=== PATIENT | female | born 1970 | race Caucasian/White ===

== ENCOUNTER 2017-09-13 01:40 | Emergency (ER) | payer MEDICAID, MEDICARE ==
[2017-09-13] MEDS ORDERED: Metoprolol Tartrate TAB* 50 mg PO ONE (02:55)
[2017-09-13] MEDS ORDERED: Lisinopril TAB* 10 MG PO ONE (02:56)
[2017-09-13 03:38] LABS: ABS Basophils 0 10^3/ul (0-0.2); ABS Eosinophils 0 10^3/ul (0-0.6); ABS Lymphocytes 0.6 10^3/ul (1.0-4.8); ABS Monocytes 0.6 10^3/ul (0-0.8); ABS Neutrophils 7.1 10^3/ul (1.5-7.7); ABS Nucleated RBC 0 10^3/ul; Eosinophil % 0.3 % (0-6); Hematocrit 46 % (35-47); Hemoglobin 15.1 g/dl (12.0-16.0); Lymphocyte % 7.2 % (25-47); Mean Corpuscular HGB Conc 33 g/dl (31-36); Mean Corpuscular Hemoglobin 29 pg (27-31); Mean Corpuscular Volume 86 fL (80-97); Mean Platelet Volume 10 um3 (7.4-10.4); Nucleated Red Blood Cells % 0.1; Platelet Count 163 10^3/ul (150-450); Red Cell Distribution Width 14 % (10.5-15); White Blood Count 8.3 10^3/ul (3.5-10.8)
[2017-09-13 03:53] LABS: EGFR Non-African American 68.9 (>60)
[2017-09-13 06:13] VITALS: BP 145/90
--- NOTE | 2017-09-13 09:24 | PN ---
Progress Note - Progress Note Date of Service: 09/12/17 Note: Patient was seen last night and placed on a new medication Lopressor. Pharmacy called who states script written for 100mg tabs, but sig states 50mg BID. I am unable to clarify, but stated at this time to fill the script at 50mg BID. Will clarify with Dr. Flores this evening and change at that time if needed.
--- NOTE | 2017-09-20 00:22 | ED ---
Fadia Aldridge Emily, scribed for Kevin Flores MD on 09/13/17 at 0257 . Palpitations / Dysrhythmia - HPI Summary HPI Summary: This patient is a 47 year old F presenting to [facility] with a chief complaint of palpitations that began at 1999 last night. The patient rates the pain 4/10 in severity. Symptoms aggravated by nothing. Symptoms alleviated by nothing. Patient reports [place], and left shoulder pain. Patient denies CP and SOB. Pt reports not having taken cardiac medications for her 6 cardiac stents. Pt reports having 3 previous AR. - History of Current Complaint Chief Complaint: EDDysrhythmPalp Hx Obtained From: Patient Onset/Duration: Sudden Onset, Lasting Hours, Still Present Severity Initially: Moderate Severity Currently: Moderate Character: Pounding Aggravating: Nothing Alleviating: Nothing - Allergy/Home Medications Allergies/Adverse Reactions: Allergies Allergy/AdvReac Type Severity Reaction Status Date / Time Meloxicam [From Mobic] Allergy Severe Anaphylatic Verified 09/13/17 01:49 Shock Ketorolac Tromethamine Allergy Intermediate Rash Verified 09/13/17 01:49 [From Toradol] Lorazepam [From Ativan] Allergy See Comment Verified 09/13/17 01:49 Penicillins [PCN] Allergy Anaphylatic Verified 09/13/17 01:49 Shock PMH/Surg Hx/FS Hx/Imm Hx Previously Healthy: No Endocrine/Hematology History: Denies: Hx Diabetes Cardiovascular History: Reports: Hx Angina, Hx Coronary Artery Disease, Hx Hypertension - ON MEDICATION Respiratory History: Denies: Other Respiratory Problems/Disorders GI History: Denies: Other GI Disorders History: Reports: Hx Kidney Infection - PRESENTLY ON CIPRO, Hx Kidney Stones , Hx Renal Disease - CALCULI, LT SIDE Denies: Hx Dialysis Musculoskeletal History: Reports: Hx Arthritis - PSORIATIC ARTHRITIS Sensory History: Denies: Hx Contacts or Glasses, Hx Hearing Aid Opthamlomology History: Denies: Hx Contacts or Glasses Neurological History: Reports: Hx Seizures Psychiatric History: Reports: Hx Anxiety - NO MEDS - Surgical History Surgery Procedure, Year, and Place: 10/05/2008 CARDIAC STENT , [place]. 2008 CARDIAC STENT, [place]. 04/2010 CARDIAC STENT, [place]. 2011 LEFT URETERAL STENT INSERTION, [facility] [place]. 2010 LEFT URETERAL STENT INSERTION, [facility] [place]. 1990 LAPAROSCOPIC TUBAL LIGATION, [facility]. 09/24/12, GIORGIO SEQUEIRA [facility] [place]. 1994 TONSILLECTOMY, [facility] [place] Hx Anesthesia Reactions: No - Immunization History Date of Tetanus Vaccine: Unk Date of Influenza Vaccine: None Infectious Disease History: No Infectious Disease History: Denies: Traveled Outside the [place] in Last 30 Days - Family History Known Family History: Negative: Other - negative malignant hyperthermia, negative adverse anesthesia reaction - Social History Occupation: Disabled Lives: With Family Alcohol Use: Rare Hx Substance Use: No Substance Use Type: Reports: None Hx Tobacco Use: Yes Smoking Status (MU): Current Every Day Smoker Review of Systems Positive: Palpitations. Negative: Chest Pain Negative: Shortness Of Breath Positive: Other - Positive L shoulder pain Positive: Headache All Other Systems Reviewed And Are Negative: Yes Physical Exam - Summary Physical Exam Summary: Appearance: Well-appearing, Well-nourished Skin: Warm, Dry, No rash Eyes: Normal, PERRL, EOMI, sclera anicteric ENT: Normal Neck: Supple, nontender Respiratory: Clear to auscultation Cardiovascular: S1, S2, no murmur, no rub, no gallop, tachycardia Abdomen: Soft, nontender, no organomegaly Bowel sounds: Present Musculoskeletal: Normal, Strength/ROM Intact, no edema, pulses symmetrical Neurological: Normal, A&Ox3, cranial nerves II-XII WNL, follows commands, gait not tested, sensation intact to pin and light touch Psychiatric: affect normal, behavior appropriate, dressed appropriately, judgment intact Triage Information Reviewed: Yes Vital Signs On Initial Exam: Initial Vitals Temp Pulse Resp BP Pulse Ox 99.1 F 121 16 212/126 95 09/13/17 01:40 09/13/17 01:40 09/13/17 01:40 09/13/17 01:40 09/13/17 01:40 Vital Signs Reviewed: Yes Diagnostics - Vital Signs Vital Signs Temp Pulse Resp BP Pulse Ox 09/13/17 01:40 99.1 F 121 16 212/126 95 - Laboratory Result Diagrams: 09/13/17 03:23 09/13/17 03:23 Lab Statement: Any lab studies that have been ordered have been reviewed, and results considered in the medical decision making process. - EKG 0152 Cardiac Rate: Tachycardia EKG Rhythm: Sinus Rhythm - 114 BPM EKG Interpretation: Old inferior wall AR Course/Dx - Course Assessment/Plan: This patient is a 47 year old F presenting to [facility] with a chief complaint of palpitations that began at 1999 last night. Physical Exam Findings. Tachycardia. An EKG taken at 0152 reveals sinus tachycardia at 114 with an old anterior wall AR. Bloodwork obtained. In the ED course the patient was given Prinivil and Lopressor. Patient will be discharged with follow up from PCP. The patient is agreeable with this plan. - Diagnoses Provider Diagnoses: Chronic hypertension Discharge - Discharge Plan Condition: Good Disposition: HOME Patient Education Materials: Chronic Hypertension (ED), DASH Eating Plan (ED), Low Sodium Diet (ED) Referrals: Kevin Curtis MD [Primary Care Provider] - The documentation as recorded by the Fadia allen Emily accurately reflects the service I personally performed and the decisions made by me, Kevin Flores MD.
== END 2017-09-13 06:22 | disposition home or self-care (01) ==
LOC: ED 01:40
DX: I10 Essential (primary) hypertension (principal); R07.9 Chest pain, unspecified; R00.2 Palpitations; F17.210 Nicotine dependence, cigarettes, uncomplicated; R51 Headache
CPT/HCPCS: 36415; 80053; 83880; 85025; 93005; 99284; A9270-GY

== ENCOUNTER 2017-11-05 18:27 | Emergency (ER) | payer MEDICARE ==
[2017-11-05 21:04] LABS: Urine Appearance Cloudy; Urine Blood 3+ (Negative); Urine Color Yellow; Urine Ketones 1+ (Negative); Urine Protein Negative (Negative); Urine Specific Gravity 1.021 (1.010-1.030); Urine Urobilinogen Negative (Negative)
[2017-11-05] MEDS ORDERED: Pantoprazole IV* 40 MG IV ONE (22:30)
[2017-11-05] MEDS ORDERED: Metoclopramide IV* 5 MG/ML 2 ML VIAL IV ONE (22:30)
[2017-11-05] MEDS ORDERED: Morphine INJ* 10 MG/ML 1 ML CARPUJECT IV ONE (22:30)
[2017-11-05] MEDS ORDERED: NS 0.9% 1000 ML* 1,000 ML IV ONE (22:33)
[2017-11-05 23:19] LABS: ABS Basophils 0 10^3/ul (0-0.2); ABS Eosinophils 0 10^3/ul (0-0.6); ABS Lymphocytes 1.6 10^3/ul (1.0-4.8); ABS Monocytes 0.5 10^3/ul (0-0.8); ABS Neutrophils 6.9 10^3/ul (1.5-7.7); ABS Nucleated RBC 0 10^3/ul; Eosinophil % 0.3 % (0-6); Hematocrit 48 % (35-47); Hemoglobin 15.7 g/dl (12.0-16.0); Lymphocyte % 17.8 % (25-47); Mean Corpuscular HGB Conc 33 g/dl (31-36); Mean Corpuscular Hemoglobin 28 pg (27-31); Mean Corpuscular Volume 85 fL (80-97); Mean Platelet Volume 10 um3 (7.4-10.4); Nucleated Red Blood Cells % 0.1; Platelet Count 209 10^3/ul (150-450); Red Blood Count 5.57 10^6/ul (4.0-5.4); Red Cell Distribution Width 15 % (10.5-15)
[2017-11-05 23:32] LABS: INR 0.9 (0.77-1.02)
[2017-11-05 23:35] LABS: EGFR Non-African American 60.1 (>60)
[2017-11-06 00:42] VITALS: BP 119/78
--- NOTE | 2017-11-06 01:02 | ED ---
Dusty Aldridge Abhishek, scribed for Fredi Romo MD on 11/05/17 at 2310 . Abdominal Pain/Female - HPI Summary HPI Summary: This patient is a 47 year old F presenting to [facility] with a chief complaint of abd pain since 179911/05/17. The patient rates the pain 8/10 in severity. Symptoms aggravated by nothing. Symptoms alleviated by nothing. The pain is described to be in the upper right quadrant abd radiating to the right lower abd. Pt states she filled the toilet with blood and heard a pop during the situation. Pertinent PMHx includes renal calculi. Patient reports urinary bleeding, vomiting and states she "might have a fever." - History of Current Complaint Chief Complaint: EDAbdPain Stated Complaint: ABD PAIN Time Seen by Provider: 11/05/17 22:12 Hx Obtained From: Patient Onset/Duration: Sudden Onset, Lasting Hours - 179911/05/17 Timing: Constant Pain Intensity: 8 Pain Scale Used: 0-10 Numeric Location: Discrete At: RUQ Radiates: Yes Radiates to: RLQ Character: Sharp Aggravating Factor(s): Nothing Alleviating Factor(s): Nothing Associated Signs and Symptoms: Positive: Urinary Symptoms - bleeding, Vomiting, Other: - Possible fever Allergies/Adverse Reactions: Allergies Allergy/AdvReac Type Severity Reaction Status Date / Time ketorolac [From Toradol] Allergy Rash Verified 11/05/17 22:47 lorazepam [From Ativan] Allergy See Comment Verified 11/05/17 22:47 meloxicam [From Mobic] Allergy Rash And Verified 11/05/17 22:47 Itching Penicillins Allergy Anaphylatic Verified 11/05/17 22:48 Shock PMH/Surg Hx/FS Hx/Imm Hx Endocrine/Hematology History: Denies: Hx Diabetes Cardiovascular History: Reports: Hx Angina, Hx Coronary Artery Disease, Hx Hypertension - ON MEDICATION Respiratory History: Denies: Other Respiratory Problems/Disorders GI History: Denies: Other GI Disorders History: Reports: Hx Kidney Infection - PRESENTLY ON CIPRO, Hx Kidney Stones , Hx Renal Disease - CALCULI, LT SIDE Denies: Hx Dialysis Musculoskeletal History: Reports: Hx Arthritis - PSORIATIC ARTHRITIS Sensory History: Denies: Hx Contacts or Glasses, Hx Hearing Aid Opthamlomology History: Denies: Hx Contacts or Glasses Neurological History: Reports: Hx Seizures Psychiatric History: Reports: Hx Anxiety - NO MEDS - Surgical History Surgery Procedure, Year, and Place: 10/05/2008 CARDIAC STENT X2, [place]. 2008 CARDIAC STENT, [place]. 04/2010 CARDIAC STENT, [place]. 2011 LEFT URETERAL STENT INSERT[place], [facility] [place]. 2010 LEFT URETERAL STENT INSERTION, [facility] [place] 1990 LAPAROSCOPIC TUBAL LIGATION, [facility]. 09/24/12, CYSTO, [place], [facility] [place]. [place] [facility] Hx Anesthesia Reactions: No - Immunization History Date of Tetanus Vaccine: Unk Date of Influenza Vaccine: None Infectious Disease History: No Infectious Disease History: Denies: Traveled Outside the [place] in Last 30 Days - Family History Known Family History: Negative: Other - negative malignant hyperthermia, negative adverse anesthesia reaction - Social History Occupation: Employed Full-time Alcohol Use: Rare Hx Substance Use: No Substance Use Type: Reports: None Hx Tobacco Use: Yes Smoking Status (MU): Current Every Day Smoker Review of Systems Positive: Fever - Subjective Eyes: Negative ENT: Negative Cardiovascular: Negative Respiratory: Negative Positive: Abdominal Pain - RUQ and radiates to RLQ, Vomiting, Diarrhea - " filled the toliet with blood" Genitourinary: Other - Urinary bleeding Musculoskeletal: Negative Skin: Negative Neurological: Negative Psychological: Normal All Other Systems Reviewed And Are Negative: Yes Physical Exam - Summary Physical Exam Summary: VITAL SIGNS: Reviewed. GENERAL: ~Patient is a well-developed and nourished (FEMALE) who is lying comfortable in the stretcher. Patient is not in any acute respiratory distress. HEAD AND FACE: No signs of trauma. No ecchymosis, hematomas or skull depressions. No sinus tenderness. EYES: PERRLA, EOMI x 2, No injected conjunctiva, no nystagmus. EARS: Hearing grossly intact. Ear canals and tympanic membranes are within normal limits. MOUTH: Oropharynx within normal limits. NECK: Supple, trachea is midline, no adenopathy, no JVD, no carotid bruit, no c- spine tenderness, neck with full ROM. CHEST: Symmetric, no tenderness at palpation LUNGS: Clear to auscultation bilaterally. No wheezing or crackles. CVS: Regular rate and rhythm, S1 and S2 present, no murmurs or gallops appreciated. ABDOMEN: RUQ tenderness EXTREMITIES: FROM in all major joints, no edema, no cyanosis or clubbing. NEURO: Alert and oriented x 3. No acute neurological deficits. Speech is normal and follows commands. SKIN: Dry and warm Triage Information Reviewed: Yes Vital Signs On Initial Exam: Initial Vitals Temp Pulse Resp BP Pulse Ox 98.5 F 99 20 175/102 99 11/05/17 18:30 11/05/17 18:30 11/05/17 18:30 11/05/17 18:30 11/05/17 18:30 Vital Signs Reviewed: Yes Diagnostics - Vital Signs Vital Signs Temp Pulse Resp BP Pulse Ox 11/05/17 22:46 16 11/05/17 20:10 97.7 F 93 20 155/97 98 11/05/17 18:30 98.5 F 99 20 175/102 99 - Laboratory Lab Results: Lab Results 11/05/17 Range/Units 20:40 Urine Color Yellow Urine Appearance Cloudy Urine pH 5.0 (5-9) Ur Specific [place] 1.021 (1.010-1.030) Urine Protein Negative (Negative) Urine Ketones 1+ A (Negative) Urine Blood 3+ A (Negative) Urine Nitrate Negative (Negative) Urine Bilirubin Negative (Negative) Urine Urobilinogen Negative (Negative) Ur Leukocyte Esterase Negative (Negative) Urine WBC (Auto) 1+(6-10/hpf) A (Absent) Urine RBC (Auto) 3+(>10/hpf) A (Absent) Ur Squamous Epith Cells Present A (Absent) Urine Bacteria Absent (Absent) Urine Glucose Negative (Negative) Result Diagrams: 11/05/17 22:50 11/05/17 22:50 Lab Statement: Any lab studies that have been ordered have been reviewed, and results considered in the medical decision making process. - Ultrasound No standard instances Ultrasound Interpretation Completed By: Radiologist - US reveals top normal size gallbladder. No cholelithiasis or acute cholecystitis. Un remarkable liver , spleen kidneys and visualized aorta and pancreas. Normal common duct diameter , 3 mm. Abdominal Pain Fem Course/Dx - Course Course Of Treatment: This patient is a 47 year old F presenting to [facility] with a chief complaint of abd pain since 1800 11/05/17. Pt states she filled the toilet with blood and heard a pop during the situation. Pertinent PMHx includes renal calculi. Patient reports urinary bleeding, vomiting and states she might have a fever. Pt also reports she is allergic to Toridol. Pt did not admit she is on subaxone and we had a disucussion in which she stated she is on subaxone after initial exam. Abd US was taken and pt will be discharged home with a dx of abd pain. - Diagnoses Provider Diagnoses: Abdominal pain Discharge - Discharge Plan Condition: Stable Disposition: HOME Patient Education Materials: Abdominal Pain (ED) Referrals: Kevin Curtis MD [Primary Care Provider] - (Follow up with PCP within 2 to 3 days.) Additional Instructions: RETURN TO EMERGENCY DEPARTMENT FOR ANY NEW OR WORSENING SYMPTOMS The documentation as recorded by the Dusty allen Abhishek accurately reflects the service I personally performed and the decisions made by , Fredi Romo MD.
--- NOTE | 2017-11-06 07:42 | RAD ---
INDICATION: Abdominal pain COMPARISON: CT chest/abdomen/pelvis August 30, 2016 TECHNIQUE: Longitudinal and transverse scans of the abdomen were obtained. Doppler interrogation of the hepatic and portal venous system was performed. FINDINGS: Liver: The liver is normal in size. There is hepatic steatosis. There are no focal masses. The liver measures 15.8 cm in cephalocaudal dimension. Vessels: There is normal hepatic and portal venous flow. Bile ducts: There is no evidence of intrahepatic or extrahepatic ductal dilatation. The common duct measures 0.3 cm. Gallbladder: The sonographic appearance of the gallbladder is normal. There is no evidence of cholelithiasis, thickening of the gallbladder wall, or pericholecystic fluid. Pancreas: The visualized portions of the pancreas are normal Spleen:The spleen is normal in size and echogenicity. The spleen measures 10.0 x 5.2 x 4.1 cm. Kidneys: The kidneys are normal in size and echogenicity. There are no masses or calculi. There is no evidence of hydronephrosis. The right kidney measures 10.5 x 4.4 x 4.8 cm and the left kidney measures 10.0 x 5.3 x 4.6 cm. IVC and aorta: The aorta and superior vena cava appear normal. Fluid: There is no ascites. Other: None. IMPRESSION: HEPATIC STEATOSIS, OTHERWISE NEGATIVE.
== END 2017-11-06 01:03 | disposition home or self-care (01) ==
LOC: ED 18:27
DX: R10.11 Right upper quadrant pain (principal); F17.210 Nicotine dependence, cigarettes, uncomplicated
CPT/HCPCS: 36415; 76700; 80053; 81003; 81015; 82150; 83690; 84702; 85025; 85610; 85730; 86140; 87086; 96374; 96375; 99283; J2270; J2765

== ENCOUNTER 2017-11-11 23:28 | Emergency (ER) | payer MEDICARE ==
[2017-11-12] MEDS ORDERED: Buprenorphine/Naloxone 8-2 MG SL TAB* 1 TAB PO ONE (00:19)
[2017-11-12 00:56] VITALS: BP 89/55
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
== END 2017-11-12 00:55 | disposition home or self-care (01) ==
LOC: ED 23:28
DX: F19.10 Other psychoactive substance abuse, uncomplicated (principal); F17.210 Nicotine dependence, cigarettes, uncomplicated; I25.10 Atherosclerotic heart disease of native coronary artery without angina pectoris; Z86.79 Personal history of other diseases of the circulatory system
CPT/HCPCS: 99282; A9270-GY

== ENCOUNTER 2017-11-25 23:47 | Emergency (ER) | payer MEDICARE ==
[2017-11-26] MEDS ORDERED: Labetalol IV* 5 MG/ML 20 ML VIAL IV PUSH ONE (02:50)
[2017-11-26] MEDS ORDERED: Gabapentin CAP(*) 300 MG PO ONE (02:59)
[2017-11-26] MEDS ORDERED: Gabapentin CAP(*) 400 MG PO ONE (03:30)
[2017-11-26] MEDS ORDERED: Gabapentin CAP(*) 100 MG PO ONE (03:30)
[2017-11-26 04:16] VITALS: BP 130/91
--- NOTE | 2017-11-28 15:05 | ED ---
Ferny Aldridge Angela, scribed for Isaias Grayson MD on 11/26/17 at 0306 . Allergic Reaction/Systemic - HPI Summary HPI Summary: This pt is a 47 y/o female presenting to [facility] c/o shaking and itchy sore throat. Pt reports she was prescribed Azithromycin for a sore throat and she took 1 pill. She states she took Azithromycin with her night medications. Pt additionally notes she has not taking Gabapentin for a couple of days as she left it in her son's car. Pt usually takes 1000 mg Gabapentin TID. She states her son will bring it back to her tomorrow. Denies any pain, SOB, chest pain, throat tightening, rash, tongue swelling. Pt reports feeling better than at onset today. PMHx includes HTN, 5 cardiac stents, seizures. Pt describes her seizures as full body seizures, not like today's shaking. - History of Current Complaint Chief Complaint: EDAllergicReaction Hx Obtained From: Patient Onset/Duration: Started hours ago, Still Present Timing: Lasting Hours Severity Currently: None Pain Intensity: 0 Pain Scale Used: 0-10 Numeric Aggravating Factor(s): Nothing Alleviating Factor(s): Nothing Associated Signs And Symptoms: Negative: Difficulty Breathing, Rash, Throat Tightening - Allergies/Home Medications Allergies/Adverse Reactions: Allergies Allergy/AdvReac Type Severity Reaction Status Date / Time ketorolac [From Toradol] Allergy Rash Verified 11/25/17 23:56 lorazepam [From Ativan] Allergy See Comment Verified 11/25/17 23:56 meloxicam [From Mobic] Allergy Rash And Verified 11/25/17 23:56 Itching Penicillins Allergy Anaphylatic Verified 11/25/17 23:56 Shock PMH/Surg Hx/FS Hx/Imm Hx Endocrine/Hematology History: Denies: Hx Diabetes Cardiovascular History: Reports: Hx Angina, Hx Coronary Artery Disease, Hx Hypertension - ON MEDICATION Respiratory History: Denies: Other Respiratory Problems/Disorders GI History: Denies: Other GI Disorders History: Reports: Hx Kidney Infection - PRESENTLY ON CIPRO, Hx Kidney Stones , Hx Renal Disease - CALCULI, LT SIDE Denies: Hx Dialysis Musculoskeletal History: Reports: Hx Arthritis - PSORIATIC ARTHRITIS Sensory History: Denies: Hx Contacts or Glasses, Hx Hearing Aid Opthamlomology History: Denies: Hx Contacts or Glasses Neurological History: Reports: Hx Seizures Psychiatric History: Reports: Hx Anxiety - NO MEDS - Surgical History Surgery Procedure, Year, and Place: 10/05/2008 [place]AC STENT [place]2, [place]. 2008 [place]. 04/2010 [place], [place]. 2011 LEFT URETERAL STENT INSERTION, [facility] [place]. 2010 LEFT URETERAL STENT INSERTION, [facility] [place]. 1990 LAPAROSCOPIC TUBAL LIGATION, [facility]. 09/24/12, CYSTO, STWENT, [facility] [place]. 1994 TONSILLECTOMY, [facility] [place] Hx Anesthesia Reactions: No - Immunization History Date of Tetanus Vaccine: Unk Date of Influenza Vaccine: None Infectious Disease History: No Infectious Disease History: Denies: Traveled Outside the [place] in Last 30 Days - Family History Known Family History: Negative: Other - negative malignant hyperthermia, negative adverse anesthesia reaction - Social History Alcohol Use: Rare Hx Substance Use: Yes Substance Use Type: Reports: Prescribed Hx Tobacco Use: Yes Smoking Status (MU): Current Every Day Smoker Review of Systems Negative: Fever, Chills Positive: Sore Throat. Negative: Other - throat tightening, tongue swelling Negative: Chest Pain Negative: Shortness Of Breath Musculoskeletal: Negative Neurological: Other - shaking All Other Systems Reviewed And Are Negative: Yes Physical Exam - Summary Physical Exam Summary: General: No acute distress Appearance: Well-appearing, Well-nourished Skin: Warm Eyes: Normal ENT: Normal Neck: Supple, nontender Respiratory: Clear to auscultation Cardiovascular: Normal S1, S2. No murmurs. Normal distal pulses in tibial and radial bilaterally. Abdomen: Soft, nontender Musculoskeletal: Normal, Strength/ROM Intact Neurological: Normal, A&Ox3 Psychiatric: Normal Triage Information Reviewed: Yes Vital Signs On Initial Exam: Initial Vitals Temp Pulse Resp BP Pulse Ox 98.3 F 125 22 158/95 97 11/25/17 23:52 11/25/17 23:52 11/25/17 23:52 11/25/17 23:52 11/25/17 23:52 Vital Signs Reviewed: Yes Diagnostics - Vital Signs Vital Signs Temp Pulse Resp BP Pulse Ox 11/26/17 02:30 105 158/134 94 11/26/17 02:00 104 168/124 95 11/26/17 01:30 104 162/113 93 11/26/17 01:00 101 145/82 94 11/26/17 00:30 111 158/107 95 11/26/17 00:16 114 96 03/27/18 00:14 146/116 11/25/17 23:52 98.3 F 125 22 158/95 97 - Laboratory Lab Statement: Any lab studies that have been ordered have been reviewed, and results considered in the medical decision making process. Allergic Reaction Course/Dx - Course Assessment/Plan: pt improved throughout ED course, symptoms improved, no evidence of facial swelling or airway compromise with clear lung exam. Vitals improved, instructed to avoid azithromycin and follow up with primary care physician. pt agrees to and understands dc instructions. - Diagnoses Provider Diagnoses: Allergic reaction caused by a drug Discharge - Sign-Out/Discharge Documenting (check all that apply): Discharge - discharge to home - Discharge Plan Condition: Improved Disposition: HOME Prescriptions: Gabapentin CAP(*) [Neurontin 400 mg CAP(*)] 800 mg PO BID #4 cap Patient Education Materials: Allergies (ED) Referrals: Kevin Curtis MD [Primary Care Provider] - Additional Instructions: PLEASE TAKE MEDICATIONS DIRECTED PLEASE RETURN IMMEDIATELY TO THE ER IF YOU HAVE ANY WORSENING OR CONCERNING SYMPTOMS PLEASE MAKE AN APPOINTMENT TO BE SEEN BY YOUR PRIMARY CARE DOCTOR WITHIN 1 WEEK - Billing Disposition and Condition Condition: IMPROVED Disposition: HOME The documentation as recorded by the Ferny allen Angela accurately reflects the service I personally performed and the decisions made by , Isaias Grayson MD.
== END 2017-11-26 04:14 | disposition home or self-care (01) ==
LOC: ED 23:47
DX: G25.1 Drug-induced tremor (principal); T36.3X5A Adverse effect of macrolides, initial encounter; Y92.9 Unspecified place or not applicable; J02.9 Acute pharyngitis, unspecified; I25.119 Atherosclerotic heart disease of native coronary artery with unspecified angina pectoris; I10 Essential (primary) hypertension; Z95.5 Presence of coronary angioplasty implant and graft; Z87.442 Personal history of urinary calculi; L40.50 Arthropathic psoriasis, unspecified; R56.9 Unspecified convulsions; F41.9 Anxiety disorder, unspecified; Z88.5 Allergy status to narcotic agent; Z88.0 Allergy status to penicillin; Z88.8 Allergy status to other drugs, medicaments and biological substances; F17.210 Nicotine dependence, cigarettes, uncomplicated
CPT/HCPCS: 96374; 99284; A9270-GY

== ENCOUNTER 2018-02-27 16:29 | Inpatient (IN) | payer MEDICARE ==
[2018-02-27] MEDS ORDERED: Aspirin 81 mg CHEW TAB* 81 MG TAB.CHEW ONE (16:40)
[2018-02-27] MEDS ORDERED: Nitroglycerin TAB 0.4 MG* 0.4 MG TAB ONE (16:40)
[2018-02-27] MEDS ORDERED: Heparin for STEMI(*) 5,000 UNITS/ML 1 ML VIAL IV ONE ×2 (16:40→16:44)
[2018-02-27] MEDS ORDERED: nitroGLYCERIN DRIP* 25,000 MCG/250 ML BTL ONE ×2 (16:41→16:48)
[2018-02-27] MEDS ORDERED: Ticagrelor* 90 MG TAB PO ONE ×3 (16:41→17:37)
[2018-02-27] MEDS ORDERED: fentaNYL* 50 MCG/ML 2 ML VIAL (100 MCG VIAL) ONE (16:47)
[2018-02-27] MEDS ORDERED: Heparin(*) 1000 UNIT/ML 10 ML VIAL CATH LAB IV ONE (16:47)
[2018-02-27] MEDS ORDERED: VERAPAMIL 2.5 MG/ML 2 ML VIAL ** 5 mg/2 ml ONE (16:47)
[2018-02-27] MEDS ORDERED: Midazolam* 1 MG/ML 10 ML VIAL (10 MG) ONE (16:48)
[2018-02-27] MEDS ORDERED: Lidocaine 1% INJ* 10 MG/ML 30 ML SDV ONE (16:48)
[2018-02-27] MEDS ORDERED: Heparin 2 UNITS/ML IVPREMIX* 2,000 ML IV ONE (16:48)
[2018-02-27 16:51] LABS: Hematocrit 50 % (35-47); Hemoglobin 16.7 g/dl (12.0-16.0); Mean Corpuscular HGB Conc 33 g/dl (31-36); Mean Corpuscular Hemoglobin 28 pg (27-31); Mean Corpuscular Volume 85 fL (80-97); Mean Platelet Volume 9.8 um3 (7.4-10.4); Platelet Count 217 10^3/ul (150-450); Red Blood Count 5.88 10^6/ul (4.00-5.40); Red Cell Distribution Width 16 % (10.5-15); White Blood Count 13.5 10^3/ul (3.5-10.8)
[2018-02-27] MEDS ORDERED: Iohexol 350 (CONTRAST) 200 ML MDV IV ONE (16:58)
[2018-02-27 16:59] LABS: INR 0.97 (0.77-1.02)
[2018-02-27 17:22] LABS: EGFR Non-African American 30.7 (>60)
[2018-02-27] MEDS ORDERED: Nitroglycerin TAB 0.4 MG* 0.4 MG TAB SL PRN ×2 (17:45→17:50)
[2018-02-27] MEDS ORDERED: NS 0.9% 1000 ML* 400 ML IV ONE (17:45)
[2018-02-27] MEDS ORDERED: Albuterol HFA INHALER* 8 gm MDI INH PRN (17:50)
--- NOTE | 2018-02-27 18:13 | ED ---
Ferny Aldridge Angela, scribed for Bob Parker MD on 02/27/18 at 1639 . 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 Pt reports she was cleaning her house and vacuuming earlier today and after she was done she went outside to rest when she developed chest pain. Pt notes she has left sided chest pain radiating to her left side of jaw and neck. She describes sharp and stabbing chest pain. Associated symptoms include dizziness. Denies nausea, vomiting, SOB. 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 Pt currently notes her chest pain has almost resolved. PMHx includes CO x3, s/p 5 stents (4 to LAD and 1 to diagonal). Pt had her stents placed in [place]. She takes aspirin, plavix, simvastatin, suboxone ( has been on it for 8 years now). - History of Current Complaint Hx Obtained From: Patient Onset/Duration: Started Hours Ago - 2.5, Resolved - almost resolved Timing: Constant, Lasting Hours - 2.5 hours Initial Severity: Severe Current Severity: Mild Pain Intensity: 1 Pain Scale Used: 0-10 Numeric Chest Pain Location: Left Anterior Chest Pain Radiates: Yes Chest Pain Radiates To:: Jaw, Neck Character: Sharp/Stabbing Aggravating Factor(s): Nothing Alleviating Factor(s): NTG 123, EMS Tx - aspirin and nitro Associated Signs and Symptoms: Positive: Chest Pain, Dizziness. Negative: Shortness of Breath, Fever, Nausea, Vomiting - Allergy/Home Medications Allergies/Adverse Reactions: Allergies Allergy/AdvReac Type Severity Reaction Status Date / Time ketorolac [From Toradol] Allergy Rash Verified 11/25/17 23:56 lorazepam [From Ativan] Allergy See Comment Verified 11/25/17 23:56 meloxicam [From Mobic] Allergy Rash And Verified 11/25/17 23:56 Itching Penicillins Allergy Anaphylatic Verified 11/25/17 23:56 Shock Home Medications: Home Medications Albuterol HFA INHALER* [Ventolin HFA Inhaler*] 2 puff INH Q4H PRN 02/27/18 [ History Confirmed 02/27/18] Atorvastatin* [Lipitor 80 MG*] 40 mg PO DAILY 02/27/18 [History Confirmed ] Buprenorphine HCl/Naloxone HCl [Suboxone] 1 mis SL BID 02/27/18 [History Confirmed 02/27/18] Lisinopril TAB* [Prinivil TAB*] 10 mg PO DAILY 02/27/18 [History Confirmed 02/27] Mirtazapine TAB* [Remeron TAB*] 90 mg PO BEDTIME 02/27/18 [History Confirmed ] Nitroglycerin TAB 0.4 MG* 0.4 mg SL Q5M PRN 02/27/18 [History Confirmed 02/27/18 ] Umeclidin 62.5 MDI(NF) [Incruse ELLIPTA MDI (NF)] 1 inh INH DAILY 02/27/18 [ History Confirmed 02/27/18] Varenicline 0.5 mg Tab(Nf) [Chantix 0.5 MG TAB(NF)] 0.5 mg PO DAILY 02/27/18 [ History Confirmed 02/27/18] PMH/Surg Hx/FS Hx/Imm Hx Endocrine/Hematology History: Denies: Hx Diabetes Cardiovascular History: Reports: Hx Angina, Hx Coronary Artery Disease, Hx Hypertension - ON MEDICATION, Hx Myocardial Infarction - x3 Respiratory History: Denies: Other Respiratory Problems/Disorders GI History: Denies: Other GI Disorders History: Reports: Hx Kidney Infection - PRESENTLY ON CIPRO, Hx Kidney Stones , Hx Renal Disease - CALCULI, LT SIDE Denies: Hx Dialysis Musculoskeletal History: Reports: Hx Arthritis - PSORIATIC ARTHRITIS Sensory History: Denies: Hx Contacts or Glasses, Hx Hearing Aid Opthamlomology History: Denies: Hx Contacts or Glasses Neurological History: Reports: Hx Seizures Psychiatric History: Reports: Hx Anxiety - NO MEDS - Surgical History Surgery Procedure, Year, and Place: 10/05/2008 [facility] [place] 2011 LEFT URETERAL STENT INSERTION, [facility] [place]. 2010 LEFT URETERAL STENT INSERTION, [facility] [place]. 1990 LAPAROSCOPIC TUBAL LIGATION, [facility]. 09/24/12, CYSTO, STMARTHA, [facility] [place]. 1994 TONSILLECTOMY, [facility] Anesthesia Reactions: No - Immunization History Date of Tetanus Vaccine: Unk Date of Influenza Vaccine: None - Family History Known Family History: Negative: Other - negative malignant hyperthermia, negative adverse anesthesia reaction - Social History Alcohol Use: Rare Hx Substance Use: Yes Substance Use Type: Reports: Prescribed Hx Tobacco Use: Yes Smoking Status (MU): Current Every Day Smoker Review of Systems Negative: Fever Positive: Chest Pain Negative: Shortness Of Breath Negative: Vomiting, Nausea Neurological: Other - POS: dizziness All Other Systems Reviewed And Are Negative: Yes Physical Exam - Summary Physical Exam Summary: Appearance: The patient is well-nourished in no acute distress and in no acute pain. Skin: The skin is warm and dry and skin color reflects adequate perfusion. HEENT: The head is normocephalic and atraumatic. The pupils are equal and reactive. The conjunctivae are clear and without drainage. Nares are patent and without drainage. Mouth reveals moist mucous membranes and the throat is without erythema and exudate. The external ears are intact. The ear canals are patent and without drainage. The tympanic membranes are intact. Neck: the neck is supple with full range of motion and non-tender. There are no carotid bruits. There is no neck vein distension. Respiratory: Chest is non-tender. Lungs are clear to auscultation and breath sounds are symmetrical and equal. Cardiovascular: Heart is regular rate and rhythm. There is no murmur or rub auscultated. There is no peripheral edema and pulses are symmetrical and equal. Abdomen: The abdomen is soft and non-tender. There are normal bowel sounds heard in all four quadrants and there is no organomegaly palpated. Musculoskeletal: There is no back tenderness noted. Extremities are non-tender with full range of motion. There is good capillary refill. There is no peripheral edema or calf tenderness elicited. Neurological: Patient is alert and oriented to person, place and time. Psychiatric: The patient has an appropriate affect and does not exhibit any anxiety or depression. Triage Information Reviewed: Yes Vital Signs On Initial Exam: Initial Vitals Temp Pulse Resp BP Pulse Ox 99.8 F 130 21 148/105 98 02/27/18 16:32 02/27/18 16:32 02/27/18 16:32 02/27/18 16:32 02/27/18 16:32 Vital Signs Reviewed: Yes Diagnostics - Vital Signs Vital Signs Temp Pulse Resp BP Pulse Ox 02/27/18 16:57 99.8 F 133 22 125/103 94 06/28/18 16:34 130 02/27/18 16:32 99.8 F 130 21 148/105 98 - Laboratory Lab Results: Lab Results 02/27/18 02/27/18 02/27/18 Range/Units 16:41 16:41 16:41 WBC 13.5 H (3.5-10.8) 10^3/ul RBC 5.88 H (4.00-5.40) 10^6/ul Hgb 16.7 H (12.0-16.0) g/dl Hct 50 H (35-47) % MCV 85 (80-97) fL MCH 28 (27-31) pg MCHC 33 (31-36) g/dl RDW 16 H (10.5-15) % Plt Count 217 (150-450) 10^3/ul MPV 9.8 (7.4-10.4) um3 INR (Anticoag Therapy) 0.97 (0.77-1.02) APTT 26.6 (26.0-36.3) seconds Sodium 138 (135-145) mmol/L Potassium 3.5 (3.5-5.0) mmol/L Chloride 103 (101-111) mmol/L Carbon Dioxide 22 (22-32) mmol/L Anion Gap 13 H (2-11) mmol/L BUN 14 (6-24) mg/dL Creatinine 1.77 H (0.51-0.95) mg/dL Est GFR ( Amer) 37.2 (>60) Est GFR (Non-Af Amer) 30.7 (>60) BUN/Creatinine Ratio 7.9 L (8-20) Glucose 175 H (70-100) mg/dL Calcium 9.9 (8.6-10.3) mg/dL Total Bilirubin 0.50 (0.2-1.0) mg/dL AST 13 (13-39) U/L ALT 10 (7-52) U/L Alkaline Phosphatase 74 (34-104) U/L Total Creatine Kinase 40 (10-223) U/L CK-MB (CK-2) 1.9 (0.6-6.3) ng/mL Myoglobin 68.4 H (14.3-65.8) ng/mL Troponin I 0.12 H* (<0.04) ng/mL B-Natriuretic Peptide ( - 100) pg/mL Total Protein 7.9 (6.4-8.9) g/dL Albumin 4.4 (3.2-5.2) g/dL Globulin 3.5 (2-4) g/dL Albumin/Globulin Ratio 1.3 (1-3) Triglycerides Pending Cholesterol Pending LDL Cholesterol Pending LDL Cholesterol Direct 72 mg/dL HDL Cholesterol Pending Blood Type Antibody Screen 02/27/18 02/27/18 Range/Units 16:41 16:41 WBC (3.5-10.8) 10^3/ul RBC (4.00-5.40) 10^6/ul Hgb (12.0-16.0) g/dl Hct (35-47) % MCV (80-97) fL MCH (27-31) pg MCHC (31-36) g/dl RDW (10.5-15) % Plt Count (150-450) 10^3/ul MPV (7.4-10.4) um3 INR (Anticoag Therapy) (0.77-1.02) APTT (26.0-36.3) seconds Sodium (135-145) mmol/L Potassium (3.5-5.0) mmol/L Chloride (101-111) mmol/L Carbon Dioxide (22-32) mmol/L Anion Gap (2-11) mmol/L BUN (6-24) mg/dL Creatinine (0.51-0.95) mg/dL Est GFR ( Amer) (>60) Est GFR (Non-Af Amer) (>60) BUN/Creatinine Ratio (8-20) Glucose (70-100) mg/dL Calcium (8.6-10.3) mg/dL Total Bilirubin (0.2-1.0) mg/dL AST (13-39) U/L ALT (7-52) U/L Alkaline Phosphatase (34-104) U/L Total Creatine Kinase (10-223) U/L CK-MB (CK-2) (0.6-6.3) ng/mL Myoglobin (14.3-65.8) ng/mL Troponin I (<0.04) ng/mL B-Natriuretic Peptide 16 ( - 100) pg/mL Total Protein (6.4-8.9) g/dL Albumin (3.2-5.2) g/dL Globulin (2-4) g/dL Albumin/Globulin Ratio (1-3) Triglycerides Cholesterol LDL Cholesterol LDL Cholesterol Direct mg/dL HDL Cholesterol Blood Type A Positive Antibody Screen Negative Result Diagrams: 02/27/18 16:41 02/27/18 16:41 Lab Statement: Any lab studies that have been ordered have been reviewed, and results considered in the medical decision making process. - EKG 16:27 Cardiac Rate: Tachycardia - at 129 bpm EKG Rhythm: Sinus Tachycardia EKG Interpretation: small ST elevation in lead III. Q wave complex in III, aVF. TWI in aVL. EKG Comparison: Other - Old anterior infarct. Changed from 09/13/17. Re-Evaluation - Re-Evaluation First Eval Re-Evaluation Time: 16:41 Comment: Dr. Soares, interventionalist, in to see the pt. Second Eval Re-Evaluation Time: 16:57 Comment: Pt taken to pathology laboratory director by Dr. Soares. Chest Pain Course/Dx - Course Course Of Treatment: Ms. Gonzalez presented with about 2 hours of severe chest pain relieved somewhat by nitroglycerin in the ambulance. The EKG brought in by the ambulance clearly shows an acute inferior CO with ST elevations in leads 3 and aVF. She was feeling a little bit improved on arrival and repeat EKG showed a very slight ST elevation in lead III and overall was very similar in appearance to September 13, 2017. Because of her risk factors and the ambulance EKG, a STEMI was called. Dr. michel came and saw the patient and transported her to the Cath Department. - Diagnoses Provider Diagnoses: STEMI (ST elevation myocardial infarction) During the Visit The Following Alert/Code Occurred: STEMI - at 16:39 - Critical Care Time Critical Care Time: 30-74 min Discharge - Sign-Out/Discharge Documenting (check all that apply): Discharge/Admit/Transfer - Admit - Discharge Plan Condition: Critical Disposition: ADMITTED TO [facility] - Billing Disposition and Condition Condition: CRITICAL Disposition: Admitted to [facility] The documentation as recorded by the Ferny allen Angela accurately reflects the service I personally performed and the decisions made by me, Bob Parker MD.
[2018-02-27] MEDS: Diltiazem CD CAP* 180 MG PO SCH (18:42)
[2018-02-27] MEDS ORDERED: amLODIPine TAB* 5 MG PO ONE (20:25)
[2018-02-27] MEDS ORDERED: Mirtazapine TAB* 15 MG PO SCH (21:00)
[2018-02-27] MEDS: Ticagrelor* 90 MG TAB PO SCH (21:14)
[2018-02-27] MEDS: Buprenorphine/Naloxone 8-2 MG SL TAB* 1 TAB SL SCH (21:14)
--- NOTE | 2018-02-27 21:26 | HP ---
CC: Dr. Curtis; Dr. Lawler; Dr. Michaels * HISTORY AND PHYSICAL: DATE OF ADMISSION: 02/27/18 PRIMARY CARE PHYSICIAN: Dr. Curtis. CHAIN SAW DRIVER: Lily Duke. PSYCHIATRIST: Dr. Michaels here in [employer]. HISTORY OF PRESENT ILLNESS: A 47-year-old woman with previous PR and stenting presenting with acute inferior wall ST-elevation infarct. She had previously 4 stents in her LAD and 1 in the diagonal. Per history, she had an anterior wall infarct, was helicoptered to [place]. She tells me she was defibrillated en route. She does not know her LV function. Her last cath was about a year ago, via the right radial approach and was very painful. Apparently, it was done for chest pain and revealed no significant abnormality. Her Plavix was stopped about a year ago. She has a history of prior drug use , but claims to have been drug free for a number of years. She uses Suboxone for chronic pain control. She specifically denies cocaine use. Today at around 2 p.m., she developed severe chest pain radiating into her jaw and her arms. She went to the primary care office in [place] where she reports they gave her oxygen. EKG was not obtained. Paramedics were called. When they arrived, a recorded strip from [address]-elevation injury current in III and AVF, we do not have precordial leads with it. She tells me she was given a sublingual nitroglycerin with dramatic improvement in her chest pain. Repeat 12-lead by EMS at 1553 hours, 2 minutes later shows marked improvement in the inferior ST elevation. Subsequently, she had very mild residual chest pain that was finally relieved in our ER after 2 additional sublingual nitroglycerin. EKG here at 1627 hours reveals a AK segment depression, sinus tach at [address] depression in I and aVL, and no significant ST elevation. She has poor R-wave progression in V1 through V4 consistent with a prior septal anterior infarct. She was taken to the chemical lab supervisor for emergent catheterization. By the time she left the ER, she was chest pain free, ST elevation had resolved as above. In hindsight, she has had a few episodes of chest pain lately, has been under an inordinate amount of stress. PAST MEDICAL HISTORY: History of seizure disorder, prior acute PR with unknown LV function, history of nephrolithiasis, hypertension, prior history of drug use. PRE-HOSPITAL MEDICATIONS: 1. Suboxone. 2. Aspirin 81 mg daily. 3. Zocor, unknown mg daily. 4. Gabapentin. 5. Remeron 90 mg daily, confirmed by the patient. 6. Chantix 0.5 mg daily. 7. Nitro 0.4 sublingual, was not available to her today. 8. Lisinopril 10 mg daily. 9. Umeclidinium inhaler. 10. Ventolin rescue inhaler. ALLERGIES: Include ATIVAN and TORADOL, MELOXICAM, and PENICILLINS. FAMILY HISTORY: Markedly positive for premature coronary artery disease. SOCIAL HISTORY: She is a smoker. REVIEW OF SYSTEMS: DENTAL PRACTITIONER: No history of TIA or CVA. GI: No history of peptic ulcer disease or bleeding. Circulatory: No history of claudication. Heme: No history of malignancy or bleeding diathesis, on dual-antiplatelet therapy. Remainder all negative. PHYSICAL EXAMINATION GENERAL: In the ER, she was chest pain free after final nitroglycerin. VITAL SIGNS: Her BP 148/105, pulse 130 sinus tach. HEENT: She has bilateral eyelid xanthelasma. Cranial nerves grossly intact. No jaundice, no cyanosis. NECK: JVP not elevated. Carotids palpable. No bruits. LUNGS: Her lungs were clear. CARDIAC: Tachycardic, no audible gallop or murmur. Beatrice not palpable. ABDOMEN: Soft, nontender. No bruits. EXTREMITIES: Radial, femoral, and pedal pulses all palpable. No cyanosis, clubbing or edema. SKIN: She was not diaphoretic. DIAGNOSTIC STUDIES/LAB DATA: Hemoglobin 16.7, hematocrit 50 with a normal platelet count. Her creatinine 1.77 with BUN 14, GFR 30.7; her prior creatinine was 0.99 on 11/05/17. Blood sugar random 175. First troponin 0.12. Myoglobin 68.4. BNP normal at 16. Her total cholesterol 176, LDL 96, direct 72, HDL 56, triglycerides 120. EKG as above. IMPRESSION AND PLAN: 1. Acute inferior wall ST-elevation infarct, aborted with sublingual nitroglycerin with resolution of ST elevation and improvement in chest pain in a patient with previous 4 stents in the left anterior descending and 1 in the diagonal in the setting of an extensive anterior wall infarct. She underwent emergent catheterization. She denies recent cocaine use. She still smokes and needs to stop. Her LDL is 72, on her Zocor. She will be switched to a high dose potent statin. We will assess infarct size with enzymes, she will have an echo tomorrow. I suspect she has anterior wall hypokinesis or akinesis from her prior infarct based on her EKG. She is not on a maximal heart failure regimen. 2. Renal insufficiency. She will receive volume. We will repeat her creatinine. 3. History of seizure disorder. 4. History of anxiety. 5. History of hypertension. 6. History of nephrolithiasis. [id number]/[facility] #: [id number] STEPAN
[2018-02-27] MEDS: CMCS:Varenicline (NF) 1 MG TAB PO SCH (21:28)
[2018-02-28 05:19] LABS: ABS Basophils 0 10^3/ul (0-0.2); ABS Eosinophils 0.1 10^3/ul (0-0.6); ABS Lymphocytes 1.7 10^3/ul (1.0-4.8); ABS Monocytes 0.9 10^3/ul (0-0.8); ABS Neutrophils 7.6 10^3/ul (1.5-7.7); ABS Nucleated RBC 0 10^3/ul; Eosinophil % 0.7 % (0-6); Hematocrit 46 % (35-47); Hemoglobin 15.2 g/dl (12.0-16.0); Lymphocyte % 16.7 % (25-47); Mean Corpuscular HGB Conc 33 g/dl (31-36); Mean Corpuscular Hemoglobin 29 pg (27-31); Mean Corpuscular Volume 86 fL (80-97); Mean Platelet Volume 9.7 um3 (7.4-10.4); Nucleated Red Blood Cells % 0; Platelet Count 161 10^3/ul (150-450); Red Blood Count 5.32 10^6/ul (4.00-5.40); Red Cell Distribution Width 16 % (10.5-15); White Blood Count 10.4 10^3/ul (3.5-10.8)
[2018-02-28 05:39] LABS: EGFR Non-African American 43.5 (>60)
[2018-02-28] MEDS: CMCS:Varenicline (NF) 1 MG TAB PO SCH ×2 (08:02→20:50)
[2018-02-28] MEDS: Ticagrelor* 90 MG TAB PO SCH ×2 (08:02→20:48)
[2018-02-28] MEDS: Diltiazem CD CAP* 180 MG PO SCH (08:02)
[2018-02-28] MEDS: Buprenorphine/Naloxone 8-2 MG SL TAB* 1 TAB SL SCH ×2 (08:02→20:47)
[2018-02-28] MEDS: Aspirin 81 mg CHEW TAB* 81 MG TAB.CHEW PO SCH (08:02)
[2018-02-28] MEDS: Umeclidin 62.5 MDI(NF) 1 INH MDI INH SCH (08:27)
[2018-02-28] MEDS ORDERED: Lisinopril TAB* 10 MG PO SCH (09:00)
[2018-02-28] MEDS ORDERED: VARENICLINE 0.5 MG TAB(NF) PO SCH (09:00)
--- NOTE | 2018-02-28 10:37 | ECHO ---
Patient: ROYAL GARCIA [facility] Rec#: [id number] : 1970 Date: 02/28/2018 Age: 47y Height: 149.86 cm / 59.0 in Weight: 70.31 kg / 155.0 lbs Sex: F BSA: 1.65 Room#: ICU-4 Admit Date#: 02/27/2018 Type: Inpatient Referring: Fransisca Soares MD Reading: Jeryz Issa MD Chicken Catcher: Thea Esqueda RDCS CC: Kevin Curtis MD Transthoracic Echocardiogram Indication: STEMI BP: 149/83 HR: 86 Rhythm: NSR Findings History: Previous VT with PCI, acute inferior wall STEMI 02/27/18, HTN, prior drug use. Technical Comments: The study quality is fair. The study is technically limited due to poor parasternal windows. Completed at 0830. Left Ventricle: The left ventricular chamber size is normal. Mild to moderate concentric left ventricular hypertrophy is observed. Global left ventricular wall motion and contractility are within normal limits. There is normal left ventricular systolic function. The estimated ejection fraction is 55-60%. Subtle relative hypokinesis of the mid to distal inferior wall in the apical views; overall preserved LV function. Abnormal left ventricular diastolic function is observed. Abnormal left ventricular diastolic filling is observed, consistent with impaired relaxation. Left Atrium: The left atrial chamber size is normal. Right Ventricle: Moderator Band present. The right ventricular cavity size is normal. The right ventricular global systolic function is normal. Right Atrium: The right atrial cavity size is normal. Aortic Valve: The aortic valve is trileaflet. The aortic valve leaflets are mildly thickened. There is moderate thickening of the non coronary cusp. There is trace to mild aortic regurgitation. There is no evidence of aortic stenosis. Mitral Valve: The mitral valve leaflets do not appear thickened. There is no evidence of mitral regurgitation. There is no evidence of mitral stenosis. Tricuspid Valve: The tricuspid valve leaflets are normal. There is trace tricuspid regurgitation. The right ventricular systolic pressure is estimated at 19 mmHg. No pulmonary hypertension is noted. There is no tricuspid stenosis. Pulmonic Valve: The pulmonic valve appears normal. There is a trace pulmonic regurgitation. There is no pulmonic stenosis. Pericardium: There is no significant pericardial effusion. Aorta: There is no dilatation of the ascending aorta. There is no dilatation of the aortic arch. The aortic root is normal in size. Pulmonary Artery: The main pulmonary artery appears normal. Venous: The inferior vena cava appears normal in size. There is a greater than 50% respiratory change in the inferior vena cava dimension. Conclusions The estimated ejection fraction is 55-60%. Subtle relative hypokinesis of the mid to distal inferior wall in the apical views; overall preserved LV function. There is an E to A reversal in the mitral valve flow pattern suggestive of diastolic dysfunction. The aortic valve leaflets are mildly thickened. There is trace to mild aortic regurgitation. There is trace tricuspid regurgitation. Similar to 2011 except that the inferior hypokinesis is newly reported. Measurements Name Value Normal Range RVIDd (AP) 2D 3.1 cm (0.9 - 2.6) RVDdMajor (2D) 3.5 cm (2.2 - 4.4) RAd ISD 4CH 4.9 cm (3.4 - 4.9) RA (A4C)W 4.2 cm (2.9 - 4.6) IVSd (2D) 1.2 cm (0.6 - 1) LVPWd (2D) 1.3 cm (0.6 - 1) LVIDd (2D) 3.8 cm (3.6 - 5.4) LVIDs (2D) 2.7 cm - LV FS (2D) 28 % (25 - 45) Aortic Annulus 1.9 cm (1.4 - 2.6) Ao root diameter (2D) 2.9 cm (2.1 - 3.5) Ascending Ao 3.2 cm (2.1 - 3.4) Aortic arch 2 cm (1.8 - 3.4) LA dimension (AP) 2D 3.6 cm (2.3 - 3.8) LAd ISD 4CH 4.9 cm (2.9 - 5.3) LA ISD 4CH W 3.8 cm (2.5 - 4.5) Name Value Normal Range LA ESV SP 4CH (A/L) 36 ml - LA ESV SP 2CH (A/L) 48 ml - LA ESV BP (A/L) 42 ml - LA ESV BP (A/L) index 26 ml/m2 - LA ESV SP 4CH (MOD) 35 ml - LA ESV SP 2CH (MOD) 45 ml - Name Value Normal Range MV E-wave Vmax 0.63 m/sec - MV deceleration time 328.1 msec - MV A-wave Vmax 0.82 m/sec - MV E:A ratio 0.76 ratio - LV septal e' Vmax 0.05 m/sec - LV lateral e' Vmax 0.08 m/sec - LV E:e' septal ratio 12.6 ratio - LV E:e' lateral ratio 7.88 ratio - Name Value Normal Range AV Vmax 1.74 m/sec - AV VTI 34.19 cm - AV peak gradient 12.19 mmHg - AV mean gradient 7.66 mmHg - LVOT Vmax 1.12 m/sec - LVOT VTI 17.93 cm - LVOT peak gradient 5.06 mmHg - LVOT mean gradient 3.17 mmHg - DEMARCUS Vmax 1 m/sec - Name Value Normal Range TR Vmax 2 m/sec - TR peak gradient 16 mmHg - RAP 3 mmHg - RVSP 19 mmHg - IVC diameter 2.04 cm - Name Value Normal Range PV Vmax 1.06 m/sec - PV peak gradient 4.52 mmHg -
[2018-02-28] MEDS: Omeprazole CAP* 20 MG PO SCH (16:20)
[2018-02-28] MEDS ORDERED: Atorvastatin* 80 MG TAB PO SCH (17:00)
[2018-02-28] MEDS ORDERED: amLODIPine TAB* 5 MG PO ONE (20:00)
[2018-02-28] MEDS: Gabapentin CAP(*) 300 MG PO SCH (20:47)
[2018-02-28] MEDS ORDERED: Mirtazapine TAB* 15 MG PO SCH ×2 (21:00)
[2018-03-01 05:46] LABS: EGFR Non-African American 72.7 (>60)
[2018-03-01] MEDS: Umeclidin 62.5 MDI(NF) 1 INH MDI INH SCH (07:05)
[2018-03-01] MEDS: Gabapentin CAP(*) 300 MG PO SCH (07:48)
[2018-03-01] MEDS: Ticagrelor* 90 MG TAB PO SCH (07:49)
[2018-03-01] MEDS: Buprenorphine/Naloxone 8-2 MG SL TAB* 1 TAB SL SCH (07:49)
[2018-03-01] MEDS: Aspirin 81 mg CHEW TAB* 81 MG TAB.CHEW PO SCH (07:49)
[2018-03-01] MEDS: Omeprazole CAP* 20 MG PO SCH (07:49)
[2018-03-01] MEDS: CMCS:Varenicline (NF) 1 MG TAB PO SCH (07:51)
[2018-03-01] MEDS ORDERED: Diltiazem CD CAP* 240 MG PO SCH (09:00)
[2018-03-01 12:48] VITALS: BP 149/86
--- NOTE | 2018-03-01 13:05 | LTR ---
LETTER: RE: Stephy Gonzalez To, Dr. Michaels [place] Dear Dr. Michaels: You should receive a copy of the discharge summary on Ms. Gonzalez under a separate cover. As you kno w, she is on high doses of gabapentin as well as Remeron. Because of presumed coronary artery spasm, she is being discharged on Cardizem CD 240 mg daily. Please review your medical records to ascertain whether her Remeron and/or gabapentin doses need to be modified because of this new medication. I have asked her to make a followup appointment with you in the very near future. Please do not hesitate to let me know if I can provide any additional information. [id number]/[facility] #: [id number]
--- NOTE | 2018-03-01 13:21 | DS ---
CC: Dr. Curtis; Dr. Lawler in [place]; Fransisca Soares MD; Dr. Michaels. DISCHARGE SUMMARY: DATE OF ADMISSION: 02/27/18 DATE OF DISCHARGE: 03/01/18. PRIMARY CARE PHYSICIAN: Dr. Curtis. CRM MARKETING ANALYST: Dr. Lawler in [place]. PSYCHIATRIST: Dr. Michaels. DISCHARGE DIAGNOSES: 1. Acute inferior wall ST elevation infarct. 2. Coronary artery spasm. 3. Hypertension. 4. History of nephrolithiasis. 5. Renal insufficiency. 6. Anxiety disorder. 7. Seizure disorder. 8. Chronic pain syndrome. 9. Prior myocardial infarction with coronary stenting. CONDITION ON DISCHARGE: Stable. FOLLOWUP: With Dr. Lawler in [place] in 2 to 3 weeks. With ia, next week for wound check. With Dr. Darius pierre and Dr. Michaels, to be arranged. DISCHARGE MEDICATIONS: Unchanged. 1. Albuterol 2 puffs q.4 p.r.n. 2. Remeron 90 mg h.s. 3. Chantix as before. 4. Incruse Ellipta MDI as before. 5. Suboxone 12-3 SL b.i.d. as before. 6. Gabapentin 800 mg q.i.d. as before. New Medications: 1. Aspirin 81 mg daily. 2. Lipitor increased to 80 mg daily. 3. Cardizem CD 240 mg daily. 4. Brilinta 90 b.i.d. 5. Nitroglycerin 0.4 sublingual p.r.n. angina. WOUND CARE: Shower only for 3 days. No strenuous activity for 3 days. HISTORY: See H and P. LABORATORY STUDIES: Her troponin peaked at 4.31, cholesterol 167, triglycerides 119, LDL 90, HDL 53. 6 on her Lipitor 40, subsequently increased to 80 mg daily. Her beta-hCG was negative. Admission cre atinine gradually improved from 1.77 to 1.31, to today 0.84 after lisinopril was held. She was advis ed to have a BMP in case lisinopril is ever restarted to ensure that that was not the cause of her re nal insufficiency. Her electrocardiogram after presentation remained unchanged with QS in V1, V2, consistent with a prio r septal infarct with minor nonspecific ST changes. HOSPITAL COURSE: She presented with several hours of typical ischemic pain, first EKG rhythm strip o btained by EMS documented significant injury current in the inferior leads, which resolved within a f ew minutes with sublingual nitroglycerin with improvement in her chest pain. Mild residual chest krishan n subsequently resolved after additional nitroglycerin. She underwent emergent catheterization via t he femoral approach per her request as she had a lot of pain when she had a radial access cath a year ago. It demonstrated the patency of the LAD diagonal stents with possibly a laminar small thrombus or intimal hyperplasia in the proximal LAD stent with RILEY-3 flow, and no stenosis of the RCA. She w as presumed to have had coronary artery spasm in the setting of severe personal stress. She had a dove bsequent very small infarct by troponins. Echocardiogram showed normal LVEF of 55% to 60% with subtl e hypokinesis of the mid to distal inferior wall and normal anterior wall motion in spite of her hist ory of an extensive anterior wall prior infarct. Because of her renal insufficiency, which is new, A CE inhibitor was held. She was started on Cardizem for her coronary artery spasm. She had no complic ations at the groin site, had no further chest pain, had no arrhythmias and no heart failure symptoms . She has ambulated without difficulty. Her Lipitor was increased to 80 mg daily. Her other medica tions were transiently adjusted because of her decreased GFR, which now has returned to baseline and she is back on her baseline medical doses as prescribed by Dr. Michaels. She was advised to have a BMP in followup if lisinopril is restarted. Currently, her blood pressure is controlled with Cardi zem CD 240. She will follow up with me next week for groin check, continue cardiac followup with Dr. Lawler. She will follow up with Dr. Curtis including followup of her renal function. [id number]/[facility] #: [id number]
--- NOTE | 2018-03-03 21:04 | CATH ---
CC: Dr. Curtis; Dr. Lawler; Dr. Michaels * CATH REPORT: DATE OF CATH: 02/27/18 - ROOM #[id number] PRIMARY: Dr. Curtis. TRANSIT POLICE OFFICER: Dr. Lawler in [place]. PSYCHIATRIST: Dr. Michaels in [place]. PROCEDURES: Right common femoral artery access, bilateral selective coronary cineangiography, left heart catheterization. LV gram not done because of elevated creatinine. HISTORY: A 47-year-old woman with prior anterior wall infarct with 4 LAD stents and a diagonal stent per history presenting with acute inferior wall ST- elevation infarct documented on EMS strip showing ST elevation in III and aVF. Repeat a few minutes later after 1 sublingual nitroglycerin, per the patient, showed resolution of the ST elevation with improvement in chest pain. Subsequent chest discomfort persisted, although much milder, was finally relieved after 2 additional sublingual nitroglycerin in our ER. By the time she had coronary angiography, she was pain- free, ST elevation had resolved. PROCEDURE ACCESS: Right common femoral artery per the patient's request that she had a lot of pain in her right arm during radial access cath 1 year ago, which according to the patient showed no abnormality, was done for chest pain. DIAGNOSTIC CATHETERS: 6FR4, 6FL4. LV gram was not done as creatinine was high. Left heart pressures were recorded with the diagnostic catheter. MEDICATIONS: 1. Subcu lidocaine, IV Versed. 2. Brilinta 180 mg p.o. HEMODYNAMICS: Initial BP 140/88, LV 161/9-8, no aortic valve gradient on pullback. ANGIOGRAPHY: Right femoral artery. Sheath entry is in segment 2, there is no stenosis. Bifurcation is distal. Left main. The left main is normal in size, has no stenosis. LAD. The LAD is moderate in size, has previously placed stents, there is mild laminar lucency within the proximal stent either due to some laminar nonobstructive thrombus or intimal hyperplasia. The LAD has RILEY-3 flow, the LAD supplies a moderate diagonal which has 30% or less stenosis proximally. The LAD continuation has previously placed stents with mild intimal hyperplasia. The LAD extends past the apex, the LAD has no significant stenosis. Circumflex. The circumflex is large, not dominant, with a small ramus branch, a moderate marginal followed by large posterolateral, the circumflex has mild luminal irregularity, but no significant stenosis. RCA. The RCA is moderate, dominant, has mild irregularity, but no significant stenosis, supplies a small PDA. It has no significant stenosis. CONCLUSION: 1. No significant obstructive coronary disease, patent LAD and diagonal stents. Presumed coronary spasm based on injury, current inferior leads with prompt resolution with sublingual nitroglycerin with subsequent normal right coronary artery angiography without culprit lesion, or angiographic evidence of ruptured plaque. 2. Angio-Seal, right common femoral artery, successful. 3. Normal left-sided hemodynamics. [id number]/[facility] #: [id number] [facility]
== END 2018-03-01 13:00 | disposition home or self-care (01) | DRG 282 ==
LOC: ED 16:29 → CHICATH 16:45 → ICU 17:53 → MEDTELE 02-28 22:00
PROVIDERS: ADMIT Internal Medicine Cardiovascular Disease; ATTEND Internal Medicine Cardiovascular Disease
PROC: 4A023N7 Measurement of Cardiac Sampling and Pressure, Left Heart, Percutaneous Approach (ICD-10-PCS; 2018-02-27)
PROC: B2111ZZ Fluoroscopy of Multiple Coronary Arteries using Low Osmolar Contrast (ICD-10-PCS; principal; 2018-02-27 15:00)
DX: I21.19 ST elevation (STEMI) myocardial infarction involving other coronary artery of inferior wall (principal); I25.111 Atherosclerotic heart disease of native coronary artery with angina pectoris with documented spasm; I10 Essential (primary) hypertension; F41.9 Anxiety disorder, unspecified; L40.50 Arthropathic psoriasis, unspecified; G40.909 Epilepsy, unspecified, not intractable, without status epilepticus; G89.4 Chronic pain syndrome; N28.9 Disorder of kidney and ureter, unspecified; Z79.82 Long term (current) use of aspirin; Z79.02 Long term (current) use of antithrombotics/antiplatelets; Z88.6 Allergy status to analgesic agent; Z88.0 Allergy status to penicillin; Z88.8 Allergy status to other drugs, medicaments and biological substances; I25.2 Old myocardial infarction; Z87.442 Personal history of urinary calculi; Z95.5 Presence of coronary angioplasty implant and graft
CPT/HCPCS: 36415; 80048; 80053; 80061; 80307; 80364; 82550; 82553; 83036; 83605; 83721; 83874; 83880; 84484; 84702; 85025; 85027; 85610; 85730; 86850; 86900; 86901; 87641; 93005; 93306; 99156; 99157; 99285; A9270-GY; C1760; C1887; G0480; J1644; J2250; J3010

== ENCOUNTER 2018-03-15 03:19 | Observation (INO) | payer MEDICARE ==
--- OUTSIDE RECORDS SUMMARY | 2018-03-15 03:31 | XMS REPORT ---
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 Unavailable Kevin Curtis MD Primary Care Physician Unavailable Payers Type Date Identification Numbers Payment Provider Subscriber Commercial Expires: Policy Number: BS Facets Stephy Gonzalez 2014 [id number] PayID: [id number] [address] [place] [address] Medigap Part B Effective: 2015 Policy Number: [id number] Medicare Stephy Gonzalez PayID: [id number] [address] [place] [address] Medigap Part B Effective: 2014 Policy Number: BS Facets Reese Gonzalez [id number] PayID: [id number] [address] [place] [address] Problems Description No Information Family History Date Family Member(s) Problem(s) Comments General heart, cancer : (age 56 Father due to HI Years) Father A-Fibrillation : (age 69 Mother due to Cardiac Had cabg at approx 50 Years) causes yrs old Mother DM ,Cancer breast First Son age21 yrs alive and well Second Son Age 19 yrs alive and well First Brother hypertension Second Brother Hypertension , Etoh abuse First Sister hypertension Paternal Grandfather due to HI () - age 60 yrs Paternal Grandmother due to () A-Fibrillation Maternal Grandfather due to Heart () - age Disease 50 yrs Maternal Grandmother due to Heart () Disease Maternal Grandmother due to CHF () Social History Type Date Description Comments Marital Status Lives With Spouse Occupation presently not working Cigarette Use Former Cigarette Smoker Cigarette Use Former Cigarette Smoker Quit 2 1/2 months ago used to smoke 1/2 pk daily x 20 yrs ETOH Use Denies alcohol use Smoking Light tobacco smoker (10 or fewer cigarettes/day) Daily Caffeine Consumes on average 2 cups of regular coffee per day Daily Caffeine Consumes on average 1 soda per day Enjoy Exercising Enjoys exercising walks 15 min, per night Exercise Type/Frequency Exercises regularly Allergies, Adverse Reactions, Alerts Date Description Reaction Status Severity Comments 01/03/2015 Penicillin active 01/03/2015 Celebrex active 01/03/2015 Ativan active 01/03/2015 Toradol active 01/24/2010 NKDA inactive Medications Medication Date Status Form Strength Qnty SIG Indications Ordering Provider Ultracet 01/03/ Active Tablets 37.5-325mg 30tabs 1 - 2 by 812.09 2014 joann Russo M.D. q4-6hr as needed pain Lisinopril 12/20/ Active Tablets 40mg 30tabs 1 po qd Qutaybeh S. 2010 Sebastian Haddad Simvastatin 04/24/ Active Tablets 80mg 30tabs 1 po qhs Qutaybeh S. 2009 Sebastian Haddad Metoprolol 01/24/ Active Tablets ER 50mg 90tabs 1 and Qutaybeh S. Succinate 2009 24HR 1/2 po Boo, alfredo Cortes Imdur 01/24/ Active Tablets ER 60mg 30tabs one qpm Qutaybeh S. 2009 24HR Sebastian Haddad Plavix / Active Tablets 75mg 30tabs 1 po qd Qutaybeh S. 0000 Sebastian Haddad Aspirin / Active 325mg 1 po qd Unknown 0000 Nitroquick / Active Tablets 0.4mg 25tabs 1 s/l Qutaybeh S. 0000 Sub prn brittany Haddad M.D. pain, q 5 min. up to 3 tabs Lisinopril 07/07/ Hx Tablets 20mg 2 po qd Qutaybeh S. 2009 - Boo 12/20/ Sebastian 2011 Lisinopril 04/20/ Hx Tablets 20mg 1 and Qutaybeh S. 2009 - 09/03 po Maghaydah, 07/07/ qd M.D. 2009 Folate 04/20/ Hx 1mg one po Qutaybeh S. 2009 - qd Maghaydah, M.D. 2010 Lisinopril 01/24/ Hx Tablets 10mg 30tabs 1 po qd Qutaybeh S. 2009 - Maghaydah, M.D. 2009 Metoprolol / Hx Tablets ER 75mg 1 po bid Unknown Succinate 0000 - 24HR 2009 Simvastatin / Hx Tablets 40mg 30tabs 1 po qhs Qutaybeh S. 0000 - Maghaydah, M.D. 2009 Phenytoin / Hx Capsules 300mg 1 po qhs Unknown Sodium Extended 0000 - 2009 Isosorbide LA / Hx Tablets 30mg 90tabs 1 po qd Unknown 0000 - 2009 Lisinopril / Hx Tablets 5mg 100tab 1 po qd Unknown 0000 - s 2009 Lamictal 00/ Hx Tablets 100mg po bid Unknown 0000 - 2009 Lamictal 00/ Hx Tablets 100mg one and Unknown 0000 - one half 09/20/ po Am 2010 two po hs Methotrexate / Hx Tablets 2.5mg 4 tabs Unknown 0000 - 1x per week 2010 Suboxone / Hx Tablets 8mg 90tabs one Am 2 Unknown 0000 - Sub PM 2009 Zofran / Hx Tablets 4mg 20tabs 1 q 6 Unknown 0000 - hours 12/20/ prn 2010 nausea Vital Signs Date Vital Result Comment 01/03/2015 Height 60 inches 5'0" Weight 148.00 lb Heart Rate 105 /min BP Systolic 158 mmHg BP Diastolic 99 mmHg Body Temperature 98.6 F Pain Level 7 BMI (Body Mass Index) 28.9 kg/m2 12/20/2010 Weight 147.00 lb Heart Rate 81 /min BP Systolic Sitting 148 mmHg BP Diastolic Sitting 100 mmHg 09/20/2010 Weight 138.00 lb Heart Rate 103 /min BP Systolic Sitting 116 mmHg BP Diastolic Sitting 80 mmHg 07/07/2010 Weight 140.75 lb Heart Rate 78 /min BP Systolic Sitting 134 mmHg BP Diastolic Sitting 78 mmHg 05/01/2010 Height 61 inches 5'1" Heart Rate 64 /min BP Systolic Sitting 156 mmHg BP Diastolic Sitting 88 mmHg 04/20/2010 Height 61 inches 5'1" Weight 185.00 lb Heart Rate 87 /min BP Systolic Sitting 204 mmHg L BP Diastolic Sitting 110 mmHg L BMI (Body Mass Index) 35.0 kg/m2 01/24/2010 Height 61 inches 5'1" Weight 141.00 lb Heart Rate 72 /min BP Systolic 170 mmHg BP Diastolic 110 mmHg BP Systolic Sitting 170 mmHg BP Diastolic Sitting 110 mmHg BP Systolic Standing 171 mmHg BP Diastolic Standing 110 mmHg Respiratory Rate 16 /min BMI (Body Mass Index) 26.6 kg/m2 Results Test Date Test Result H/L Range Note CBC With Electronic Diff 04/21/2010 White Blood Count 9.7 CUMM 4.8-10.8 1 Red Cell Count 4.93 CUMM 4.2-5.4 1 Hemoglobin 14.6 g/dL 12.0-16.0 1 Hematocrit 43 % 35-47 1 Mean Corpuscular Volume 88 um3 79-97 1 Mean Corpuscular Hemoglob 30 pg 27-31 1 Mean Corpuscular HGB Cone 34 g/dL 32-36 1 Redcell Distribution WDTH 15 % 10.5-15 1 Platelet Count 216 CUMM 150-450 1 Mean Platelet Volume 8.8 um3 7.4-10.4 1 Gran % 73.6 % 38-83 1 Lymph % 20.5 % Low 25-47 1 Mononuclear % 4.8 % 1-9 1 Eosinophil % 0.8 % 0-6 1 Basophil % 0.3 % 0-2 1 Abs Lymphs 2.0 1.0-4.8 1 Abs Mononuclear 0.5 0-0.8 1 Absolute Neutrophil Count 7.1 1.5-7.7 1 Abs Eosinophils 0.1 0-0.6 1 Abs Basophils 0 0-0.2 1 Lipid Profile (Trig/Chol/HDL) 04/21/2010 Triglyceride 190 mg/dL 40-200 1 Cholesterol 151 mg/dL Less Than 200 1, 2 High Density Lipoprotein 36 mg/dL Low 40-60 1, 3 Cholesterol/HDL Ratio 4.19 AVERAGE 1-4.44 1 Low Density Lipoprotein 77 mg/dL Less Than 100 1, 4 Laboratory test finding 04/21/2010 CPK (Creatine Kinase) 74 U/L 0-170 1 Liver Function Panel 04/21/2010 Total Protein 7.0 GM/DL 6.2-8.1 1 Albumin 4.3 GM/DL 3.6-5.4 1 Globulin 2.7 GM/DL 2-4 1 Albumin/Globulin Ratio 1.6 1-3 1 Bilirubin Total 0.7 mg/dL 0.4-1.5 1, 5 Bilirubin Direct 0.1 mg/dL 0.1-0.5 1 Indirect Bilirubin 0.6 mg/dL 0.3-1.0 1, 6 Alkaline Phosphatase 64 U/L 30-110 1 Alt (SGPT) 12 U/L Low 14-54 1 Ast (Sgot) 18 U/L 12-42 1 Protime 04/21/2010 Inr 0.96 Low 0.97-1.03 1, 7 Protime 11.3 SEC Low 11.5-12.2 1, 8 Basic Metabolic Panel 04/21/2010 Sodium 140 mmol/L 135-145 1 Potassium 3.7 mmol/L 3.5-5.0 1 Chloride 109 mmol/L 101-111 1 Co2 (Carbon Dioxide) 26.0 mmol/L 22-32 1 Anion Gap 5.0 mmol/L 2-11 1, 9 Glucose 102 mg/dL High 70-100 1, 10 BUN 12 mg/dL 6-24 1 Creatinine 0.90 mg/dL 0.50-1.40 1 One Over Creatinine 1.10 1 BUN/Creatinine Ratio 13.3 8-20 1 Calcium 9.8 mg/dL 8.1-9.9 1, 11 eGFR Non- 74.1 > 60 1 eGFR 89.6 > 60 1, 12 Cath Panel 04/21/2010 PTT (Aptt) 29.3 25.15-38.53 , 13 Urinalysis W/Microscopic 11/12/2009 Ua Color YELLOW Yellow Appearance-Urine CLEAR Clear Specific [place]-Ur 1.010 1.010-1.030 Esterase-Urine NEGATIVE Negative Nitrite NEGATIVE Negative Eudogspafsgy-Dp-ENO NEGATIVE Negative Protein-Urine NEGATIVE Negative PH-Urine 6.5 5-9 Blood-Urine TRACE Negative Ketones-Urine NEGATIVE Negative Bilirubin-Ur NEGATIVE Negative Glucose-Urine NEGATIVE Negative RBC-Urine 0-2 0-2 Epith Cells-Ur FEW None CBC With Electronic Diff Stat 11/12/2009 White Blood Count 8.4 CUMM 4.8- 10.8 Red Cell Count 5.55 CUMM High 4.2-5.4 Hemoglobin 15.5 g/dL 12.0-16.0 Hematocrit 47 % 35-47 Mean Corpuscular Volume 85 um3 79-97 Mean Corpuscular Hemoglob 28 pg 27-31 Mean Corpuscular HGB Cone 33 g/dL 32-36 Redcell Distribution WDTH 15 % 10.5-15 Platelet Count 246 CUMM 150-450 Mean Platelet Volume 8.9 um3 7.4-10.4 Gran % 77.9 % 38-83 Lymph % 15.9 % Low 25-47 Mononuclear % 5.4 % 1-9 Eosinophil % 0.6 % 0-6 Basophil % 0.2 % 0-2 Abs Lymphs 1.3 1.0-4.8 Abs Mononuclear 0.5 0-0.8 Absolute Neutrophil Count 6.6 1.5-7.7 Abs Eosinophils 0.1 0-0.6 Abs Basophils 0 0-0.2 14 Phenytoin (Dilantin) 11/12/2009 Phenytoin (Dilantin) < 0.1 g/mL Low 10- 20 15 Stat Laboratory test finding 11/12/2009 Valproic Acid < 0.1 g/mL Low 50-100 16 (Depakene) CMP Panel Stat 11/12/2009 Sodium 137 mmol/L 135-145 Potassium 4.0 mmol/L 3.5-5.0 Chloride 106 mmol/L 101-111 Co2 (Carbon Dioxide) 25.0 mmol/L 22-32 Anion Gap 6.0 mmol/L 2-11 17 Glucose 95 mg/dL 70-100 18 BUN 12 mg/dL 6-24 Creatinine 0.80 mg/dL 0.50-1.40 One Over Creatinine 1.20 BUN/Creatinine Ratio 15.0 8-20 Calcium 9.5 mg/dL 8.1-9.9 19 Total Protein 6.5 GM/DL 6.2-8.1 Albumin 4.1 GM/DL 3.6-5.4 Globulin 2.4 GM/DL 2-4 Albumin/Globulin Ratio 1.7 1-3 Bilirubin Total 0.7 mg/dL 0.4-1.5 20 Alkaline Phosphatase 71 U/L 30-110 Alt (SGPT) 13 U/L Low 14-54 Ast (Sgot) 22 U/L 12-42 eGFR Non- 84.9 > 60 eGFR 102.7 > 60 [address] [facility] AT [phone] 2 CHOLESTEROL INTERPRETATION: Desirable: Less than 200 MG/DL Borderline-High Risk: 200-239 MG/DL High-Risk: 240 MG/DL and over 3 HDL INTERPRETATION: Undesirable: High Risk: Less than 40 MG/DL Desirable: Low Risk: Greater than 60 MG/DL 4 LDL INTERPRETATION: Low Risk Optimal Level: LDL Less than 100 MG/DL Near or Above Optimal: LDL 100-129 MG/DL Borderline High Risk: LDL 130-159 MG/DL High Risk: LDL 160-189 MG/DL Very High Risk: LDL Greater than 189 MG/DL 5 A metabolite of Naproxen, O-desmethylnaproxen, has been shown to interfere with the Jendrassik-[place] method for measuring total bilirubin. Samples from patients who have taken Naproxen have shown spurious elevation in total bilirubin levels. 6 Please note updated reference range, effective 03/23/10 7 Recommended INR for Patients on Oral Anticoagulants Prophylaxis 2.0 - 3.0 Treatment of thrombosis 2.0 - 3.0 Prevention of embolism 2.0 - 3.0 Prevention of embolism from prosthetic heart valves 2.5 - 3.5 8 DIAGNOSIS,TREATMENT,AND THERAPY MUST BE BASED ON THE INR VALUE ALONE. 9 Anion gap measurement may be of limited value in the presence of any alkalosis, especially in a combined acid base disorder. . 10 Note change in reference range as of 04/22/08. The change was based on recommendations from the [place] [employer]. 11 Please note change in reference range effective 08 . 12 Because ethnic data is not always readily available, this report includes an eGFR for both -Americans and non- Americans. The National Kidney Disease Education Program (NKDEP) does not endorse the use of the MDRD equation for patients that are not between the ages of 18 and 70, are , have extremes of body size, muscle mass, or nutritional status, or are non- or non-. According to the National Kidney Foundation, irrespective of diagnosis, the stage of the disease is based on the level of kidney function: Stage Description GFR(mL/min/1.73 m(2)) 1 Kidney damage with normal or decreased GFR 90 2 Kidney damage with mild decrease in GFR 60-89 3 Moderate decrease in GFR 30-59 4 Severe decrease in GFR 15-29 5 Kidney failure <15 (or dialysis) 13 PLEASE NOTE NEW REFERENCE RANGE EFFECTIVE 09. 14 Lymphopenia % 15 The detection limit for PHENYTOIN is 2.5 mcg/ml . Values less than 2.5 mcg/ml cannot be accurately measured. . 16 The detection limit for VALPROIC ACID is 10.0 mcg/ml . Values less than 10.0 mcg/ml cannot be accurately measured. . 17 Anion gap measurement may be of limited value in the presence of any alkalosis, especially in a combined acid base disorder. . 18 Note change in reference range as of 04/22/08. The change was based on recommendations from the [place] [employer]. 19 Please note change in reference range effective 08 . 20 A metabolite of Naproxen, O-desmethylnaproxen, has been shown to interfere with the Jendrassik-[place] method for measuring total bilirubin. Samples from patients who have taken Naproxen have shown spurious elevation in total bilirubin levels. 21 Because ethnic data is not always readily available, this report includes an eGFR for both -Americans and non- Americans. The National Kidney Disease Education Program (NKDEP) does not endorse the use of the MDRD equation for patients that are not between the ages of 18 and 70, are , have extremes of body size, muscle mass, or nutritional status, or are non- or non-. According to the National Kidney Foundation, irrespective of diagnosis, the stage of the disease is based on the level of kidney function: Stage Description GFR(mL/min/1.73 m(2)) 1 Kidney damage with normal or decreased GFR 90 2 Kidney damage with mild decrease in GFR 60-89 3 Moderate decrease in GFR 30-59 4 Severe decrease in GFR 15-29 5 Kidney failure <15 (or dialysis) Procedures Date CPT Code Description Status 01/03/2015 03528 Closed TX Of Greater Humeral Tuberosity FX;W/O Completed Manipulation 01/03/2015 55949 Closed trtmt prox humeral fx Completed 12/20/2010 43722 EKG Tracing & Interpretation Completed 09/20/2010 73743 EKG Tracing & Interpretation Completed 07/07/2010 77922 EKG Tracing & Interpretation Completed 07/04/2010 49830 EKG, Interpretation Only Completed 04/20/2010 73042 EKG Tracing & Interpretation Completed 02/13/2010 86955 ECHO Transthoracic, Real-Time 2D With Doppler And Color Completed Flow 01/24/2010 53892 EKG Tracing & Interpretation Completed 03/12/2009 66048 EKG, Interpretation Only Completed Encounters Type Date Location Provider CPT E/M Dx Office Visit 12/20/2010 11:00a [facility] [place] S. 118[address] 414.01 Sebastian Haddad V45.82 401.1 786.50 Office Visit 09/20/2010 3:40p [facility] Qutaybeh S. Kielydah, 92452 786.50 M.D. 414.01 V45.82 401.1 Office Visit 07/30/2010 1:41p [facility] Jerzy Issa M.D. 55553 785.1 786.50 427.31 414.01 Office Visit 07/07/2010 10:20a [facility] Qutaybeh S. haydah, 44849 786.50 M.D. 414.01 V45.82 401.1 Office Visit 07/04/2010 4:22p [facility] Qutaybeh S. Kielydkhadar, 26496 786.50 M.D. 305.1 411.89 V45.82 Office Visit 05/01/2010 4:00p [facility] Qutaybeh S. Boo, 32458 411.1 M.D. 414.01 401.1 Office Visit 04/20/2010 3:20p [facility] Aisha Haddad, 09445 411.1 M.DDulce 414.01 786.50 300.00 Office Visit 01/24/2010 2:20p [facility] Emirthiago Haddad, 32642 411.1 M.DDulce 414.01 786.50 Office Visit 09/29/2009 1:30a [facility], Jovanny Dempsey, 76363 558.9 Hospitalists Sebastian 308.9 786.59 300.00 Office Visit 09/28/2009 3:30a [facility] Roxann Mcdonald M.D. 99707 786.50 Assoc, Hospitalists Office Visit 2009 2:15a [facility] Patrick Garcia M.D. 19301 786.50 Assoc, Hospitalists Office Visit 05/04/2009 1:30a [facility] Faith Kraft, 57800 786.50 Assoc, Hospitalists Sebastian 780.39 Office Visit 03/13/2009 12:45a [facility] Matt Shore D.O. 63621 411.1 Assoc, Hospitalists Office Visit 03/12/2009 12:15a [facility] Chase Resendiz, 78450 411.1 Assoc, Hospitalists Sebastian Hospitalist Plan of Care 01/03/2015 - Jody Russo M.D.812.09 FX Humerus Upper End Other ClosedNew Medication:Ultracet 37.5-325 mgFollow up:2 weeksRecommendations:no lifting right arm. Move elbow and wrist and fingers qvyufycin736.03 FX Humerus Greater Tuberosity Closed
[2018-03-15] MEDS ORDERED: Ondansetron INJ* 2 MG/ML VIAL IV ONE ×2 (03:33→07:15)
[2018-03-15] MEDS ORDERED: NS 0.9% 1000 ML* 3,000 ML IV ONE (03:33)
[2018-03-15] MEDS ORDERED: Nitroglycerin 2% OINT* 1 GM PAK TOPICAL ONE (03:33)
--- NOTE | 2018-03-15 03:35 | ED ---
HPI Chest Pain - HPI Summary HPI Summary: This patient is a 47 year old F BIBA to [facility] with a chief complaint of CP that began at 0030 today. The patient rates the pain 7/10 in severity. Symptoms aggravated by nothing. Symptoms alleviated by nitro. Patient reports palpitations (began yesterday), diaphoresis, vomiting, and diarrhea. Patient denies fever. Pt reports a history of multiple MIs, with the most recent occurring 2 weeks ago. - History of Current Complaint Chief Complaint: EDChestPainROMI Hx Obtained From: Patient Onset/Duration: Started Days Ago, Atraumatic, Still Present Timing: Constant, Lasting Days Initial Severity: Moderate Current Severity: Moderate Pain Intensity: 7 Pain Scale Used: 0-10 Numeric Chest Pain Location: Diffuse Chest Pain Radiates: No Aggravating Factor(s): Nothing Alleviating Factor(s): NTG 123 Associated Signs and Symptoms: Positive: Other: - Positive palpitations (began yesterday), diaphoresis, vomiting, and diarrhea. Negative fever - Additional Pertinent History Primary Care Physician: [id number] - Allergy/Home Medications Allergies/Adverse Reactions: Allergies Allergy/AdvReac Type Severity Reaction Status Date / Time ketorolac [From Toradol] Allergy Rash Verified 03/15/18 03:24 lorazepam [From Ativan] Allergy See Comment Verified 03/15/18 03:24 meloxicam [From Mobic] Allergy Rash And Verified 03/15/18 03:24 Itching Penicillins Allergy Anaphylatic Verified 03/15/18 03:24 Shock PMH/Surg Hx/FS Hx/Imm Hx Previously Healthy: No Endocrine/Hematology History: Denies: Hx Diabetes Cardiovascular History: Reports: Hx Angina, Hx Coronary Artery Disease, Hx Hypertension - ON MEDICATION, Hx Myocardial Infarction - x3 Respiratory History: Denies: Other Respiratory Problems/Disorders GI History: Denies: Other GI Disorders History: Reports: Hx Kidney Infection - PRESENTLY ON CIPRO, Hx Kidney Stones , Hx Renal Disease - CALCULI, LT SIDE Denies: Hx Dialysis Musculoskeletal History: Reports: Hx Arthritis - PSORIATIC ARTHRITIS Sensory History: Denies: Hx Contacts or Glasses, Hx Hearing Aid Opthamlomology History: Denies: Hx Contacts or Glasses Neurological History: Reports: Hx Seizures Psychiatric History: Reports: Hx Anxiety - NO MEDS - Surgical History Surgery Procedure, Year, and Place: 10/05/2008 CARDIAC STENT X2, [facility]. 2008 [facility] [facility] [facility] [facility] [place] LAPAROSCOPIC [facility]UBAL [facility], [facility]. 09/24/[place] [facility] [place] [facility] Anesthesia Reactions: No - Immunization History Date of Tetanus Vaccine: unk Date of Influenza Vaccine: none Infectious Disease History: No Infectious Disease History: Denies: Traveled Outside the [place] in Last 30 Days - Family History Known Family History: Positive: Cardiac Disease Negative: Other - negative malignant hyperthermia, negative adverse anesthesia reaction - Social History Occupation: Disabled Lives: With Family Alcohol Use: None Hx Substance Use: Yes Substance Use Type: Reports: Prescribed Substance Use Comment - Amount & Last Used: suboxone Hx Tobacco Use: Yes Smoking Status (MU): Current Every Day Smoker Review of Systems Positive: Skin Diaphoresis. Negative: Fever Positive: Palpitations, Chest Pain Positive: Vomiting, Diarrhea All Other Systems Reviewed And Are Negative: Yes Physical Exam - Summary Physical Exam Summary: Appearance: Well-appearing, Well-nourished, lying in bed comfortably Skin: Warm, dry, no obvious rash Eyes: sclera anicteric, no conjunctival pallor ENT: mucous membranes moist, pharynx appears normal Neck: Supple, nontender Respiratory: Clear to auscultation, no signs of respiratory distress Cardiovascular: Normal S1, S2. No murmurs. Normal distal pulses in tibial and radial bilaterally. Tachycardic Abdomen: Soft, nontender, normal active bowel sounds present Musculoskeletal: Normal, Strength/ROM Intact Neurological: A&Ox3, awake and alert, mentation is normal, speech is fluent and appropriate Psychiatric: affect is normal, does not appear anxious or depressed Triage Information Reviewed: Yes Vital Signs On Initial Exam: Initial Vitals Temp Pulse Resp BP Pulse Ox 99.1 F 100 18 157/114 92 03/15/18 03:22 03/15/18 03:22 03/15/18 03:22 03/15/18 03:22 03/15/18 03:22 Vital Signs Reviewed: Yes Diagnostics - Vital Signs Vital Signs Temp Pulse Resp BP Pulse Ox 03/15/18 03:22 99.1 F 100 18 157/114 92 - Laboratory Lab Statement: Any lab studies that have been ordered have been reviewed, and results considered in the medical decision making process. - Additional Comments Diagnostic Additional Comments: EKG taken at 0323 reveals sinus tachycardia at 102 BPM, and old anterior infarct. Discharge - Discharge Plan Referrals: Kevin Crutis MD [Primary Care Provider] -
[2018-03-15 03:54] LABS: ABS Basophils 0 10^3/ul (0-0.2); ABS Eosinophils 0.1 10^3/ul (0-0.6); ABS Lymphocytes 1.5 10^3/ul (1.0-4.8); ABS Monocytes 0.5 10^3/ul (0-0.8); ABS Neutrophils 4.4 10^3/ul (1.5-7.7); ABS Nucleated RBC 0 10^3/ul; Eosinophil % 1.1 % (0-6); Hematocrit 42 % (35-47); Hemoglobin 14.3 g/dl (12.0-16.0); Lymphocyte % 23.1 % (25-47); Mean Corpuscular HGB Conc 34 g/dl (31-36); Mean Corpuscular Hemoglobin 29 pg (27-31); Mean Corpuscular Volume 84 fL (80-97); Mean Platelet Volume 8.9 um3 (7.4-10.4); Nucleated Red Blood Cells % 0.1; Platelet Count 240 10^3/ul (150-450); Red Blood Count 5.02 10^6/ul (4.00-5.40); Red Cell Distribution Width 16 % (10.5-15); White Blood Count 6.4 10^3/ul (3.5-10.8)
[2018-03-15 04:17] LABS: EGFR Non-African American 61.6 (>60)
[2018-03-15] MEDS ORDERED: Acetaminophen TAB* 325 MG PO ONE (05:41)
--- NOTE | 2018-03-15 07:07 | ED ---
Progress - Progress Note Progress Note: repeat trop back, level remained at .01. Re-Evaluation - Re-Evaluation First Eval Re-Evaluation Time: 07:07 Change: Unchanged - Obtained pt background. No longer experiencing any CP, but a lot of nausea and dry-heaving Course/Dx - Course Course Of Treatment: Patient with recent admission and cardiac catheterization for elevated troponins and ST elevation. She was found to have coronary vasospasm not related to drug use. She has been maintained on calcium channel teresa. Her chest pain tonight has been relieved by nitroglycerin. She is now experiencing nausea and abdominal discomfort. She has no tenderness on exam. Her troponin 2 have been negative. She'll require admission for further observation and evaluation and treatment. - Diagnoses Provider Diagnoses: Chest pain, History of Prinzmetal angina, Unstable angina - Provider Notifications Discussed Care Of Patient With: Renee Cruz Time Discussed With Above Provider: 07:30 Instructed by Provider To: Other - Dr. Cruz accepted pt for admission to [facility] [place]. Discharge - Sign-Out/Discharge Documenting (check all that apply): Patient Departure - Admit - Discharge Plan Condition: Fair Disposition: ADMITTED TO [facility] Referrals: Kevin Curtis MD [Primary Care Provider] - - Billing Disposition and Condition Condition: FAIR Disposition: Admitted to [facility]
[2018-03-15] MEDS ORDERED: Famotidine TAB* 20 MG PO ONE (07:15)
[2018-03-15] MEDS ORDERED: Albuterol HFA INHALER* 8 gm MDI INH PRN (09:40)
[2018-03-15] MEDS ORDERED: Nitroglycerin TAB 0.4 MG* 0.4 MG TAB SL PRN (09:40)
[2018-03-15] MEDS: Ticagrelor* 90 MG TAB PO SCH ×2 (11:08→20:19)
[2018-03-15] MEDS: Diltiazem CD CAP* 240 MG PO SCH (11:08)
[2018-03-15] MEDS: Buprenorphine/Naloxone 8-2 MG SL TAB* 1 TAB SL SCH ×2 (11:08→20:20)
[2018-03-15] MEDS ORDERED: Ondansetron ODT TAB* 4 MG PO PRN (13:05)
[2018-03-15] MEDS ORDERED: Loperamide CAP* 2 MG PO PRN (13:05)
[2018-03-15] MEDS: Gabapentin CAP(*) 400 MG PO SCH ×3 (13:14→20:20)
--- NOTE | 2018-03-15 15:05 | CONS ---
CC: Dr. Zev Lawler in [place], [place]; Dr. Curtis. CARDIOLOGY CONSULTATION: DATE OF CONSULT: 03/15/18 REFERRAL PHYSICIAN: Dr. Renee Cruz. REASON FOR CARDIOLOGY CONSULTATION: Chest pain in a patient with history of coronary artery disease. HISTORY OF PRESENT ILLNESS: I was kindly asked by Dr. Cruz to see this patient for cardiology consultation. She was recently discharged from [facility] in late January 2018 after being admitted for coronary artery spasm with acute inferior wall ST elevation, not requiring PCI after cardiac cath evaluation 02/27/18 as below. She was prescribed to take Cardizem but apparently did not take that as she thought Brilinta was sufficient. In any case, the patient notes that she had some flutters yesterday, which she has been having on and off for 8 months; however, last night she woke up with severe chest pain, which took 3 nitroglycerin sublingual to resolve. She came to and then was admiited to the hospital where she was ruled out for an [place] and is currently pain free. PAST MEDICAL HISTORY: Significant for cardiac arrest. By her description, it sounds like that was in 2007 and she ended up having defibrillation required while being transferred by helicopter to [facility]. At that time, she has had multiple stents to her LAD and by her description she has had a total of 5 stents to her LAD and 1 in the diagonal with her last stent placed in 2011 at [facility]. During her last admission because of concern for inferior STEMI, she did have a cardiac catheterization completed 02/27/18 that showed normal left main, LAD moderate in size with RILEY-3 flow and no significant stenosis. The diagonal had a 30% or less stenosis proximally and her LAD and diagnoal stents were felt to be patent. Circumflex large, nondominant with no significant stenosis. RCA moderate size with mild irregularity but no significant stenosis. She had a transthoracic echocardiogram completed 02/28/18, which showed ejection fraction of 55% to 60% with subtle relative hypokinesis of the mid to distal inferior wall in the apical views. Functionally benign heart valves and normal cardiac chamber sizes. She was then diagnosed with coronary artery spasm. Other past medical history includes seizures with her last seizure 5 months ago , kidney stones, hypertension, prior opioid use for chronic pain and so she is maintained on Suboxone, severe anxiety, PTSD, psoriatic arthritis. OUTPATIENT MEDICATIONS: 1. Incruse Ellipta MDI 1 inhaled once a day. 2. Remeron 90 mg p.o. q.h.s. 3. Albuterol inhaler q. 4 hours p.r.n. 4. Suboxone b.i.d. 5. Lipitor 80 mg once a day. 6. Neurontin 800 mg p.o. q.i.d. 7. Brilinta 90 mg p.o. b.i.d. 8. Nitroglycerin sublingual p.r.n. 9. Chantix 1 tablet once a day. 10. Lisinopril 10 mg once a day. The patient again had been prescribed Cardizem CD 240 mg once a day after her last admission last month for coronary artery spasm but had not been taking yet due to a misunderstanding she states on her part as she felt Brilinta was sufficient, but she is now willing to take the Cardizem ALLERGIES TO MEDICATIONS: Listed as KETOROLAC, LORAZEPAM, MELOXICAM, PENICILLIN. She denies shrimp, sea food or dye allergy. FAMILY HISTORY: Significant for cardiac disease, diabetes, cancer and no family history of stroke. SOCIAL HISTORY: She smokes cigarettes but is quitting soon, is down to 2 cigarettes per day. She does not abuse alcohol, does not use illicit drugs. She in the past had used opioids for chronic pain but has come off them and is now maintained on Suboxone. She has been for 30 years. She is disabled on the basis of her seizures and heart disease. She is a high school graduate and previously worked at the [employer]. She does do exercise daily 30 minutes on an elliptical as well as doing work outside. REVIEW OF SYSTEMS: She denies personal history of stroke, TIA, cancer, vomiting blood, coughing up blood, bright red blood per rectum, bleeding stomach ulcers. She has a history of renal calculi. She denies cholelithiasis. She denies asthma, emphysema, pneumonia, tuberculosis, sleep apnea, home oxygen use, diabetes. She has a history of hypertension, cardiac disease as above. She denies a history of heart murmur. She has noted palpitations which she describes as flutter for the past 8 months. She has a history of anxiety and PTSD. She denies lupus. She has a history of psoriasis. She has a history of seizures last one 5 months ago. She denies myesthesia gravis. She denies thyroid disorders, liver disorders, dialysis. She denies claudication symptoms, pulmonary emboli, deep venous thrombosis, peripheral arterial disease , peripheral edema. She does have regular heartburn. All other review of systems negative x14, except as described above. PHYSICAL EXAM: Height 5 feet, weight 167 pounds, temperature 98.4 degrees Fahrenheit, pulse is 72, O2 saturation 98%, blood pressure ranges from 146/93 to 178/104. On general exam, she is a pleasant, anxious-appearing lady in no acute distress. HEENT shows the cranium is normocephalic and atraumatic. She has moist mucosal membranes. Neck veins are not distended. There are no carotid bruits. Visible skin, warm, and perfused. Affect appropriate. She appears oriented. No significant kyphoscoliosis on back exam. Lungs are clear to auscultation. No wheezes, no rales. Cardiac Exam: S1, S2. Regular rate. No significant murmurs, rubs, or gallops. PMI is nondisplaced. Abdomen: Soft , nondistended, appears benign. Extremities without significant edema. Pulses appear grossly intact. DIAGNOSTIC STUDIES/LAB DATA: A 12-lead EKG is reviewed 03/15/18, which shows sinus rhythm with old anterior infarct likely possible left atrial enlargement. This appears similar to prior EKGs. White blood cell count 6.4, hematocrit 42 , platelet count 240. Sodium 142, potassium 3.6, chloride 107, bicarbonate 27, BUN 14, creatinine 0.97. ALT 9. Troponin 0.01 x3. IMPRESSION: Ms. Gonzalez is a 47-year-old woman with a history of extensive cardiac disease with prior cardiac arrest,anterior myocardial infarction status post multiple stents to her LAD and diagonal vessels (last in 2011) recently admitted with coronary artery spasm in the inferior wall distribution, found to have patent LAD and diagonal stents as described above 02/27/18 with no significant CAD in her other vessels and she is known to have normal LV function. The etiology of her chest pain which prompted her readmission last night is unclear; whether it may have been coronary artery spasm in a patient who was not compliant with her prior prescribed Cardizem CD, anxiety or gastroesophageal reflux disease with esophageal spasm. In any case, it is reassuring that she is ruled out for an myocardial infarction. There is no evidence of acute coronary syndrome and she is now willing to take her prescribed Cardizem. RECOMMENDATIONS: 1. As described above, the patient is now willing to take Cardizem and understands its importance for coronary artery spasm as she had been prescribed previously. She does note significant mental stress, which had been apparently contributing to her coronary artery spasm. She will continue also Brilinta for 1 year given recent admission with coronary artery spasm at the end of January 2018 as described above and she did have elevated troponins up to 4.31 at that time. Continue also aspirin lifelong, high-dose statin, and lisinopril. If her blood pressure remained elevated, could increase Cardizem as required. 2. Other management as per the hospitalist medicine service including regarding GERD and anxiety. 3. 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 Lawler including regarding her palpitations, which she has been noticing for the past 8 months or so but no significant dysrhythmia seen here. We would recommend keeping potassium greater than or equal to 4, magnesium greater than or equal to 2. The above was discussed in detail with the patient, she appears to be in agreement with these recommendations. The case has been discussed with Dr. Cruz. Dear Dr. Cruz, many thanks for asking me to participate in the cardiovascular consultative care of Ms. Gonzalez. Please do not hesitate to contact me if you have any questions or concerns regarding the patient's cardiovascular consultative care. [id number]/[facility] #: [id number] MTDD
--- NOTE | 2018-03-15 15:13 | HP ---
CC: Dr. Curtis * HISTORY AND PHYSICAL: DATE OF ADMISSION: 03/15/18 PRIMARY CARE PROVIDER: Dr. Curtis. CHIEF COMPLAINT: Chest pain. HISTORY OF PRESENT ILLNESS: Ms. Gonzalez is a 47-year-old female, who was admitted to [facility] on 02/27/18 through 03/01/18 where she was treated for an ST elevation [place] secondary to probable coronary artery vasospasm. The patient underwent catheterization during that hospitalization, which revealed no significant obstructive coronary artery disease. Patent LAD and diagonal stents. The patient was discharged home, feeling well. Unfortunately, the patient states that she brought her bag of medications to the hospital and she did not leave with them. She contacted her psychiatrist and her primary care provider to have the medications reordered; however, this is yet to be done. The patient has been without her medications since discharge on . The only medication that the patient was taking routinely was Brilinta, which reportedly had been called into the pharmacy. She also had p.r.n. nitroglycerin at home. The patient states that at approximately 3 a.m. she woke up with stabbing pain in the left side of her chest. This was similar to when she presented to the emergency room on 02/27/18. The patient ultimately took 3 nitroglycerin, though the pain returned. At that point, she contacted EMS and was brought to the emergency room. She had nitro paste placed and since then she has not had any chest pain. Generally, however, the patient states that she feels very unwell. In addition to not taking the diltiazem that was prescribed by Dr. Soares, she has not been taking her Suboxone or gabapentin and believes she may be going through withdrawal. PAST MEDICAL HISTORY: 1. Coronary artery disease, status post previous stents to the LAD and diagonal branches. 2. Possible seizure disorder. 3. Hypertension. 4. History of nephrolithiasis. PAST SURGICAL HISTORY: 1. Left knee ACL repair. 2. Tubal ligation. 3. Appendectomy. 4. Tonsillectomy. 5. Left rotator cuff repair. MEDICATIONS: Again, the only one the patient was taking routinely was: 1. Brilinta 90 mg p.o. twice daily. Home medications she was supposed to be taking include: 1. Chantix 1 tab p.o. daily. 2. Lisinopril 10 mg p.o. daily. 3. Lipitor 80 mg p.o. q. h.s. 4. Albuterol 2 puffs inhaled q. 4 hours p.r.n. shortness of breath. 5. Remeron 90 mg p.o. q. h.s. 6. Gabapentin 800 mg p.o. 4 times daily. 7. Diltiazem CD 240 mg p.o. daily. 8. Buprenorphine 12 mg/3 mg 1 film sublingual twice daily. 9. Incruse Ellipta 62.5 one inhalation daily. 10. Nitroglycerin 0.4 mg q. 5 minutes p.r.n. chest pain. ALLERGIES: PENICILLIN, TORADOL, ATIVAN, and MOBIC. FAMILY HISTORY: Mom at the age of 58 of [place]. Dad at the age of 52 of [place]. SOCIAL HISTORY: The patient is currently smoking 2 cigarettes per day. She does not drink alcohol. She denies any recreational drug use. She states that she uses Suboxone for pain and not because of prior drug use. She is disabled. She is . She has 2 children. She indicates that her , Reese, is her healthcare proxy. REVIEW OF SYSTEMS: A complete 11-system review of systems was obtained. Pertinent positives and negatives are as per HPI and otherwise negative. PHYSICAL EXAMINATION GENERAL: The patient is a well-developed middle-aged female, sitting up in the stretcher, in no acute distress. VITAL SIGNS: Blood pressure 146/90, pulse 71, respirations 18, temp 99.1, O2 sat 95% on room air. HEENT: Pupils are equal and round. Extraocular muscles are intact. Oropharynx is clear. Oral mucosa is moist. The patient wears upper and lower dentures. NECK: There is no submandibular, cervical, or supraclavicular adenopathy. Thyroid is not enlarged. No thyroid nodules noted. PULMONARY: Lungs are clear to auscultation bilaterally. CARDIAC: Normal S1, S2. Regular rate and rhythm. I do not appreciate any murmurs. ABDOMEN: Bowel sounds are present. Abdomen is soft, nontender, and nondistended. MUSCULOSKELETAL: There is no cyanosis or clubbing of the digits. There is full active range of motion of all 4 extremities. NEURO: Cranial nerves II through XII are grossly intact. Sensation is intact to light touch throughout. Strength is 5/5 and symmetric in both upper and lower extremities bilaterally. PSYCH: The patient is alert. She is oriented x3. Affect appears appropriate. SKIN: Warm and dry. There are no rashes. DIAGNOSTIC STUDIES/LAB DATA: WBC 6.4, hemoglobin 14.3, hematocrit 42, platelets 240. Sodium 142, potassium 3.6, chloride 107, CO2 of 27, BUN 14, creatinine 0.97, glucose 102, calcium 9.2. Bilirubin 0.4, AST 15, ALT 9, alk phos 89. Troponin 0.01 x2. Albumin 3.9. EKG reveals sinus tachycardia without any acute ST-T wave abnormalities. ASSESSMENT AND PLAN: Ms. Gonzalez is a 47-year-old female, who was recently admitted and treated for ST elevation myocardial infarction secondary to coronary artery vasospasm, who presents to the emergency room with complaints of chest pain in the setting of not taking any of her medications outside of Brilinta. 1. Chest pain. This again could represent coronary artery vasospasm. The patient was started on diltiazem during her last hospitalization; however, she has not been taking this for the last 2 weeks. This medication will be resumed. We will also continue her on her usual dose of Brilinta. A third troponin will be drawn; however, I suspect this likely will be negative. A followup EKG will also be obtained. Cardiology consultation has been requested to see if any further intervention should be considered. 2. Hypertension. The patient's blood pressure is under descent control. She will be resumed on her usual medications that she was on prior to her last hospitalization as well as the diltiazem. We will monitor her blood pressure closely. 3. Questionable seizure disorder. The patient is not on any antiepileptics outside of gabapentin for seizure management. I suspect this may not be an accurate diagnosis. 4. Chronic pain. We will continue Suboxone and gabapentin at home doses. 5. DVT prophylaxis: According to the Adult Thrombosis Prophylaxis Risk Factor Assessment Guide, the patient has a total risk factor score of 2 making her moderate risk. Heparin 5000 units subcutaneous q.12 hours will be utilized as a DVT prophylaxis. 6. Code status is DNR. TIME SPENT: Sixty-five minutes was spent admitting this patient, which greater than half spent [id number] with the patient reviewing her history and performing physical exam. [id number]/[facility] #: [id number] STEPAN
[2018-03-15] MEDS ORDERED: Atorvastatin* 80 MG TAB PO SCH (17:00)
[2018-03-15] MEDS ORDERED: Potassium Chlor TAB* 20 MEQ TAB.ER PO ONE (19:40)
[2018-03-15] MEDS: Heparin VIAL(*) 5000 UNITS/ML VIAL (FIVE THOUSAND) SUBCUT SCH (20:20)
[2018-03-15] MEDS ORDERED: Mirtazapine TAB* 15 MG PO SCH (21:00)
[2018-03-16 07:56] VITALS: BP 151/88
[2018-03-16] MEDS: Ticagrelor* 90 MG TAB PO SCH (08:12)
[2018-03-16] MEDS: Buprenorphine/Naloxone 8-2 MG SL TAB* 1 TAB SL SCH (08:12)
[2018-03-16] MEDS: Diltiazem CD CAP* 240 MG PO SCH (08:12)
[2018-03-16] MEDS: Gabapentin CAP(*) 400 MG PO SCH (08:12)
[2018-03-16] MEDS: Heparin VIAL(*) 5000 UNITS/ML VIAL (FIVE THOUSAND) SUBCUT SCH (08:13)
[2018-03-16] MEDS ORDERED: Umeclidin 62.5 MDI(NF) 1 INH MDI INH SCH (09:00)
[2018-03-16] MEDS ORDERED: Lisinopril TAB* 10 MG PO SCH (09:00)
--- NOTE | 2018-03-16 12:36 | DS ---
CC: Dr. Curtis DISCHARGE SUMMARY: DATE OF ADMISSION: 03/15/18 DATE OF DISCHARGE: 03/16/18 PRIMARY CARE PROVIDER: Dr. Curtis. PRINCIPAL DIAGNOSIS: Chest pain possibly secondary to coronary artery vasospasm as was presumed polly melendez her last hospitalization. SECONDARY DIAGNOSES: 1. Hypertension. 2. Chronic pain. 3. Possible seizure disorder. DISCHARGE MEDICATIONS: 1. Suboxone 12 mg-3 mg 1 film sublingual twice daily. 2. Brilinta 90 mg p.o. b.i.d. 3. Nitroglycerin 0.4 mg SL q.5 minutes p.r.n. chest pain. 4. Chantix 1 mg p.o. b.i.d. 5. Incruse Ellipta 1 inhalation daily. 6. Remeron 90 mg p.o. q.h.s. 7. Lisinopril 10 mg p.o. daily. 8. Gabapentin 800 mg p.o. 4 times daily. 9. Diltiazem CD 240 mg p.o. daily. 10. Lipitor 80 mg p.o. q.h.s. 11. Albuterol 2 puffs inhaled q.4 hours p.r.n. shortness of breath. HOSPITAL COURSE: Ms. Gonzalez is a 47-year-old female, who was admitted to [facility] from 02/27/18 through 03/01/18 where she was treated for an ST-elevation [place] secondary to probable coronary artery vasospasm , as no significant obstructive coronary disease was identified on catheterization. The patient was discharged home and had been taking her Brilinta. However, had not been taking any of her other medi cations as she states they were lost during her last admission. The patient returned to the emergenc y room on 03/15/18 with complaints of chest pain and some generalized feeling unwell. The patient wa s admitted and troponins were followed. She ruled out for [place]. Ultimately, it was felt that possibly her chest pain was related to recurrent coronary artery vasospasm. The patient had also been vomiti ng, perhaps there was a component of esophagitis related to the vomiting. The patient has been start ed back on all her usual medications and prescriptions have been sent for all except the Suboxone, wh ich I cannot provide a prescription to the patient for. At this point, the patient is felt to be sta ble for discharge home. On the day of discharge, the patient is awake, alert, and oriented, sitting up in the bed, in no acut e distress. Her vital signs revealed blood pressure of 151/88, pulse 66, respirations 16, temp 97.8. Her cardiac exam reveals normal S1, S2 with a regular rate and rhythm. She has no lower extremity edema. Lungs are clear bilaterally. Abdomen is soft, nontender, nondistended. FOLLOWUP CONCERNS: The patient is being discharged home today, 03/16/18. ACTIVITY: Activity level is as tolerated. DIET: Low fat. CONDITION ON DISCHARGE: Stable. TIME SPENT: Thirty-five minutes was spent discharging this patient of which greater than half was sp ent [id number] with the patient reviewing her discharge plan. [id number]/[facility] #: [id number]
== END 2018-03-16 10:40 | disposition home or self-care (01) ==
LOC: ED 03:19 → MEDTELE 09:43
PROVIDERS: ADMIT Hospitalist; ATTEND Hospitalist
DX: I25.10 Atherosclerotic heart disease of native coronary artery without angina pectoris (principal); R07.9 Chest pain, unspecified; I20.1 Angina pectoris with documented spasm; I10 Essential (primary) hypertension; R00.2 Palpitations; F17.210 Nicotine dependence, cigarettes, uncomplicated; G89.29 Other chronic pain; Z95.5 Presence of coronary angioplasty implant and graft
CPT/HCPCS: 36415; 80053; 83735; 84484; 85025; 93005; 99284; A9270-GY; J1644; J2405

== ENCOUNTER 2018-03-18 00:32 | Emergency (ER) | payer MEDICARE ==
[2018-03-18] MEDS ORDERED: Gabapentin CAP(*) 400 MG PO ONE (01:21)
[2018-03-18] MEDS ORDERED: Ondansetron ODT TAB* 4 MG PO ONE (01:26)
--- NOTE | 2018-03-18 01:28 | ED ---
Nausea/Vomiting/Diarrhea HPI - HPI Summary HPI Summary: Complains of Being out of her medications, and new onset nausea, vomiting x 3, sweats, diarrhea starting at 9:30 PM tonight. Patient denies active N/V/D, sweats here in the ED. Patient states she still has her cardiac meds, but has been out of her Neurontin. Patient recently discharged from [facility] 03/16, states this was when she had her last dose of Neurontin. Patient was given Rx for all her normal medications upon discharge 03/16, but the patient states she has not been able to refill all of them as insurance will pay for them because "it's too early". States she will be able to refill them today 03/18 at 5 PM. Patient 's is concerned that she has been unable to take Neurontin for her seizures" and feels the nausea vomiting and diarrhea are due to not having taken her Neurontin 800mg PO QID. Patient does have a tremor in her right hand but states this is chronic due to anxiety when she is away from home. History of recent admission to [facility] 02/27 for NSTEMI which was later diagnosed as coronary artery vasospasm rather than CAD as cardiac cath found no evidence of Coronary Artery Obstruction. 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 Patient states she has a history of 7 stents, but no stents are mentioned on discharge summary of 03/16. Patient states she does have her diltiazem her nitroglycerin and Brilinta, she is compliant with these meds daily. Denies fever, cough, sore throat, CP, SOB, abdominal pain, change in urine or BM, vaginal symptoms. Medical history is ND 5 with 7 cardiac stents, epilepsy, HTN, COPD, anxiety. - History of Current Complaint Chief Complaint: EDPrescriptionNeeded Stated Complaint: GENERAL ILLNESS Time Seen by Provider: 03/18/18 01:03 Hx Obtained From: Patient Onset/Duration: Sudden Onset Timing: Intermittent Episodes Lasting: Severity Currently: None Pain Intensity: 0 Pain Scale Used: 0-10 Numeric Nausea/Vomiting Presence: Nauseated, Vomiting Diarrhea Presence: Yes - Allergies/Home Medications Allergies/Adverse Reactions: Allergies Allergy/AdvReac Type Severity Reaction Status Date / Time ketorolac [From Toradol] Allergy Rash Verified 03/18/18 00:36 lorazepam [From Ativan] Allergy See Comment Verified 03/18/18 00:36 meloxicam [From Mobic] Allergy Rash And Verified 03/18/18 00:36 Itching Penicillins Allergy Anaphylatic Verified 03/18/18 00:36 Shock PMH/Surg Hx/FS Hx/Imm Hx Endocrine/Hematology History: Denies: Hx Diabetes Cardiovascular History: Reports: Hx Angina, Hx Coronary Artery Disease, Hx Hypertension - ON MEDICATION, Hx Myocardial Infarction - x3 Respiratory History: Denies: Hx Chronic Obstructive Pulmonary Disease (COPD), Other Respiratory Problems/Disorders GI History: Denies: Other GI Disorders History: Reports: Hx Kidney Infection - PRESENTLY ON CIPRO, Hx Kidney Stones , Hx Renal Disease - CALCULI, LT SIDE, Other Problems/Disorders - nephrolithiasis Denies: Hx Dialysis Musculoskeletal History: Reports: Hx Arthritis - PSORIATIC ARTHRITIS Sensory History: Denies: Hx Contacts or Glasses, Hx Hearing Aid Opthamlomology History: Denies: Hx Contacts or Glasses Neurological History: Reports: Hx Seizures Denies: Hx Transient Ischemic Attacks (TIA) Psychiatric History: Reports: Hx Anxiety - NO MEDS - Surgical History Surgery Procedure, Year, and Place: 10/05/2008 [facility]. 2008 [facility] ST[facility] [place] 2011 LEFT URETERAL STENT INSERTION, [facility]. 2010 LEFT URETERAL STENT INSERTION, [facility]. 1990 LAPAROSCOPIC TUBAL LIGATION, [facility]. 09/24/12, [place], [facility]. 1994 TONSILLECTOMY, [facility] Anesthesia Reactions: No - Immunization History Date of Tetanus Vaccine: unk Date of Influenza Vaccine: none Infectious Disease History: No Infectious Disease History: Denies: Traveled Outside the [place] in Last 30 Days - Family History Known Family History: Positive: Cardiac Disease Negative: Other - negative malignant hyperthermia, negative adverse anesthesia reaction - Social History Alcohol Use: None Hx Substance Use: Yes Substance Use Type: Reports: Prescribed Substance Use Comment - Amount & Last Used: suboxone Hx Tobacco Use: Yes Smoking Status (MU): Current Every Day Smoker Have You Smoked in the Last Year: Yes Review of Systems Positive: Skin Diaphoresis Eyes: Negative ENT: Negative Cardiovascular: Negative Respiratory: Negative Positive: Vomiting, Diarrhea, Nausea Genitourinary: Negative Musculoskeletal: Negative Skin: Negative Neurological: Negative Psychological: Normal All Other Systems Reviewed And Are Negative: Yes Physical Exam - Summary Physical Exam Summary: Patient has right hand tremor which she states is chronic due to anxiety when she is away from home. Triage Information Reviewed: Yes Vital Signs On Initial Exam: Initial Vitals Temp Pulse Resp BP Pulse Ox 99.0 F 107 16 97/82 94 03/18/18 00:34 03/18/18 00:34 03/18/18 00:34 03/18/18 00:34 03/18/18 00:34 Vital Signs Reviewed: Yes Appearance: Positive: Well-Appearing Skin: Positive: Warm Head/Face: Positive: Normal Head/Face Inspection Eyes: Positive: Normal Neck: Positive: Supple Respiratory/Lung Sounds: Positive: Clear to Auscultation Cardiovascular: Positive: Normal Abdomen Description: Positive: Nontender Musculoskeletal: Positive: Normal Neurological: Positive: Normal Psychiatric: Positive: Normal AVPU Assessment: Alert - [place] Coma Scale Best Eye Response: 4 - Spontaneous Best Motor Response: 6 - Obeys Commands Best Verbal Response: 5 - Oriented Coma Scale Total: 15 Diagnostics - Vital Signs Vital Signs Temp Pulse Resp BP Pulse Ox 03/18/18 00:34 99.0 F 107 16 97/82 94 - Laboratory Lab Statement: Any lab studies that have been ordered have been reviewed, and results considered in the medical decision making process. Naus/Vom/Diarrhea Course/Dx - Course Course Of Treatment: Patient complains of nausea/vomiting x 3, sweats, diarrhea starting at 9:30 this evening. Patient claims that she has been without her ascription medications since they were left here at the hospital during a recent admission. Patient states she will be refilling her medications today Sunday 03/18 at 5 PM, but is concerned about going without her seizure medication which is her Neurontin 800 mg 4 times a day. Patient believes her symptoms are related to not having this medication. She was discharged from [facility] Saturday and states that was a last time she had her Neurontin. Denies any other symptoms, including a, cough, sore throat, CP, SOB, abdominal pain, change in urine. Active vomiting here in the ED. history of ND 5 with 7 cardiac stents, epilepsy, HTN, COPD, anxiety. Patient has right hand tremor which she states is chronic due to anxiety when she is away from home. No active vomiting here in the ED. Denies active nausea. No diarrhea here in the ED. blood pressure is elevated but vital signs otherwise within normal limits and stable. Discussed patient with Dr. Gordillo who [place] plan for Neurontin 800 mg by mouth along with Zofran ODT 4 milligrams given here. Rx for phenergan. Follow-up with primary care. Patient states despite having lost her medications on 03/01 while here at [facility] she still has her brilinta, diltiazem and nitroglycerin. Patient was also recently discharged 03/16 on [facility] with new prescriptions, but states insurance will not pay for, of them as it's too early. Patient adamantly states that she does have her diltiazem, brillinta and nitroglycerin. Patient also states she has 7 cardiac Stents, but recent discharge summary states her recent NSTEMI of 02/27 was due to coronary artery vasospasm rather than coronary artery disease as cardiac catheter found no evidence for CAD.. There was no mention of prior stents in discharge summary. She states she will be able to fill her other prescriptions later today. - Differential Dx/Diagnosis Provider Diagnoses: Nausea vomiting. Diarrhea Condition At Discharge: Stable Discharge - Sign-Out/Discharge Documenting (check all that apply): Patient Departure - Discharge Plan Condition: Stable Disposition: HOME Prescriptions: Promethazine TAB* [Phenergan TAB*] 25 mg PO Q8H PRN 5 Days #10 tab PRN Reason: Nausea Patient Education Materials: Acute Nausea and Vomiting (ED), Acute Diarrhea (ED ) Referrals: Kevin Curtis MD [Primary Care Provider] - Additional Instructions: Maintain hydration. Follow-up with primary care. Return to the ED for any new or worsening symptoms - Billing Disposition and Condition Condition: STABLE Disposition: Home
[2018-03-18 02:24] VITALS: BP 202/120
== END 2018-03-18 02:22 | disposition home or self-care (01) ==
LOC: ED 00:32
DX: R11.2 Nausea with vomiting, unspecified (principal); R19.7 Diarrhea, unspecified; I25.119 Atherosclerotic heart disease of native coronary artery with unspecified angina pectoris; I10 Essential (primary) hypertension; Z95.5 Presence of coronary angioplasty implant and graft; I25.2 Old myocardial infarction; Z87.442 Personal history of urinary calculi; L40.50 Arthropathic psoriasis, unspecified; R56.9 Unspecified convulsions; F41.9 Anxiety disorder, unspecified; Z88.5 Allergy status to narcotic agent; Z88.0 Allergy status to penicillin; Z88.8 Allergy status to other drugs, medicaments and biological substances; Z82.49 Family history of ischemic heart disease and other diseases of the circulatory system; Z84.89 Family history of other specified conditions; F17.200 Nicotine dependence, unspecified, uncomplicated
CPT/HCPCS: 99282; A9270-GY

== ENCOUNTER 2018-04-28 21:09 | Observation (INO) | payer MEDICARE ==
--- NOTE | 2018-04-28 21:25 | ED ---
HPI Chest Pain - HPI Summary HPI Summary: A 47 y/o female presents to ED c/o chest pain reaching 7/10 in severity. Currently, the patient still has chest pain. In the ED room, the patient has a pulse of 128 BPM, O2 saturation of 97% and blood pressure of 217/154. As per triage, "Pt brought immediately to for EKG. Pt c/o left sided chest pain radiating to LUE for approximately 1 hour. States she took 4 SL Nitro with mild relief. Pt reports cardiac hx with [place] in January of this years and stents. Pt noted to be clammy. Dr. Romo notified". According to the patient, she was sitting down watching TV ([employer]) around 1900 when she noticed that she was gasping for air followed by "really bad" chest pain. She noted that the pain on the left side radiating to her shoulder blade and down her left arm. Additionally, her left hand is tingling. The patient is diaphoretic and clammy. She noted that the pain she is experiencing today is the same pain as her previous [place]. Currently, the patient is on several medications. She took Aspirin (81 mg) at 0500 and four NTG tonight. The pain was temporarily alleviated with the NTG. She does take Cervoxan for pain (2 - 12mg twice a day for 10 years). New medication is Chantix. PMHx of [place] on March 01 2018, HTN (controlled) and anxiety. SHx of quit smoking recently, no recreational drugs. When she had [place] in past, she was given nothing for pain except Tylenol for her headache brought on by NTG. She does not think her pain is caused by anxiety because "everything is going good" and she has a new grand-baby (4 days ago). - History of Current Complaint Chief Complaint: EDChestPainROMI Time Seen by Provider: 04/28/18 21:19 Hx Obtained From: Patient Onset/Duration: Started Hours Ago, Still Present Timing: Constant, Lasting Hours Initial Severity: Moderate Current Severity: Moderate Pain Intensity: 7 Pain Scale Used: 0-10 Numeric Chest Pain Location: Left Anterior Chest Pain Radiates: Yes Chest Pain Radiates To:: Shoulder - Left, Arm - Left, Other - Left hand with tingling. Aggravating Factor(s): Nothing Alleviating Factor(s): NTG 123 - Temporarily relieves pain Associated Signs and Symptoms: Positive: Chest Pain, Tingling - Left hand, Shortness of Breath - Additional Pertinent History Primary Care Physician: [id number] - Allergy/Home Medications Allergies/Adverse Reactions: Allergies Allergy/AdvReac Type Severity Reaction Status Date / Time ketorolac [From Toradol] Allergy Rash Verified 04/28/18 21:21 lorazepam [From Ativan] Allergy See Comment Verified 04/28/18 21:21 meloxicam [From Mobic] Allergy Rash And Verified 04/28/18 21:21 Itching Penicillins Allergy Anaphylatic Verified 04/28/18 21:21 Shock PMH/Surg Hx/FS Hx/Imm Hx Endocrine/Hematology History: Denies: Hx Diabetes Cardiovascular History: Reports: Hx Angina, Hx Coronary Artery Disease, Hx Hypertension - ON MEDICATION, Hx Myocardial Infarction - x3 Respiratory History: Denies: Hx Chronic Obstructive Pulmonary Disease (COPD), Other Respiratory Problems/Disorders GI History: Denies: Other GI Disorders History: Reports: Hx Kidney Infection - PRESENTLY ON CIPRO, Hx Kidney Stones , Hx Renal Disease - CALCULI, LT SIDE, Other Problems/Disorders - nephrolithiasis Denies: Hx Dialysis Musculoskeletal History: Reports: Hx Arthritis - PSORIATIC ARTHRITIS Sensory History: Denies: Hx Contacts or Glasses, Hx Hearing Aid Opthamlomology History: Denies: Hx Contacts or Glasses Neurological History: Reports: Hx Seizures Denies: Hx Transient Ischemic Attacks (TIA) Psychiatric History: Reports: Hx Anxiety - NO MEDS - Surgical History Surgery Procedure, Year, and Place: 10/05/[address] [place] [facility] 2010 LEFT URETERAL STENT INSERTION, [facility]. 1990 LAPAROSCOPIC TUBAL LIGATION, [facility]. 09/24/12, CYSTO, STW[facility], [facility]. 1994 TONSILLECTOMY, [facility] Hx Anesthesia Reactions: No - Immunization History Date of Tetanus Vaccine: unk Date of Influenza Vaccine: none Infectious Disease History: No Infectious Disease History: Denies: Traveled Outside the in Last 30 Days - Family History Known Family History: Positive: Cardiac Disease Negative: Other - negative malignant hyperthermia, negative adverse anesthesia reaction - Social History Alcohol Use: None Hx Substance Use: Yes Substance Use Type: Reports: Prescribed Substance Use Comment - Amount & Last Used: suboxone Hx Tobacco Use: Yes Smoking Status (MU): Current Every Day Smoker Have You Smoked in the Last Year: Yes Review of Systems Negative: Fever Positive: Chest Pain Positive: Shortness Of Breath Positive: Other - POSITIVE: Left arm and left shoulder pain. Positive: Numbness - POSITIVE: Numbness/tingling in left hand All Other Systems Reviewed And Are Negative: Yes Physical Exam - Summary Physical Exam Summary: VITAL SIGNS: Reviewed. GENERAL: Patient is a well-developed and nourished female who is lying comfortable in the stretcher. Patient is not in any acute respiratory distress. HEAD AND FACE: No signs of trauma. No ecchymosis, hematomas or skull depressions. No sinus tenderness. EYES: PERRLA, EOMI x 2, No injected conjunctiva, no nystagmus. EARS: Hearing grossly intact. Ear canals and tympanic membranes are within normal limits. MOUTH: Oropharynx within normal limits. NECK: Supple, trachea is midline, no adenopathy, no JVD, no carotid bruit, no c- spine tenderness, neck with full ROM. CHEST: Symmetric, no tenderness at palpation LUNGS: Clear to auscultation bilaterally. No wheezing or crackles. CVS: tachycardic, S1 and S2 present, no murmurs or gallops appreciated. ABDOMEN: Soft, non-tender. No signs of distention. No rebound no guarding, and no masses palpated. Bowel sounds are normal. EXTREMITIES: FROM in all major joints, no edema, no cyanosis or clubbing. NEURO: Alert and oriented x 3. No acute neurological deficits. Speech is normal and follows commands. SKIN: Dry and warm Psych: Anxious Triage Information Reviewed: Yes Vital Signs On Initial Exam: Initial Vitals Temp Pulse Resp BP Pulse Ox 96.9 F 122 20 206/115 97 04/28/18 21:18 04/28/18 21:18 04/28/18 21:18 04/28/18 21:18 04/28/18 21:18 Vital Signs Reviewed: Yes Diagnostics - Vital Signs Vital Signs Temp Pulse Resp BP Pulse Ox 04/28/18 21:18 96.9 F 122 20 206/115 97 - Laboratory Result Diagrams: 04/28/18 21:51 04/28/18 21:51 Lab Statement: Any lab studies that have been ordered have been reviewed, and results considered in the medical decision making process. - Radiology CXR Radiology Interpretation Completed By: ED Physician - No acute process. Pending official report. - EKG 2111 Cardiac Rate: Tachycardia - 121 BPM EKG Rhythm: Sinus Tachycardia EKG Interpretation: No acute ischemic changes. Chest Pain Course/Dx - Course Course Of Treatment: A 47 y/o female presents to ED c/o chest pain reaching 7/ 10 in severity. Currently, the patient still has chest pain. In the ED room, the patient has a pulse of 128 BPM, O2 saturation of 97% and blood pressure of 217/154. A CXR revealed no acute process. An EKG revealed a tachycardic rate of 121 BPM, no acute ischemic changes. In the ED course, the patient received Tylenol, NTG, Aspirin and Ativan. Patient care was discussed with hospitalist, Dr. Patel, who accepts patient for admission. Patient will be admitted with a diagnosis of chest pain and HTN. Patient is agreeable with this plan. - Diagnoses Provider Diagnoses: HTN (hypertension), Chest pain - Provider Notifications Discussed Care Of Patient With: Araceli Patel Time Discussed With Above Provider: 22:27 Instructed by Provider To: Other - Accepts patient for admission. Discharge - Sign-Out/Discharge Documenting (check all that apply): Patient Departure - ADMIT - Discharge Plan Condition: Stable Disposition: ADMITTED TO [facility] Referrals: Kevin Curtis MD [Primary Care Provider] - - Attestation Statements Document Initiated by Scribe: Yes Documenting Scribe: Garrison Sanchez Provider For Whom Scribe is Documenting (Include Credential): Moriah Hunt Attestation: Garrison Aldridge scribed for Fredi Romo on 04/28/18 at 2233.
[2018-04-28] MEDS ORDERED: nitroGLYCERIN DRIP* 25,000 MCG/250 ML BTL ONE (21:38)
[2018-04-28] MEDS ORDERED: Aspirin 81 mg CHEW TAB* 81 MG TAB.CHEW PO ONE (21:39)
[2018-04-28] MEDS ORDERED: nitroGLYCERIN DRIP* 25,000 MCG/250 ML BTL IV ONE (21:40)
[2018-04-28] MEDS ORDERED: LORazepam INJ* 2 MG/ML 1 ML VIAL IV PUSH ONE (21:41)
[2018-04-28 21:58] LABS: ABS Basophils 0 10^3/ul (0-0.2); ABS Eosinophils 0.1 10^3/ul (0-0.6); ABS Lymphocytes 1.7 10^3/ul (1.0-4.8); ABS Monocytes 0.9 10^3/ul (0-0.8); ABS Neutrophils 5.1 10^3/ul (1.5-7.7); ABS Nucleated RBC 0 10^3/ul; Eosinophil % 1.3 % (0-6); Hematocrit 45 % (35-47); Hemoglobin 15.1 g/dl (12.0-16.0); Lymphocyte % 21.3 % (25-47); Mean Corpuscular HGB Conc 34 g/dl (31-36); Mean Corpuscular Hemoglobin 29 pg (27-31); Mean Corpuscular Volume 86 fL (80-97); Mean Platelet Volume 10.5 um3 (7.4-10.4); Nucleated Red Blood Cells % 0.1; Platelet Count 197 10^3/ul (150-450); Red Blood Count 5.24 10^6/ul (4.00-5.40); Red Cell Distribution Width 16 % (10.5-15); White Blood Count 7.8 10^3/ul (3.5-10.8)
[2018-04-28 22:06] LABS: INR 0.86 (0.77-1.02)
[2018-04-28 22:15] LABS: EGFR Non-African American 70.7 (>60)
[2018-04-28] MEDS ORDERED: Acetaminophen TAB* 325 MG PO ONE (22:19)
[2018-04-28] MEDS ORDERED: Nitroglycerin 2% OINT* 1 GM PAK TOPICAL ONE (22:57)
[2018-04-28] MEDS ORDERED: Nitroglycerin 2% OINT* 1 GM PAK ONE (22:58)
[2018-04-28] MEDS ORDERED: Acetaminophen TAB* 325 MG PO PRN (22:59)
[2018-04-28] MEDS ORDERED: Ondansetron INJ* 2 MG/ML VIAL IV PRN (22:59)
[2018-04-28] MEDS ORDERED: Al Hydrox/Mg Hydrox/Simet LIQ* 30 ML UDC PO PRN (22:59)
[2018-04-28] MEDS ORDERED: Senna TAB PO PRN (22:59)
[2018-04-28] MEDS ORDERED: Docusate CAP* 100 MG PO PRN (22:59)
[2018-04-28] MEDS ORDERED: Albuterol HFA INHALER* 8 gm MDI INH PRN (23:02)
[2018-04-28] MEDS ORDERED: Diltiazem CD CAP* 180 MG PO ONE (23:05)
[2018-04-28] MEDS ORDERED: Atorvastatin* 80 MG TAB PO SCH (23:10)
[2018-04-28] MEDS ORDERED: Mouth Piece, Nicotine* 1 EACH CARTRIDGE INH ONE (23:14)
[2018-04-28] MEDS ORDERED: Mouth Piece, Nicotine* 1 EACH CARTRIDGE INH PRN (23:14)
[2018-04-28] MEDS ORDERED: hydrALAZINE IV* 20 MG/ML VIAL IV SLOW PU PRN (23:14)
[2018-04-28] MEDS ORDERED: Nicotine Inhaler* 10 MG AMP INH PRN (23:14)
[2018-04-28] MEDS ORDERED: Mirtazapine TAB* 15 MG PO SCH (23:45)
[2018-04-29] MEDS: Buprenorphine/Naloxone 8-2 MG SL TAB* 1 TAB SL SCH ×2 (00:47→09:42)
[2018-04-29] MEDS: Gabapentin CAP(*) 400 MG PO SCH ×3 (00:48→13:55)
[2018-04-29] MEDS: Ticagrelor* 90 MG TAB PO SCH ×2 (00:49→09:43)
--- NOTE | 2018-04-29 01:05 | HP ---
CC: Dr. Curtis * HISTORY AND PHYSICAL: DATE OF ADMISSION: 04/28/18 TIME OF EVALUATION: 2300. PRIMARY CARE PHYSICIAN: Kevin Curtis MD CHIEF COMPLAINT: Chest pain. HISTORY OF PRESENT ILLNESS: This is a 47-year-old female with a past medical history of coronary artery disease, status post stents and coronary vasospasm resulting in a STEMI, who presents to the emergency room this evening after having a chest pain around 1900 while watching TV with left-sided chest pain radiating down her left arm with left hand numbness and tingling and radiating to her jaw. She was nauseated, diaphoretic, and short of breath. When she arrived to the emergency room, her blood pressure was 220/130. She was started on a nitro drip. She improved her blood pressure, and her chest pain was shut off and her blood pressure went back up, so they put the nitro drip back on. Currently, her chest pain is 1/10. She states she has started Chantix 3 days ago. Since then, she has been having insomnia. She is sleep walking. Her found her pouring orange juice in cereal in the middle of the night. She does check her blood pressure every few days and it is usually around 158/ 78. She states for the past week, she has been exercising 30 minutes on the elliptical. She did exercise earlier this morning without any chest pain or discomfort. She has also been eating healthier with a low-salt diet. No changes in her weight. No vomiting, no diarrhea, no abdominal pain, no urinary symptoms. Otherwise, review of systems is negative. In the emergency room, the patient had labs drawn, imaging. The nitro drip has since been stopped to monitor her blood pressure. She was given 1 mg of Ativan, 162 mg of aspirin, Tylenol 650 mg and was referred to the hospitalist service for further evaluation. PAST MEDICAL HISTORY: 1. History of coronary artery vasospasm. 2. History of coronary artery disease, status post stents to the LAD and diagonal branches done in [place], followed by Dr. Lawler, Cardiology in [place]. 3. History of a possible seizure disorder. 4. Hypertension. 5. History of nephrolithiasis. 6. Chronic pain. 7. History of noncompliance. 8. Arthritis, per patient history of rheumatoid arthritis. 9. History of psoriatic arthritis. 10. COPD. 11. Hyperlipidemia. 12. Tobacco use. PAST SURGICAL HISTORY: 1. Left knee ACL repair. 2. Tubal ligation. 3. Appendectomy. 4. Tonsillectomy. 5. Left rotator cuff repair. MEDICATIONS: 1. Suboxone 12 mg/3 mg 1 film sublingual twice a day. 2. Brilinta 90 mg p.o. b.i.d. 3. Nitro 0.4 mg sublingual q.5 minutes as needed. 4. Chantix 1 mg p.o. b.i.d. started 3 days ago. 5. Incruse Ellipta inhale daily. 6. Remeron 90 mg p.o. at bedtime. 7. Lisinopril 10 mg daily in the morning. 8. Gabapentin 800 mg p.o. 4 times a day. 9. Diltiazem CD 240 mg p.o. daily. 10. Lipitor 80 mg daily. 11. Albuterol 2 puffs inhale every 4 hours as needed for shortness of breath. 12. Aspirin 81 mg p.o. daily. DRUG ALLERGIES: TORADOL, LORAZEPAM, MELOXICAM, PENICILLIN. FAMILY HISTORY: Mother at age 58 from an [place]. Dad at age 52 from an [place]. SOCIAL HISTORY: The patient lives at home with her , Reese, who is her healthcare proxy. She is unemployed, on disability due to her chronic pain. She states she quit smoking 3 days ago, was smoking 10 to 15 cigarettes per day for the past 30 years. No alcohol or illicit drug use. Code status is full code. REVIEW OF SYSTEMS: A 14-point review of systems as mentioned in the HPI; otherwise, negative. PHYSICAL EXAMINATION GENERAL: No acute distress, older than stated age female. VITAL SIGNS: Temp 96.9, pulse rate 108, respiratory rate 13, oxygen saturation 96% on room air, and blood pressure 153/113. HEENT: Head normocephalic. Pupils are equal and reactive. Anicteric. Oropharynx: Mucous membranes moist. NECK: Supple. No lymphadenopathy. RESPIRATORY: Diminished breath sounds. No wheezes, rhonchi, or rales. No increased work of breathing. CARDIAC: Tachycardia. Soft systolic murmur heard throughout. ABDOMEN: Soft, nontender, nondistended. EXTREMITIES: Trace pretibial edema. +1 DPs. NEUROLOGIC: Alert and oriented x3. No gross focal neurological deficits. DIAGNOSTIC STUDIES/LAB DATA: White count 17.8, hemoglobin 15.1, hematocrit 45 , platelets 197. INR 0.86. Sodium 139, potassium 2.8, chloride 105, bicarb 27 , BUN 15, creatinine 0.86, glucose 120. BNP 367. Radiographic Data: EKG shows sinus tachycardia with no significant ST changes from prior EKG. Chest x-ray: Read unremarkable. ASSESSMENT: This is a 47-year-old female with past medical history of known coronary artery disease and coronary vasospasm, who presents to the emergency room with chest pain at rest. 1. Chest pain at rest. Assessment: The patient with hypertensive urgency as well. Her chest pain is atypical. Her troponin and EKG unremarkable other than sinus tachycardia. Her chest pain has improved on the nitro drip. I wonder if this is related to her uncontrolled hypertension in the setting of initiating Chantix, and now with some vasospasm. Plan: We will admit her for observation. We are going to stop her nitro now, place an inch of Nitro paste on her and increase her diltiazem dose and give it tonight at 360 mg as it appeared that at home her blood pressure is still not well controlled. No indication for rapidly lowering her blood pressure and we will continue her on her lisinopril 10 mg in the morning. We will continue to trend her troponin. She just had a cath and an echo done back in January. If her further workup is concerning, recommend Cardiology and further workup. Trending her troponins at this time I feel is currently sufficient. CHRONIC MEDICAL PROBLEMS: 1. Chronic pain. Continue her Suboxone, gabapentin, and Remeron for sleep and went into a lower dose to 45, which is the max dose that I feel am comfortable prescribing her than 90 mg. 2. Coronary artery disease. Continuing her aspirin, Brilinta and as mentioned increase her diltiazem for her presumed vasospasm. 3. Hyperlipidemia. Continue her Lipitor. We will check her lipid panel in the morning as well. 4. Tobacco use. Unfortunately, I think the Chantix may be the culprit behind her presenting symptoms. We will discuss with the patient to discontinue the nicotine inhaler for now. She will need alternative measures that helps support her smoking cessation. 5. FEN. Heart-healthy diet. 6. DVT prophylaxis. The patient scores high risk and placed on heparin subcu t.i.d. 7. Code status. Full code. PATIENT TIME: Greater than 50 minutes spent doing history and physical, more than half time was spent in direct patient contact. [id number]/[id number] #: [id number] STEPAN
[2018-04-29] MEDS: Heparin VIAL(*) 5000 UNITS/ML VIAL (FIVE THOUSAND) SUBCUT SCH ×2 (05:16→13:55)
--- NOTE | 2018-04-29 08:14 | RAD ---
INDICATION: Chest pain COMPARISON: August 29, 2016 TECHNIQUE: An AP portable view obtained at 2149 hours is submitted. FINDINGS: Bones/Soft Tissues: There are no acute bony findings. Cardiomediastinal: The cardiomediastinal silhouette is normal. Lungs: There are no infiltrates. Pleura: There are no pleural effusions. Other: None IMPRESSION: NORMAL CHEST. R0
[2018-04-29] MEDS ORDERED: Aspirin 81 mg CHEW TAB* 81 MG TAB.CHEW PO SCH (09:00)
[2018-04-29] MEDS ORDERED: Lisinopril TAB* 10 MG PO SCH (09:00)
[2018-04-29] MEDS ORDERED: Umeclidin 62.5 MDI(NF) 1 INH MDI INH SCH (09:00)
[2018-04-29] MEDS ORDERED: Diltiazem CD CAP* 240 MG PO SCH (09:00)
[2018-04-29 13:57] VITALS: BP 137/68
[2018-04-29] MEDS ORDERED: Diltiazem CD CAP* 180 MG PO SCH (21:00)
--- NOTE | 2018-05-01 03:13 | DS ---
DISCHARGE SUMMARY: DATE OF ADMISSION: 04/28/18 DATE OF DISCHARGE: 04/29/18 PROVIDER: Deepak Luna NP ATTENDING PHYSICIAN: Dr. Ramos * (report dictated by Deepak Luna NP). PRIMARY CARE PROVIDER: Dr. Curtis. DISCHARGE DIAGNOSES: 1. Hypertensive urgency/multifactorial secondary to insomnia and Chantix use. 2. Chest pain suspected secondary to hypertensive urgency. 3. Anxiety. SECONDARY DIAGNOSES: 1. Tobacco use. 2. History of coronary artery vasospasm. 3. History of coronary artery disease status post stents to the left anterior descending artery and diagonal branch done in [place] followed by Dr. Lawler, Cardiology in [place]. 4. History of possible seizure disorder. 5. Hypertension. 6. History of nephrolithiasis. 7. Chronic pain. 8. Hyperlipidemia. DISCHARGE MEDICATIONS: 1. Suboxone 12 mg/3 mg 1 film sublingual b.i.d. 2. Brilinta 90 mg p.o. b.i.d. 3. Nitro 0.4 mg sublingual q.5 minutes p.r.n. 4. Ellipta inhaler. 5. Remeron 90 mg p.o. at bedtime. 6. Gabapentin mg p.o. 4 times daily. 7. Lipitor 80 mg p.o. daily. 8. Aspirin 81 mg p.o. daily. 9. Albuterol 2 puffs INH q.4 hours p.r.n. New medications: 1. Cardizem 360 mg p.o. daily; please note this was increased from 240 mg. Discontinued medications: Chantix. HISTORY OF PRESENT ILLNESS AND HOSPITAL COURSE: Please see history and physical by Dr. Patel for full admission details. In summary, this is a 47-year -old with past medical history as stated above who presented to the emergency department on 04/28/18 with complaints of left sided chest pain radiating down the left arm with left hand numbness and tingling with radiation to her jaw. She reported she was nauseous and diaphoretic and short of breath, when she arrived to the emergency department, her blood pressure was 220/130. Initially , she was started on nitro drip, which improved her blood pressure and her chest pain was dull. Initially they turned off the nitro drip and her chest pain returned as her blood pressures went back up and she was placed back on the nitroglycerin drip. As she had been weaned off the drip, the blood pressures continued to stay controlled. Her Cardizem was increased from 240 mg daily to 360 mg daily. Patient reports that she had not smoked for approximately a week and started Chantix 3 days ago. Since that time, she stated she is having vivid dreams and hallucinations and sleep walking at night. She does report prior tobacco. She is having trouble with insomnia and believes that she has not slept for more than an hour at a time for approximately 1 week. She states at baseline, she has insomnia but it worsened once she started using the Chantix. She reports last night she slept well, today she feels well and would like to go home. She denies any further shortness of breath, chest pain, or diaphoresis. She does report she has some tingling in her left hand and wrist mostly in her wrist area which worsens with movement and extension and flexion of her wrist. Today, she has been ambulating around the unit reporting she is at her baseline and would like to be discharged home. She was admitted to telemetry where her troponin enzymes were trended, which were all flat. Her blood pressure is well controlled today systolically in the 130s. She has no noted EKG changes. She recently just had a cath and echocardiogram back in January. I do not think she needs to see Cardiology at this time as she is asymptomatic and believes that these symptoms were secondary to hypertensive urgency most likely from the Chantix and acute insomnia. The patient and I spoke at length about sleep hygiene as she reports that she has significant insomnia and she does report that she drinks at least 6 to 7 Mountain Dews a day bedtime as this could be greatly affecting her sleep. The patient was recommended to not drink any caffeine after noon. The patient was also instructed to discontinue the Chantix due to her adverse reaction. At this time, she was given a nicotine patch and will follow up with her primary care provider. DISCHARGE PLAN: 1. Follow up with primary care provider within 2 to 5 days. 2. The patient was instructed to return to the emergency department with any worsening of her symptoms. Also, I discussed with the patient that she may benefit from an outpatient sleep study. TIME SPENT: Approximately 60 minutes was spent on this discharge. DEEPAK LUNA, TRANSMISSION ENGINEER [id number]/[facility] #: [id number] STEPAN
== END 2018-04-29 14:45 | disposition home or self-care (01) ==
LOC: ED 21:09 → MEDTELE 23:13
PROVIDERS: ADMIT Pediatrics; ATTEND Internal Medicine
DX: I16.0 Hypertensive urgency (principal); I10 Essential (primary) hypertension; R07.9 Chest pain, unspecified; G47.00 Insomnia, unspecified; F41.9 Anxiety disorder, unspecified; Z72.0 Tobacco use; I25.10 Atherosclerotic heart disease of native coronary artery without angina pectoris; Z87.442 Personal history of urinary calculi; G89.29 Other chronic pain; E78.5 Hyperlipidemia, unspecified; Z79.82 Long term (current) use of aspirin; Z95.5 Presence of coronary angioplasty implant and graft
CPT/HCPCS: 36415; 71045; 80053; 80061; 82550; 83605; 83735; 83880; 84484; 85025; 85610; 85730; 93005; 96374; 96375; 99285; A9270-GY; G0378; J1644; J2060

== ENCOUNTER 2018-04-30 19:41 | Emergency (ER) | payer MEDICARE ==
[2018-04-30] MEDS ORDERED: Nitroglycerin 2% OINT* 1 GM PAK TOPICAL ONE (20:12)
[2018-04-30] MEDS ORDERED: Aspirin 81 mg CHEW TAB* 81 MG TAB.CHEW PO ONE (20:12)
--- NOTE | 2018-04-30 20:22 | ED ---
HPI Chest Pain - HPI Summary HPI Summary: A 47 y/o female presents to ED c/o constant chest pain. Currently the patient is still experiencing chest pain reaching 7/10 in severity. In the ED room, the patient has a pulse of 108 BPM and blood pressure of 212/108. As per triage, " pt here with c/o chest pain that started 9am which radiates down left arm, seen other night for same. Pt has HX 7 cardiac stents, pt took approx 7 NTG today with some relief, last one 45 min ago, pt now has headache". According to the patient, she was recently admitted to [facility] as she was here for the same symptoms. She stated that her chest pain started at 0900 this morning when she was scrubbing/cleaning her shower. She laid down for a bit and took NTG several times but that only temporarily relieved the symptoms. Denies any vomiting, nausea or dizziness, however, is diaphoretic. She noted that she had no stress test done recently, but had one about a year ago. PMHx of cardiac catheter on March 01, unknown result. She noted that her Troponin came back positive when she had a small AL. Additional PMHx of epilepsy. SHx of former smoker, quit 2.5 weeks ago and no recreational drugs. 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 - History of Current Complaint Chief Complaint: EDChestWallPain Time Seen by Provider: 04/30/18 20:00 Hx Obtained From: Patient Onset/Duration: Started Hours Ago, Still Present Timing: Constant Initial Severity: Moderate Current Severity: Moderate Pain Intensity: 7 Pain Scale Used: 0-10 Numeric Chest Pain Location: Diffuse Chest Pain Radiates: No Aggravating Factor(s): Nothing Alleviating Factor(s): Nothing Associated Signs and Symptoms: Positive: Chest Pain, Headaches, Diaphoresis. Negative: Dizziness, Nausea, Vomiting - Additional Pertinent History Primary Care Physician: [id number] - Allergy/Home Medications Allergies/Adverse Reactions: Allergies Allergy/AdvReac Type Severity Reaction Status Date / Time ketorolac [From Toradol] Allergy Rash Verified 04/30/18 19:43 lorazepam [From Ativan] Allergy See Comment Verified 04/30/18 19:43 meloxicam [From Mobic] Allergy Rash And Verified 04/30/18 19:43 Itching Penicillins Allergy Anaphylatic Verified 04/30/18 19:43 Shock PMH/Surg Hx/FS Hx/Imm Hx Endocrine/Hematology History: Denies: Hx Diabetes Cardiovascular History: Reports: Hx Angina, Hx Coronary Artery Disease, Hx Hypertension - ON MEDICATION, Hx Myocardial Infarction - x3 Respiratory History: Denies: Hx Chronic Obstructive Pulmonary Disease (COPD), Other Respiratory Problems/Disorders GI History: Denies: Other GI Disorders History: Reports: Hx Kidney Infection - PRESENTLY ON CIPRO, Hx Kidney Stones , Hx Renal Disease - CALCULI, LT SIDE, Other Problems/Disorders - nephrolithiasis Denies: Hx Dialysis Musculoskeletal History: Reports: Hx Arthritis - PSORIATIC ARTHRITIS Sensory History: Denies: Hx Contacts or Glasses, Hx Hearing Aid Opthamlomology History: Denies: Hx Contacts or Glasses Neurological History: Reports: Hx Seizures Denies: Hx Transient Ischemic Attacks (TIA) Psychiatric History: Reports: Hx Anxiety - NO MEDS - Surgical History Surgery Procedure, Year, and Place: 10/05/2008 [facility]AC STENT [facility]. 2008 [place]AC STENT, [place]. 04/2010 [facility]. 2011 LEFT URETERAL STENT INSERTION, [facility]. 2010 LEFT URETERAL STENT INSERTION, [facility]. 1990 LAPAROSCOPIC TUBAL LIGATION, [facility]. 09/24/12, CYSTO, STWENT, [facility]. 1994 TONSILLECTOMY, [facility] Anesthesia Reactions: No - Immunization History Date of Tetanus Vaccine: unk Date of Influenza Vaccine: none Infectious Disease History: No Infectious Disease History: Denies: Traveled Outside the [place] in Last 30 Days - Family History Known Family History: Positive: Cardiac Disease Negative: Other - negative malignant hyperthermia, negative adverse anesthesia reaction - Social History Alcohol Use: Occasionally Hx Substance Use: Yes Substance Use Type: Reports: None Substance Use Comment - Amount & Last Used: suboxone Hx Tobacco Use: Yes Smoking Status (MU): Current Every Day Smoker Type: Cigarettes Have You Smoked in the Last Year: Yes Review of Systems Negative: Fever Positive: Chest Pain Negative: Vomiting, Nausea Neurological: Other - NEGATIVE: Dizziness Positive: Headache All Other Systems Reviewed And Are Negative: Yes Physical Exam - Summary Physical Exam Summary: Appearance: Well appearing, no pain distress Skin: warm, dry, reflects adequate perfusion Head/face: normal Eyes: EOMI, MARCELA ENT: normal Neck: supple, non-tender Respiratory: CTA, breath sounds present Cardiovascular: RRR, pulses symmetrical Abdomen: non-tender, soft Bowel: present Musculoskeletal: normal, strength/ROM intact Neuro: normal, sensory motor intact, A&Ox3 Triage Information Reviewed: Yes Vital Signs On Initial Exam: Initial Vitals Temp Pulse Resp BP Pulse Ox 98.9 F 108 18 210/100 99 04/30/18 19:43 04/30/18 19:43 04/30/18 19:43 04/30/18 19:43 04/30/18 19:43 Vital Signs Reviewed: Yes Diagnostics - Vital Signs Vital Signs Temp Pulse Resp BP Pulse Ox 04/30/18 19:43 98.9 F 108 18 210/100 99 - Laboratory Result Diagrams: 04/30/18 20:19 04/30/18 20:19 Lab Statement: Any lab studies that have been ordered have been reviewed, and results considered in the medical decision making process. - Radiology CXR Radiology Interpretation Completed By: ED Physician - Negative. Pending official report. - EKG 1950 Cardiac Rate: NL - 99 BPM EKG Rhythm: Sinus Rhythm EKG Interpretation: No acute changes Chest Pain Course/Dx - Course Course Of Treatment: 47 y/o female presents to ED c/o constant chest pain. Currently the patient is still experiencing chest pain reaching 7/10 in severity. In the ED room, the patient has a pulse of 108 BPM and blood pressure of 212/108. An EKG revealed a NSR of 99 BPM, no acute changes. A CXR revealed to be negative. In the ED course, the patient recieved Aspirin, Nitoglycerin and Catapres. Patient care was discussed with hospitalist, Dr. Patel and metal hardener, Dr. Cummings. Dr. Patel will consult with patient. Patient is signed out to Dr. Nito Carter via Dr. Tim Platt, pending consult with Dr. Patel, awaiting medical clearance and disposition during shift change at 2200 on April. Patient will be signed out with a diagnosis of chest pain and history of CAD. - Chest Pain Differential Diagnosis/HQI/PQRI: Acute AL, ACS, Angina, Chest Wall - Diagnoses Provider Diagnoses: Chest pain, History of coronary artery disease - Provider Notifications Discussed Care Of Patient With: Araceli Patel Time Discussed With Above Provider: 21:20 Instructed by Provider To: Other - Consult with Dr. Cummings at 2132. Dr. Patel will consult with patient. Discharge - Sign-Out/Discharge Documenting (check all that apply): Sign-Out Patient Signing out patient TO: Nito Carter Receiving patient FROM: Tim Platt - Discharge Plan Condition: Stable Referrals: Kevin Curtis MD [Primary Care Provider] - - Billing Disposition and Condition Condition: STABLE - Attestation Statements Document Initiated by Scribe: Yes Documenting Scribe: Jun Sanchez Provider For Whom Xochitle is Documenting (Include Credential): Tim Platt Scribe Attestation: Jnu Aldridge, scribed for Timwai Platt on 04/30/18 at 2150. Scribe Documentation Reviewed: Yes Provider Attestation: The documentation as recorded by the Jun allen accurately reflects the service I personally performed and the decisions made by , Tim Platt
[2018-04-30 20:35] LABS: ABS Basophils 0 10^3/ul (0-0.2); ABS Eosinophils 0.1 10^3/ul (0-0.6); ABS Lymphocytes 1.2 10^3/ul (1.0-4.8); ABS Monocytes 0.7 10^3/ul (0-0.8); ABS Neutrophils 6.7 10^3/ul (1.5-7.7); ABS Nucleated RBC 0 10^3/ul; Eosinophil % 1.1 % (0-6); Hematocrit 46 % (35-47); Hemoglobin 15.1 g/dl (12.0-16.0); Mean Corpuscular HGB Conc 33 g/dl (31-36); Mean Corpuscular Hemoglobin 29 pg (27-31); Mean Corpuscular Volume 86 fL (80-97); Mean Platelet Volume 9.9 um3 (7.4-10.4); Nucleated Red Blood Cells % 0; Platelet Count 223 10^3/ul (150-450); Red Blood Count 5.29 10^6/ul (4.00-5.40); Red Cell Distribution Width 16 % (10.5-15); White Blood Count 8.7 10^3/ul (3.5-10.8)
[2018-04-30 20:49] LABS: EGFR Non-African American 63.1 (>60)
[2018-04-30] MEDS ORDERED: cloNIDine TAB* 0.1 MG PO ONE (21:24)
[2018-04-30] MEDS ORDERED: ALPRAZolam TAB* 0.5 MG PO ONE (21:54)
[2018-04-30] MEDS ORDERED: Acetaminophen TAB* 325 MG PO ONE (21:54)
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
[2018-05-01 00:44] VITALS: BP 116/78
--- NOTE | 2018-05-01 03:35 | ED ---
Progress - Progress Note Progress Note: Discussed case with the dyeing machine back tender. Second troponin negative. Patient states that she has been very anxious. She was treated for same. She is feeling better like to discharge after negative troponin 2. Course/Dx - Course Course Of Treatment: 47 y/o female presents to ED c/o constant chest pain. Currently the patient is still experiencing chest pain reaching 7/10 in severity. In the ED room, the patient has a pulse of 108 BPM and blood pressure of 212/108. An EKG revealed a NSR of 99 BPM, no acute changes. A CXR revealed to be negative. In the ED course, the patient recieved Aspirin, Nitoglycerin and Catapres. Patient care was discussed with hospitalist, Dr. Patel and dyeing machine back tender, Dr. Cummings. Dr. Patel will consult with patient. Patient is signed out to Dr. Nito Carter via Dr. Tim Platt, pending consult with Dr. Patel, awaiting medical clearance and disposition during shift change at 2200 on April. Patient will be signed out with a diagnosis of chest pain and history of CAD. - Diagnoses Provider Diagnoses: Chest pain, History of coronary artery disease, Anxiety - Provider Notifications Discussed Care Of Patient With: Kenzie Cummings Time Discussed With Above Provider: 21:20 Instructed by Provider To: Other - Consult with Dr. Cummings at 0, recommends that Discharge - Sign-Out/Discharge Documenting (check all that apply): Patient Departure - Discharge Plan Condition: Improved Disposition: HOME Prescriptions: hydrOXYzine pamoate [Vistaril] 50 mg PO TID PRN #30 capsule PRN Reason: Anxiety Patient Education Materials: Chest Pain (ED), Anxiety (ED) Referrals: Kevin Curtis MD [Primary Care Provider] - Additional Instructions: Call your dyeing machine back tender and family doctor first thing in the morning to follow- up. You've been prescribed anti-anxiety medications. Return if worse, new symptoms or other concerns as discussed. - Billing Disposition and Condition Condition: IMPROVED Disposition: Home - Attestation Statements Document Initiated by Scribe: Yes Documenting Scribe: Dash Aceves Provider For Whom Scribe is Documenting (Include Credential): Dr Carter Scribe Attestation: I, Dash Aceves, scribed for Dr Carter on 05/04/18 at 1022. Scribe Documentation Reviewed: Yes Provider Attestation: The documentation as recorded by the scribe, Dash Aceves accurately reflects the service I personally performed and the decisions made by me, Dr Carter
--- NOTE | 2018-05-01 07:34 | RAD ---
INDICATION: Chest pain COMPARISON: April 28, 2018 TECHNIQUE: An AP portable view obtained at 2022 hours is submitted. FINDINGS: Bones/Soft Tissues: There are no acute bony findings. Cardiomediastinal: The cardiomediastinal silhouette is normal. Lungs: There are no infiltrates. Pleura: There are no pleural effusions. Other: None IMPRESSION: NO ACTIVE DISEASE. R0
== END 2018-05-01 00:43 | disposition short-term general hospital (02) ==
LOC: ED 19:41
DX: R07.89 Other chest pain (principal); I25.111 Atherosclerotic heart disease of native coronary artery with angina pectoris with documented spasm; I10 Essential (primary) hypertension; F41.9 Anxiety disorder, unspecified; I25.2 Old myocardial infarction; J44.9 Chronic obstructive pulmonary disease, unspecified; E78.5 Hyperlipidemia, unspecified; G40.909 Epilepsy, unspecified, not intractable, without status epilepticus; F17.210 Nicotine dependence, cigarettes, uncomplicated; Z95.5 Presence of coronary angioplasty implant and graft; Z79.899 Other long term (current) drug therapy; Z88.0 Allergy status to penicillin; Z88.5 Allergy status to narcotic agent
CPT/HCPCS: 36415; 71045; 80053; 80307; 83880; 84484; 85025; 93005; 99283; A9270-GY

== ENCOUNTER 2018-06-03 18:16 | Observation (INO) | payer MEDICARE ==
[2018-06-03] MEDS ORDERED: Ondansetron INJ* 2 MG/ML VIAL IV ONE (19:26)
[2018-06-03] MEDS ORDERED: Morphine VIAL* 10 MG/ML 1 ML VIAL IV ONE (19:26)
[2018-06-03 19:31] LABS: ABS Basophils 0 10^3/ul (0-0.2); ABS Eosinophils 0 10^3/ul (0-0.6); ABS Lymphocytes 1.2 10^3/ul (1.0-4.8); ABS Monocytes 0.5 10^3/ul (0-0.8); ABS Nucleated RBC 0 10^3/ul; Eosinophil % 0.4 % (0-6); Hematocrit 50 % (35-47); Hemoglobin 16.7 g/dl (12.0-16.0); Lymphocyte % 15.4 % (25-47); Mean Corpuscular HGB Conc 34 g/dl (31-36); Mean Corpuscular Hemoglobin 29 pg (27-31); Mean Corpuscular Volume 85 fL (80-97); Mean Platelet Volume 9.4 um3 (7.4-10.4); Nucleated Red Blood Cells % 0.1; Platelet Count 282 10^3/ul (150-450); Red Blood Count 5.86 10^6/ul (4.00-5.40); Red Cell Distribution Width 15 % (10.5-15); White Blood Count 7.8 10^3/ul (3.5-10.8)
[2018-06-03 19:34] LABS: INR 1.06 (0.77-1.02)
[2018-06-03 19:38] LABS: EGFR Non-African American 50.9 (>60)
[2018-06-03] MEDS ORDERED: Morphine INJ* 4 MG/ML 1 ML SYRINGE (NEW SYRINGE VERSION) ONE (19:38)
[2018-06-03] MEDS ORDERED: Metoprolol Tartrate IV* 1 MG/ML 5 ML VIAL IV ONE (19:55)
[2018-06-03] MEDS ORDERED: Enoxaparin(*) 100 MG/ML SYR SUBCUT ONE (19:56)
[2018-06-03] MEDS ORDERED: Aspirin 81 mg CHEW TAB* 81 MG TAB.CHEW PO ONE (19:56)
[2018-06-03] MEDS ORDERED: Nitroglycerin 2% OINT* 1 GM PAK TOPICAL ONE (20:08)
--- NOTE | 2018-06-03 20:10 | ED ---
HPI Chest Pain - HPI Summary HPI Summary: Patient complains of sternal and left chest pain starting at 4 PM today. Chest pain described as a weight, constant, no radiation, no relief with nitroglycerin sublingual 2, . Denies SOB, fever, cough, sore throat, N/V/D, abdominal pain, change in urine, change in BM. Patient has history of 9 Cardiac stents, with 2 stents placed recently on 05/23/18 at [facility]. Patient on Brilinta. Medical history includes CAD, HTN, HDL, heartburn. Active pain rated 7/10. Patient tachycardic. - History of Current Complaint Chief Complaint: EDChestPainROMI Time Seen by Provider: 06/03/18 18:51 Hx Obtained From: Patient Onset/Duration: Started Hours Ago Timing: Constant Initial Severity: Moderate Current Severity: Moderate Pain Intensity: 7 Pain Scale Used: 0-10 Numeric Chest Pain Location: Mid Sternal, Left Anterior Chest Pain Radiates: No Character: Heaviness Aggravating Factor(s): Nothing Alleviating Factor(s): Nothing Associated Signs and Symptoms: Positive: Chest Pain - Additional Pertinent History Primary Care Physician: [id number] - Allergy/Home Medications Allergies/Adverse Reactions: Allergies Allergy/AdvReac Type Severity Reaction Status Date / Time ketorolac [From Toradol] Allergy Rash Verified 06/03/18 21:12 lorazepam [From Ativan] Allergy See Comment Verified 06/03/18 21:12 meloxicam [From Mobic] Allergy Rash And Verified 06/03/18 21:12 Itching Penicillins Allergy Anaphylatic Verified 06/03/18 21:12 Shock PMH/Surg Hx/FS Hx/Imm Hx Endocrine/Hematology History: Denies: Hx Diabetes Cardiovascular History: Reports: Hx Angina, Hx Coronary Artery Disease, Hx Hypertension - ON MEDICATION, Hx Myocardial Infarction - x3 Respiratory History: Denies: Hx Chronic Obstructive Pulmonary Disease (COPD), Other Respiratory Problems/Disorders GI History: Denies: Other GI Disorders History: Reports: Hx Kidney Infection - PRESENTLY ON CIPRO, Hx Kidney Stones , Hx Renal Disease - CALCULI, LT SIDE, Other Problems/Disorders - nephrolithiasis Denies: Hx Dialysis Musculoskeletal History: Reports: Hx Arthritis - PSORIATIC ARTHRITIS Sensory History: Denies: Hx Contacts or Glasses, Hx Hearing Aid Opthamlomology History: Denies: Hx Contacts or Glasses Neurological History: Reports: Hx Seizures Denies: Hx Transient Ischemic Attacks (TIA) Psychiatric History: Reports: Hx Anxiety - NO MEDS - Surgical History Surgery Procedure, Year, and Place: 10/05/2008 CARD[place]AC [place]. 2008 [place]. 04/2010 [place] [facility] [place] [facility] [place], [facility]. 09/24/12, [place] [facility] [place] [facility] [place] Anesthesia Reactions: No - Immunization History Date of Tetanus Vaccine: unk Date of Influenza Vaccine: none Immunizations Up to Date: Yes Infectious Disease History: No Infectious Disease History: Denies: Traveled Outside the [place] in Last 30 Days - Family History Known Family History: Positive: Cardiac Disease Negative: Other - negative malignant hyperthermia, negative adverse anesthesia reaction - Social History Alcohol Use: Rare Hx Substance Use: Yes Substance Use Type: Reports: None Substance Use Comment - Amount & Last Used: suboxone Hx Tobacco Use: Yes Smoking Status (MU): Heavy Every Day Tobacco Smoker Type: Cigarettes Have You Smoked in the Last Year: Yes Review of Systems Constitutional: Negative Eyes: Negative ENT: Negative Positive: Chest Pain Respiratory: Negative Gastrointestinal: Negative Genitourinary: Negative Musculoskeletal: Negative Skin: Negative Neurological: Negative Psychological: Normal All Other Systems Reviewed And Are Negative: Yes Physical Exam - Summary Physical Exam Summary: Chest pain not reproducible Triage Information Reviewed: Yes Vital Signs On Initial Exam: Initial Vitals Temp Pulse Resp BP Pulse Ox 97.3 F 125 20 198/116 97 06/03/18 18:26 06/03/18 18:26 06/03/18 18:26 06/03/18 18:26 06/03/18 18:26 Vital Signs Reviewed: Yes Appearance: Positive: Well-Appearing Skin: Positive: Warm Head/Face: Positive: Normal Head/Face Inspection Eyes: Positive: Normal Neck: Positive: Supple Respiratory/Lung Sounds: Positive: Clear to Auscultation Cardiovascular: Positive: Tachycardia Abdomen Description: Positive: Nontender Musculoskeletal: Positive: Normal Neurological: Positive: Normal Psychiatric: Positive: Normal AVPU Assessment: Alert - Maxx Coma Scale Best Eye Response: 4 - Spontaneous Best Motor Response: 6 - Obeys Commands Best Verbal Response: 5 - Oriented Coma Scale Total: 15 Diagnostics - Vital Signs Vital Signs Temp Pulse Resp BP Pulse Ox 10/02/18 19:09 127 20 95 06/03/18 19:08 126 15 180/117 95 06/03/18 19:02 120 20 203/104 95 06/03/18 18:26 97.3 F 125 20 198/116 97 - Laboratory Lab Results: Lab Results 06/03/18 06/03/18 06/03/18 Range/Units 19:09 19:09 19:09 WBC 7.8 (3.5-10.8) 10^3/ul RBC 5.86 H (4.00-5.40) 10^6/ul Hgb 16.7 H (12.0-16.0) g/dl Hct 50 H (35-47) % MCV 85 (80-97) fL MCH 29 (27-31) pg MCHC 34 (31-36) g/dl RDW 15 (10.5-15) % Plt Count 282 (150-450) 10^3/ul MPV 9.4 (7.4-10.4) um3 Neut % (Auto) 77.2 (38-83) % Lymph % (Auto) 15.4 L (25-47) % Major % (Auto) 6.8 (0-7) % Eos % (Auto) 0.4 (0-6) % Baso % (Auto) 0.2 (0-2) % Absolute Neuts (auto) 6.0 (1.5-7.7) 10^3/ul Absolute Lymphs (auto) 1.2 (1.0-4.8) 10^3/ul Absolute Monos (auto) 0.5 (0-0.8) 10^3/ul Absolute Eos (auto) 0 (0-0.6) 10^3/ul Absolute Basos (auto) 0 (0-0.2) 10^3/ul Absolute Nucleated RBC 0 10^3/ul Nucleated RBC % 0.1 INR (Anticoag Therapy) (0.77-1.02) Sodium 136 (135-145) mmol/L Potassium 4.1 (3.5-5.0) mmol/L Chloride 100 L (101-111) mmol/L Carbon Dioxide 29 (22-32) mmol/L Anion Gap 7 (2-11) mmol/L BUN 18 (6-24) mg/dL Creatinine 1.14 H (0.51-0.95) mg/dL Est GFR ( Amer) 61.6 (>60) Est GFR (Non-Af Amer) 50.9 (>60) BUN/Creatinine Ratio 15.8 (8-20) Glucose 147 H (70-100) mg/dL Lactic Acid 0.9 (0.5-2.0) mmol/L Calcium 10.3 (8.6-10.3) mg/dL Total Bilirubin 0.40 (0.2-1.0) mg/dL AST 32 (13-39) U/L ALT 10 (7-52) U/L Alkaline Phosphatase 83 (34-104) U/L Troponin I 0.64 H* (<0.04) ng/mL Total Protein 8.1 (6.4-8.9) g/dL Albumin 4.6 (3.2-5.2) g/dL Globulin 3.5 (2-4) g/dL Albumin/Globulin Ratio 1.3 (1-3) TSH (0.34-5.60) mcIU/mL 06/03/18 06/03/18 Range/Units 19:09 19:09 WBC (3.5-10.8) 10^3/ul RBC (4.00-5.40) 10^6/ul Hgb (12.0-16.0) g/dl Hct (35-47) % MCV (80-97) fL MCH (27-31) pg MCHC (31-36) g/dl RDW (10.5-15) % Plt Count (150-450) 10^3/ul MPV (7.4-10.4) um3 Neut % (Auto) (38-83) % Lymph % (Auto) (25-47) % Major % (Auto) (0-7) % Eos % (Auto) (0-6) % Baso % (Auto) (0-2) % Absolute Neuts (auto) (1.5-7.7) 10^3/ul Absolute Lymphs (auto) (1.0-4.8) 10^3/ul Absolute Monos (auto) (0-0.8) 10^3/ul Absolute Eos (auto) (0-0.6) 10^3/ul Absolute Basos (auto) (0-0.2) 10^3/ul Absolute Nucleated RBC 10^3/ul Nucleated RBC % INR (Anticoag Therapy) 1.06 H (0.77-1.02) Sodium (135-145) mmol/L Potassium (3.5-5.0) mmol/L Chloride (101-111) mmol/L Carbon Dioxide (22-32) mmol/L Anion Gap (2-11) mmol/L BUN (6-24) mg/dL Creatinine (0.51-0.95) mg/dL Est GFR ( Amer) (>60) Est GFR (Non-Af Amer) (>60) BUN/Creatinine Ratio (8-20) Glucose (70-100) mg/dL Lactic Acid (0.5-2.0) mmol/L Calcium (8.6-10.3) mg/dL Total Bilirubin (0.2-1.0) mg/dL AST (13-39) U/L ALT (7-52) U/L Alkaline Phosphatase (34-104) U/L Troponin I (<0.04) ng/mL Total Protein (6.4-8.9) g/dL Albumin (3.2-5.2) g/dL Globulin (2-4) g/dL Albumin/Globulin Ratio (1-3) TSH 0.22 L (0.34-5.60) mcIU/mL Result Diagrams: 06/03/18 19:09 06/03/18 19:09 Lab Statement: Any lab studies that have been ordered have been reviewed, and results considered in the medical decision making process. - Radiology cxr Xray Interpretation: No Acute Changes Radiology Interpretation Completed By: ED Physician - EKG 1 Cardiac Rate: Tachycardia EKG Rhythm: Sinus Tachycardia ST Segment: Non-Specific Ectopy: PVCs EKG Comparison: No Significant Change Chest Pain Course/Dx - Course Course Of Treatment: Patient complains of sternal and left chest pain starting at 4 PM today. Chest pain described as a weight, constant, no radiation, no relief with nitroglycerin sublingual 2, . Denies SOB, fever, cough, sore throat, N/V/D, abdominal pain, change in urine, change in BM. Patient has history of 9 Cardiac stents, with 2 stents placed recently on 05/23/18 at [facility]. Patient on Brilinta. Medical history includes CAD, HTN, HDL, heartburn. Active pain rated 7/10. Patient tachycardic. Elevated troponin 0.64. EKG sinus tachycardia. Discussed patient with Dr. Saravia who is recommending catheter lab, states he will call interventionalist Dr Soares. Records have been requested from [facility]. Lovenox 104mg subcutaneous. Lopressor 5 mg IV reduced patient heart rate from 125-85. Dr. Soares interventionalist recommended nitroglycerin IV drip. Stated he will come see patient. Dr. Soares decided no cath at this time. Patient admitted to the hospitalist. Vital signs within normal limits. Other than troponin, labs and otherwise unremarkable. - Diagnoses Provider Diagnoses: Unstable angina Discharge - Sign-Out/Discharge Documenting (check all that apply): Patient Departure - Discharge Plan Condition: Stable Disposition: ADMITTED TO [facility] Referrals: Kevin Curtis MD [Primary Care Provider] - - Billing Disposition and Condition Condition: STABLE Disposition: Admitted to [facility]
[2018-06-03] MEDS ORDERED: nitroGLYCERIN DRIP* 25,000 MCG/250 ML BTL IV ONE (20:28)
[2018-06-03] MEDS ORDERED: Docusate CAP* 100 MG PO PRN (22:13)
[2018-06-03] MEDS ORDERED: Al Hydrox/Mg Hydrox/Simet LIQ* 30 ML UDC PO PRN (22:13)
[2018-06-03] MEDS ORDERED: Ondansetron INJ* 2 MG/ML VIAL IV PRN (22:13)
[2018-06-03] MEDS ORDERED: Senna TAB PO PRN (22:13)
[2018-06-03] MEDS ORDERED: Acetaminophen TAB* 325 MG PO PRN (22:13)
[2018-06-03] MEDS ORDERED: hydrOXYzine HCL TAB* 50 MG PO PRN (22:18)
[2018-06-03] MEDS ORDERED: Albuterol HFA INHALER* 8 gm MDI INH PRN (22:18)
[2018-06-03] MEDS ORDERED: Mirtazapine TAB* 15 MG PO SCH (23:00)
[2018-06-04] MEDS: Gabapentin CAP(*) 400 MG PO SCH ×3 (00:42→13:25)
[2018-06-04] MEDS: Ticagrelor* 90 MG TAB PO SCH ×2 (00:42→08:42)
[2018-06-04] MEDS: Buprenorphine/Naloxone 8-2 MG SL TAB* 1 TAB SL SCH ×2 (00:42→08:43)
[2018-06-04] MEDS: Diltiazem CD CAP* 180 MG PO SCH ×2 (00:43→08:40)
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
[2018-06-04 06:45] LABS: ABS Basophils 0 10^3/ul (0-0.2); ABS Eosinophils 0.1 10^3/ul (0-0.6); ABS Lymphocytes 1.9 10^3/ul (1.0-4.8); ABS Monocytes 0.5 10^3/ul (0-0.8); ABS Neutrophils 4.7 10^3/ul (1.5-7.7); ABS Nucleated RBC 0 10^3/ul; Eosinophil % 1.2 % (0-6); Hematocrit 46 % (35-47); Hemoglobin 15.2 g/dl (12.0-16.0); Lymphocyte % 27.1 % (25-47); Mean Corpuscular HGB Conc 33 g/dl (31-36); Mean Corpuscular Hemoglobin 28 pg (27-31); Mean Corpuscular Volume 85 fL (80-97); Mean Platelet Volume 9.2 um3 (7.4-10.4); Nucleated Red Blood Cells % 0.1; Platelet Count 250 10^3/ul (150-450); Red Blood Count 5.44 10^6/ul (4.00-5.40); Red Cell Distribution Width 15 % (10.5-15); White Blood Count 7.2 10^3/ul (3.5-10.8)
[2018-06-04 07:28] LABS: EGFR Non-African American 62.8 (>60)
--- NOTE | 2018-06-04 07:38 | RAD ---
HISTORY: chest pain COMPARISONS: April 30, 2018 VIEWS: 1: frontal AP view of the chest at 7:00 PM FINDINGS: LINES AND TUBES: None. CARDIOMEDIASTINAL SILHOUETTE: The cardiomediastinal silhouette is normal for portable technique. PLEURA: The costophrenic angles are sharp. No pleural abnormalities are noted. LUNG PARENCHYMA: The lungs are clear. ABDOMEN: The upper abdomen is clear. There is no subphrenic gas. BONES AND SOFT TISSUES: No bone or soft tissue abnormalities are noted. IMPRESSION: NO ACTIVE CARDIOPULMONARY DISEASE. R0
[2018-06-04] MEDS: Heparin VIAL(*) 5000 UNITS/ML VIAL (FIVE THOUSAND) SUBCUT SCH ×2 (08:40→13:26)
[2018-06-04] MEDS ORDERED: Lisinopril TAB* 10 MG PO SCH (09:00)
[2018-06-04] MEDS ORDERED: Aspirin 81 mg CHEW TAB* 81 MG TAB.CHEW PO SCH (09:00)
[2018-06-04] MEDS ORDERED: Umeclidin 62.5 MDI(NF) 1 INH MDI INH SCH (09:00)
[2018-06-04] MEDS ORDERED: Heparin VIAL(*) 5000 UNITS/ML VIAL (FIVE THOUSAND) SUBCUT SCH (09:00)
[2018-06-04] MEDS ORDERED: Fluticasone NASAL SPRAY 50MCG* 16 gm SPRAY BTL BOTH NARES SCH (09:00)
[2018-06-04 11:39] VITALS: BP 128/92
--- NOTE | 2018-06-04 12:20 | PN ---
<Karis Browning - Last Filed: 06/04/18 12:38> Subjective Date of Service: 06/04/18 - f/u for c/o forceful heart beat and sensation of heart racing Interval History: no events last night, patient continues to state she was at [facility] on 05[facility]2018 and underwent PCI she adds she was at [facility] prior to that and thet transferred her to [facility]. I personally spoke to medical records at [facility] and they stated she has not been admitted there since 2010. I am awaiting records from [facility]. She denies chest pain, sob, yee, dizziness or syncope. States yesterday from 4-11pm while resting at home after being in court yesterday she developed sensation of forceful heart beat and heart racing. no symptoms since 11pm last night. She also reports to only be taking Brilinta 90mg (1/2) tablet PO BID due to cost of medication. Medications Active Medications: Acetaminophen (Tylenol Tab*) 650 mg PO Q4H PRN PRN Reason: FEVER/PAIN Al Hydrox/Mg Hydrox/Simethicone (Maalox Plus*) 30 ml PO Q6H PRN PRN Reason: INDIGESTION Albuterol (Ventolin Hfa Inhaler*) 2 puff INH Q4H PRN PRN Reason: SOB/WHEEZING Aspirin (Aspirin 81 Mg Chew Tab*) 81 mg PO DAILY [facility] Last Admin: 06/04/18 08:42 Dose: 81 mg Atorvastatin Calcium (Lipitor*) 80 mg PO 1700 [facility] Buprenorphine/Naloxone (Suboxone 8-2 Mg Sl Tab*) 1.5 tab.sl SL BID [facility] Last Admin: 06/04/18 08:43 Dose: 1.5 tab.sl Clopidogrel Bisulfate (Plavix Tab*) 75 mg PO DAILY [facility] Diltiazem HCl (Cardizem Cd Cap*) 360 mg PO DAILY [facility] Last Admin: 06/04/18 08:40 Dose: 360 mg Docusate Sodium (Colace Cap*) 100 mg PO BID PRN PRN Reason: CONSTIPATION Fluticasone Propionate (Flonase Nasal [place] 50mcg*) 2 spray BOTH NARES DAILY [facility] Last Admin: 06/04/18 09:03 Dose: 2 spray Gabapentin (Neurontin Cap(*)) 800 mg PO QID [facility] Last Admin: 06/04/18 08:41 Dose: 800 mg Heparin Sodium (Porcine) (Heparin Vial(*)) 5,000 units SUBCUT Q8HR [facility] Last Admin: 06/04/18 08:40 Dose: 5,000 units Hydroxyzine HCl (Atarax Tab*) 50 mg PO TID PRN PRN Reason: ANXIETY Last Admin: 06/04/18 00:46 Dose: 50 mg Nitroglycerin/Dextrose (Nitroglycerin Drip*) 25,000 mcg in 250 mls @ 6 mls/hr IV ED ONCE ONE; Protocol Stop: 06/05/18 14:07 Last Admin: 06/03/18 21:06 Dose: 6 mls/hr Lisinopril (Prinivil Tab*) 10 mg PO DAILY [facility] Last Admin: 06/04/18 08:42 Dose: 10 mg Mirtazapine (Remeron Tab*) 45 mg PO BEDTIME [facility] Last Admin: 06/04/18 00:43 Dose: 45 mg Ondansetron HCl (Zofran Inj*) 4 mg IV Q4H PRN PRN Reason: NAUSEA/VOMITING Senna (Senokot Tab*) 1 tab PO BID PRN PRN Reason: CONSTIPATION Umeclidinium [place] (Incruse Ellipta Mdi (Nf)) 1 inh INH DAILY [facility] Last Admin: 06/04/18 08:20 Dose: Not Given Objective Vital Signs: Temp Pulse Resp BP Pulse Ox 98.0 F 81 20 128/92 95 06/04/18 11:27 06/04/18 11:27 06/04/18 11:36 06/04/18 11:27 06/04/18 11:27 Oxygen Devices in Use Now: None Appearance: weepy, a+o x3, cooperative with exam. Eyes: No Scleral Icterus, PERRLA Ears/Nose/Mouth/Throat: NL Teeth, Lips, Gums, Clear Oropharnyx, Mucous Membranes Moist Neck: NL Appearance and Movements; NL JVP Respiratory: Symmetrical Chest Expansion and Respiratory Effort, Clear to Auscultation Cardiovascular: NL Sounds; No Murmurs; No JVD, RRR, No Edema Abdominal: NL Sounds; No Tenderness; No Distention Extremities: No Edema Neurological: Alert and Oriented x 3 Lines/Tubes/Other Access: Clean, Dry and Intact Peripheral IV Laboratory Results: 06/04/18 06:23 06/04/18 06:23 INR (Anticoag Therapy) 1.06 (0.77-1.02) H 06/03/18 19:09 Total Bilirubin 0.40 mg/dL (0.2-1.0) 06/03/18 19:09 AST 32 U/L (13-39) 06/03/18 19:09 ALT 10 U/L (7-52) 06/03/18 19:09 Alkaline Phosphatase 83 U/L (34-104) 06/03/18 19:09 B-Natriuretic Peptide 24 pg/mL (-100) 06/03/18 19:25 Total Protein 8.1 g/dL (6.4-8.9) 06/03/18 19:09 Albumin 4.6 g/dL (3.2-5.2) 06/03/18 19:09 Globulin 3.5 g/dL (2-4) 06/03/18 19:09 Albumin/Globulin Ratio 1.3 (1-3) 06/03/18 19:09 Triglycerides 133 mg/dL 06/04/18 06:23 Cholesterol 156 mg/dL 06/04/18 06:23 LDL Cholesterol 88 mg/dL 06/04/18 06:23 HDL Cholesterol 41.9 mg/dL 06/04/18 06:23 TSH 0.22 mcIU/mL (0.34-5.60) L 06/03/18 19:09 06/03/18 06/03/18 06/04/18 19:09 21:23 01:28 Troponin I 0.64 H* 0.00 0.00 EKG Data: ekg reviewed from 06/03/2018 tachy rate 106 known anterior q waves. Assessment/Plan 1. h/o CAD; history of prior anterior STEMI with known patent LAD and diag stent based on 03/2018 [facility] with no residual disease noted. She did have presumed coronary spasms at that time. last episode of anginal equivalent per patient was 05/23/2018 when she was taken to [facility] and transferred to [facility]. I am awaiting medical records from [facility] however [facility] does not have any records of her being evaluated at their facility since 2010. I also requested records from [facility] in case she had the facilities mixed up. Troponin was .64 at time of presentation and has since normalized. No evidence of stent thombosis on ekg ( no ST elevation) she was notably tachycardic and informs me she never had chest pain just sensation of heart racing and forceful heart beat. If she was admitted 05/23/2018 and had ACS inital troponin could be consistent with infarct from 05/23/2018 given it takes 14 days to normalize this will be confirmed with medical records given patients inconsistency with history. Will cancel ST. Given inability to afford Brilinta will D/C and start Plavix 75mg PO daily starting today. Given presumed h/o coronary spasms avoid Bblocker therapy continue CCB therapy. 2. h/o CKD; renal function is stable 3. h/o HTN; BP controlled on CCB therapy 4. h/o tobacco abuse; encouraged smoking cessation for cardiovascular benefit. 5. Disposition pending course, await medical records for [facility]. If we are unable to validate PCI on 05/23/2018 consider other etiologies of troponinemia such as PE given tachycardia on presentation although BNP was normal which reduces clinical suspicion. Attending: Fransisca Soares <Fransisca Soares - Last Filed: 06/04/18 15:30> Medications Active Medications: Acetaminophen (Tylenol Tab*) 650 mg PO Q4H PRN PRN Reason: FEVER/PAIN Al Hydrox/Mg Hydrox/Simethicone (Maalox Plus*) 30 ml PO Q6H PRN PRN Reason: INDIGESTION Albuterol (Ventolin Hfa Inhaler*) 2 puff INH Q4H PRN PRN Reason: SOB/WHEEZING Aspirin (Aspirin 81 Mg Chew Tab*) 81 mg PO DAILY [facility] Last Admin: 06/04/18 08:42 Dose: 81 mg Atorvastatin Calcium (Lipitor*) 80 mg PO 1700 [facility] Buprenorphine/Naloxone (Suboxone 8-2 Mg Sl Tab*) 1.5 tab.sl SL BID [facility] Last Admin: 06/04/18 08:43 Dose: 1.5 tab.sl Clopidogrel Bisulfate (Plavix Tab*) 75 mg PO DAILY [facility] Diltiazem HCl (Cardizem Cd Cap*) 360 mg PO DAILY [facility] Last Admin: 06/04/18 08:40 Dose: 360 mg Docusate Sodium (Colace Cap*) 100 mg PO BID PRN PRN Reason: CONSTIPATION Fluticasone Propionate (Flonase Nasal [place] 50mcg*) 2 spray BOTH NARES DAILY [facility] Last Admin: 06/04/18 09:03 Dose: 2 spray Gabapentin (Neurontin Cap(*)) 800 mg PO QID [facility] Last Admin: 06/04/18 13:25 Dose: 800 mg Heparin Sodium (Porcine) (Heparin Vial(*)) 5,000 units SUBCUT Q8HR [facility] Last Admin: 06/04/18 13:26 Dose: 5,000 units Hydroxyzine HCl (Atarax Tab*) 50 mg PO TID PRN PRN Reason: ANXIETY Last Admin: 06/04/18 00:46 Dose: 50 mg Nitroglycerin/Dextrose (Nitroglycerin Drip*) 25,000 mcg in 250 mls @ 6 mls/hr IV ED ONCE ONE; Protocol Stop: 06/05/18 14:07 Last Admin: 06/03/18 21:06 Dose: 6 mls/hr Lisinopril (Prinivil Tab*) 10 mg PO DAILY [facility] Last Admin: 06/04/18 08:42 Dose: 10 mg Mirtazapine (Remeron Tab*) 45 mg PO BEDTIME [facility] Last Admin: 06/04/18 00:43 Dose: 45 mg Ondansetron HCl (Zofran Inj*) 4 mg IV Q4H PRN PRN Reason: NAUSEA/VOMITING Senna (Senokot Tab*) 1 tab PO BID PRN PRN Reason: CONSTIPATION Umeclidinium [place] (Incruse Ellipta Mdi (Nf)) 1 inh INH DAILY [facility] Last Admin: 06/04/18 08:20 Dose: Not Given Objective Vital Signs: Temp Pulse Resp BP Pulse Ox 98.0 F 81 22 128/92 95 06/04/18 11:27 06/04/18 11:27 06/04/18 13:25 06/04/18 11:27 06/04/18 11:27 Laboratory Results: 06/04/18 06:23 06/04/18 06:23 INR (Anticoag Therapy) 1.06 (0.77-1.02) H 06/03/18 19:09 Total Bilirubin 0.40 mg/dL (0.2-1.0) 06/03/18 19:09 AST 32 U/L (13-39) 06/03/18 19:09 ALT 10 U/L (7-52) 06/03/18 19:09 Alkaline Phosphatase 83 U/L (34-104) 06/03/18 19:09 B-Natriuretic Peptide 24 pg/mL (-100) 06/03/18 19:25 Total Protein 8.1 g/dL (6.4-8.9) 06/03/18 19:09 Albumin 4.6 g/dL (3.2-5.2) 06/03/18 19:09 Globulin 3.5 g/dL (2-4) 06/03/18 19:09 Albumin/Globulin Ratio 1.3 (1-3) 06/03/18 19:09 Triglycerides 133 mg/dL 06/04/18 06:23 Cholesterol 156 mg/dL 06/04/18 06:23 LDL Cholesterol 88 mg/dL 06/04/18 06:23 HDL Cholesterol 41.9 mg/dL 06/04/18 06:23 TSH 0.22 mcIU/mL (0.34-5.60) L 06/03/18 19:09 06/03/18 06/03/18 06/04/18 19:09 21:23 01:28 Troponin I 0.00 0.00 0.00 Assessment/Plan Further info: [facility] officve called [facility]; no record of pt being therefor several years. Dr Kraft spoke w Dr Lawler"s nurse who verified pt was admitted in [place] 2 weeks ago but DC'd w negative troponins. No knowledge of transfer to [facility].Thus no verifiable documentation of recent stents as pt reports. Per Dr Kraft, 1st Troponin which was elevated was lab error as was rerun on different machine and was not elevated. Thus no evidence of ACS.
--- NOTE | 2018-06-04 14:11 | RAD ---
HISTORY: CHEST PAIN COMPARISONS: None TECHNIQUE: A one-day rest myocardial perfusion study was performed. Gated SPECT imaging was performed, with CT-based attenuation correction DOSE: Rest: Technetium 99m tetrofosmin, 10.4 millicuries, injected at 10:15 AM on June 04, 2018 Pharmacologic agent: None FINDINGS: MOTION: Not evaluated on rest only imaging. PERFUSION: There is a small perfusion defect of the septum that persists on attenuation corrected imaging. OTHER: None IMPRESSION: SMALL PERFUSION DEFECT OF THE SEPTUM ON REST IMAGING.
[2018-06-04] MEDS ORDERED: Atorvastatin* 80 MG TAB PO SCH (17:00)
[2018-06-04] MEDS ORDERED: Clopidogrel TAB* 75 MG PO SCH (18:00)
--- NOTE | 2018-06-05 13:15 | DS ---
CC: Dr. Crutis; Dr. Soares; Dr. Lawler, Cardiology Department, [place], [place] ; Dr. Michaels * DISCHARGE SUMMARY: DATE OF ADMISSION: 06/03/18 DATE OF DISCHARGE: 06/04/18 PRIMARY CARE PROVIDER: Dr. Curtis. DISCHARGE DIAGNOSIS: Chest pain that resolved with acute coronary syndrome ruled out. SECONDARY DIAGNOSES: 1. History of coronary artery disease, status post stents as the patient stated a total of 9 stents. 2. History of ST-elevation myocardial infarction secondary to presumed coronary artery vasospasm in January of 2018 with cardiac catheterization at our facility. 3. History of possible seizure disorder. 4. Hypertension. 5. History of nephrolithiasis. 6. History of chronic pain, on Suboxone. 7. History of medical noncompliance. 8. History of anxiety. 9. History of arthritis. 10. History of chronic obstructive pulmonary disease. 11. Hyperlipidemia. 12. Tobacco abuse. MEDICATIONS ON DISCHARGE: Include: 1. Suboxone 12 mg/3 mg 1 sublingually b.i.d. 2. Plavix 75 mg daily. 3. Nitroglycerin sublingually on a p.r.n. basis. 4. Ellipta inhaler daily. 5. Remeron 90 mg at bedtime p.r.n. 6. Lisinopril 10 mg daily. 7. Gabapentin 800 mg four times a day. 8. Diltiazem CD 360 mg daily. 9. Lipitor 80 mg daily. 10. Albuterol on a p.r.n. basis. 11. Aspirin 81 mg daily. The patient stated that she has been on Thorazine in the past, but she has not taken this recently. The patient's Brilinta was discontinued and she was placed on Plavix. The patient stated that her insurance does not cover Brilinta. LABORATORY DATA DURING THE HOSPITAL STAY: Included: On 06/04/18, white blood cell count of 7.2, hemoglobin of 15.2, hematocrit of 46, and platelets of . Sodium of 138, potassium 3.6, chloride 104, carbon dioxide 25, BUN 19, creatinine 0.95. The patient's triglycerides are 133, cholesterol total of 156 , LDL of 88, and HDL of 41. The patient's TSH was 0.22. The patient's troponins were 0 x3. Please note that the patient's first troponin obtained in the emergency department was initially reported as 0.6, but it was corrected by the labs since it was a lab error to negative troponin the very next day. The test was rerun on the same sample and it was noted to be elevated by an error. CONSULTATIONS DURING THE HOSPITAL STAY: Included Dr. Soares. HOSPITALIZATION COURSE: Stephy Gonzalez is a 48-year-old female with known coronary artery disease, status post stenting in the past, who also was evaluated and admitted for ST-elevation [place] in January of 2018, which was noted to be due to vasospasm and who presented to the hospital complaining of chest pain. The patient stated that she on 05/21/18, the patient was seen at [facility] and transferred to [facility] where she had 2 stents placed. She did not remember the name of the doctor who placed the stents. She also was not able to provide with the stent card. She stated that she threw them away. She was placed on overnight observation. Her chest pain resolved and her troponins turned out to be negative, although once again, the first one was elevated, an error, and that was corrected. During the patient's hospital stay , we were trying to obtain medical records from [facility]. The low emission automobile designer service was called at [facility] and found out that the patient had not been seen there for several years. We also obtained medical records from [facility] and [facility] where the patient was last seen for cardiac issues in 2013. I spoke with Dr. Lawler's nurses from [place], the patient's primary low emission automobile designer. The nurse noted that the patient was not seen by Dr. Lawler since December of 2017. There were no medical records that were sent from another hospital to Dr. Lawler's office in regards to recent cardiac catheterization apart from the one that was done at our hospital in January of 2018. We did review medical records from [facility] from date of admission on and discharged on 05/26/18, where the patient was noted to be observed for chest pain with negative serial troponins and she was discharged home at that point. Once again, the patient continued to state during her hospital stay from the stay in [facility], the patient was transferred to [facility] for a cardiac intervention. The patient also was placed on Brilinta at some point, but that was not on the discharge summary from [facility] on 05/26/18. Once again, we are unsure if the patient had cardiac catheterization, but it was confirmed that the patient did not have it in [facility], [facility], or [facility]. The patient also was not transferred from [facility], but discharged home with negative troponins on 05/26/18. At this point, the patient states that she cannot afford her Brilinta and after discussing the case with Dr. Soares, that was switched to Plavix. She ruled out for acute coronary syndrome with negative troponins. Her pain resolved. She thought that it was mostly related to anxiety. She is planning to follow up with Dr. Michaels as an outpatient. At this point, the cardiology service did not recommend further evaluation with stress test and the patient is going to be discharged home with recommendation to follow up with Dr. Lawler in approximately 1 to 2 weeks and the patient's primary care provider, Dr. Curtis, in approximately 4 to 7 days. PHYSICAL EXAM AT TIME OF DISCHARGE: Blood pressure of 128/92, heart rate of 81 and regular, respiratory rate of 16, oxygen saturation 95% on room air, temperature 98.0. General: The patient is a very pleasant 48-year-old female, who is in no acute distress. Alert, awake, and oriented x3. HEENT: Head, atraumatic, normocephalic. Eyes: Pupils equal, round, and reactive to light and accommodation. Oropharynx clear. Mucosa moist. Neck: Supple. No JVD. No bruits bilaterally. Cardiovascular: Regular rate and rhythm. No murmur. Respiratory: Clear to auscultation bilaterally. Abdomen: Soft, nontender. Bowel sounds are present in all 4 quadrants. Extremities: There is no edema. Pulses +2 bilaterally. No clubbing or cyanosis. Neuro Evaluation: Speech clear. Cranial nerves II through XII grossly intact. Motor strength is 5/5 bilaterally. Please note that this is a short summary of the patient's hospitalization. Please refer to further medical records for details. TIME SPENT: Approximately 45 minutes was spent on the patient's discharge. [id number]/[facility] #: [id number] MTDD
== END 2018-06-04 15:40 | disposition home or self-care (01) ==
LOC: ED 18:16 → MEDTELE 22:13
PROVIDERS: ADMIT Pediatrics; ATTEND Internal Medicine
DX: R07.9 Chest pain, unspecified (principal); I25.10 Atherosclerotic heart disease of native coronary artery without angina pectoris; I10 Essential (primary) hypertension; Z95.5 Presence of coronary angioplasty implant and graft; F17.210 Nicotine dependence, cigarettes, uncomplicated; I25.2 Old myocardial infarction; E78.5 Hyperlipidemia, unspecified; Z79.82 Long term (current) use of aspirin; N18.3 Chronic kidney disease, stage 3 (moderate); Z87.442 Personal history of urinary calculi; Z91.19 Patient's noncompliance with other medical treatment and regimen; Z87.39 Personal history of other diseases of the musculoskeletal system and connective tissue
CPT/HCPCS: 36415; 71045; 78451; 80048; 80053; 80061; 83605; 83880; 84443; 84484; 85025; 85610; 93005; 96374; 96375; 99285; A9270-GY; A9502; G0378; J1644; J1650; J2270; J2405; J3490

== ENCOUNTER 2018-08-17 16:47 | Emergency (ER) | payer MEDICARE ==
[2018-08-17 17:01] VITALS: BP 139/99
[2018-08-17] MEDS ORDERED: Buprenorp/Nalox 8-2 MG FILM 1 EACH SL FILM ONE (17:15)
[2018-08-17] MEDS ORDERED: Buprenorp/Nalox 4-1 MG FILM 1 EACH SL FILM ONE (17:15)
--- NOTE | 2018-08-17 17:16 | ED ---
Medical Screening - HPI Summary HPI Summary: Patient here for Suboxone. She reports her medication was refilled by Dr. Michaels on Saturday however [facility] stated their narcotic system was down and they were unable to fill it that day. They were also unable to fill it Saturday and today. Her ISTOP reveals she last filled her prescription for Suboxone 12 mg twice a day on 07/22/2018 (was given a 27 days supply). She starting to have withdrawal symptoms yesterday and today as she has not taken this since Saturday. These include nausea, upset stomach and feeling jittery. She denies chest pain, shortness of breath, headache, sweating, runny nose, diarrhea. She reports she would be satisfied take a dose here and follow-up with her provider tomorrow for the remaining prescription. Taking all other meds as directed. No other issues of concern. - History of Current Complaint Chief Complaint: EDPrescriptionNeeded Stated Complaint: MED REFILL? Time Seen by Provider: 08/17/18 17:04 PMH/Surg Hx/FS Hx/Imm Hx Previously Healthy: Yes Endocrine/Hematology History: Reports: Hx Anticoagulant Therapy - plavix Denies: Hx Diabetes Cardiovascular History: Reports: Hx Angina, Hx Coronary Artery Disease - 9 stents per pt, Hx Hypertension - ON MEDICATION, Hx Myocardial Infarction - x3 Respiratory History: Reports: Hx Chronic Obstructive Pulmonary Disease (COPD) Denies: Other Respiratory Problems/Disorders GI History: Denies: Other GI Disorders History: Reports: Hx Kidney Infection - PRESENTLY ON CIPRO, Hx Kidney Stones , Hx Renal Disease - CALCULI, LT SIDE, Other Problems/Disorders - nephrolithiasis Denies: Hx Dialysis Musculoskeletal History: Reports: Hx Arthritis - PSORIATIC ARTHRITIS Sensory History: Denies: Hx Contacts or Glasses, Hx Hearing Aid Opthamlomology History: Denies: Hx Contacts or Glasses Neurological History: Reports: Hx Seizures Denies: Hx Transient Ischemic Attacks (TIA) Psychiatric History: Reports: Hx Anxiety, Hx Substance Abuse - opiates - on suboxone 12mg BID through Dr. Michaels - Surgical History Surgery Procedure, Year, and Place: 10/05/2008 [facility]RE[facility] STENT [facility]ION, [facility]. 2010 LEFT URETERAL STENT INSERTION, [facility]. 1990 LAPAROSCOPIC TUBAL LIGATION, [facility]. 09/24/12, GIORGIO SEQUEIRA [facility]. 1994 TONSILLECTOMY, [facility] Hx Anesthesia Reactions: No - Immunization History Date of Tetanus Vaccine: unk Date of Influenza Vaccine: none Infectious Disease History: No Infectious Disease History: Denies: Traveled Outside the [place] in Last 30 Days - Family History Known Family History: Positive: Cardiac Disease Negative: Other - negative malignant hyperthermia, negative adverse anesthesia reaction - Social History Alcohol Use: None Hx Substance Use: Yes - currently takes suboxone Substance Use Type: Reports: Other - opiates Hx Tobacco Use: Yes Smoking Status (MU): Heavy Every Day Tobacco Smoker Type: Cigarettes Have You Smoked in the Last Year: Yes Review of Systems Constitutional: Negative Eyes: Negative ENT: Negative Cardiovascular: Negative Respiratory: Negative Gastrointestinal: Other - upset stomach Positive: Nausea Genitourinary: Negative Musculoskeletal: Negative Skin: Negative Neurological: Negative Positive: Anxious All Other Systems Reviewed And Are Negative: Yes Physical Exam Triage Information Reviewed: Yes Vital Signs On Initial Exam: Initial Vitals Temp Pulse Resp BP Pulse Ox 98.7 F 100 15 139/99 96 08/17/18 16:56 08/17/18 16:56 08/17/18 16:56 08/17/18 16:56 08/17/18 16:56 Vital Signs Reviewed: Yes Appearance: Positive: Well-Appearing, Well-Nourished, Pain Distress - mild - appears somewhat anxious but overall well and pleasant Skin: Positive: Warm, Skin Color Reflects Adequate Perfusion, Dry Head/Face: Positive: Normal Head/Face Inspection Eyes: Positive: Normal, EOMI, Conjunctiva Clear - anicteric sclera ENT: Positive: Normal ENT inspection, Hearing grossly normal, Pharynx normal - mucosa moist. Negative: Nasal congestion, Nasal drainage Respiratory/Lung Sounds: Positive: Clear to Auscultation, Breath Sounds Present Cardiovascular: Positive: Normal, RRR, S1, S2 Musculoskeletal: Positive: Normal, Strength/ROM Intact Neurological: Positive: Normal, Sensory/Motor Intact, Alert, Oriented to Person Place, Time, CN Intact II-III Psychiatric: Positive: Anxious - mild - polite, cooperative, clear thoughts - no SI/HI Diagnostics - Vital Signs Vital Signs Temp Pulse Resp BP Pulse Ox 08/17/18 16:56 98.7 F 100 15 139/99 96 - Laboratory Lab Statement: Any lab studies that have been ordered have been reviewed, and results considered in the medical decision making process. Course/Dx - Course Course Of Treatment: checked ISTOP - explained we can give 1 dose of suboxone here today and she can f/u w/ rx'er tomorrow to rectify pharmacy glitch. No acute withdrawal to warrant further w/u today. Pt happy with plan. - Diagnoses Provider Diagnoses: Encounter for medication refill Discharge - Sign-Out/Discharge Documenting (check all that apply): Patient Departure - Discharge Plan Condition: Stable Disposition: HOME Referrals: Jamaal Michaels MD [Medical Doctor] - Additional Instructions: You were given 1 dose of Suboxone 12mg here today to reduce your withdrawal symptoms. It is important that you contact your prescriber, Dr. Michaels, tomorrow to rectify the pharmacy issue you had this weekend. If in the meantime you develop thoughts of harming yourself or others or if you develop intense withdrawal symptoms, return to the emergency department. - Billing Disposition and Condition Condition: STABLE Disposition: Home
== END 2018-08-17 17:35 | disposition home or self-care (01) ==
LOC: ED 16:47
DX: R11.0 Nausea (principal); Z76.0 Encounter for issue of repeat prescription; Z79.01 Long term (current) use of anticoagulants; I25.10 Atherosclerotic heart disease of native coronary artery without angina pectoris; Z95.5 Presence of coronary angioplasty implant and graft
CPT/HCPCS: 99281; A9270-GY

== ENCOUNTER 2018-09-18 13:32 | Emergency (ER) | payer MEDICARE ==
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
[2018-09-18] MEDS ORDERED: Labetalol IV* 5 MG/ML 20 ML VIAL IV PUSH ONE (14:10)
[2018-09-18] MEDS ORDERED: fentaNYL* 50 MCG/ML 2 ML VIAL (100 MCG VIAL) IV PRN (14:10)
[2018-09-18 14:25] LABS: ABS Basophils 0 10^3/ul (0-0.2); ABS Eosinophils 0.1 10^3/ul (0-0.6); ABS Lymphocytes 1.7 10^3/ul (1.0-4.8); ABS Monocytes 0.8 10^3/ul (0-0.8); ABS Neutrophils 7.3 10^3/ul (1.5-7.7); ABS Nucleated RBC 0 10^3/ul; Eosinophil % 1.2 %; Hematocrit 45 % (35-47); Hemoglobin 14.7 g/dl (12.0-16.0); Lymphocyte % 16.7 %; Mean Corpuscular HGB Conc 33 g/dl (31-36); Mean Corpuscular Hemoglobin 27 pg (27-31); Mean Corpuscular Volume 81 fL (80-97); Mean Platelet Volume 8.7 fL (7.4-10.4); Nucleated Red Blood Cells % 0.2; Platelet Count 243 10^3/ul (150-450); Red Blood Count 5.49 10^6/ul (4.00-5.40); Red Cell Distribution Width 16 % (10.5-15); White Blood Count 9.9 10^3/ul (3.5-10.8)
[2018-09-18] MEDS ORDERED: hydrALAZINE IV* 20 MG/ML VIAL IV SLOW PU ONE (14:27)
[2018-09-18] MEDS ORDERED: diPHENhydraMINE PO* 50 MG PO ONE (14:28)
[2018-09-18] MEDS ORDERED: Metoclopramide IV* 5 MG/ML 2 ML VIAL IV ONE (14:28)
[2018-09-18 14:42] LABS: ALT 12 U/L (7-52); Albumin 4.2 g/dL (3.2-5.2); Albumin/Globulin Ratio 1.1 (1-3); Alkaline Phosphatase 79 U/L (34-104); Blood Urea Nitrogen 15 mg/dL (6-24); CO2 Carbon Dioxide 27 mmol/L (22-32); Calcium 9.4 mg/dL (8.6-10.3); Chloride 101 mmol/L (101-111); EGFR African American 76.9 (>60); EGFR Non-African American 63.6 (>60); Globulin 3.7 g/dL (2-4); Glucose 83 mg/dL (70-100); Sodium 135 mmol/L (135-145); Total Protein 7.9 g/dL (6.4-8.9)
[2018-09-18 14:53] LABS: Anion Gap 7 mmol/L (2-11)
[2018-09-18 17:04] VITALS: BP 170/88
[2018-09-18 17:07] LABS: Erythrocyte Sed Rate 17 mm/Hr (0-14)
== END 2018-09-18 17:03 | disposition home or self-care (01) ==
LOC: ED 13:32
DX: I10 Essential (primary) hypertension (principal); S01.01XD Laceration without foreign body of scalp, subsequent encounter; S06.5X9D Traumatic subdural hemorrhage with loss of consciousness of unspecified duration, subsequent encounter; S06.6X9D Traumatic subarachnoid hemorrhage with loss of consciousness of unspecified duration, subsequent encounter; V86.95XD Unspecified occupant of 3- or 4- wheeled all-terrain vehicle (ATV) injured in nontraffic accident, subsequent encounter; R51 Headache; I25.10 Atherosclerotic heart disease of native coronary artery without angina pectoris; Z95.1 Presence of aortocoronary bypass graft; Z88.5 Allergy status to narcotic agent; Z88.0 Allergy status to penicillin; Z88.8 Allergy status to other drugs, medicaments and biological substances; F17.210 Nicotine dependence, cigarettes, uncomplicated
CPT/HCPCS: 36415; 70450; 80053; 83605; 85025; 85652; 85730; 86850; 86900; 86901; 93005; 96374; 96375; 99284; A9270-GY; J0360; J2765

== ENCOUNTER 2018-11-23 16:58 | Inpatient (IN) | payer MEDICARE ==
[2018-11-23] MEDS ORDERED: Acetaminophen TAB* 325 MG PO ONE (17:17)
[2018-11-23] MEDS ORDERED: Albuterol/Ipratropium NEB.SOL* Albuterol 2.5 MG/Ipratropium 0.5 MG 3 ML INH ONE ×2 (17:17→17:49)
[2018-11-23] MEDS ORDERED: NS 0.9% 1000 ML** 1,000 ML IV ONE ×2 (17:17→17:38)
[2018-11-23] MEDS ORDERED: Acetaminophen TAB* 325 MG ONE (17:19)
[2018-11-23] MEDS ORDERED: Albuterol/Ipratropium NEB.SOL* Albuterol 2.5 MG/Ipratropium 0.5 MG 3 ML ONE (17:19)
[2018-11-23 17:28] LABS: ABS Basophils 0.1 10^3/ul (0-0.2); ABS Eosinophils 0 10^3/ul (0-0.6); ABS Lymphocytes 0.7 10^3/ul (1.0-4.8); ABS Monocytes 1.3 10^3/ul (0-0.8); ABS Neutrophils 17.6 10^3/ul (1.5-7.7); ABS Nucleated RBC 0 10^3/ul; Eosinophil % 0.2 %; Hematocrit 42 % (33-41); Hemoglobin 13.8 g/dL (12.0-16.0); Lymphocyte % 3.7 %; Mean Corpuscular HGB Conc 33 g/dL (31-36); Mean Corpuscular Hemoglobin 27 pg (27-31); Mean Corpuscular Volume 82 fL (80-97); Nucleated Red Blood Cells % 0; Platelet Count 250 10^3/uL (150-450); Red Cell Distribution Width 16 % (10.5-15); White Blood Count 19.8 10^3/uL (3.5-10.8)
[2018-11-23] MEDS ORDERED: cefTRIAXone(*) 1 GM in NS 0.9% 50 ML* 50 ML IVPB ONE (17:37)
[2018-11-23] MEDS ORDERED: ED Azithromycn 500 mg/250 ml 500 MG/250 ML PREMIX.SET IVPB ONE (17:37)
[2018-11-23 17:40] LABS: Influenza A Molecular NEGATIVE (Negative); Influenza B Molecular NEGATIVE (Negative)
[2018-11-23 17:45] LABS: ALT 8 U/L (7-52); AST 19 U/L (13-39); Albumin 3.7 g/dL (3.2-5.2); Alkaline Phosphatase 115 U/L (34-104); Anion Gap 8 mmol/L (2-11); BUN/Creatinine Ratio 13.4 (8-20); Blood Urea Nitrogen 15 mg/dL (6-24); C Reactive Protein 309.03 mg/L (<8.01); CO2 Carbon Dioxide 26 mmol/L (22-32); Chloride 104 mmol/L (101-111); Creatine Kinase 40 U/L (10-223); EGFR African American 62.8 (>60); EGFR Non-African American 51.9 (>60); Globulin 3.6 g/dL (2-4); Glucose 136 mg/dL (70-100); Potassium 4.1 mmol/L (3.5-5.0); Sodium 138 mmol/L (135-145); Total Protein 7.3 g/dL (6.4-8.9)
[2018-11-23] MEDS ORDERED: Dexamethasone IV* 4 MG/ML 1 ML (4 MG) IV SLOW PU ONE (17:48)
[2018-11-23 17:51] LABS: HCG Pregnancy < 0.60 mIU/mL
[2018-11-23] MEDS ORDERED: Iodixanol* (CONTRAST) 320 MG/ML 100 ML SDV IV ONE (17:51)
--- NOTE | 2018-11-23 17:51 | ED ---
HPI Cardiac - HPI Summary HPI Summary: Pt is a 48 y/o F presenting to the ED with a chief complaint of shortness of breath onset last week but worse since 3-4 days ago. She developed body aches associated with the sob yesterday, but today the aches were so severe that she could not walk more than 2 steps without being incredibly short of breath. She reports a cough, but only if she takes a deep breath, and a fever. She did not get a flu shot this year. - History of Current Complaint Chief Complaint: EDChestPainROMI Stated Complaint: "POSSIBLE CHEST PAIN PER EMS" Time Seen by Provider: 11/23/18 17:37 Hx Obtained From: Patient Onset/Duration: Started Days Ago, Still Present, Worse Since - 3-4 days ago Timing: Constant, Lasting Days Initial Severity: Mild Current Severity: Moderate Pain Intensity: 6 Pain Scale Used: 0-10 Numeric Chest Pain Location: Diffuse Chest Pain Radiates: No Character: Dull/Aching Aggravating Factor(s): Exertion, Movement, Deep Breaths Alleviating Factor(s): Nothing Associated Signs and Symptoms: Positive: Chest Pain, Shortness of Breath, Fever , Cough - Additional Pertinent History Primary Care Physician: [id number] - Allergy/Home Medications Allergies/Adverse Reactions: Allergies Allergy/AdvReac Type Severity Reaction Status Date / Time ketorolac [From Toradol] Allergy Rash Verified 09/18/18 14:26 meloxicam [From Mobic] Allergy Rash And Verified 09/18/18 14:26 Itching Penicillins Allergy Anaphylatic Verified 09/18/18 14:26 Shock Home Medications: Home Medications Gabapentin 1 tab PO DAILY WITH MEAL 11/23/18 [History Confirmed 11/23/18] Varenicline Tartrate [Chantix] 1 tab PO BID 11/23/18 [History Confirmed 11/23/18 ] hydrOXYzine HCl [Hydroxyzine HCl] 1 tab PO PRN 11/23/18 [History] PMH/Surg Hx/FS Hx/Imm Hx Previously Healthy: No Endocrine/Hematology History: Reports: Hx Anticoagulant Therapy - plavix Denies: Hx Diabetes Cardiovascular History: Reports: Hx Angina, Hx Coronary Artery Disease - 9 stents per pt, Hx Hypertension - ON MEDICATION, Hx Myocardial Infarction - x3 Respiratory History: Reports: Hx Chronic Obstructive Pulmonary Disease (COPD) Denies: Other Respiratory Problems/Disorders GI History: Denies: Other GI Disorders History: Reports: Hx Kidney Infection - PRESENTLY ON CIPRO, Hx Kidney Stones , Hx Renal Disease - CALCULI, LT SIDE, Other Problems/Disorders - nephrolithiasis Denies: Hx Dialysis Musculoskeletal History: Reports: Hx Arthritis - PSORIATIC ARTHRITIS Sensory History: Denies: Hx Contacts or Glasses, Hx Hearing Aid Opthamlomology History: Denies: Hx Contacts or Glasses Neurological History: Reports: Hx Seizures Denies: Hx Transient Ischemic Attacks (TIA) Psychiatric History: Reports: Hx Anxiety, Hx Substance Abuse - opiates - on suboxone 12mg BID through Dr. Michaels - Surgical History Surgery Procedure, Year, and Place: 10/05/2008 C[place]AC STENT X2, [place]. 2008 [place]ENT, [place]. 04/2010 CARDIAC STENT, [place]. 2011 [place] [facility] [place]RETER[place] [facility] [place] 1990 LAPAROS[facility]IC [facility]ATION, [facility]. 09/24/12, [place] [facility] [place], [facility] Anesthesia Reactions: No - Immunization History Date of Tetanus Vaccine: unk Date of Influenza Vaccine: none Infectious Disease History: Yes Infectious Disease History: Denies: Traveled Outside the US in Last 30 Days - Family History Known Family History: Positive: Cardiac Disease Negative: Other - negative malignant hyperthermia, negative adverse anesthesia reaction - Social History Alcohol Use: None Hx Substance Use: Yes - currently takes suboxone Substance Use Type: Reports: None Substance Use Comment - Amount & Last Used: suboxone Hx Tobacco Use: Yes Smoking Status (MU): Heavy Every Day Tobacco Smoker Type: Cigarettes Have You Smoked in the Last Year: Yes Review of Systems Positive: Fever Positive: Chest Pain Positive: Shortness Of Breath, Cough All Other Systems Reviewed And Are Negative: Yes Physical Exam - Summary Physical Exam Summary: GENERAL: Patient is a well-developed and nourished female who is lying comfortable in the stretcher. Patient is not in any acute respiratory distress. HEAD AND FACE: Normocephalic EYES: PERRLA, EOMI x 2. EARS: Hearing grossly intact. MOUTH: Oropharynx within normal limits. NECK: Supple, trachea is midline, no adenopathy, no JVD, no carotid bruit. CHEST: Symmetric, no tenderness at palpation LUNGS: No wheezing. Bilateral crackles. CVS: Regular rate and rhythm, S1 and S2 present, no murmurs or gallops appreciated. ABDOMEN: Soft, non-tender. Bowel sounds are normal. No abdominal abnormal pulsations. EXTREMITIES: Full ROM in all major joints, no edema, no cyanosis or clubbing. NEURO: Alert and oriented x 3. No acute neurological deficits. Speech is normal and follows commands. SKIN: Dry and warm Triage Information Reviewed: Yes Vital Signs On Initial Exam: Initial Vitals Temp Pulse Resp BP Pulse Ox 101.6 F 122 27 132/82 94 11/23/18 17:02 11/23/18 17:02 11/23/18 17:02 11/23/18 17:02 11/23/18 17:02 Vital Signs Reviewed: Yes Diagnostics - Vital Signs Vital Signs Temp Pulse Resp BP Pulse Ox 11/23/18 17:34 117 22 88/66 96 11/23/18 17:24 117 14 90/68 92 11/23/18 17:13 119 20 107/77 93 11/23/18 17:08 120 15 93 11/23/18 17:04 125 17 132/82 93 11/23/18 17:02 101.6 F 122 27 132/82 94 - Laboratory Lab Results: Lab Results 11/23/18 11/23/18 11/23/18 Range/Units 17:21 17:21 17:21 WBC 19.8 H (3.5-10.8) 10^3/uL RBC 5.10 H (3.70-4.87) 10^6 /uL Hgb 13.8 (12.0-16.0) g/dL Hct 42 H (33-41) % MCV 82 (80-97) fL MCH 27 (27-31) pg MCHC 33 (31-36) g/dL RDW 16 H (10.5-15) % Plt Count 250 (150-450) 10^3/uL MPV 9.0 (7.4-10.4) fL Neut % (Auto) 89.1 % Lymph % (Auto) 3.7 % Ward % (Auto) 6.7 % Eos % (Auto) 0.2 % Baso % (Auto) 0.3 % Absolute Neuts (auto) 17.6 H (1.5-7.7) 10^3/ul Absolute Lymphs (auto) 0.7 L (1.0-4.8) 10^3/ul Absolute Monos (auto) 1.3 H (0-0.8) 10^3/ul Absolute Eos (auto) 0 (0-0.6) 10^3/ul Absolute Basos (auto) 0.1 (0-0.2) 10^3/ul Absolute Nucleated RBC 0 10^3/ul Nucleated RBC % 0 D-Dimer, Quantitative 220 (Less Than 230) ng/mL Sodium 138 (135-145) mmol/L Potassium 4.1 (3.5-5.0) mmol/L Chloride 104 (101-111) mmol/L Carbon Dioxide 26 (22-32) mmol/L Anion Gap 8 (2-11) mmol/L BUN 15 (6-24) mg/dL Creatinine 1.12 H (0.51-0.95) mg/dL Est GFR ( Amer) 62.8 (>60) Est GFR (Non-Af Amer) 51.9 (>60) BUN/Creatinine Ratio 13.4 (8-20) Glucose 136 H (70-100) mg/dL Calcium 9.0 (8.6-10.3) mg/dL Total Bilirubin 0.50 (0.2-1.0) mg/dL AST 19 (13-39) U/L ALT 8 (7-52) U/L Alkaline Phosphatase 115 H (34-104) U/L Total Creatine Kinase 40 (10-223) U/L Troponin I Pending C-Reactive Protein 309.03 H (<8.01) mg/L Total Protein 7.3 (6.4-8.9) g/dL Albumin 3.7 (3.2-5.2) g/dL Globulin 3.6 (2-4) g/dL Albumin/Globulin Ratio 1.0 (1-3) Beta HCG, Quant Pending Influenza A (Rapid) (Negative) Influenza B (Rapid) (Negative) 11/23/18 Range/Units 17:28 WBC (3.5-10.8) 10^3/uL RBC (3.70-4.87) 10^6 /uL Hgb (12.0-16.0) g/dL Hct (33-41) % MCV (80-97) fL MCH (27-31) pg MCHC (31-36) g/dL RDW (10.5-15) % Plt Count (150-450) 10^3/uL MPV (7.4-10.4) fL Neut % (Auto) % Lymph % (Auto) % Ward % (Auto) % Eos % (Auto) % Baso % (Auto) % Absolute Neuts (auto) (1.5-7.7) 10^3/ul Absolute Lymphs (auto) (1.0-4.8) 10^3/ul Absolute Monos (auto) (0-0.8) 10^3/ul Absolute Eos (auto) (0-0.6) 10^3/ul Absolute Basos (auto) (0-0.2) 10^3/ul Absolute Nucleated RBC 10^3/ul Nucleated RBC % D-Dimer, Quantitative (Less Than 230) ng/mL Sodium (135-145) mmol/L Potassium (3.5-5.0) mmol/L Chloride (101-111) mmol/L Carbon Dioxide (22-32) mmol/L Anion Gap (2-11) mmol/L BUN (6-24) mg/dL Creatinine (0.51-0.95) mg/dL Est GFR ( Amer) (>60) Est GFR (Non-Af Amer) (>60) BUN/Creatinine Ratio (8-20) Glucose (70-100) mg/dL Calcium (8.6-10.3) mg/dL Total Bilirubin (0.2-1.0) mg/dL AST (13-39) U/L ALT (7-52) U/L Alkaline Phosphatase (34-104) U/L Total Creatine Kinase (10-223) U/L Troponin I C-Reactive Protein (<8.01) mg/L Total Protein (6.4-8.9) g/dL Albumin (3.2-5.2) g/dL Globulin (2-4) g/dL Albumin/Globulin Ratio (1-3) Beta HCG, Quant Influenza A (Rapid) Negative (Negative) Influenza B (Rapid) Negative (Negative) Result Diagrams: 11/23/18 17:21 11/23/18 17:21 Lab Statement: Any lab studies that have been ordered have been reviewed, and results considered in the medical decision making process. - EKG 1706 Cardiac Rate: Tachycardia - 121bpm EKG Rhythm: Sinus Tachycardia ST Segment: Normal Ectopy: None EKG Comparison: No Significant Change Summary of EKG Findings: LVH. Q wave in anterior leads. Disposition - Course Course Of Treatment: Pt is a 48 y/o F presenting to the ED with a chief complaint of shortness of breath onset last week but worse since 3-4 days ago. She developed body aches associated with the sob yesterday, but today the aches were so severe that she could not walk more than 2 steps without being incredibly short of breath. She also reports cough. The pt is negative for Influenza A and B, and her D-dimer is 220. WBC is 19.8. CXR shows cardiomegaly with interstitial edema consistent with CHF. The pt's lactic acid is 2.1. The pt 's troponin I is 0.05. Dr. Greenberg [place] [facility] [place], with dx including pneumonia and CHF. - Diagnoses Provider Diagnoses: PNA (pneumonia), CHF (congestive heart failure) - Critical Care Time Critical Care Time: 30-74 min Discharge - Sign-Out/Discharge Documenting (check all that apply): Patient Departure - Discharge Plan Condition: Critical Disposition: ADMITTED TO [facility] Referrals: [facility] [Outside] - Billing Disposition and Condition Condition: CRITICAL Disposition: Admitted to [facility] - Attestation Statements Document Initiated by Marilee: Yes Documenting Scribe: Araceli Mckeon Provider For Whom Marilee is Documenting (Include Credential): Татьяна Cho MD. Scribe Attestation: Araceli Aldridge, allisoned for Татьяна Cho MD. on 11/23/18 at 1822. Scribe Documentation Reviewed: Yes Provider Attestation: The documentation as recorded by the Araceli allen accurately reflects the service I personally performed and the decisions made by , Pj Cho MD. Status of Scribe Document: Viewed Consult Consult: 1814 - Spoke to Dr. Greenberg about the pt's present condition who will be the accepting physician [place] [facility] [place]
[2018-11-23] MEDS ORDERED: Furosemide IV* 10 MG/ML VIAL (40 MG) IV SLOW PU ONE (17:52)
[2018-11-23 17:55] LABS: Troponin I 0.05 ng/mL (<0.04)
[2018-11-23] MEDS ORDERED: Benzonatate CAP* 100 MG PO PRN (18:30)
[2018-11-23] MEDS ORDERED: Acetaminophen TAB* 325 MG PO PRN (18:30)
[2018-11-23] MEDS ORDERED: Albuterol 2.5 MG/3 ML NEB.SOL* (0.083%) INH PRN (18:30)
[2018-11-23] MEDS ORDERED: Ondansetron INJ* 2 MG/ML VIAL IV PRN (18:30)
[2018-11-23] MEDS: Albuterol/Ipratropium NEB.SOL* Albuterol 2.5 MG/Ipratropium 0.5 MG 3 ML INH SCH ×2 (19:00→23:55)
[2018-11-23] MEDS ORDERED: oxyCODONE TAB* 5 MG TAB PO PRN (19:01)
[2018-11-23] MEDS ORDERED: NS 0.9% 500 ML* 500 ML IV ONE (19:04)
[2018-11-23] MEDS ORDERED: Vancomycin(*) 1,250 MG in NS 0.9% 250 ML* 250 ML IVPB STA (19:31)
[2018-11-23] MEDS ORDERED: Lactated Ringers 1000 ML Bag* 1,000 ML IV SCH (20:00)
[2018-11-23] MEDS ORDERED: Vancomycin per Pharmacy* NOTE FOLLOW UP SCH (20:00)
[2018-11-23 20:02] LABS: Troponin I 0.05 ng/mL (<0.04)
[2018-11-23] MEDS: guaiFENesin ER TAB 600 MG PO SCH (20:41)
[2018-11-23] MEDS: Mirtazapine TAB* 15 MG PO SCH (20:49)
[2018-11-23] MEDS: Oseltamivir CAP* 75 MG CAP PO SCH (20:50)
[2018-11-23] MEDS: Heparin VIAL(*) 5000 UNITS/ML VIAL (FIVE THOUSAND) SUBCUT SCH (20:50)
[2018-11-23] MEDS: Levofloxacin 750 MG IVPREMIX(* 750 MG/150 ML BAG IVPB SCH (21:34)
--- NOTE | 2018-11-23 21:44 | HP ---
CC: Dr. Kevin Curtis; Dr. Brunilda Oquendo * ADMISSION HISTORY AND PHYSICAL: DATE OF ADMISSION: 11/23/18 PRIMARY CARE PROVIDER: Dr. Kevin Curtis. MY ATTENDING WHILE IN THE HOSPITAL: Dr. Chema Greenberg.* (DICTATED BY ELÍAS CRUZ) CONSULTING ENGINEERING TEACHER: Dr. Brunilda Oquendo. CHIEF COMPLAINT: Shortness of breath x1 day. HISTORY OF PRESENT ILLNESS: Ms. Gonzalez is a 48-year-old female with past medical history significant for COPD; coronary artery disease, status post 9 stents and documented STEMI from vasospasm as well as hypertension, who presents to the emergency department after 1 week of feeling poorly with muscle aches, cough, and general malaise as well as subjective fevers. The patient has not had any sick contacts or contact with anybody with known flu. The patient states that she had been feeling poorly all week and then over the last day, her shortness of breath has worsened to the point that she was unable to take 3 steps without feeling extremely short of breath. The patient denies recent weight gain. States that she has been having some more issues with difficulty breathing while lying flat. The patient has not had a recent transthoracic echocardiogram and has not been told by her [place] [employer] farm management adviser that she has congestive heart failure. The patient has not noticed any significant wheezing. The patient has not taken her home inhaler anymore frequently than normal. The patient denies any recent large salt meals or any other changes in her meds or diet. The patient in the emergency department was brought in, had a temperature of 101.6; pulse rate 22, tachypnea at 27; and was saturating 94% on 8 L nasal cannula. The patient's blood pressure was low in the 80s/60s. The patient had a chest x-ray showing cardiomegaly and significant interstitial infiltration read as consistent with CHF, but also concerning for possible pneumonia. The patient had elevated lactic acid, an elevated troponin, and a CRP of over 300. The patient will be admitted to the ICU for severe shortness of breath, acute hypoxic respiratory failure and need for noninvasive positive pressure ventilation. PAST MEDICAL HISTORY: Coronary artery disease, status post 9 stents; coronary artery vasospasm; possible seizure disorder; hypertension; history of nephrolithiasis; chronic pain; COPD; possible rheumatoid arthritis and psoriatic arthritis; hyperlipidemia; tobacco abuse. PAST SURGICAL HISTORY: ACL repair, tubal ligation, multiple heart stents, appendectomy, tonsillectomy, rotator cuff repair. MEDICATIONS: 1. Nitroglycerin 0.4 mg sublingual q.5 minutes as needed. 2. Albuterol inhaler 2 puffs inhalation q.4 hours as needed. 3. Incruse Ellipta 1 inhalation daily. 4. Metoprolol tartrate 100 mg p.o. b.i.d. 5. Lisinopril 10 mg p.o. daily. 6. Diltiazem 240 mg p.o. daily. 7. Lipitor 40 mg p.o. daily. 8. Aspirin 81 mg p.o. daily. 9. Clopidogrel 75 mg p.o. daily. 10. Remeron 90 mg p.o. at bedtime. 11. Suboxone 12/3 one film sublingually b.i.d. 12. Hydroxyzine 1 tab p.o. as needed. 13. Chantix 1 tab p.o. b.i.d. 14. Gabapentin 800 mg p.o. daily. ALLERGIES: KETOROLAC, MELOXICAM, PENICILLIN. The patient's reaction to PENICILLIN is anaphylaxis. FAMILY HISTORY: The patient's mother of an HI at 58 and had breast cancer. The patient's father at 52 of an HI and had no other health conditions she knows of. The patient has 2 brothers and a sister, all of whom are healthy. SOCIAL HISTORY: The patient has a 30-pack year history of smoking and is currently down to approximately 6 a day with the aid of Chantix. The patient denies drinking or using any illicit drugs, particularly injection drugs. 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 The patient is and has 2 children. The patient's surrogate decision maker will be her , Reese Gonzalez. REVIEW OF SYSTEMS: A 14-point review of systems was reviewed and is negative except as above in the HPI. PHYSICAL EXAMINATION GENERAL: The patient is a 48-year-old female, who appears stated age and is sitting in the bed with significantly increased work of breathing. VITAL SIGNS: Temperature 99.4, pulse rate 115, respiratory rate 20, oxygen saturation 98% on 6 L, and blood pressure 96/69. HEENT: Head: Normocephalic, atraumatic. Sclerae anicteric. No conjunctival injection. Nasal mucosa moist. Oral mucosa moist. No pharyngeal erythema, discharge, or exudate. NECK: Supple, nontender. No lymphadenopathy. No carotid bruits auscultated. No JVD. RESPIRATORY: Very poor air movement. Expiratory wheezes heard throughout all lung [place]. Rhonchi heard in bilateral lower lobes. Rales heard in the bilateral middle lobes. Symmetrical chest expansion. CARDIAC: Tachycardic. Muffled breath sounds. No clicks, murmurs, gallops, or rubs. Pulses are 2+ in the bilateral dorsalis pedis, posterior tibialis, and radial areas. No bilateral lower extremity edema noted. ABDOMEN: Soft, nontender, nondistended. Bowel sounds present and normoactive in all 4 quadrants. No hepatosplenomegaly. No abdominal bruits auscultated. No hepatojugular reflux. GENITOURINARY: No suprapubic or CVA tenderness. NEURO: Cranial nerves II through XII intact. No focal deficits. Alert and oriented x3. PSYCHIATRIC: Pleasant and cooperative. SKIN: Clean, dry, and intact. No rash. DIAGNOSTIC STUDIES/LAB DATA: White blood cell count 19.8, hemoglobin 13.8, platelet count 250. D-dimer 220. Sodium 138, potassium 4.9, chloride 104, carbon dioxide 26, anion gap 8, BUN 15, creatinine 1.12, glucose 136, lactic acid 2.1, calcium 9.0. Bilirubin 0.5, AST 19, ALT 18, alkaline phosphatase 115. Creatine kinase 40, troponin I of 0.05, CRP 309.3, BNP 198. Protein 7.3, albumin 3.7, globulin 3.6. Beta hCG less than 0.6. Influenza A and B negative. Studies: Electrocardiogram shows sinus tachycardia. No ST segment elevation. No T-wave inversions, poor R-wave progression, possible left ventricular hypertrophy by voltage criteria in aVL, left axis deviation, possible left atrial enlargement. Chest x-ray read as cardiomegaly with interstitial edema consistent with CHF. Chest/thorax CTA from 11/23/18 read as no evidence for PE, bilateral pulmonary edema from CHF. ASSESSMENT AND PLAN: Ms. Gonzalez is a 48-year-old female with past medical history significant for chronic obstructive pulmonary disease, history of myocardial infarction with 9 stents placed, hypertension, who presents to the emergency department with severe shortness of breath with concern for pneumonia , chronic obstructive pulmonary disease exacerbation, and possible congestive heart failure. The patient will be admitted to the hospital for antibiotics, fluids, and positive pressure ventilation. 1. Acute hypoxic respiratory failure, likely chronic obstructive pulmonary disease exacerbation, pneumonia, possible congestive heart failure. The patient is currently requiring 6 L of oxygen to keep her oxygen saturation in the low 90s. The patient's ABG is pending. Due to concern for fluid overload and the patient's increased work of breathing, the patient will be started on noninvasive positive pressure ventilation. The patient has a severely elevated CRP, tachycardia, tachypnea, elevated temperature, elevated white blood cell count, infiltrates on chest x-ray, rhonchi on exam with very poor air movement. All these signs point to pneumonia. The patient has had no recent contact with the healthcare system or admission to the hospital. The patient describes symptoms for a week consistent with the flu. The patient will be started on Tamiflu even though her flu swabs are negative. The patient very likely has a bacterial superinfection to possible flu that she had and will be started on Levaquin for community-acquired pneumonia treatment. The patient will also be started on vancomycin for empiric coverage of methicillin-resistant Staphylococcus aureus. Given the patient's hypotension and tachycardia, we will not diurese the patient at this time. The patient has a slightly elevated troponin, but no ischemic signs on her EKG consistent with new cardiogenic shock. The patient will have a Buchanan for close hemodynamic monitoring. The patient has a slightly elevated lactic acid, this will be repeated after fluid resuscitation and trended until normal. The patient has a slightly elevated BNP , but nothing to correlate with the patient's significant symptoms of shortness of breath. The patient has underlying chronic obstructive pulmonary disease and her exam is consistent with vasospasm. We will start the patient on Solu- Medrol for both highly inflammatory pneumonia and underlying chronic obstructive pulmonary disease exacerbation as well as scheduled inhalers around the clock every 4 hours as well as albuterol as needed. We will continue the patient's long-acting inhaler. The patient received ceftriaxone and azithromycin while in the emergency department. The patient seems to have tolerated this well, but did have an anaphylactic reaction to PENICILLIN and beta-lactam antibiotics will not be continued at this time. The patient's blood pressure medications will be held in the setting of low blood pressure. The patient had a CTA of her chest, which showed no pulmonary embolism and ground-glass opacities read as consistent with congestive heart failure. 2. Sepsis. The patient meets sepsis criteria with fever, white blood cell count, tachycardia with signs of end organ dysfunction including elevated CRP, elevated creatinine above baseline. The patient is in the process of receiving 2 L of fluid while in the emergency department. The patient will have an additional 500 mL as best as possible and then will be continued on lactated Ringer's at 100 mL an hour for continued blood pressure support with boluses as needed for hypotension. 3. Coronary artery disease. The patient has severe coronary artery disease, status post 9 stents. The patient's aspirin, clopidogrel, and Lipitor will be continued. The patient will have a transthoracic echocardiogram tomorrow to assess her EF and the possibility of decreased ejection fraction. 4. Chronic pain. The patient has significant pain in her back. We will treat this with oxycodone while inpatient. 5. FEN: The patient will have a heart-healthy diet without caffeine and fluids as above. 6. DVT prophylaxis: The patient will have heparin subcu and SCDs in the setting of her acute illness. 7. Disposition: The patient is admitted inpatient to the ICU. TIME SPENT: Approximately 75 minutes was spent on the admission of this patient , 30 of which was spent [id number] with the patient obtaining history and physical and discussing treatment plan. Plan was discussed with my attending, Dr. Chema Greenberg, and he is in agreement. ELÍAS CRUZ [id number]/[facility] #: [id number] STEPAN
[2018-11-23 22:52] LABS: Urine Appearance Cloudy; Urine Bilirubin Negative (Negative); Urine Blood Negative (Negative); Urine Color Yellow; Urine Glucose Negative (Negative); Urine Ketones Negative (Negative); Urine Nitrite Negative (Negative); Urine Protein Negative (Negative); Urine Specific Gravity 1.039 (1.010-1.030); Urine Urobilinogen Negative (Negative)
[2018-11-24] MEDS: Morphine 4 MG/ML VIAL (1 ml) 4 MG/ML VIAL IV PRN ×6 (03:22→20:31)
[2018-11-24 05:29] LABS: Hematocrit 39 % (33-41); Hemoglobin 12.6 g/dL (12.0-16.0); Mean Corpuscular HGB Conc 32 g/dL (31-36); Mean Corpuscular Hemoglobin 27 pg (27-31); Mean Corpuscular Volume 83 fL (80-97); Mean Platelet Volume 9.1 fL (7.4-10.4); Platelet Count 240 10^3/uL (150-450); Red Cell Distribution Width 16 % (10.5-15); White Blood Count 21.7 10^3/uL (3.5-10.8)
[2018-11-24 05:45] LABS: BUN/Creatinine Ratio 17.2 (8-20); Calcium 8.3 mg/dL (8.6-10.3); EGFR African American 72.4 (>60); EGFR Non-African American 59.9 (>60); Magnesium 1.9 mg/dL (1.9-2.7); Potassium 4.1 mmol/L (3.5-5.0)
[2018-11-24 06:13] LABS: Lymphocytes % 3 %; Monocytes % 1 %; Neutrophil % 96 %; Polychromasia 1+
[2018-11-24 06:14] LABS: ABS Basophils 0 10^3/ul (0-0.2); ABS Eosinophils 0 10^3/ul (0-0.6); ABS Lymphocytes 0.4 10^3/ul (1.0-4.8); ABS Monocytes 0.9 10^3/ul (0-0.8); ABS Neutrophils 20.4 10^3/ul (1.5-7.7); ABS Nucleated RBC 0 10^3/ul
[2018-11-24] MEDS: methylPREDNISolone 125 MG* 2 ML VIAL IV SCH ×2 (06:20→17:07)
[2018-11-24] MEDS: Heparin VIAL(*) 5000 UNITS/ML VIAL (FIVE THOUSAND) SUBCUT SCH ×3 (06:20→20:33)
[2018-11-24] MEDS: Vancomycin(*) 1,000 MG in NS 0.9% 250 ML* 250 ML IVPB SCH ×3 (06:23→22:19)
[2018-11-24] MEDS: Umeclidinium 62.5 MDI(NF) MDI INH SCH (07:12)
[2018-11-24] MEDS: Albuterol/Ipratropium NEB.SOL* Albuterol 2.5 MG/Ipratropium 0.5 MG 3 ML INH PRN ×2 (07:33→14:29)
[2018-11-24] MEDS: Metoprolol Tartrate TAB* 25 MG PO SCH ×2 (08:00→20:35)
[2018-11-24] MEDS: Atorvastatin* 40 MG TAB PO SCH (08:00)
[2018-11-24] MEDS: guaiFENesin ER TAB 600 MG PO SCH ×2 (08:00→20:34)
[2018-11-24] MEDS: Aspirin EC TAB* 81 MG TAB.EC PO SCH (08:00)
[2018-11-24] MEDS: Clopidogrel TAB* 75 MG PO SCH (08:00)
[2018-11-24] MEDS: Oseltamivir CAP* 75 MG CAP PO SCH ×2 (08:00→20:34)
[2018-11-24] MEDS ORDERED: Gabapentin CAP(*) 400 MG PO SCH (08:30)
--- NOTE | 2018-11-24 14:05 | ECHO ---
Patient: ROYAL GARCIA [facility] Rec#: [id number] : 1970 Date: 11/24/2018 Age: 48y Height: 152 cm / 59.8 in Weight: 76 kg / 167.5 lbs Sex: F BSA: 1.73 Room#: [facility] Admit Date#: 11/23/2018 Type: Inpatient Referring: Bc Carrazna Reading: Daniel Vicente MD Director Automotive: Tita Baez [facility] Transthoracic Echocardiogram Indication: SOB BP: 130/80 HR: 88 Rhythm: NSR Findings History: COPD,CAD with prior PCU,HTN,? seizures,HLD,smoker. Technical Comments: The study quality is good. Completed at 1220. Left Ventricle: Mild concentric left ventricular hypertrophy is observed. There is normal left ventricular systolic function. The estimated ejection fraction is 55-60%. Abnormal left ventricular diastolic function is observed. The apical inferior wall segment is hypokinetic (score 2). Overall wallmotion score index is 2.00 Left Atrium: The left atrial chamber size is normal. Right Ventricle: The right ventricular cavity size is normal. The right ventricular global systolic function is normal. Right Atrium: The right atrial cavity size is normal. Aortic Valve: The aortic valve is trileaflet. There is no evidence of aortic valve thickening. There is trace to mild aortic regurgitation. There is no evidence of aortic stenosis. Mitral Valve: The mitral valve leaflets are mildly thickened. There is a trace of mitral regurgitation. There is no evidence of mitral stenosis. Tricuspid Valve: The tricuspid valve leaflets are normal. There is mild tricuspid regurgitation. No pulmonary hypertension is noted. There is no tricuspid stenosis. Pulmonic Valve: The pulmonic valve appears normal. There is no evidence of pulmonic regurgitation. There is no pulmonic stenosis. Pericardium: A pericardial fat pad is visualized. Aorta: There is no dilatation of the ascending aorta. There is no dilatation of the aortic arch. There is no dilation of the aortic root. Pulmonary Artery: The main pulmonary artery appears normal. Venous: The inferior vena cava appears normal in size. There is a greater than 50% respiratory change in the inferior vena cava dimension. Summary: There are no significant changes when compared to the previous study done on 02/28/18 Conclusions There is normal left ventricular systolic function. The estimated ejection fraction is 55-60%. The apical inferior wall segment is hypokinetic (score 2). The right ventricular global systolic function is normal. There is trace to mild aortic regurgitation. There is a trace of mitral regurgitation. There is mild tricuspid regurgitation. There is no dilatation of the ascending aorta. Measurements Name Value Normal Range RVIDd (AP) 2D 2.7 cm (0.9 - 2.6) RVDdMajor (2D) 2.3 cm (2.2 - 4.4) RAd ISD 4CH 5.4 cm (3.4 - 4.9) RA (A4C)W 3.7 cm (2.9 - 4.6) IVSd (2D) 1.2 cm (0.6 - 1) LVPWd (2D) 1.1 cm (0.6 - 1) LVIDd (2D) 4.4 cm (3.6 - 5.4) LVIDs (2D) 3.2 cm - LV FS (2D) 27 % (25 - 45) Aortic Annulus 1.8 cm (1.4 - 2.6) Ao root diameter (2D) 2.7 cm (2.1 - 3.5) Ascending Ao 3 cm (2.1 - 3.4) Aortic arch 3.1 cm (1.8 - 3.4) LA dimension (AP) 2D 3.7 cm (2.3 - 3.8) LAd ISD 4CH 5.9 cm (2.9 - 5.3) LA ISD 4CH W 3.6 cm (2.5 - 4.5) Name Value Normal Range LA ESV SP 2CH (A/L) 25 ml - Name Value Normal Range MV E-wave Vmax 1.1 m/sec - MV deceleration time 144 msec - MV A-wave Vmax 1.2 m/sec - MV E:A ratio 0.9 ratio - LV septal e' Vmax 0.1 m/sec - LV lateral e' Vmax 0.08 m/sec - Name Value Normal Range AV Vmax 1.9 m/sec - AV VTI 37.3 cm - AV peak gradient 14 mmHg - AV mean gradient 8 mmHg - LVOT diameter 1.3 cm - LVOT Vmax 27.6 m/sec - LVOT peak gradient 7 mmHg - LVOT mean gradient 4 mmHg - AR PHT 555 msec - AR peak gradient 47 mmHg - Name Value Normal Range TR Vmax 2.4 m/sec - TR peak gradient 24 mmHg - RAP 3 mmHg - RVSP 27 mmHg - IVC diameter 1.8 cm - Name Value Normal Range PV Vmax 0.9 m/sec - PV peak gradient 3 mmHg - Wallmotion BAS Not Seen BA Not Seen BAL Not Seen CADEN Not Seen BI Not Seen BIS Not Seen MAS Not Seen MA Not Seen MAL Not Seen MIL Not Seen OR Not Seen MIS Not Seen Not Seen AA Not Seen AL Not Seen AI Hypokinetic APEX Not Seen
[2018-11-24] MEDS ORDERED: Furosemide IV* 10 MG/ML 2 ML VIAL (20 MG) IV ONE (15:32)
--- NOTE | 2018-11-24 15:57 | PN ---
Date of Service: 11/24/18 Critical Care Services: Patient admitted yesterday with probable atypical community-acquired pneumonia. Is doing well, aothough she has a relaively jigh O2 requirement. Vital Signs: Temp Pulse Resp BP SpO2 FiO2 96.7 F 96 18 148/92 99 100 Physical Exam: Gen:Alert, oriiented HEENT:OP clear Lungs:finecrackles on both sides R>L Cardiac: Reg rhythm Extremities:No cyanosis or edema Fluid Balance (Past 24 Hours): 11/24/18 06:59 Intake Total 2336 Output Total 1000 Balance 1336 Weight 178 lb Intake: IV Fluids 2101 ABX - LEVOFLOXACIN 150 ABX - VANCOMYCIN 250 LR 630 NS (0.9%) 1071 Oral 235 Output: Urine 1000 Labs: Laboratory Results - last 24 hr 11/23/18 11/23/18 11/23/18 17:04 17:21 17:21 WBC 19.8 H RBC 5.10 H Hgb 13.8 Hct 42 H MCV 82 MCH 27 MCHC 33 RDW 16 H Plt Count 250 MPV 9.0 Neut % (Auto) 89.1 Lymph % (Auto) 3.7 Mcdonald % (Auto) 6.7 Eos % (Auto) 0.2 Baso % (Auto) 0.3 Absolute Neuts (auto) 17.6 H Absolute Lymphs (auto) 0.7 L Absolute Monos (auto) 1.3 H Absolute Eos (auto) 0 Absolute Basos (auto) 0.1 Absolute Nucleated RBC 0 Neutrophils % Lymphocytes % Monocytes % Nucleated RBC % 0 Normal RBC Morphology Polychromasia Hem Pathologist Commnt D-Dimer, Quantitative Patient Temperature ABG pH 7.43 ABG pH (Temp Correct) ABG pCO2 38 ABG pCO2 (Temp Corrct ABG pO2 62 L ABG pO2 (Temp Correct ABG HCO3 25.5 ABG O2 Saturation 93.2 L ABG Base Excess 1.0 Respiration Rate O2 Delivery Device Ventilator Type Vent Mode FiO2 Inspiratory Time PEEP Pressure Support Pressure Control EPAP IPAP BiPAP Sodium 138 Potassium 4.1 Chloride 104 Carbon Dioxide 26 Anion Gap 8 BUN 15 Creatinine 1.12 H Est GFR ( Amer) 62.8 Est GFR (Non-Af Amer) 51.9 BUN/Creatinine Ratio 13.4 Glucose 136 H Lactic Acid Calcium 9.0 Magnesium Total Bilirubin 0.50 AST 19 ALT 8 Alkaline Phosphatase 115 H Total Creatine Kinase 40 Troponin I 0.05 H* C-Reactive Protein 309.03 H B-Natriuretic Peptide Total Protein 7.3 Albumin 3.7 Globulin 3.6 Albumin/Globulin Ratio 1.0 Beta HCG, Quant < 0.60 Urine Color Urine Appearance Urine pH Ur Specific Snover Urine Protein Urine Ketones Urine Blood Urine Nitrate Urine Bilirubin Urine Urobilinogen Ur Leukocyte Esterase Urine Glucose Influenza A (Rapid) Influenza B (Rapid) 11/23/18 11/23/18 11/23/18 17:21 17:21 17:21 WBC RBC Hgb Hct MCV MCH MCHC RDW Plt Count MPV Neut % (Auto) Lymph % (Auto) Mcdonald % (Auto) Eos % (Auto) Baso % (Auto) Absolute Neuts (auto) Absolute Lymphs (auto) Absolute Monos (auto) Absolute Eos (auto) Absolute Basos (auto) Absolute Nucleated RBC Neutrophils % Lymphocytes % Monocytes % Nucleated RBC % Normal RBC Morphology Polychromasia Hem Pathologist Commnt D-Dimer, Quantitative 220 Patient Temperature ABG pH ABG pH (Temp Correct) ABG pCO2 ABG pCO2 (Temp Corrct ABG pO2 ABG pO2 (Temp Correct ABG HCO3 ABG O2 Saturation ABG Base Excess Respiration Rate O2 Delivery Device Ventilator Type Vent Mode FiO2 Inspiratory Time PEEP Pressure Support Pressure Control EPAP IPAP BiPAP Sodium Potassium Chloride Carbon Dioxide Anion Gap BUN Creatinine Est GFR ( Amer) Est GFR (Non-Af Amer) BUN/Creatinine Ratio Glucose Lactic Acid 2.1 H* Calcium Magnesium Total Bilirubin AST ALT Alkaline Phosphatase Total Creatine Kinase Troponin I C-Reactive Protein B-Natriuretic Peptide 198 H Total Protein Albumin Globulin Albumin/Globulin Ratio Beta HCG, Quant Urine Color Urine Appearance Urine pH Ur Specific Snover Urine Protein Urine Ketones Urine Blood Urine Nitrate Urine Bilirubin Urine Urobilinogen Ur Leukocyte Esterase Urine Glucose Influenza A (Rapid) Influenza B (Rapid) 11/23/18 11/23/18 11/23/18 17:28 19:23 19:24 WBC RBC Hgb Hct MCV MCH MCHC RDW Plt Count MPV Neut % (Auto) Lymph % (Auto) Mcdonald % (Auto) Eos % (Auto) Baso % (Auto) Absolute Neuts (auto) Absolute Lymphs (auto) Absolute Monos (auto) Absolute Eos (auto) Absolute Basos (auto) Absolute Nucleated RBC Neutrophils % Lymphocytes % Monocytes % Nucleated RBC % Normal RBC Morphology Polychromasia Hem Pathologist Commnt D-Dimer, Quantitative Patient Temperature ABG pH ABG pH (Temp Correct) ABG pCO2 ABG pCO2 (Temp Corrct ABG pO2 ABG pO2 (Temp Correct ABG HCO3 ABG O2 Saturation ABG Base Excess Respiration Rate O2 Delivery Device Ventilator Type Vent Mode FiO2 Inspiratory Time PEEP Pressure Support Pressure Control EPAP IPAP BiPAP Sodium Potassium Chloride Carbon Dioxide Anion Gap BUN Creatinine Est GFR ( Amer) Est GFR (Non-Af Amer) BUN/Creatinine Ratio Glucose Lactic Acid 1.2 Calcium Magnesium Total Bilirubin AST ALT Alkaline Phosphatase Total Creatine Kinase Troponin I 0.05 H* C-Reactive Protein B-Natriuretic Peptide Total Protein Albumin Globulin Albumin/Globulin Ratio Beta HCG, Quant Urine Color Urine Appearance Urine pH Ur Specific Snover Urine Protein Urine Ketones Urine Blood Urine Nitrate Urine Bilirubin Urine Urobilinogen Ur Leukocyte Esterase Urine Glucose Influenza A (Rapid) Negative Influenza B (Rapid) Negative 11/23/18 11/23/18 11/24/18 20:37 22:42 01:23 WBC RBC Hgb Hct MCV MCH MCHC RDW Plt Count MPV Neut % (Auto) Lymph % (Auto) Mcdonald % (Auto) Eos % (Auto) Baso % (Auto) Absolute Neuts (auto) Absolute Lymphs (auto) Absolute Monos (auto) Absolute Eos (auto) Absolute Basos (auto) Absolute Nucleated RBC Neutrophils % Lymphocytes % Monocytes % Nucleated RBC % Normal RBC Morphology Polychromasia Hem Pathologist Commnt D-Dimer, Quantitative ABG pH 7.40 ABG pCO2 37 ABG pO2 292 H ABG HCO3 23.7 ABG O2 Saturation 99.9 H ABG Base Excess -1.5 O2 Delivery Device Bipap Vent Mode 2 FiO2 100 EPAP 5 IPAP 10 Sodium Potassium Chloride Carbon Dioxide Anion Gap BUN Creatinine Est GFR ( Amer) Est GFR (Non-Af Amer) BUN/Creatinine Ratio Glucose Lactic Acid Calcium Magnesium Total Bilirubin AST ALT Alkaline Phosphatase Total Creatine Kinase Troponin I 0.03 C-Reactive Protein B-Natriuretic Peptide Total Protein Albumin Globulin Albumin/Globulin Ratio Beta HCG, Quant Urine Color Yellow Urine Appearance Cloudy Urine pH 5.0 Ur Specific Snover 1.039 H Urine Protein Negative Urine Ketones Negative Urine Blood Negative Urine Nitrate Negative Urine Bilirubin Negative Urine Urobilinogen Negative Ur Leukocyte Esterase Negative Urine Glucose Negative Influenza A (Rapid) Influenza B (Rapid) 11/24/18 11/24/18 05:18 05:18 WBC 21.7 H RBC 4.70 Hgb 12.6 Hct 39 MCV 83 MCH 27 MCHC 32 RDW 16 H Plt Count 240 MPV 9.1 Absolute Neuts (auto) 20.4 H Absolute Lymphs (auto) 0.4 L Absolute Monos (auto) 0.9 H Absolute Eos (auto) 0 Absolute Basos (auto) 0 Absolute Nucleated RBC 0 Neutrophils % 96 Lymphocytes % 3 Monocytes % 1 Polychromasia 1+ Hem Pathologist Commnt D-Dimer, Quantitative Patient Temperature ABG pH ABG pH (Temp Correct) ABG pCO2 ABG pCO2 (Temp Corrct ABG pO2 ABG pO2 (Temp Correct ABG HCO3 ABG O2 Saturation ABG Base Excess Respiration Rate O2 Delivery Device Ventilator Type Vent Mode FiO2 Inspiratory Time PEEP Pressure Support Pressure Control EPAP IPAP BiPAP Sodium 138 Potassium 4.1 Chloride 109 Carbon Dioxide 22 Anion Gap 7 BUN 17 Creatinine 0.99 H Glucose 184 H Lactic Acid Calcium 8.3 L Magnesium 1.9 Total Bilirubin AST ALT Alkaline Phosphatase Total Creatine Kinase Troponin I C-Reactive Protein B-Natriuretic Peptide Total Protein Albumin Globulin Albumin/Globulin Ratio Beta HCG, Quant Urine Color Urine Appearance Urine pH Ur Specific Snover Urine Protein Urine Ketones Urine Blood Urine Nitrate Urine Bilirubin Urine Urobilinogen Ur Leukocyte Esterase Urine Glucose Influenza A (Rapid) Influenza B (Rapid) Studies: CXR: Patchy infiltrates both lungs R>L Urine negative for legionella and pneumococcal antigens. Nutrition: Oral diet Impression: Clinically stable, but high O2 requirement is concerning. No pathogen identified to date. Most likely a virus or atypical organism. No evidence of CHF. Plan: Continue antibiotics for now. Will d/c them when cultures neg for 48 hours.
--- NOTE | 2018-11-24 16:09 | PN ---
Progress Note - Progress Note Date of Service: 11/24/18 - Pulmonary note Note: Pt seen and examined at bedside this am. Pt was on BiPAP, requested to have mask off. Was desaturating to low 80`s while on RA. She was placed on salter with improvement in saturations. Pt is 48 y o f, current smoker with h/o significant cardiac history with CAD s/ p STEMI, s/p 9 stents placed, COPD. Pt presented to ED for evaluation of 1 week sx of cough, malaise, fever, feeling poorly. Her SOB has worsened to point that she couldnot take few steps. She has also been having trouble lying flat. Pt also having trouble lying flat. She denies wt gain. She had stress test in June. Further evaluation in ED included CXR which showed air space opacities. CTA was done given hypoxia- I have personally reviewed CTA- No filling defects, evidence of diffuse GGO b/l - fluid overload versus diffuse lung disease. She was also noted to have elevated WBC count.She was admitted for acute CHF and COPD exacerbation. Pt tolerated BiPAP for few hrs last night and requested to be removed. She has been needing high FiO2. She was given 40 mg Lasix. She was also started on abx, bronchodilators and steroids. Troponin was mildly elevated and then normalized. BNP was elevated. ROS:Pt reported slight improvement in SOB this am. Denies signficant cough or sputum production. denied chest pain. PMHx: Reviewed, As above Active Medications Generic Name Dose Route Start Last Admin Trade Name Freq PRN Reason Stop Dose Admin Acetaminophen 650 mg 11/23/18 18:30 Tylenol Tab* PO Q6H PRN FEVER/PAIN Albuterol 2.5 mg 11/23/18 18:30 11/24/18 03:30 Ventolin 2.5 Mg/3 Ml Neb.Jazmyn* INH 2.5 mg Q2H PRN Administration SOB/WHEEZING Albuterol/Ipratropium 1 neb 11/23/18 23:56 11/24/18 14:29 Duoneb (Albuterol 2.5 Mg/Ipratropium 0.5 Mg) INH 1 neb Q4H PRN Administration SOB/WHEEZING Aspirin 81 mg 11/24/18 09:00 11/24/18 08:00 Aspirin Ec Tab* PO 81 mg DAILY YANDEL Administration Atorvastatin Calcium 40 mg 11/24/18 09:00 11/24/18 08:00 Lipitor* PO 40 mg DAILY YANDEL Administration Benzonatate 100 mg 11/23/18 18:30 Tessalon Cap* PO BID PRN COUGH Clopidogrel Bisulfate 75 mg 11/24/18 09:00 11/24/18 08:00 Plavix Tab* PO 75 mg DAILY YANDEL Administration Gabapentin 800 mg 11/24/18 08:30 11/24/18 09:50 Neurontin Cap(*) PO 800 mg DAILY WITH MEAL YANDEL Administration Guaifenesin 1,200 mg 11/23/18 21:00 11/24/18 08:00 Mucinex* PO 1,200 mg BID YANDEL Administration Heparin Sodium (Porcine) 5,000 units 11/23/18 22:00 11/24/18 14:21 Heparin Vial(*) SUBCUT 5,000 units Q8HR YANDEL Administration Levofloxacin/Dextrose 750 mg in 150 mls @ 100 mls/hr 11/23/18 21:00 11/23/18 21:34 Levaquin 750 Mg Ivpremix(*) IVPB 100 mls/hr Q24H YANDEL Administration Lactated Ringer's 1,000 mls @ 100 mls/hr 11/23/18 20:00 11/23/18 23:33 Lactated Ringers 1000 Ml Bag* IV 100 mls/hr PER RATE YANDEL Administration Vancomycin HCl 1,000 mg/ 250 mls @ 166.667 mls/hr 11/24/18 06:00 11/24/18 14: 21 Sodium Chloride IVPB 166.667 mls/hr Q8H YANDEL Administration Methylprednisolone Sodium Succinate 60 mg 11/24/18 06:00 11/24/18 06:20 Solu-Medrol 125mg * IV 60 mg Q12H YANDEL Administration Metoprolol Tartrate 25 mg 11/24/18 09:00 11/24/18 08:00 Lopressor Tab* PO 25 mg BID YANDEL Administration Mirtazapine 90 mg 11/23/18 21:00 11/23/18 20:49 Remeron Tab* PO 90 mg BEDTIME YANDEL Administration Morphine Sulfate 3 mg 11/23/18 22:57 11/24/18 12:55 Morphine 4 Mg/Ml Vial (1 Ml) IV 3 mg Q3H PRN Administration PAIN Ondansetron HCl 4 mg 11/23/18 18:30 Zofran Inj* IV Q6H PRN NAUSEA Oseltamivir Phosphate 75 mg 11/23/18 21:00 11/24/18 08:00 Tamiflu Cap* PO 75 mg BID YANDEL Administration Oxycodone HCl 5 mg 11/23/18 19:01 11/23/18 20:50 Roxycodone Tab* PO 5 mg Q6H PRN Administration PAIN Pharmacy Consult 1 note 11/23/18 20:00 Vancomycin Per Pharmacy* FOLLOW UP .VANC PER PHARMACY YANDEL Pharmacy Profile Note 1 note 11/25/18 06:00 Vancomycin Trough Check FOLLOW UP 11/25/18 06:01 0600 ONE Umeclidinium [place] 1 inh 11/24/18 09:00 11/24/18 07:12 Incruse Ellipta Mdi (Nf) INH Not Given DAILY [facility] Vital Signs Temp Pulse Resp BP Pulse Ox 96.7 F 96 18 148/92 99 11/24/18 12:00 11/24/18 14:29 11/24/18 14:29 11/24/18 12:00 11/24/18 14:29 O/E; Pt in NAD HEENT: PERRLA, no JVD Lungs: Diminished air entry b/l, rhonchi and crackles + CVS: S1, S2+, regular Abd: Obese, Soft, BS+ Ext: No edema Neuro: No focal deficits Skin: No rash Laboratory Results - last 24 hr 11/23/18 11/23/18 11/23/18 17:04 17:21 17:21 WBC 19.8 H RBC 5.10 H Hgb 13.8 Hct 42 H MCV 82 MCH 27 MCHC 33 RDW 16 H Plt Count 250 MPV 9.0 Neut % (Auto) 89.1 Lymph % (Auto) 3.7 [place] % (Auto) 6.7 Eos % (Auto) 0.2 Baso % (Auto) 0.3 Absolute Neuts (auto) 17.6 H Absolute Lymphs (auto) 0.7 L Absolute Monos (auto) 1.3 H Absolute Eos (auto) 0 Absolute Basos (auto) 0.1 Absolute Nucleated RBC 0 Neutrophils % Lymphocytes % Monocytes % Nucleated RBC % 0 Normal RBC Morphology Polychromasia Hem Pathologist Commnt D-Dimer, Quantitative Patient Temperature ABG pH 7.43 ABG pH (Temp Correct) ABG pCO2 38 ABG pCO2 (Temp Corrct ABG pO2 62 L ABG pO2 (Temp Correct ABG HCO3 25.5 ABG O2 Saturation 93.2 L ABG Base Excess 1.0 Respiration Rate O2 Delivery Device Ventilator Type Vent Mode FiO2 Inspiratory Time PEEP Pressure Support Pressure Control EPAP IPAP BiPAP Sodium 138 Potassium 4.1 Chloride 104 Carbon Dioxide 26 Anion Gap 8 BUN 15 Creatinine 1.12 H Est GFR ( Amer) 62.8 Est GFR (Non-Af Amer) 51.9 BUN/Creatinine Ratio 13.4 Glucose 136 H Lactic Acid Calcium 9.0 Magnesium Total Bilirubin 0.50 AST 19 ALT 8 Alkaline Phosphatase 115 H Total Creatine Kinase 40 Troponin I 0.05 H* C-Reactive Protein 309.03 H B-Natriuretic Peptide Total Protein 7.3 Albumin 3.7 Globulin 3.6 Albumin/Globulin Ratio 1.0 Beta HCG, Quant < 0.60 Urine Color Urine Appearance Urine pH Ur Specific [place] Urine Protein Urine Ketones Urine Blood Urine Nitrate Urine Bilirubin Urine Urobilinogen Ur Leukocyte Esterase Urine Glucose Influenza A (Rapid) Influenza B (Rapid) 11/23/18 11/23/18 11/23/18 17:21 17:21 17:21 WBC RBC Hgb Hct MCV MCH MCHC RDW Plt Count MPV Neut % (Auto) Lymph % (Auto) [place] % (Auto) Eos % (Auto) Baso % (Auto) Absolute Neuts (auto) Absolute Lymphs (auto) Absolute Monos (auto) Absolute Eos (auto) Absolute Basos (auto) Absolute Nucleated RBC Neutrophils % Lymphocytes % Monocytes % Nucleated RBC % Normal RBC Morphology Polychromasia Hem Pathologist Commnt D-Dimer, Quantitative 220 Patient Temperature ABG pH ABG pH (Temp Correct) ABG pCO2 ABG pCO2 (Temp Corrct ABG pO2 ABG pO2 (Temp Correct ABG HCO3 ABG O2 Saturation ABG Base Excess Respiration Rate O2 Delivery Device Ventilator Type Vent Mode FiO2 Inspiratory Time PEEP Pressure Support Pressure Control EPAP IPAP BiPAP Sodium Potassium Chloride Carbon Dioxide Anion Gap BUN Creatinine Est GFR ( Amer) Est GFR (Non-Af Amer) BUN/Creatinine Ratio Glucose Lactic Acid 2.1 H* Calcium Magnesium Total Bilirubin AST ALT Alkaline Phosphatase Total Creatine Kinase Troponin I C-Reactive Protein B-Natriuretic Peptide 198 H Total Protein Albumin Globulin Albumin/Globulin Ratio Beta HCG, Quant Urine Color Urine Appearance Urine pH Ur Specific [place] Urine Protein Urine Ketones Urine Blood Urine Nitrate Urine Bilirubin Urine Urobilinogen Ur Leukocyte Esterase Urine Glucose Influenza A (Rapid) Influenza B (Rapid) 11/23/18 11/23/18 11/23/18 17:28 19:23 19:24 WBC RBC Hgb Hct MCV MCH MCHC RDW Plt Count MPV Neut % (Auto) Lymph % (Auto) [place] % (Auto) Eos % (Auto) Baso % (Auto) Absolute Neuts (auto) Absolute Lymphs (auto) Absolute Monos (auto) Absolute Eos (auto) Absolute Basos (auto) Absolute Nucleated RBC Neutrophils % Lymphocytes % Monocytes % Nucleated RBC % Normal RBC Morphology Polychromasia Hem Pathologist Commnt D-Dimer, Quantitative Patient Temperature ABG pH ABG pH (Temp Correct) ABG pCO2 ABG pCO2 (Temp Corrct ABG pO2 ABG pO2 (Temp Correct ABG HCO3 ABG O2 Saturation ABG Base Excess Respiration Rate O2 Delivery Device Ventilator Type Vent Mode FiO2 Inspiratory Time PEEP Pressure Support Pressure Control EPAP IPAP BiPAP Sodium Potassium Chloride Carbon Dioxide Anion Gap BUN Creatinine Est GFR ( Amer) Est GFR (Non-Af Amer) BUN/Creatinine Ratio Glucose Lactic Acid 1.2 Calcium Magnesium Total Bilirubin AST ALT Alkaline Phosphatase Total Creatine Kinase Troponin I 0.05 H* C-Reactive Protein B-Natriuretic Peptide Total Protein Albumin Globulin Albumin/Globulin Ratio Beta HCG, Quant Urine Color Urine Appearance Urine pH Ur Specific [place] Urine Protein Urine Ketones Urine Blood Urine Nitrate Urine Bilirubin Urine Urobilinogen Ur Leukocyte Esterase Urine Glucose Influenza A (Rapid) Negative Influenza B (Rapid) Negative 11/23/18 11/23/18 11/24/18 20:37 22:42 01:23 WBC RBC Hgb Hct MCV MCH MCHC RDW Plt Count MPV Neut % (Auto) Lymph % (Auto) [place] % (Auto) Eos % (Auto) Baso % (Auto) Absolute Neuts (auto) Absolute Lymphs (auto) Absolute Monos (auto) Absolute Eos (auto) Absolute Basos (auto) Absolute Nucleated RBC Neutrophils % Lymphocytes % Monocytes % Nucleated RBC % Normal RBC Morphology Polychromasia Hem Pathologist Commnt D-Dimer, Quantitative Patient Temperature Not Reportable ABG pH 7.40 ABG pH (Temp Correct) Not Reportable ABG pCO2 37 ABG pCO2 (Temp Corrct Not Reportable ABG pO2 292 H ABG pO2 (Temp Correct Not Reportable ABG HCO3 23.7 ABG O2 Saturation 99.9 H ABG Base Excess -1.5 Respiration Rate Not Reportable O2 Delivery Device Bipap Ventilator Type Not Reportable Vent Mode 2 FiO2 100 Inspiratory Time Not Reportable PEEP Not Reportable Pressure Support Not Reportable Pressure Control Not Reportable EPAP 5 IPAP 10 BiPAP Not Reportable Sodium Potassium Chloride Carbon Dioxide Anion Gap BUN Creatinine Est GFR ( Amer) Est GFR (Non-Af Amer) BUN/Creatinine Ratio Glucose Lactic Acid Calcium Magnesium Total Bilirubin AST ALT Alkaline Phosphatase Total Creatine Kinase Troponin I 0.03 C-Reactive Protein B-Natriuretic Peptide Total Protein Albumin Globulin Albumin/Globulin Ratio Beta HCG, Quant Urine Color Yellow Urine Appearance Cloudy Urine pH 5.0 Ur Specific [place] 1.039 H Urine Protein Negative Urine Ketones Negative Urine Blood Negative Urine Nitrate Negative Urine Bilirubin Negative Urine Urobilinogen Negative Ur Leukocyte Esterase Negative Urine Glucose Negative Influenza A (Rapid) Influenza B (Rapid) 11/24/18 11/24/18 05:18 05:18 WBC 21.7 H RBC 4.70 Hgb 12.6 Hct 39 MCV 83 MCH 27 MCHC 32 RDW 16 H Plt Count 240 MPV 9.1 Neut % (Auto) Not Reportable Lymph % (Auto) Not Reportable [place] % (Auto) Not Reportable Eos % (Auto) Not Reportable Baso % (Auto) Not Reportable Absolute Neuts (auto) 20.4 H Absolute Lymphs (auto) 0.4 L Absolute Monos (auto) 0.9 H Absolute Eos (auto) 0 Absolute Basos (auto) 0 Absolute Nucleated RBC 0 Neutrophils % 96 Lymphocytes % 3 Monocytes % 1 Nucleated RBC % Not Reportable Normal RBC Morphology Not Reportable Polychromasia 1+ Hem Pathologist Commnt D-Dimer, Quantitative Patient Temperature ABG pH ABG pH (Temp Correct) ABG pCO2 ABG pCO2 (Temp Corrct ABG pO2 ABG pO2 (Temp Correct ABG HCO3 ABG O2 Saturation ABG Base Excess Respiration Rate O2 Delivery Device Ventilator Type Vent Mode FiO2 Inspiratory Time PEEP Pressure Support Pressure Control EPAP IPAP BiPAP Sodium 138 Potassium 4.1 Chloride 109 Carbon Dioxide 22 Anion Gap 7 BUN 17 Creatinine 0.99 H Est GFR ( Amer) 72.4 Est GFR (Non-Af Amer) 59.9 BUN/Creatinine Ratio 17.2 Glucose 184 H Lactic Acid Calcium 8.3 L Magnesium 1.9 Total Bilirubin AST ALT Alkaline Phosphatase Total Creatine Kinase Troponin I C-Reactive Protein B-Natriuretic Peptide Total Protein Albumin Globulin Albumin/Globulin Ratio Beta HCG, Quant Urine Color Urine Appearance Urine pH Ur Specific [place] Urine Protein Urine Ketones Urine Blood Urine Nitrate Urine Bilirubin Urine Urobilinogen Ur Leukocyte Esterase Urine Glucose Influenza A (Rapid) Influenza B (Rapid) I/R: 48 y o f with significant smoking history with CAD, COPD a/w flu-like sx, worsening SOB being treated for acute COPD and CHF exacerbation Pt with diffuse GGO that have not changed much since admission inspite of diuresis ILD also in differential eventhough cardiac etiology given h/o CAD, cardiomegaly make CHF exacerbation more likely Will given another dose of Lasix Will c/w current dose of steroids Will use BiPAP as needed and titrate FiO2 as tolerated Will rest on BiPAP at night c/w bronchodilators c/w Levaquin to complete 10 day course OOB to chair as tolerated Will transfer to medsur floor if stable on low FiO2
[2018-11-24] MEDS: Mirtazapine TAB* 15 MG PO SCH (20:35)
[2018-11-24] MEDS: Levofloxacin 750 MG IVPREMIX(* 750 MG/150 ML BAG IVPB SCH (20:36)
[2018-11-24] MEDS: Zolpidem TAB* 10 MG PO PRN (22:18)
[2018-11-24] MEDS: Gabapentin CAP(*) 400 MG PO SCH (22:19)
[2018-11-25] MEDS: Morphine 4 MG/ML VIAL (1 ml) 4 MG/ML VIAL IV PRN ×4 (03:26→19:41)
[2018-11-25 05:51] LABS: Hematocrit 39 % (33-41); Hemoglobin 12.5 g/dL (12.0-16.0); Mean Corpuscular HGB Conc 32 g/dL (31-36); Mean Corpuscular Hemoglobin 27 pg (27-31); Mean Corpuscular Volume 83 fL (80-97); Platelet Count 276 10^3/uL (150-450); Red Blood Count 4.68 10^6 /uL (3.70-4.87); Red Cell Distribution Width 16 % (10.5-15); White Blood Count 19.3 10^3/uL (3.5-10.8)
[2018-11-25] MEDS ORDERED: Vancomycin Trough Check NOTE FOLLOW UP ONE (06:00)
[2018-11-25] MEDS: Vancomycin(*) 1,000 MG in NS 0.9% 250 ML* 250 ML IVPB SCH ×3 (06:41→23:04)
[2018-11-25] MEDS: Heparin VIAL(*) 5000 UNITS/ML VIAL (FIVE THOUSAND) SUBCUT SCH ×3 (06:41→23:05)
[2018-11-25] MEDS: methylPREDNISolone 125 MG* 2 ML VIAL IV SCH (06:41)
[2018-11-25] MEDS: Aspirin EC TAB* 81 MG TAB.EC PO SCH (09:27)
[2018-11-25] MEDS: guaiFENesin ER TAB 600 MG PO SCH ×2 (09:27→19:41)
[2018-11-25] MEDS: Gabapentin CAP(*) 400 MG PO SCH ×4 (09:27→19:40)
[2018-11-25] MEDS: Oseltamivir CAP* 75 MG CAP PO SCH (09:27)
[2018-11-25] MEDS: Clopidogrel TAB* 75 MG PO SCH (09:27)
[2018-11-25] MEDS: Atorvastatin* 40 MG TAB PO SCH (09:27)
[2018-11-25] MEDS: Metoprolol Tartrate TAB* 25 MG PO SCH ×2 (09:27→19:41)
[2018-11-25] MEDS: Umeclidinium 62.5 MDI(NF) MDI INH SCH (09:38)
--- NOTE | 2018-11-25 16:01 | PN ---
Date of Service: 11/25/17 Critical Care Services: Oxygenation better today. Nasal O2 down to 8 L/min. No pathogen isolated so far. Vital Signs: Temp Pulse Resp BP SpO2 FiO2 97.2 F 78 22 174/94 96 50 Physical Exam: Gen:Up in chair and appears comfortable. HEENT: OP not injected Lungs: Fine crackles both lungs. Extremities:No cyanosis or edema. No rashes. Fluid Balance (Past 24 Hours): 11/24/18 11/25/18 06:59 06:59 Intake Total 2336 1822 Output Total 1000 2550 Balance 1336 -728 Weight 178 lb 176 lb Intake: IV Fluids 2101 872 ABX - LEVOFLOXACIN 150 150 ABX - VANCOMYCIN 250 250 LR 630 402 NS (0.9%) 1071 70 IVPB 450 ABX - LEVOFLOXACIN 250 ABX - VANCOMYCIN 200 Oral 235 500 Output: Urine 1000 2550 Labs: 11/25/18 11/25/18 11/25/18 05:26 05:26 05:26 WBC 19.3 RBC 4.68 Hgb 12.5 Hct 39 MCV 83 MCH 27 MCHC 32 RDW 16 H Plt Count 276 MPV 9.0 Hemoglobin A1c 5.3 Vancomycin Trough 16.6 Studies: None today Nutrition: Oral diet Impression: Clinical improvement, even though WBC remains elevated. No identifiable pathogen. Plan: Continue empiric antibiotics for now - will d/c tomorrow is cultures still negative. I have also begun tapering steroids.
[2018-11-25] MEDS: methylPREDNISolone SOD 40 MG* 1 ML VIAL IV SCH (16:58)
[2018-11-25] MEDS: Levofloxacin 750 MG IVPREMIX(* 750 MG/150 ML BAG IVPB SCH (19:41)
[2018-11-25] MEDS: Zolpidem TAB* 10 MG PO PRN (19:41)
[2018-11-26] MEDS: Morphine 4 MG/ML VIAL (1 ml) 4 MG/ML VIAL IV PRN ×3 (01:05→09:08)
[2018-11-26] MEDS: methylPREDNISolone SOD 40 MG* 1 ML VIAL IV SCH (04:41)
[2018-11-26] MEDS: Vancomycin(*) 1,000 MG in NS 0.9% 250 ML* 250 ML IVPB SCH (06:21)
[2018-11-26] MEDS: Heparin VIAL(*) 5000 UNITS/ML VIAL (FIVE THOUSAND) SUBCUT SCH ×3 (06:21→21:48)
[2018-11-26] MEDS: Umeclidinium 62.5 MDI(NF) MDI INH SCH (07:30)
[2018-11-26] MEDS: Atorvastatin* 40 MG TAB PO SCH (08:09)
[2018-11-26] MEDS: Clopidogrel TAB* 75 MG PO SCH (08:09)
[2018-11-26] MEDS: Metoprolol Tartrate TAB* 25 MG PO SCH ×2 (08:09→20:06)
[2018-11-26] MEDS: guaiFENesin ER TAB 600 MG PO SCH (08:09)
[2018-11-26] MEDS: Gabapentin CAP(*) 400 MG PO SCH ×4 (08:09→20:05)
[2018-11-26] MEDS: Aspirin EC TAB* 81 MG TAB.EC PO SCH (08:09)
[2018-11-26] MEDS: HYDROmorphone INJ1* 1 MG/ML SYRINGE IV SLOW PU PRN ×3 (09:24→20:05)
--- NOTE | 2018-11-26 09:35 | PN ---
Date of Service: 11/26/18 Critical Care Services: Continues to improve - had an uneventful evening, and this AM is breathing comfortably with SpO2 in low 90s on O2 at 3 L/min by nasal cannula. However, the SpO2 rapidly drops into the low 80s when taken off O2. Of note: patient has been complaining of low back pain (a chronic problem),which is being Rxed with morphine (with poor control). She has been on suboxone in the past, so there may be a dependence issue. Vital Signs: Temp Pulse Resp BP SpO2 FiO2 98 F 86 28 169/88 92 50 Physical Exam: Gen:Alert, oriented, comfortable Lungs:Fine end-inspiratory crackles both lung bases. Cardiac: Reg rhythm Extremities:No cyanosis or edema Fluid Balance (Past 24 Hours): 11/24/18 11/25/18 11/26/18 06:59 06:59 06:59 Intake Total 2336 1822 1355 Output Total 1000 2550 1875 Balance 1336 -728 -520 Weight 178 lb 176 lb 177 lb Intake: IV Fluids 2101 872 421 ABX - LEVOFLOXACIN 150 150 100 ABX - VANCOMYCIN 250 250 250 LR 630 402 NS (0.9%) 1071 70 71 IVPB 450 584 ABX - LEVOFLOXACIN 250 ABX - VANCOMYCIN 200 584 Oral 235 500 350 Output: Urine 1000 2550 1225 [place] 650 Labs: None today Studies: None today. All cultures are negative so far. Nutrition: Heart healthy diet Impression: 1. It is unlikely we will isolate a pathogen in this case 2. There has been clinical improvement (by gas exchange), but patient still requires O2. Plan: 1. Discontinue all antibiotics 2. Check blood leukocyte count (last one was 19k) 3. Continue to taper nasal O2 as tolerated. 4. Transfer out of ICU today - patient can be discharged when she no longer needs supplemental O2.
[2018-11-26] MEDS ORDERED: Mouth Piece, Nicotine* 1 EACH CARTRIDGE ONE (13:54)
[2018-11-26] MEDS: Nicotine Inhaler* 10 MG AMP INH PRN ×2 (14:03→20:06)
[2018-11-26] MEDS: Zolpidem TAB* 10 MG PO PRN (20:06)
[2018-11-27] MEDS: HYDROmorphone INJ1* 1 MG/ML SYRINGE IV SLOW PU PRN ×2 (02:21→09:38)
[2018-11-27] MEDS: Heparin VIAL(*) 5000 UNITS/ML VIAL (FIVE THOUSAND) SUBCUT SCH (05:13)
[2018-11-27 05:42] LABS: Hematocrit 43 % (33-41); Hemoglobin 13.6 g/dL (12.0-16.0); Mean Corpuscular HGB Conc 32 g/dL (31-36); Mean Corpuscular Hemoglobin 27 pg (27-31); Mean Corpuscular Volume 83 fL (80-97); Mean Platelet Volume 8.4 fL (7.4-10.4); Platelet Count 268 10^3/uL (150-450); Red Blood Count 5.14 10^6 /uL (3.70-4.87); Red Cell Distribution Width 16 % (10.5-15); White Blood Count 10.1 10^3/uL (3.5-10.8)
[2018-11-27 08:25] VITALS: BP 142/86
[2018-11-27] MEDS ORDERED: methylPREDNISolone SOD 40 MG* 1 ML VIAL IV SCH (09:00)
[2018-11-27] MEDS: Gabapentin CAP(*) 400 MG PO SCH (09:01)
[2018-11-27] MEDS: Metoprolol Tartrate TAB* 25 MG PO SCH (09:02)
[2018-11-27] MEDS: Atorvastatin* 40 MG TAB PO SCH (09:02)
[2018-11-27] MEDS: Clopidogrel TAB* 75 MG PO SCH (09:02)
[2018-11-27] MEDS: Aspirin EC TAB* 81 MG TAB.EC PO SCH (09:03)
[2018-11-27] MEDS ORDERED: oxyCODONE/Acetamin 5/325 MG* TAB PO PRN (10:57)
--- NOTE | 2018-11-27 11:07 | PN ---
Progress Note - Progress Note Date of Service: 11/27/18 Note: Time spent on discharge including exam of patient, discussion with patient, nurse, CM, retail pharmacist, review of EMR and preparation of discharge documents 40 minutes.
--- NOTE | 2018-11-27 11:12 | PN ---
"Progress Note - Progress Note Date of Service: 11/27/18 Note: * Home * My Content Confidential Drug Utilization Report Search Terms: rasheed maloney, 1970 Search Date: 11/27/2018 11:11:24 AM The Drug Utilization Report below displays all of the controlled substance prescriptions, if any, that your patient has filled in the last twelve months. The information displayed on this report is compiled from pharmacy submissions to the Department, and accurately reflects the information as submitted by the pharmacies. This report was requested by: Saman Castrejon | Reference #: [id number] Others' Prescriptions Patient Name: Rasheed Maloney Date: 1970 Address: [address] [place] [address] Sex: Female Rx Written Rx Dispensed Drug Quantity Days Supply Prescriber Name 10/09/2018 11/05/2018 suboxone 12 mg-3 mg sl film 54 27 Jamaal Michaels MD 10/09/2018 11/03/2018 suboxone 12 mg-3 mg sl film 6 3 Jamaal Michaels MD 10/09/2018 10/09/2018 suboxone 12 mg-3 mg sl film 60 30 Jamaal Michaels MD 08/17/2018 09/16/2018 suboxone 12 mg-3 mg sl film 60 30 Jamaal Michaels MD 08/17/2018 08/21/2018 suboxone 12 mg-3 mg sl film 50 25 Jamaal Michaels MD 06/26/2018 07/22/2018 suboxone 12 mg-3 mg sl film 54 27 Jamaal Michaels MD 06/26/2018 07/21/2018 suboxone 12 mg-3 mg sl film 6 3 Jamaal Michaels MD 06/26/2018 06/26/2018 suboxone 12 mg-3 mg sl film 60 30 Jamaal Michaels MD 05/01/2018 05/30/2018 suboxone 12 mg-3 mg sl film 60 30 Jamaal Michaels MD 05/01/2018 05/01/2018 suboxone 12 mg-3 mg sl film 60 30 BezJamaal granados MD 04/21/2018 04/21/2018 suboxone 12 mg-3 mg sl film 22 11 Jamaal Michaels MD 03/27/2018 03/27/2018 suboxone 8 mg-2 mg sl film 60 30 Jamaal Michaels MD 03/24/2018 03/25/2018 buprenorphine 8 mg tablet sl 4 4 Jamaal Michaels MD 02/25/2018 02/27/2018 suboxone 12 mg-3 mg sl film 6 3 Jamaal Michaels MD 01/23/2018 01/28/2018 suboxone 12 mg-3 mg sl film 60 30 Jamaal Michaels MD 12/30/2017 01/01/2018 suboxone 12 mg-3 mg sl film 54 27 Jamaal Michaels MD 12/30/2017 12/31/2017 suboxone 12 mg-3 mg sl film 6 3 Jamaal Michaels MD 09/06/2017 12/28/2017 buprenorphine 8 mg tablet sl 9 5 Jamaal Michaels MD 10/17/2017 12/07/2017 suboxone 12 mg-3 mg sl film 54 27 Jamaal Michaels MD Patient Name: Rasheed Maloney Date: 1970 Address: [address] [place] [address] Sex: Female Rx Written Rx Dispensed Drug Quantity Days Supply Prescriber Name 05/26/2018 05/26/2018 alprazolam 0.5 mg tablet 15 5 Ame Anderson 03/24/2018 03/24/2018 alprazolam 0.5 mg tablet 15 5 Kevin Curtis MD"
--- NOTE | 2018-11-27 20:35 | DS ---
CC: Dr. Michaels * DISCHARGE SUMMARY: DATE OF ADMISSION: DATE OF DISCHARGE: 11/27/18 HISTORY OF PRESENT ILLNESS: This 48-year-old woman was admitted with shortness of breath and COPD exacerbation. The history is detailed in the admission note. She was admitted to the intensive care unit. She had been feeling poorly for a week and got increasingly short of breath. Initially, her temperature was 99.4. She was thought to have acute hypoxic respiratory failure. She was admitted to the intensive care unit. She was given BiPAP support. She was given steroids and antibiotics. The antibiotics were discontinued a day or so before discharge. Her steroids were tapered. She did quite well, was on room air for about 24 hours before discharge. She felt much better. She had a mild nonproductive cough, was able to ambulate easily. She seemed quite comfortable at rest. Lung exam on the day of discharge was clear. Cultures and antigen testing were negative for a specific source. I suspect she had a viral etiology. Her white count was elevated. Her temperatures was the highest 101.6, but after the first hospital day, she was below 99 degrees. She has decided to quit smoking. She will have a nicotine inhaler at home. She will have 3 days of prednisone taper. Because of her chronic back pain and her statement that she was out of Suboxone and would not have any for about a week, I am giving her 20 oxycodone/acetaminophen to use p.r.n. FINAL DIAGNOSES: 1. Chronic obstructive pulmonary disease exacerbation. 2. Chronic back pain. 3. Hypertension. 4. Psychiatric disorder. DISCHARGE MEDICATIONS: 1. Prednisone 10 mg taper from 3 to 0 over 3 days. 2. Nicotine inhaler every 2 hours p.r.n. 3. Oxycodone/acetaminophen 5/325 one every 4 hours p.r.n., dispensed 20. 4. Nitroglycerin 0.4 mg sublingual every 5 minutes p.r.n. 5. Albuterol inhaler 2 puffs every 4 hours p.r.n. 6. Umeclidinium 62.5 mcg inhaler 1 inhalation daily. 7. Metoprolol 100 mg b.i.d. 8. Lisinopril 10 mg daily. 9. Diltiazem CD 240 mg daily. 10. Atorvastatin 40 mg daily. 11. Aspirin 81 mg daily. 12. Clopidogrel 75 mg daily. 13. Mirtazapine 90 mg h.s. 14. Suboxone 12/3 sublingual film as prescribed. 15. Hydroxyzine 1 tab every 6 hours p.r.n. 16. Varenicline 1 tablet twice daily. 17. Gabapentin 1 tab daily. CONDITION ON DISCHARGE: Improved. DISPOSITION ON DISCHARGE: Discharged home. [id number]/[facility] #: [id number]
[2018-11-28] MEDS ORDERED: predniSONE TAB* 10 MG PO SCH (09:00)
== END 2018-11-27 12:00 | disposition home or self-care (01) | DRG 871 ==
LOC: ED 16:58 → ICU 18:42 → MED 11-26 09:43
PROVIDERS: ADMIT Internal Medicine; ATTEND Internal Medicine
PROC: 5A09457 Assistance with Respiratory Ventilation, 24-96 Consecutive Hours, Continuous Positive Airway Pressure (ICD-10-PCS; principal; 2018-11-23)
DX: A41.9 Sepsis, unspecified organism (principal); J96.01 Acute respiratory failure with hypoxia; J11.00 Influenza due to unidentified influenza virus with unspecified type of pneumonia; J44.0 Chronic obstructive pulmonary disease with (acute) lower respiratory infection; J44.1 Chronic obstructive pulmonary disease with (acute) exacerbation; I50.9 Heart failure, unspecified; I11.0 Hypertensive heart disease with heart failure; I95.9 Hypotension, unspecified; L40.50 Arthropathic psoriasis, unspecified; I25.10 Atherosclerotic heart disease of native coronary artery without angina pectoris; G40.909 Epilepsy, unspecified, not intractable, without status epilepticus; E78.5 Hyperlipidemia, unspecified; M06.9 Rheumatoid arthritis, unspecified; G89.29 Other chronic pain; M54.89 Other dorsalgia; F17.210 Nicotine dependence, cigarettes, uncomplicated; Z95.5 Presence of coronary angioplasty implant and graft; I25.2 Old myocardial infarction; Z79.82 Long term (current) use of aspirin; Z79.51 Long term (current) use of inhaled steroids; Z79.899 Other long term (current) drug therapy; Z88.0 Allergy status to penicillin; Z88.8 Allergy status to other drugs, medicaments and biological substances; Z82.49 Family history of ischemic heart disease and other diseases of the circulatory system; Z80.3 Family history of malignant neoplasm of breast
CPT/HCPCS: 36415; 71045; 71275; 80048; 80053; 80202; 81003; 82550; 82803; 83036; 83605; 83735; 83880; 84484; 84702; 85025; 85027; 85060; 85379; 86140; 87040; 87641; 87899; 93005; 93306; 94640; 94660; 99285; A9270-GY; J0696; J1100; J1170; J1644; J1940; J2270; J2920; J2930; J3370; Q9967

== ENCOUNTER 2018-12-08 19:12 | Observation (INO) | payer MEDICARE ==
--- OUTSIDE RECORDS SUMMARY | 2018-12-08 19:23 | XMS REPORT | Continuity of Care Document ---
:1970 External Reference #:[id number] Author Name Radha Coto Care Team Providers Name Role Phone Sourav Carreon MD Care Team Information Tower Supervisor Unavailable Kevin Curtis MD Primary Care Physician Unavailable Payers Date Identification Numbers Payment Provider Subscriber Effective: 2015 Policy Number: [id number] Medicare Stephy Gonzalez PayID: [id number] [facility] [address] [place] [address] Advance Directives Description No Information Available Problems Description No Information Family History Date Family Member(s) Observation Comments General heart, cancer : (age 56 Father due to [place] Years) Father A-Fibrillation : (age 69 Mother due to Cardiac Had cabg at approx 50 Years) causes yrs old Mother DM ,Cancer breast First Son age21 yrs alive and well Second Son Age 19 yrs alive and well First Brother hypertension Second Brother Hypertension , Etoh abuse First Sister hypertension Paternal Grandfather due to [place] () - age 60 yrs Paternal Grandmother due to () A-Fibrillation Maternal Grandfather due to Heart () - age Disease 50 yrs Maternal Grandmother due to Heart () Disease Maternal Grandmother due to CHF () Social History Type Date Description Comments Sex Unknown Marital Status Lives With Spouse Occupation presently not working Tobacco Use Start: Unknown End: Former Cigarette Smoker Unknown Tobacco Use Start: Unknown End: Former Cigarette Smoker Quit 2 1/2 months Unknown ago used to smoke 1/2 pk daily x 20 yrs ETOH Use Denies alcohol use Tobacco Use Start: Unknown Light tobacco smoker (10 or fewer cigarettes/day) Enjoy Exercising Enjoys exercising walks 15 min, per night Exercise Type/Frequency Exercises regularly Allergies, Adverse Reactions, Alerts Date Description Reaction Status Severity Comments 01/03/2015 Penicillin Active 01/03/2015 Celebrex Active 01/03/2015 Ativan Active 01/03/2015 Toradol Active 01/24/2010 NKDA Inactive Medications Medication Date Status Form Strength Qnty SIG Indications Ordering Provider Nitrostat 06/09/ Active Tablets 0.4mg 30tabs one Fransisca Cantu 2018 Sub q5min up MD Fany, to 3 [facility] doses as needed Ultracet 01/03/ Active Tablets 37.5-325mg 30tabs 1 - 2 by 812.09 Jody 2014 joann Russo M.D. q4-6hr as needed pain Lisinopril 12/20/ Active Tablets 40mg 30tabs 1 po qd Qutaybeh S. 2010 Sebastian Haddad Simvastatin 04/24/ Active Tablets 80mg 30tabs 1 po qhs Qutaybeh S. 2009 Sebastian Haddad Metoprolol 01/24/ Active Tablets ER 50mg 90tabs 1 and Qutaybeh S. Succinate 2009 24HR 1/2 po Maghaydah, bid Carlos.DDulce Imdur 01/24/ Active Tablets ER 60mg 30tabs one qpm Quyair S. 2009 24HR Sebastian Haddad Plavix / Active Tablets 75mg 30tabs 1 po qd Qutaybeh S. 0000 Sebastian Haddad Aspirin / Active 325mg 1 po qd Unknown 0000 Lisinopril 07/07/ Hx Tablets 20mg 2 po qd Qutaybeh S. 2009 - Maghaydah, 12/20/ M.D. 2010 Lisinopril 04/20/ Hx Tablets 20mg 1 and Qutaybeh S. 2009 - 1/2 po Maghaydah, 07/07/ qd Carlos.DDulce 2009 Folate 04/20/ Hx 1mg one po Qutaybeh S. 2009 - qd Maghaydah, 12/20/ M.D. 2010 Lisinopril 01/24/ Hx Tablets 10mg 30tabs 1 po qd Qutaybeh S. 2009 - Boo, 04/20/ MDulceDDulce 2009 Metoprolol / Hx Tablets ER 75mg 1 po bid Unknown Succinate 0000 - 24HR 2009 Simvastatin /00/ Hx Tablets 40mg 30tabs 1 po qhs [facility]. [facility] Phenytoin / Hx Capsules 300mg 1 po qhs Unknown Sodium Extended 0000 - 2009 Isosorbide LA / Hx Tablets 30mg 90tabs 1 po qd Unknown 0000 - 2009 Lisinopril / Hx Tablets 5mg 100tab 1 po qd Unknown 0000 - s 2009 Lamictal /00/ Hx Tablets 100mg po bid Unknown - 2009 Nitroquick / Hx Tablets 0.4mg 25tabs 1 s/l as Qutaybeh S. 0000 - Sub needed [facility], M.D. 2018 pain, every 5 min. up to 3 tabs Lamictal / Hx Tablets 100mg one and Unknown 0000 - one half 09/20/ po Am 2010 two po hs Methotrexate / Hx Tablets 2.5mg 4 tabs Unknown 0000 - 1x per 12/20/ week 2010 Suboxone 00/ Hx Tablets 8mg 90tabs one Am 2 Unknown 0000 - Sub PM 2009 Zofran 00/ Hx Tablets 4mg 20tabs 1 q 6 Unknown 0000 - hours 12/20/ prn 2010 nausea Immunizations Description No Information Available Vital Signs Date Vital Result Comment 01/03/2015 1:53pm Height 60 inches 5'0" Weight 148.00 lb Heart Rate 105 /min BP Systolic 158 mmHg BP Diastolic 99 mmHg Body Temperature 98.6 F Pain Level 7 BMI (Body Mass Index) 28.9 kg/m2 12/20/2010 10:54am Weight 147.00 lb Heart Rate 81 /min BP Systolic Sitting 148 mmHg BP Diastolic Sitting 100 mmHg 09/20/2010 3:37pm Weight 138.00 lb Heart Rate 103 /min BP Systolic Sitting 116 mmHg BP Diastolic Sitting 80 mmHg 07/07/2010 10:13am Weight 140.75 lb Heart Rate 78 /min BP Systolic Sitting 134 mmHg BP Diastolic Sitting 78 mmHg 05/01/2010 4:14pm Height 61 inches 5'1" Heart Rate 64 /min BP Systolic Sitting 156 mmHg BP Diastolic Sitting 88 mmHg 04/20/2010 3:21pm Height 61 inches 5'1" Weight 185.00 lb Heart Rate 87 /min BP Systolic Sitting 204 mmHg L BP Diastolic Sitting 110 mmHg L BMI (Body Mass Index) 35.0 kg/m2 01/24/2010 2:51pm Height 61 inches 5'1" Weight 141.00 lb Heart Rate 72 /min BP Systolic 170 mmHg BP Diastolic 110 mmHg BP Systolic Sitting 170 mmHg BP Diastolic Sitting 110 mmHg BP Systolic Standing 171 mmHg BP Diastolic Standing 110 mmHg Respiratory Rate 16 /min BMI (Body Mass Index) 26.6 kg/m2 Results Test Date Facility Test Result H/L Range Note CBC With 04/21/2010 [facility] White Blood 9.7 CUMM 4.8-10.8 1 Electronic Diff [address] [place] [address] [phone] Red Cell Count 4.93 CUMM 4.2-5.4 Hemoglobin 14.6 g/dL 12.0-16.0 Hematocrit 43 % 35-47 Mean Corpuscular Volume 88 um3 79-97 Mean Corpuscular Hemoglob 30 pg 27-31 Mean Corpuscular HGB Cone 34 g/dL 32-36 Redcell Distribution WDTH 15 % 10.5-15 Platelet Count 216 CUMM 150-450 Mean Platelet Volume 8.8 um3 7.4-10.4 Gran % 73.6 % 38-83 Lymph % 20.5 % Low 25-47 Mononuclear % 4.8 % 1-9 Eosinophil % 0.8 % 0-6 Basophil % 0.3 % 0-2 Abs Lymphs 2.0 1.0-4.8 Abs Mononuclear 0.5 0-0.8 Absolute Neutrophil Count 7.1 1.5-7.7 Abs Eosinophils 0.1 0-0.6 Abs Basophils 0 0-0.2 Lipid Profile 04/21/2010 [facility] Triglyceride 190 mg/dL 40 -200 (Trig/Chol/HDL) [address] [place] [address] [phone] Cholesterol 151 mg/dL Less Than 200 2 High Density Lipoprotein 36 mg/dL Low 40-60 3 Cholesterol/HDL Ratio 4.19 AVERAGE 1-4.44 Low Density Lipoprotein 77 mg/dL Less Than 100 4 Laboratory test 04/21/2010 [facility] CPK (Creatine 74 U/L 0- 170 finding [facility] [place]) [place] [address] [phone] Liver Function 04/21/2010 [facility] Total Protein 7.0 GM/DL 6.2-8.1 Panel [address] [place] [address] [phone] Albumin 4.3 GM/DL 3.6-5.4 Globulin 2.7 GM/DL 2-4 Albumin/Globulin Ratio 1.6 1-3 Bilirubin Total 0.7 mg/dL 0.4-1.5 5 Bilirubin Direct 0.1 mg/dL 0.1-0.5 Indirect Bilirubin 0.6 mg/dL 0.3-1.0 6 Alkaline Phosphatase 64 U/L 30-110 Alt (SGPT) 12 U/L Low 14-54 Ast (Sgot) 18 U/L 12-42 Protime 04/21/2010 [facility] Inr 0.96 Low 0.97-1.03 [address] [place] [address] [phone] Protime 11.3 SEC Low 11.5-12.2 8 Basic Metabolic Panel 04/21/2010 [facility] Sodium 140 mmol/L 135-145 [address] [place] [address] [phone] Potassium 3.7 mmol/L 3.5-5.0 Chloride 109 mmol/L 101-111 Co2 (Carbon Dioxide) 26.0 mmol/L 22-32 Anion Gap 5.0 mmol/L 2-11 9 Glucose 102 mg/dL High 70-100 10 BUN 12 mg/dL 6-24 Creatinine 0.90 mg/dL 0.50-1.40 One Over Creatinine 1.10 BUN/Creatinine Ratio 13.3 8-20 Calcium 9.8 mg/dL 8.1-9.9 11 eGFR Non- 74.1 > 60 eGFR 89.6 > 60 12 Cath Panel 04/21/2010 [facility] PTT (Aptt) 29.3 25.15-38.53 [address] [place] [address] [phone] Urinalysis 11/12/2009 [facility] Ua Color YELLOW Yellow W/Microscopic [address] [place] [address] [phone] Appearance-Urine CLEAR Clear Specific Economy-Ur 1.010 1.010-1.030 Esterase-Urine NEGATIVE Negative Nitrite NEGATIVE Negative Nbqymyirknjy-Zs-AEE NEGATIVE Negative Protein-Urine NEGATIVE Negative PH-Urine 6.5 5-9 Blood-Urine TRACE Abnormal Negative Ketones-Urine NEGATIVE Negative Bilirubin-Ur NEGATIVE Negative Glucose-Urine NEGATIVE Negative RBC-Urine 0-2 0-2 Epith Cells-Ur FEW None CBC With 11/12/2009 [facility] White Blood 8.4 CUMM 4.8-10.8 Electronic Diff [address] Count Stat [place], [place] [address] [phone] Red Cell Count 5.55 CUMM High 4.2-5.4 [...] 0-0.6 Abs Basophils 0 0-0.2 14 Phenytoin 11/12/2009 [facility] Phenytoin < 0.1 Low 10-20 15 (Dilantin) Stat [address] (Dilantin) g/mL [place], [place] [id number] [phone] Laboratory test 11/12/2009 [facility] Valproic Acid < 0.1 Low 50-100 [address] (Depakene) g/mL [place], [place] [id number] [phone] CMP Panel Stat 11/12/2009 [facility] Sodium 137 mmol/L 135- [address] [place] [address] [phone] Potassium 4.0 mmol/L 3.5-5.0 Chloride 106 mmol/L [...] > 60 21 1 FAX RESULTS TO [facility] AT [phone] 2 CHOLESTEROL INTERPRETATION: Desirable: Less than 200 [...] has been shown to interfere with the Jendrsanjuanaik-[place]hel[place] method for measuring total bilirubin. Samples from [...] change was based on recommendations from the [place] [employer]. 11 Please note change in [...] change was based on recommendations from the [place] [employer]. 19 Please note change in reference range effective 08 . 20 A metabolite of Naproxen, O-desmethylnaproxen, has been shown to interfere with the [place] method for measuring total bilirubin. Samples from [...] Kidney failure <15 (or dialysis) Procedures Date Code Description Status 06/04/2018 01746 EKG, Interpretation Only Completed 04/29/2018 53250 EKG, Interpretation Only Completed 03/01/2018 83275 EKG, Interpretation Only Completed 02/28/2018 74016 ECHO Transthorasic Realtime 2D W Doppler & Color Flow Hosp Completed 02/28/2018 42638 EKG, Interpretation Only Completed 02/27/2018 56700 Left Heart Cath. Incl S/I Coronaries, Angio S/I V Gram If Completed Done 02/27/2018 58037 EKG, Interpretation Only Completed 02/27/2018 68756 EKG, Interpretation Only Completed 01/03/2015 59410 Closed trtmt prox humeral fx Completed 01/03/2015 19612 Closed [place] Of Greater Humeral Tuberosity FX;W/O Completed Manipulation 12/20/2010 43441 EKG Tracing & Interpretation Completed 09/20/2010 35366 EKG Tracing & Interpretation Completed 07/07/2010 82523 EKG Tracing & Interpretation Completed 07/04/2010 31703 EKG, Interpretation Only Completed 04/20/2010 61362 EKG Tracing & Interpretation Completed 02/13/2010 84073 ECHO Transthoracic, Real-Time 2D With Doppler And Color Completed Flow 01/24/2010 41603 EKG Tracing & Interpretation Completed 03/12/2009 03306 EKG, Interpretation Only Completed Encounters Type Date Location Provider Dx Diagnosis Office Visit 06/04/2018 [facility] Karis Browning, R00.2 Palpitations 2:58p Of [place] [facility] [employer] TECH Office Visit 06/04/2018 [facility] Faith rKaft, R07.9 Chest pain, 9:01a Assoc,pc Sebastian unspecified Hospitalists I10 Essential (primary) hypertension E78.5 Hyperlipidemia, unspecified F17.200 Nicotine dependence, unspecified, uncomplicated Office Visit 06/03/2018 2:55p [facility] Fransisca Cantu R07.9 Chest pain, Of [facility] MD Fany, unspecified FACC, FSCAI I10 Essential (primary) hypertension I25.10 Athscl heart disease of [place] coronary artery w/o ang pctrs Z72.0 Tobacco use Office Visit 06/03/2018 9:01a [facility] Araceli R07.9 Chest pain, Assoc,pc Rooth, DO unspecified Hospitalists I10 Essential (primary) hypertension Office Visit 04/30/2018 1:55p [facility] Araceli R07.9 Chest pain, Assoc,pc Rooth, DO unspecified Hospitalists I10 Essential (primary) hypertension Office Visit 04/29/2018 [facility] Radha I16.0 Hypertensive 12:58p Assoc,pc Joanne, INFRASTRUCTURE TECH urgency Hospitalists R07.9 Chest pain, unspecified F41.9 Anxiety disorder, unspecified I10 Essential (primary) hypertension E78.5 Hyperlipidemia, unspecified Z72.0 Tobacco use Z86.79 Personal history of other diseases of the circulatory system Office Visit 04/28/2018 12:58p [facility] Araceli Patel, R07.89 Other chest Assoc,pc DO pain Hospitalists I25.119 Athscl heart disease of [place] cor art w unsp ang pctrs E78.5 Hyperlipidemia, unspecified Z72.0 Tobacco use Office Visit 03/16/2018 12:44p [facility] Renee Cruz, R07.89 Other chest Assoc,pc D.O. pain Hospitalists I10 Essential (primary) hypertension G89.29 Other chronic pain R55 Syncope and collapse Office Visit 03/15/2018 1:31p [facility] Faraz Henry R07.9 Chest pain, Of [place] Sebastian Saravia, unspecified FACC, FASNC Office Visit 03/15/2018 12:43p [facility] Renee R07.89 Other chest pain Assoc,julian Cruz D.O. Hospitalists I10 Essential (primary) hypertension R55 Syncope and collapse Office Visit 03/01/2018 11:55a [facility] Fransisca Cantu I20.1 Angina pectoris Of [place] AT [facility] MD Fany, with documented FACC, FSCAI spasm Office Visit 02/28/2018 11:54a [facility] Fransisca Cantu I20.1 Angina pectoris Of [place] AT [facility] MD Fany, with documented FACC, FSCAI spasm Office Visit 02/27/2018 3:00p [facility] Fransisca Cantu I20.1 Angina pectoris Of [place] AT [facility] MD Fany, with documented FACC, FSCAI spasm I25.10 Athscl heart disease of [place] coronary artery w/o ang pctrs R07.9 Chest pain, unspecified Office Visit 12/20/2010 [place] Qutaybeh S. 414.01 Coronary 11:00a Cardiology Sebastian Haddad Atherosclerosis [place] V45.82 Percutaneous Transluminal Coronary Angioplas Postsurg Status 401.1 Hypertension Benign 786.50 Pain Chest Unspec Office Visit 09/20/2010 3:40p [facility] Qutaybeh S. 786.50 Pain Chest Sebastian Haddad Unspec 414.01 Coronary Atherosclerosis [place] V45.82 Percutaneous Transluminal Coronary Angioplas Postsurg Status 401.1 Hypertension Benign Office Visit 07/30/2010 1:41p [place] Jerzy Fields 785.1 Palpitations Sebastian Issa 786.50 Pain Chest Unspec 427.31 Atrial Fibrillation 414.01 Coronary Atherosclerosis [place] Office Visit 07/07/2010 10:20a [facility] Qutaybeh S. 786.50 Pain Chest Sebastian Haddad Unspec 414.01 Coronary Atherosclerosis [place] V45.82 Percutaneous Transluminal Coronary Angioplas Postsurg Status 401.1 Hypertension Benign Office Visit 07/04/2010 4:22p [facility] Qutaybeh S. 786.50 Pain Chest Sebastian Haddad Unspec 305.1 Tobacco Use Disorder 411.89 Ischemic Heart Disease Other V45.82 Percutaneous Transluminal Coronary Angioplas Postsurg Status Office Visit 05/01/2010 [place] Aisha Artis. 411.1 Coronary Syndrome 4:00p Cardiology Sebastian Haddad Intermediate 414.01 Coronary Atherosclerosis [place] 401.1 Hypertension Benign Office Visit 04/20/2010 [place] Aisha S. 411.1 Coronary Syndrome 3:20p Cardiology Sebastian Haddad Intermediate 414.01 Coronary Atherosclerosis [place] 786.50 Pain Chest Unspec 300.00 Anxiety State Unspec Office Visit 01/24/2010 [place] Aisha S. 411.1 Coronary Syndrome 2:20p Cardiology Sebastian Haddad Intermediate 414.01 Coronary Atherosclerosis [place] 786.50 Pain Chest Unspec Office Visit 09/29/2009 [facility] Jovanny 558.9 Gastroenteritis & 1:30a julian Montejo M.D. Colitis Hospitalists Noninfectious Other 308.9 Stress Reaction Unspec Acute 786.59 Pain Chest Other 300.00 Anxiety State Unspec Office Visit 09/28/2009 3:30a [facility] Roxann Mcdonald, 786.50 Pain Chest Assjulian lee M.D. Unspec Hospitalists Office Visit 2009 2:15a [facility] Patrick Garcia, 786.50 Pain Chest Assoc,julian Cortes Unspec Hospitalists Office Visit 05/04/2009 1:30a [facility] Faith Hohn, 786.50 Pain Chest Assjulian lee M.D. Unspec Hospitalists 780.39 Convulsions Other Office Visit 03/13/2009 [facility] Matt Shore, 411.1 Coronary Syndrome 12:45a julian MontejoODulce Intermediate Hospitalists Office Visit 03/12/2009 [facility] Chase Fry 411.1 Coronary Syndrome 12:15a julian Montejo M.D. Intermediate Hospitalists Hospitalist Plan of Treatment 01/03/2015 - Jody Russo M.D.812.09 FX Humerus Upper End Other ClosedNew Medication:Ultracet 37.5-325 mg - 1 - 2 by mouth q4-6hr as needed painFollow up: 2 weeksRecommendations:no lifting right arm. Move elbow and wrist and fingers fbnzsacae865.03 FX Humerus Greater Tuberosity Closed
--- NOTE | 2018-12-08 19:35 | ED ---
HPI Chest Pain - HPI Summary HPI Summary: Patient is a 48 y/o female who presents to the ED c/o CP. At 9:00 this morning she took her dose of Chantix. Patient began having CP described as dull and heavy, and rated a 9/10 in severity. She took 2 NTG and 1 ASA which relieved her pain. She took her second Chantix dose at 16:00 and the CP returned an hour later. Her current CP is rated a 4/10 in severity. Patient also c/o anxiety and N/V, but denies any SOB. Her sister here about one hour ago and she feels very anxious and upset about this. PMHx CAD, NE, 8 cardiac stents, HTN, anxiety , COPD. Patient is a smoker. - History of Current Complaint Chief Complaint: EDChestPainROMI Time Seen by Provider: 12/08/18 19:30 Hx Obtained From: Patient Onset/Duration: Started Hours Ago - 9:00 this morning, Still Present Timing: Constant Initial Severity: Severe - 9/10 Current Severity: Moderate Pain Intensity: 4 Pain Scale Used: 0-10 Numeric Character: Dull/Aching, Heaviness Alleviating Factor(s): NTG 123 Associated Signs and Symptoms: Positive: Chest Pain, Nausea, Vomiting. Negative : Shortness of Breath Related History: Similar Episode/Dx as: - hx NE - Additional Pertinent History Primary Care Physician: [id number] - Allergy/Home Medications Allergies/Adverse Reactions: Allergies Allergy/AdvReac Type Severity Reaction Status Date / Time ketorolac [From Toradol] Allergy Rash Verified 09/18/18 14:26 meloxicam [From Mobic] Allergy Rash And Verified 09/18/18 14:26 Itching Penicillins Allergy Anaphylatic Verified 09/18/18 14:26 Shock PMH/Surg Hx/FS Hx/Imm Hx Endocrine/Hematology History: Reports: Hx Anticoagulant Therapy - plavix Denies: Hx Diabetes Cardiovascular History: Reports: Hx Angina, Hx Coronary Artery Disease - 8 stents per pt, Hx Hypertension - ON MEDICATION, Hx Myocardial Infarction - x3 Respiratory History: Reports: Hx Chronic Obstructive Pulmonary Disease (COPD) Denies: Other Respiratory Problems/Disorders GI History: Denies: Other GI Disorders History: Reports: Hx Kidney Infection, Hx Kidney Stones, Hx Renal Disease - CALCULI, LT SIDE, Other Problems/Disorders - nephrolithiasis Denies: Hx Dialysis Musculoskeletal History: Reports: Hx Arthritis - PSORIATIC ARTHRITIS Sensory History: Denies: Hx Contacts or Glasses, Hx Hearing Aid Opthamlomology History: Denies: Hx Contacts or Glasses Neurological History: Reports: Hx Seizures Denies: Hx Transient Ischemic Attacks (TIA) Psychiatric History: Reports: Hx Anxiety, Hx Substance Abuse - opiates - on suboxone 12mg BID through Dr. Michaels - Surgical History Surgery Procedure, Year, and Place: 10/05/2008 CARDIAC STENT X2, [place]. 2008 CARDIAC STENT, [place]. 04/2010 CARDIAC STENT, [place]. 2011 LEFT URETERAL STENT [place], [facility] [place] 2010 LEFT URETERAL STENT INSERTION, [facility] [place] 1990 LAPAROSCOPIC TUBAL LIGATION, [facility]. 09/24/12, [place], [place] [facility] [place]. 1994 TONSILLECTOMY, [facility] Anesthesia Reactions: No - Immunization History Date of Tetanus Vaccine: unk Date of Influenza Vaccine: none Infectious Disease History: No Infectious Disease History: Denies: Traveled Outside the [place] in Last 30 Days - Family History Known Family History: Positive: Cardiac Disease Negative: Other - negative malignant hyperthermia, negative adverse anesthesia reaction - Social History Alcohol Use: None Hx Substance Use: Yes - currently takes suboxone Substance Use Type: Reports: None Substance Use Comment - Amount & Last Used: suboxone Hx Tobacco Use: Yes Smoking Status (MU): Light Every Day Tobacco Smoker Type: Cigarettes Amount Used/How Often: 6 a day Have You Smoked in the Last Year: Yes Review of Systems Positive: Chest Pain Negative: Shortness Of Breath Positive: Vomiting, Nausea Positive: Anxious All Other Systems Reviewed And Are Negative: Yes Physical Exam - Summary Physical Exam Summary: VITAL SIGNS: Reviewed. GENERAL: Patient is a well-developed and nourished FEMALE who is crying in the stretcher. Patient is not in any acute respiratory distress. She appears anxious. HEAD AND FACE: No signs of trauma. No ecchymosis, hematomas or skull depressions. No sinus tenderness. EYES: PERRLA, EOMI x 2, No injected conjunctiva, no nystagmus. EARS: Hearing grossly intact. Ear canals and tympanic membranes are within normal limits. MOUTH: Oropharynx within normal limits. NECK: Supple, trachea is midline, no adenopathy, no JVD, no carotid bruit, no c- spine tenderness, neck with full ROM. CHEST: Symmetric, no tenderness at palpation LUNGS: Clear to auscultation bilaterally. No wheezing or crackles. CVS: Tachycardic rate but regular rhythm, S1 and S2 present, no murmurs or gallops appreciated. Hypertensive. ABDOMEN: Soft, non-tender. No signs of distention. No rebound no guarding, and no masses palpated. Bowel sounds are normal. EXTREMITIES: FROM in all major joints, no edema, no cyanosis or clubbing. NEURO: Alert and oriented x 3. No acute neurological deficits. Speech is normal and follows commands. SKIN: Dry and warm Triage Information Reviewed: Yes Vital Signs On Initial Exam: Initial Vitals Temp Pulse Resp BP Pulse Ox 97.0 F 122 18 214/157 96 12/08/18 19:13 12/08/18 19:13 12/08/18 19:13 12/08/18 19:13 12/08/18 19:13 Vital Signs Reviewed: Yes Diagnostics - Vital Signs Vital Signs Temp Pulse Resp BP Pulse Ox 12/08/18 19:21 112 97 12/08/18 19:13 97.0 F 122 18 214/157 96 - Laboratory Result Diagrams: 12/08/18 20:00 12/08/18 20:00 Lab Statement: Any lab studies that have been ordered have been reviewed, and results considered in the medical decision making process. - Radiology CXR Radiology Interpretation Completed By: ED Physician Summary of Radiographic Findings: No acute cardiopulmonary disease. Pending official radiology report. - EKG 19:24 Cardiac Rate: NL - 98 bpm EKG Rhythm: Sinus Rhythm ST Segment: Normal Summary of EKG Findings: Nl axis Chest Pain Course/Dx - Course Assessment/Plan: This patient is a 48-year-old female who presents to the emergency department with a chief complaint of having chest pain. The patient reports that she feels like a pressure pain in her chest. She also reports that she just found that that her sister in the emergency department. However she reports that the pain started this morning. Patient has history of coronary disease status post 8 stents. Patient also has history hypertension, dyslipidemia and she is a nonsmoker. In the ED course the patient was given nitroglycerin and aspirin. Test results without any significant abnormality except for hemoglobin of 16.2 hematocrit 49, creatinine is 1.12, troponin 0.01. Chest x-ray shows no ST elevations. Chest x-ray shows no acute pathology. In the ED course the patient reports that she is feeling better after the nitroglycerin. The heart score is equal to 4 which is moderate risk, therefore the patient will be admitted to the hospitalist. I discussed my physical exam and findings with Dr. Alberts from the hospitalist services who accepted the patient for admission. The patient is hemodynamically stable alert oriented 3. - Diagnoses Provider Diagnoses: Chest pain due to CAD - Provider Notifications Discussed Care Of Patient With: Neema Alberts Time Discussed With Above Provider: 21:21 Instructed by Provider To: Admit As Inpatient Discharge - Sign-Out/Discharge Documenting (check all that apply): Patient Departure - Admit Patient Received Moderate/Deep Sedation with Procedure: No - Discharge Plan Condition: Stable Disposition: ADMITTED TO [facility] - Billing Disposition and Condition Condition: STABLE Disposition: Admitted to [facility] - Attestation Statements Document Initiated by Garcíaibe: Yes Documenting Scribe: Nuvia Park Provider For Whom Scribe is Documenting (Include Credential): Alonso Reyes MD Scribe Attestation: Nuvia Aldridge scribed for Alonso Reyes MD on 12/10/18 at 2146. Scribe Documentation Reviewed: Yes Provider Attestation: The documentation as recorded by the Nuvia allen accurately reflects the service I personally performed and the decisions made by , Alonso Reyes MD Status of Scribe Document: Viewed
[2018-12-08] MEDS ORDERED: LORazepam TAB(*) 0.5 MG PO ONE (19:37)
[2018-12-08] MEDS ORDERED: Aspirin 81 mg CHEW TAB* 81 MG TAB.CHEW PO ONE (19:38)
[2018-12-08] MEDS: Nitroglycerin TAB 0.4 MG* 0.4 MG TAB SL ONE ×2 (20:02→20:09)
[2018-12-08 20:11] LABS: ABS Basophils 0 10^3/ul (0-0.2); ABS Eosinophils 0.1 10^3/ul (0-0.6); ABS Lymphocytes 1.2 10^3/ul (1.0-4.8); ABS Monocytes 0.7 10^3/ul (0-0.8); ABS Neutrophils 6.2 10^3/ul (1.5-7.7); ABS Nucleated RBC 0 10^3/ul; Eosinophil % 0.9 %; Hematocrit 49 % (33-41); Hemoglobin 16.2 g/dL (12.0-16.0); Lymphocyte % 14.8 %; Mean Corpuscular HGB Conc 33 g/dL (31-36); Mean Corpuscular Hemoglobin 28 pg (27-31); Mean Corpuscular Volume 83 fL (80-97); Mean Platelet Volume 8.1 fL (7.4-10.4); Nucleated Red Blood Cells % 0; Platelet Count 336 10^3/uL (150-450); Red Cell Distribution Width 16 % (10.5-15); White Blood Count 8.2 10^3/uL (3.5-10.8)
[2018-12-08 20:19] LABS: Activated Partial Thrombo Time 32.3 seconds (26.0-36.3); INR 0.86 (0.77-1.02)
[2018-12-08 20:36] LABS: Albumin 4.2 g/dL (3.2-5.2); Albumin/Globulin Ratio 1.2 (1-3); BUN/Creatinine Ratio 13.4 (8-20); EGFR African American 62.8 (>60); EGFR Non-African American 51.9 (>60); Globulin 3.5 g/dL (2-4); Magnesium 2.2 mg/dL (1.9-2.7); Potassium 4.1 mmol/L (3.5-5.0); Total Bilirubin 0.3 mg/dL (0.2-1.0); Total Protein 7.7 g/dL (6.4-8.9)
[2018-12-08 20:39] LABS: Troponin I 0.01 ng/mL (<0.04)
[2018-12-08 20:41] LABS: CKMB ng/mL 2.9 ng/mL (0.6-6.3)
[2018-12-08 21:02] LABS: TSH (Thyroid Stimulating Horm) 0.95 mcIU/mL (0.34-5.60)
[2018-12-08] MEDS ORDERED: LORazepam TAB(*) 1 MG PO ONE (21:40)
[2018-12-08] MEDS ORDERED: Metoprolol Tartrate TAB* 50 mg PO ONE (21:42)
[2018-12-08] MEDS ORDERED: Acetaminophen TAB* 325 MG PO PRN (23:51)
[2018-12-08] MEDS ORDERED: Temazepam CAP* 15 MG PO ONE (23:51)
[2018-12-08] MEDS ORDERED: Nitroglycerin TAB 0.4 MG* 0.4 MG TAB SL PRN (23:56)
[2018-12-08] MEDS ORDERED: hydrOXYzine HCL TAB* 10 MG PO PRN (23:56)
[2018-12-08] MEDS ORDERED: Albuterol HFA INHALER* 8 gm MDI INH PRN (23:56)
[2018-12-08] MEDS ORDERED: Nicotine Inhaler* 10 MG AMP INH PRN (23:56)
[2018-12-09] MEDS ORDERED: Mouth Piece, Nicotine* 1 EACH CARTRIDGE INH PRN (00:22)
[2018-12-09] MEDS ORDERED: Gabapentin CAP(*) 300 MG PO ONE (00:52)
[2018-12-09] MEDS: Enoxaparin(*) 40 MG/0.4 ML SYR SUBCUT SCH ×2 (01:15→01:17)
[2018-12-09] MEDS ORDERED: Gabapentin CAP(*) 400 MG PO SCH (08:30)
[2018-12-09] MEDS ORDERED: NFT: Umeclidinium 62.5 MDI(NF) MDI INH SCH (09:00)
[2018-12-09] MEDS ORDERED: VARENICLINE TARTRATE PO SCH (09:00)
[2018-12-09] MEDS ORDERED: Clopidogrel TAB* 75 MG PO SCH (09:00)
[2018-12-09] MEDS ORDERED: Diltiazem CD CAP* 240 MG PO SCH (09:00)
[2018-12-09] MEDS ORDERED: Atorvastatin* 40 MG TAB PO SCH (09:00)
[2018-12-09] MEDS ORDERED: Buprenorp/Nalox 4-1 MG FILM 1 EACH SL FILM SCH (09:00)
[2018-12-09] MEDS ORDERED: Metoprolol Tartrate TAB* 100 MG TAB PO SCH (09:00)
[2018-12-09] MEDS ORDERED: Aspirin EC TAB* 81 MG TAB.EC PO SCH (09:00)
[2018-12-09] MEDS ORDERED: Lisinopril TAB* 10 MG PO SCH (09:00)
--- NOTE | 2018-12-09 10:36 | HP ---
CC: Dr. Kevin Curtis; Dr. Jamaal Michaels; Dr. Zev Lawler* HISTORY AND PHYSICAL: DATE OF ADMISSION: 12/08/18 PRIMARY CARE PHYSICIAN: Dr. Kevin Curtis. Possibly also following with Dr. Jamaal Michaels. LIVING ADVISOR: Dr. Zev Lawler. HEALTHCARE PROXY: Reese Gonzalez, . The patient confirmed that this is her current healthcare proxy. CODE STATUS: Full code. CHIEF COMPLAINT: Acute chest pain and anxiety. HISTORY OF PRESENT ILLNESS: Ms. Gonzalez is a 48-year-old woman with coronary artery disease and multiple [place], status post 9 stents, 1 KS possibly from vasospasm; COPD; hypertension; active tobacco use; and anxiety, who presents after acute left- sided chest pain radiating to left shoulder. The patient reports that for the last couple of weeks she has been experiencing an increase in anxiety, having a lot of marital issues with her , although she does think that they are working these issues out now. She states that she had recently been smoking a pack and a half of cigarettes per day until starting Chantix 1 week ago. She states that for the last week she had been taking 1 tablet a day and was able to taper her cigarettes from 1 1/2 packs per day to 5 cigarettes daily. Today, she was instructed to go up to 2 tablets daily, and she reports that this was what caused her chest pain. She states that she knows what chest pain feels like when she is having a heart attack and that this does not feel like that type of chest pain. It feels like the kind she gets from anxiety and she worries that taking 2 tablets of Chantix worsened her anxiety acutely. The chest pain is not pleuritic, exertional, or positional. When she experienced 1 episode of this chest pain this morning, it was not associated with shortness of breath or cough, although she does report mild diaphoresis. The chest pain this morning resolved with nitroglycerin. She experienced it again this afternoon after her second tablet of Chantix and asked her to bring her straight to the emergency room. Of note, she was admitted 6 months ago for a similar chest pain in the context of being in court pursuing a restraining order against her . For that admission, she was ruled out for myocardial infarction and discharged to follow up with her electrical accessories assembler. She was admitted again last month for severe shortness of breath and diagnosed with pneumonia, with brief stay in the intensive care unit for BiPAP support with steroids and antibiotics. The patient reports that, that admission is what motivated her to want to quit smoking and this is her first time feeling motivated and this is also her first time that she has been able to taper back to such a few amount of cigarettes per day. The patient also reports that less than 2 months ago she underwent an exercise stress test with her electrical accessories assembler and it was normal. In the emergency room, the patient was reporting 4/10 chest pain and was given nitroglycerin and aspirin. Of note, while the patient was in the emergency room , her sister had also presented to the emergency room in cardiac arrest and had . The patient is aware that her sister just and felt incredibly stressed and anxious from the news. Her EKG was without evidence of new ischemia and her troponin was negative x2. The patient's chest pain resolved, but given severe anxiety, she requests closer monitoring and something for anxiety and sleep overnight. She was admitted to the medicine for rule out myocardial infarction. PAST MEDICAL HISTORY: 1. Coronary artery disease, multiple MIs and 1 possibly due to vasospasm, total of 9 stents, most recent at [facility]. 2. COPD. 3. Chronic pain, on Suboxone. 4. Hypertension. 5. Possible seizure disorder. 6. Possible rheumatoid versus psoriatic arthritis. 7. Active tobacco use. PAST SURGICAL HISTORY: 1. Left knee ACL repair. 2. Tubal ligation. 3. Appendectomy. 4. Tonsillectomy. 5. Left rotator cuff repair. 6. Multiple cardiac catheterizations. HOME MEDICATIONS: 1. Suboxone 12 mg twice a day. 2. Atorvastatin 40 mg daily. 3. Aspirin 81 mg daily. 4. Clopidogrel 75 mg daily. 5. Albuterol 2 puffs q.4 hours as needed for shortness of breath. 6. Metoprolol tartrate 100 mg twice a day. 7. Lisinopril 10 mg daily. 8. Gabapentin one 800 mg tablet t.i.d. 9. Diltiazem 240 mg daily. 10. Mirtazapine 90 mg at bedtime. 11. Varenicline 1 tab twice a day. 12. Incruse Ellipta 1 inhalation daily. 13. Hydroxyzine 25 p.o. q.6 hours p.r.n. anxiety. 14. Nitroglycerin 0.4 sublingual as needed for chest pain. ALLERGIES: PENICILLIN causes anaphylactic shock; MELOXICAM and KETOROLAC, rash. FAMILY HISTORY: Four grandparents and both parents from [place]. Sister from heart attack as well. SOCIAL HISTORY: Lives with , 2 children grown. [id number] history, down to 5 cigarettes a day. Denies alcohol or illicit drug use. 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 PHYSICAL EXAMINATION GENERAL: Chronically ill-appearing woman, older than stated age, in no acute distress, nontoxic but anxious, alert and conversant, speaking in full sentences and appropriate. VITAL SIGNS: Afebrile, heart rate 60s, respiratory rate 12, oxygen saturation 97% on room air, blood pressure 115/63. HEENT: Pupils equal and reactive to light. OP clear. NECK: No JVD. LUNGS: Clear to auscultation bilaterally. HEART: Regular rate and rhythm. No murmurs, gallops, or rubs. ABDOMEN: Protuberant, soft, nontender, nondistended. EXTREMITIES: Warm, well perfused. No edema. LABORATORY DATA/DIAGNOSTIC STUDIES: Pertinent labs: Hemoglobin slightly elevated to 16.2, near baseline. Creatinine mildly elevated at 1.12, also near baseline. CK-MB normal. Troponins negative x2. TSH within normal limits. EKG: Normal sinus rhythm, 98. Noted Q waves anteriorly, unchanged from prior. No concerning ST changes or new T-wave inversions. Chest x-ray without evidence for acute pathology on overnight read. ASSESSMENT AND PLAN: This is a 48-year-old woman with significant coronary artery disease and multiple stents, who is presenting to the emergency room with acute chest pain in the setting of acute anxiety and increasing her Chantix dosing, found without concerning EKG changes with first 2 troponins negative. 1. For chest pain, the patient reports this feels like the pain she gets related to anxiety and not her heart disease, and she reports increased psychosocial stressors recently and concerned that Chantix increased dose has caused chest pain. However, given significant family history, risk factors, and the patient's history of myocardial infarction, she is admitted to rule out another myocardial infarction. We will get another troponin in the morning. We will not order another exercise stress test as the patient had one in the last 2 months and reports that it was normal. Discussed with the patient ways to manage anxiety, appears that she is having a lot of domestic stress from with a history of trying to obtain restraining order against , although she still prefers to live with him and have him as her healthcare proxy. If the patient is interested, can offer social work services in the morning. 2. Active tobacco. Discussed with the patient as she has had success on 1 tablet per day of Chantix and has been able to taper down to 5 cigarettes a day , she may continue on 1 tablet of Chantix daily and does not need to increase that dose. 3. For her chronic pain, the patient can continue home Suboxone and gabapentin. 4. For high blood pressure, continue home lisinopril and metoprolol tartrate. 5. For chronic obstructive pulmonary disease, continue home Incruse Ellipta with albuterol p.r.n. 6. The patient is a full code. 7. For DVT prophylaxis, Lovenox subcu daily. TIME SPENT: Approximately 60 minutes was spent on admission of this patient, more than half of which was spent at bedside for interview and exam. [id number]/[facility] #: [id number] STEPAN
[2018-12-09 12:03] VITALS: BP 150/82
--- NOTE | 2018-12-09 14:14 | DS ---
CC: Dr. Zev Lawler* DISCHARGE SUMMARY: DATE OF ADMISSION: 12/08/18 DATE OF DISCHARGE: 12/09/18 PRIMARY CARE PROVIDER: None listed. ETCHER HAND: Dr. Zev Lawler. FINAL DISCHARGE DIAGNOSIS: Chest pain, atypical, most likely secondary to anxiety. ADDITIONAL DISCHARGE DIAGNOSES: 1. Known history of coronary artery disease, status post multiple myocardial infarctions and stent placement at [facility]. 2. History of chronic obstructive pulmonary disease. 3. Chronic pain syndrome. 4. Hypertension. 5. Tobacco abuse. HOSPITAL COURSE: The patient came in to the emergency room at [facility] shortly after learning that her sister just with a chest pain. She has also been gone under lot of stressor with her significant other as well. Therefore given her cardiac history, she was admitted for observation to rule out acute coronary syndrome. She was placed on tele. Serial cardiac enzymes was obtained and they were negative. Her EKG showed sinus rhythm with a rate of 98, good airway progression, no acute ST or T wave changes. Echocardiogram was recently done on 11/24/18, revealed normal LV function, ejection fraction of 55% to 60%, mild mitral regurg, hence it was not repeated. She was seen and evaluated by me. She reported no chest pain. She does admit that she is having little bit of increased anxiety. She does follow with Psychiatry, Dr. Michaels, for which she is scheduled to call him for adjustment of her psych meds. Currently, she is only on hydroxyzine. Given that the fact she is also on Suboxone, I elected not to start her on any benzodiazepine and will defer to her Psychiatry for medication adjustment. Also she is telling me that she has an appointment with her c d reactor operator next week on 12/17/18. I advised her to continue. No changes to her medication was implemented during this hospital stay. DISCHARGE MEDICATIONS: She will be discharged on her regular home medication as preadmission: 1. Aspirin 81 mg daily. 2. Lipitor 40 daily. 3. Suboxone 12 mg/3 mg b.i.d. 4. Plavix 75 daily. 5. Cardizem 240 daily. 6. Gabapentin 800 mg daily. 7. Hydroxyzine 10 mg q.6 p.r.n. 8. Lisinopril 10 mg daily. 9. Metoprolol 100 b.i.d. 10. Remeron 90 mg at bedtime. 11. Chantix 1 mg b.i.d. 12. Albuterol inhaler. 13. Nicotine inhaler. 14. Nitroglycerin p.r.n. 15. Continue her Incruse 62.5 daily. DISCHARGE INSTRUCTIONS: Follow up with primary care in 1 to 2 weeks. Follow up with her psychiatrist this week, Dr. Michaels. Follow up with Cardiology as scheduled on 12/17/18. [id number]/[facility] #: [id number] STEPAN
[2018-12-09] MEDS ORDERED: Mirtazapine TAB* 15 MG PO SCH ×2 (21:00)
[2018-12-09] MEDS ORDERED: Gabapentin CAP(*) 400 MG PO ONE (21:44)
== END 2018-12-09 14:07 | disposition home or self-care (01) ==
LOC: ED 19:12 → MEDTELE 23:51
PROVIDERS: ADMIT Internal Medicine; ATTEND Internal Medicine
DX: R07.89 Other chest pain (principal); I25.10 Atherosclerotic heart disease of native coronary artery without angina pectoris; I25.2 Old myocardial infarction; Z95.5 Presence of coronary angioplasty implant and graft; J44.9 Chronic obstructive pulmonary disease, unspecified; G89.4 Chronic pain syndrome; I10 Essential (primary) hypertension; F17.210 Nicotine dependence, cigarettes, uncomplicated; Z79.82 Long term (current) use of aspirin; R11.2 Nausea with vomiting, unspecified; Z88.0 Allergy status to penicillin; Z79.01 Long term (current) use of anticoagulants; Z79.899 Other long term (current) drug therapy; Z87.442 Personal history of urinary calculi
CPT/HCPCS: 36415; 71045; 80053; 82550; 82553; 83605; 83735; 83880; 84443; 84484; 85025; 85610; 85730; 93005; 96372; 99285; A9270-GY; G0378; J1650

== ENCOUNTER 2018-12-14 05:28 | Emergency (ER) | payer MEDICARE ==
[2018-12-14] MEDS ORDERED: Lisinopril TAB* 10 MG PO ONE (07:14)
[2018-12-14] MEDS ORDERED: Gabapentin CAP(*) 400 MG PO ONE (07:25)
[2018-12-14] MEDS ORDERED: Metoprolol Tartrate TAB* 50 mg PO ONE (07:26)
[2018-12-14] MEDS ORDERED: Diltiazem CD CAP* 240 MG PO ONE (07:26)
[2018-12-14] MEDS ORDERED: Atorvastatin* 20 MG TAB PO ONE (07:27)
[2018-12-14 07:29] LABS: ABS Basophils 0 10^3/ul (0-0.2); ABS Eosinophils 0.1 10^3/ul (0-0.6); ABS Lymphocytes 1.1 10^3/ul (1.0-4.8); ABS Monocytes 0.6 10^3/ul (0-0.8); ABS Neutrophils 6.7 10^3/ul (1.5-7.7); ABS Nucleated RBC 0 10^3/ul; Eosinophil % 1.2 %; Hematocrit 46 % (33-41); Hemoglobin 14.9 g/dL (12.0-16.0); Lymphocyte % 12.8 %; Mean Corpuscular HGB Conc 33 g/dL (31-36); Mean Corpuscular Hemoglobin 27 pg (27-31); Mean Corpuscular Volume 83 fL (80-97); Mean Platelet Volume 8.8 fL (7.4-10.4); Nucleated Red Blood Cells % 0; Platelet Count 221 10^3/uL (150-450); Red Blood Count 5.51 10^6 /uL (3.70-4.87); Red Cell Distribution Width 16 % (10.5-15); White Blood Count 8.6 10^3/uL (3.5-10.8)
[2018-12-14 07:45] LABS: Albumin 3.9 g/dL (3.2-5.2); Albumin/Globulin Ratio 1.2 (1-3); BUN/Creatinine Ratio 15.5 (8-20); Calcium 9.4 mg/dL (8.6-10.3); EGFR African American 69.2 (>60); EGFR Non-African American 57.2 (>60); Globulin 3.2 g/dL (2-4); Potassium 4.3 mmol/L (3.5-5.0); Total Bilirubin 0.5 mg/dL (0.2-1.0); Total Protein 7.1 g/dL (6.4-8.9)
[2018-12-14 07:47] LABS: Troponin I 0.01 ng/mL (<0.04)
--- NOTE | 2018-12-14 10:03 | ED ---
Psychiatric Complaint - HPI Summary HPI Summary: patient is a 48-year-old female presenting to the ED with suicidal ideations which occurred 4 days ago. She denies any currently. She states she would like to speak with someone. She does have good outpatient follow-up. She is currently not been taking her medications as her friends removed all medications from her due to her comment of suicidal thoughts with an overdose. She states her friends flushed all of her medications. She is currently taking Chantix, lisinopril, gabapentin, metoprolol, Cardizem, Plavix, aspirin and atorvastatin. She states she has been continuing to take her Plavix as that is the only medication they did not take from her. She's not been on her heart medications were her Opinion. History of hypertension hypercholesterolemia as well as depression and anxiety. She is currently taking gabapentin for anxiety and depression. She is currently denying any suicidal or homicidal thoughts. Denies any self-harm. Denies any alcohol or drug abuse. - History Of Current Complaint Chief Complaint: EDSeizure Time Seen by Provider: 12/14/18 06:14 Hx Obtained From: Patient ?: No Onset/Duration: Sudden Onset Timing: Constant Severity Initially: Moderate Severity Currently: Moderate Alleviating Factor(s): Nothing Associated Signs And Symptoms: Positive: Negative Related History: Positive For: Prior Psychiatric Issues - Depression anxiety, currently taking gabapentin Has Suicidal: Reports: Thoughts - plan included overdose on medications; patient does not feel this way currently - Risk Factor(s) Completed Suicide Risk Factors: Negative - Allergies/Home Medications Allergies/Adverse Reactions: Allergies Allergy/AdvReac Type Severity Reaction Status Date / Time ketorolac [From Toradol] Allergy Rash Verified 12/14/18 05:37 meloxicam [From Mobic] Allergy Rash And Verified 12/14/18 05:37 Itching Penicillins Allergy Anaphylatic Verified 12/14/18 05:37 Shock PMH/Surg Hx/FS Hx/Imm Hx Previously Healthy: Yes Endocrine/Hematology History: Reports: Hx Anticoagulant Therapy - plavix Denies: Hx Diabetes Cardiovascular History: Reports: Hx Angina, Hx Coronary Artery Disease - 8 stents per pt, Hx Hypertension - ON MEDICATION, Hx Myocardial Infarction - x3 Respiratory History: Reports: Hx Chronic Obstructive Pulmonary Disease (COPD) Denies: Other Respiratory Problems/Disorders GI History: Denies: Other GI Disorders History: Reports: Hx Kidney Infection, Hx Kidney Stones, Hx Renal Disease - CALCULI, LT SIDE, Other Problems/Disorders - nephrolithiasis Denies: Hx Dialysis Musculoskeletal History: Reports: Hx Arthritis - PSORIATIC ARTHRITIS Sensory History: Denies: Hx Contacts or Glasses, Hx Hearing Aid Opthamlomology History: Denies: Hx Contacts or Glasses Neurological History: Reports: Hx Seizures Denies: Hx Transient Ischemic Attacks (TIA) Psychiatric History: Reports: Hx Anxiety, Hx Substance Abuse - opiates - on suboxone 12mg BID through Dr. Michaels Denies: Hx Eating Disorder, Hx of Violent Episodes Against Others - Surgical History Surgery Procedure, Year, and Place: 10/05/2008 CARDIAC STENT X2, [place]. 2008 CARDIAC STENT, [place]. 04/2010 CARDIAC STENT, [place] 2011 [place]RE[place] [facility] [place] LEFT URETERAL [place] [facility] [place] 1990 LAPAROSCOPIC TUBAL LIGATION, [facility]. 09/24/12, [place] [facility] [place]. [place] TONSILLECTOMY, [facility] Anesthesia Reactions: No - Immunization History Date of Tetanus Vaccine: unk Date of Influenza Vaccine: none Hx Pertussis Vaccination: No Immunizations Up to Date: Yes Infectious Disease History: No Infectious Disease History: Denies: Traveled Outside the [place] in Last 30 Days - Family History Known Family History: Positive: Cardiac Disease Negative: Other - negative malignant hyperthermia, negative adverse anesthesia reaction - Social History Occupation: Unemployed Lives: With Family Alcohol Use: None Hx Substance Use: Yes - currently takes suboxone Substance Use Type: Reports: None Substance Use Comment - Amount & Last Used: suboxone Hx Tobacco Use: Yes Smoking Status (MU): Light Every Day Tobacco Smoker Type: Cigarettes Amount Used/How Often: 6 a day Have You Smoked in the Last Year: Yes Review of Systems Constitutional: Negative Negative: Fever, Chills, Fatigue, Skin Diaphoresis Negative: Chest Pain Negative: Shortness Of Breath, Cough Negative: Abdominal Pain, Vomiting, Diarrhea, Nausea Negative: Arthralgia, Myalgia Positive: Anxious, Depressed All Other Systems Reviewed And Are Negative: Yes Physical Exam Triage Information Reviewed: Yes Vital Signs On Initial Exam: Initial Vitals Temp Pulse Resp BP Pulse Ox 97.7 F 97 16 188/116 98 12/14/18 05:32 12/14/18 05:32 12/14/18 05:32 12/14/18 05:32 12/14/18 05:32 Vital Signs Reviewed: Yes Appearance: Positive: Well-Appearing, Well-Nourished Skin: Positive: Warm, Skin Color Reflects Adequate Perfusion Head/Face: Positive: Normal Head/Face Inspection Eyes: Positive: EOMI, Conjunctiva Clear Neck: Positive: Supple, No Lymphadenopathy Respiratory/Lung Sounds: Positive: Clear to Auscultation, Breath Sounds Present Cardiovascular: Positive: RRR, Pulses are Symmetrical in both Upper and Lower Extremities Musculoskeletal: Positive: Normal, Strength/ROM Intact Neurological: Positive: Speech Normal Psychiatric: Positive: Affect/Mood Appropriate - Patient is alert and oriented, cooperative for exam AVPU Assessment: Alert Diagnostics - Vital Signs Vital Signs Temp Pulse Resp BP Pulse Ox 12/14/18 09:14 86 142/102 95 12/14/18 09:00 84 95 12/14/18 08:44 81 146/107 95 12/14/18 08:14 84 149/94 94 12/14/18 08:00 86 95 12/14/18 07:44 83 143/84 92 12/14/18 07:17 89 96 12/14/18 07:14 89 182/110 95 12/14/18 05:32 97.7 F 97 16 188/116 98 - Laboratory Lab Results: Lab Results 12/14/18 12/14/18 Range/Units 07:21 07:21 WBC 8.6 (3.5-10.8) 10^3/uL RBC 5.51 H (3.70-4.87) 10^6 /uL Hgb 14.9 (12.0-16.0) g/dL Hct 46 H (33-41) % MCV 83 (80-97) fL MCH 27 (27-31) pg MCHC 33 (31-36) g/dL RDW 16 H (10.5-15) % Plt Count 221 (150-450) 10^3/uL MPV 8.8 (7.4-10.4) fL Neut % (Auto) 78.4 % Lymph % (Auto) 12.8 % [place] % (Auto) 7.4 % Eos % (Auto) 1.2 % Baso % (Auto) 0.2 % Absolute Neuts (auto) 6.7 (1.5-7.7) 10^3/ul Absolute Lymphs (auto) 1.1 (1.0-4.8) 10^3/ul Absolute Monos (auto) 0.6 (0-0.8) 10^3/ul Absolute Eos (auto) 0.1 (0-0.6) 10^3/ul Absolute Basos (auto) 0 (0-0.2) 10^3/ul Absolute Nucleated RBC 0 10^3/ul Nucleated RBC % 0 Sodium 136 (135-145) mmol/L Potassium 4.3 (3.5-5.0) mmol/L Chloride 104 (101-111) mmol/L Carbon Dioxide 25 (22-32) mmol/L Anion Gap 7 (2-11) mmol/L BUN 16 (6-24) mg/dL Creatinine 1.03 H (0.51-0.95) mg/dL Est GFR ( Amer) 69.2 (>60) Est GFR (Non-Af Amer) 57.2 (>60) BUN/Creatinine Ratio 15.5 (8-20) Glucose 113 H (70-100) mg/dL Calcium 9.4 (8.6-10.3) mg/dL Total Bilirubin 0.50 (0.2-1.0) mg/dL AST 18 (13-39) U/L ALT 15 (7-52) U/L Alkaline Phosphatase 86 (34-104) U/L Troponin I 0.01 (<0.04) ng/mL Total Protein 7.1 (6.4-8.9) g/dL Albumin 3.9 (3.2-5.2) g/dL Globulin 3.2 (2-4) g/dL Albumin/Globulin Ratio 1.2 (1-3) Result Diagrams: 12/14/18 07:21 12/14/18 07:21 Lab Statement: Any lab studies that have been ordered have been reviewed, and results considered in the medical decision making process. Course/Dx - Course Course Of Treatment: During the course of treatment, the patient's evaluated for suicidal ideation and lack of medicine for this previous week. She states she would like to speak with someone however is denying any suicidal or homicidal thoughts. She states she's been without her medication for 5 days however does not feel chest pain or shortness of breath. She is asymptomatic otherwise. [facility] evaluation with a diagnosis of depression from Dr. Quiroz. Labs are otherwise WNL. She does have hypertension and is given lisinopril in the ED. This reduced her blood pressure to 146/94. She is safe for discharge at this time and I have sent scrips into her pharmacy which will last her approximately 1 month. I have also given her referral to [facility] she currently does not have a PCP. - Differential Dx/Clinical Impression Differential Diagnosis/HQI/PQRI: Positive: Suicide Attempt, Suicidal Ideation, Suicidal Gesture Provider Diagnosis: Depression Discharge - Sign-Out/Discharge Documenting (check all that apply): Patient Departure Patient Received Moderate/Deep Sedation with Procedure: No - Discharge Plan Condition: Stable Disposition: HOME Prescriptions: Atorvastatin* [Lipitor 40 MG*] 40 mg PO DAILY #30 tab Gabapentin CAP(*) [Neurontin 400 mg CAP(*)] 800 mg PO BEDTIME #30 cap MDD 2 Lisinopril TAB* [Prinivil TAB 10 MG*] 10 mg PO DAILY #30 tab Metoprolol Tartrate 100 mg PO BID #60 tablet Patient Education Materials: Depression (ED), Anxiety (ED) Referrals: [facility] [Outside] No Primary Care Phys,NOPCP [Primary Care Provider] - Additional Instructions: Please follow up with [facility] Your medications have been sent to your pharmacy Please restart these immediately Follow up with your counselor as scheduled - Billing Disposition and Condition Condition: STABLE Disposition: Home
[2018-12-14 10:11] VITALS: BP 142/100
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
== END 2018-12-14 10:10 | disposition home or self-care (01) ==
LOC: ED 05:28
DX: F32.9 Major depressive disorder, single episode, unspecified (principal); I10 Essential (primary) hypertension; I25.10 Atherosclerotic heart disease of native coronary artery without angina pectoris; I25.2 Old myocardial infarction; J44.9 Chronic obstructive pulmonary disease, unspecified; L40.50 Arthropathic psoriasis, unspecified; F41.9 Anxiety disorder, unspecified; F17.210 Nicotine dependence, cigarettes, uncomplicated; Z88.0 Allergy status to penicillin; Z88.8 Allergy status to other drugs, medicaments and biological substances; Z79.01 Long term (current) use of anticoagulants; Z95.5 Presence of coronary angioplasty implant and graft; Z79.899 Other long term (current) drug therapy
CPT/HCPCS: 36415; 80053; 84484; 85025; 99284; A9270-GY

== ENCOUNTER 2018-12-14 21:13 | Emergency (ER) | payer MEDICARE ==
[2018-12-14] MEDS ORDERED: Gabapentin CAP(*) 400 MG PO ONE (21:44)
[2018-12-14] MEDS ORDERED: Buprenorp/Nalox 4-1 MG FILM SL FILM ONE (21:45)
--- NOTE | 2018-12-14 21:45 | ED ---
Complex/Multi-Sys Presentation - HPI Summary HPI Summary: This patient is a 48 year old F brought in by ambulance to ED with a chief complaint of abdominal pain and anxiety. She says her anxiety increased after she lost her sister on 12/08/18. Then she tried to take her life the next day. Her sisters was yesterday. The patient rates the pain 4/10 in severity. Symptoms aggravated by recent stress. Symptoms alleviated by nothing. She currently denies SI/HI. She is currently not on two of her medications ( seizure meds and saboxone). She takes the Saboxone for arthritis from [facility]. She hasnt taken it for the last 3 days because she lost it in her house somewhere. She is also a drug addict. She sees her psychiatric doctor, Dr. Sayda Michaels, at 1800 tomorrow. The patient was in the ED this morning for the same sx and she was given her cardiac meds and gabapentin. PMHx of 8 stents and HTN. She does not drink alcohol. - History Of Current Complaint Time Seen by Provider: 12/14/18 21:27 Hx Obtained From: Patient Onset/Duration: Sudden Onset, Still Present Timing: Constant Severity Currently: Mild - 4/10 Location: Pain At: - abdominal pain Aggravating Factor(s): recent of her sister Alleviating Factor(s): nothing Associated Signs And Symptoms: Positive: Abdominal Pain, Other - anxiety - Allergies/Home Medications Allergies/Adverse Reactions: Allergies Allergy/AdvReac Type Severity Reaction Status Date / Time ketorolac [From Toradol] Allergy Rash Verified 12/14/18 05:37 meloxicam [From Mobic] Allergy Rash And Verified 12/14/18 05:37 Itching Penicillins Allergy Anaphylatic Verified 12/14/18 05:37 Shock PMH/Surg Hx/FS Hx/Imm Hx Endocrine/Hematology History: Reports: Hx Anticoagulant Therapy - plavix Denies: Hx Diabetes Cardiovascular History: Reports: Hx Angina, Hx Coronary Artery Disease - 8 stents per pt, Hx Hypertension - ON MEDICATION, Hx Myocardial Infarction - x3 Respiratory History: Reports: Hx Chronic Obstructive Pulmonary Disease (COPD) Denies: Other Respiratory Problems/Disorders GI History: Denies: Other GI Disorders History: Reports: Hx Kidney Infection, Hx Kidney Stones, Hx Renal Disease - CALCULI, LT SIDE, Other Problems/Disorders - nephrolithiasis Denies: Hx Dialysis Musculoskeletal History: Reports: Hx Arthritis - PSORIATIC ARTHRITIS Sensory History: Denies: Hx Contacts or Glasses, Hx Hearing Aid Opthamlomology History: Denies: Hx Contacts or Glasses Neurological History: Reports: Hx Seizures Denies: Hx Transient Ischemic Attacks (TIA) Psychiatric History: Reports: Hx Anxiety, Hx Substance Abuse - opiates - on suboxone 12mg BID through Dr. Michaels Denies: Hx Eating Disorder, Hx of Violent Episodes Against Others - Surgical History Surgery Procedure, Year, and Place: 10/05/2008 CARDIAC STENT X2, [place]. 2008 CARDIAC STENT, [place]. 04/2010 CARDIAC STENT, [place]. 2011 LEFT URETERAL [place], [facility] [place] LEFT URETERAL STENT INSERTION[place] [facility] [place] 1990 LAPAROSCOPIC TUBAL LIGATION, [facility]. 09/24/12, [place], [place], [facility] [place] [facility] [place]x Anesthesia Reactions: No - Immunization History Date of Tetanus Vaccine: unk Date of Influenza Vaccine: none - Family History Known Family History: Positive: Cardiac Disease Negative: Other - negative malignant hyperthermia, negative adverse anesthesia reaction - Social History Alcohol Use: None Hx Substance Use: Yes - currently takes suboxone Substance Use Type: Reports: None Substance Use Comment - Amount & Last Used: suboxone Hx Tobacco Use: Yes Smoking Status (MU): Light Every Day Tobacco Smoker Type: Cigarettes Amount Used/How Often: 6 a day Have You Smoked in the Last Year: Yes Review of Systems Positive: Abdominal Pain Psychological: Other - currently denies SI/HI Positive: Anxious All Other Systems Reviewed And Are Negative: Yes Physical Exam - Summary Physical Exam Summary: VITAL SIGNS: Reviewed. GENERAL: Patient is a well-developed and nourished FEMALE who is lying comfortable in the stretcher. Patient is not in any acute respiratory distress. HEAD AND FACE: No signs of trauma. No ecchymosis, hematomas or skull depressions. No sinus tenderness. EYES: PERRLA, EOMI x 2, No injected conjunctiva, no nystagmus. EARS: Hearing grossly intact. Ear canals and tympanic membranes are within normal limits. MOUTH: Oropharynx within normal limits. NECK: Supple, trachea is midline, no adenopathy, no JVD, no carotid bruit, no c- spine tenderness, neck with full ROM. CHEST: Symmetric, no tenderness at palpation LUNGS: Clear to auscultation bilaterally. No wheezing or crackles. CVS: Regular rate and rhythm, S1 and S2 present, no murmurs or gallops appreciated. ABDOMEN: Soft, non-tender. No signs of distention. No rebound no guarding, and no masses palpated. Bowel sounds are normal. EXTREMITIES: FROM in all major joints, no edema, no cyanosis or clubbing. NEURO: Alert and oriented x 3. No acute neurological deficits. Speech is normal and follows commands. SKIN: Dry and warm PSYCH: Seems anxious and shaky, denies SI/HI Triage Information Reviewed: Yes Vital Signs On Initial Exam: Initial Vitals Temp Pulse Resp BP Pulse Ox 98.0 F 91 18 175/103 95 12/14/18 21:20 12/14/18 21:20 12/14/18 21:20 12/14/18 21:20 12/14/18 21:20 Vital Signs Reviewed: Yes Complex Multi-Symp Course/Dx Assessment/Plan: This patient is a 48 year old F brought in by ambulance to ED with a chief complaint of abdominal pain and anxiety. In the ED course, the patient was given saboxone and gabapentin. This patient will be discharged with dx of chronic pain and anxiety. Patient understands and agrees with this plan. - Diagnoses Differential Diagnoses/HQI/PQRI: Other - chronic pain and anxiety Provider Diagnoses: Chronic pain, Anxiety Discharge - Sign-Out/Discharge Documenting (check all that apply): Patient Departure - discharge Patient Received Moderate/Deep Sedation with Procedure: No - Discharge Plan Condition: Stable Disposition: HOME Patient Education Materials: Chronic Pain (ED), Anxiety (ED) Referrals: [facility] [Outside] - 3 Days Additional Instructions: PLEASE RETURN TO THE ED IMMEDIATELY FOR WORSENING OR CONCERNING SYMPTOMS. - Attestation Statements Document Initiated by Scribe: Yes Documenting Scribe: Octaviano Antunez Provider For Whom Scribe is Documenting (Include Credential): Fredi Romo MD Scribe Attestation: Octaviano Aldridge, scribed for Fredi Romo MD on 12/14/18 at 2332. Status of Scribe Document: Ready
[2018-12-15 00:03] VITALS: BP 128/83
== END 2018-12-15 00:02 | disposition home or self-care (01) ==
LOC: ED 21:13
DX: F41.9 Anxiety disorder, unspecified (principal); G89.29 Other chronic pain; I10 Essential (primary) hypertension; I25.10 Atherosclerotic heart disease of native coronary artery without angina pectoris; I25.2 Old myocardial infarction; J44.9 Chronic obstructive pulmonary disease, unspecified; L40.50 Arthropathic psoriasis, unspecified; F17.210 Nicotine dependence, cigarettes, uncomplicated; Z88.0 Allergy status to penicillin; Z88.8 Allergy status to other drugs, medicaments and biological substances; Z79.01 Long term (current) use of anticoagulants; Z95.5 Presence of coronary angioplasty implant and graft; Z79.899 Other long term (current) drug therapy
CPT/HCPCS: 99283; A9270-GY

== ENCOUNTER → 2019-01-07 00:38 | Emergency (ER) | payer MEDICARE ==
[~2019-01-07 00:38] MED LIST: LORazepam INJ* 2 MG/ML 1 ML VIAL IV PUSH ONE; Lorazepam PYXIS KEY ONE; Lorazepam PYXIS KEY PRN; Metoclopramide IV* 5 MG/ML 2 ML VIAL IV SLOW PU ONE; Ondansetron INJ* 2 MG/ML VIAL IV ONE; Ondansetron INJ* 2 MG/ML VIAL ONE; Pantoprazole IV* 40 MG IV ONE
--- NOTE | 2019-01-07 01:08 | ED ---
HPI Chest Pain - HPI Summary HPI Summary: A 48 y/o female brought in by [facility] presents to [facility] with a chief complaint of chest pain (pressure) since yesterday morning. The patient also c/o abdominal pain and N/V/D. Per EMS, patient was hypertensive and diaphoretic. At triage she rated her pain as a 2/10 in severity. She is currently taking Suboxone. Hx of A-fib. She has 8 cardiac stents. - History of Current Complaint Chief Complaint: EDChestPainROMI Time Seen by Provider: 01/07/19 00:54 Hx Obtained From: Patient, EMS Onset/Duration: Started Hours Ago, Still Present Timing: Constant, Lasting Hours Initial Severity: Mild Current Severity: Mild Pain Intensity: 2 Pain Scale Used: 0-10 Numeric Chest Pain Location: Diffuse Chest Pain Radiates: No Character: Pressure/Squeezing Aggravating Factor(s): Nothing Alleviating Factor(s): Nothing Associated Signs and Symptoms: Positive: Diaphoresis, Nausea, Abdominal Pain, Vomiting - Additional Pertinent History Primary Care Physician: [facility]A - Allergy/Home Medications Allergies/Adverse Reactions: Allergies Allergy/AdvReac Type Severity Reaction Status Date / Time ketorolac [From Toradol] Allergy Rash Verified 12/14/18 05:37 meloxicam [From Mobic] Allergy Rash And Verified 12/14/18 05:37 Itching Penicillins Allergy Anaphylatic Verified 12/14/18 05:37 Shock Home Medications: Home Medications Gabapentin CAP(*) [Neurontin 400 mg CAP(*)] 800 mg PO QID 01/07/19 [History Confirmed 01/07/19] PMH/Surg Hx/FS Hx/Imm Hx Endocrine/Hematology History: Reports: Hx Anticoagulant Therapy - plavix Denies: Hx Diabetes Cardiovascular History: Reports: Hx Angina, Hx Coronary Artery Disease - 8 stents per pt, Hx Hypertension - ON MEDICATION, Hx Myocardial Infarction - x3 Respiratory History: Reports: Hx Chronic Obstructive Pulmonary Disease (COPD) Denies: Other Respiratory Problems/Disorders GI History: Denies: Other GI Disorders History: Reports: Hx Kidney Infection, Hx Kidney Stones, Hx Renal Disease - CALCULI, LT SIDE, Other Problems/Disorders - nephrolithiasis Denies: Hx Dialysis Musculoskeletal History: Reports: Hx Arthritis - PSORIATIC ARTHRITIS Sensory History: Denies: Hx Contacts or Glasses, Hx Hearing Aid Opthamlomology History: Denies: Hx Contacts or Glasses Neurological History: Reports: Hx Seizures Denies: Hx Transient Ischemic Attacks (TIA) Psychiatric History: Reports: Hx Anxiety, Hx Substance Abuse - opiates - on suboxone 12mg BID through Dr. Michaels Denies: Hx Eating Disorder, Hx of Violent Episodes Against Others - Surgical History Surgery Procedure, Year, and Place: 10/05/2008 CARDIAC STENT X2, [place]. 2008 [place]AC [place]ENT, [place]. 04/2010 [place]AC [place], [place]. 2011 LEFT URETERAL ST[place] INSERTION, [facility] [place]. 2010 LEFT URETERAL STENT INSERTION, [facility] [place]. 1990 LAPAROSCOPIC TUBAL LIGATION, [facility]. 09/24/12, CYSTO, STWENT, [facility] [place]. 1994 TONSILLECTOMY, [facility] [place] Hx Anesthesia Reactions: No - Immunization History Date of Tetanus Vaccine: unk Date of Influenza Vaccine: none Infectious Disease History: No Infectious Disease History: Denies: Traveled Outside the in Last 30 Days - Family History Known Family History: Positive: Cardiac Disease Negative: Other - negative malignant hyperthermia, negative adverse anesthesia reaction - Social History Alcohol Use: None Hx Substance Use: Yes - currently takes suboxone Substance Use Type: Reports: None Substance Use Comment - Amount & Last Used: suboxone Hx Tobacco Use: Yes Smoking Status (MU): Light Every Day Tobacco Smoker Type: Cigarettes Amount Used/How Often: 6 a day Have You Smoked in the Last Year: Yes Review of Systems Positive: Skin Diaphoresis Positive: Chest Pain Positive: Abdominal Pain, Vomiting, Diarrhea, Nausea All Other Systems Reviewed And Are Negative: Yes Physical Exam - Summary Physical Exam Summary: VITAL SIGNS: Reviewed. GENERAL: Patient is a well-developed and nourished FEMALE who is lying comfortable in the stretcher. Patient is not in any acute respiratory distress. HEAD AND FACE: No signs of trauma. No ecchymosis, hematomas or skull depressions. No sinus tenderness. EYES: PERRLA, EOMI x 2, No injected conjunctiva, no nystagmus. EARS: Hearing grossly intact. Ear canals and tympanic membranes are within normal limits. MOUTH: Oropharynx within normal limits. NECK: Supple, trachea is midline, no adenopathy, no JVD, no carotid bruit, no c- spine tenderness, neck with full ROM CHEST: Symmetric, no tenderness at palpation LUNGS: Clear to auscultation bilaterally. No wheezing or crackles. CVS: Regular rate and rhythm, S1 and S2 present, no murmurs or gallops appreciated. ABDOMEN: Soft, non-tender. No signs of distention. No rebound no guarding, and no masses palpated. Bowel sounds are normal. EXTREMITIES: FROM in all major joints, no edema, no cyanosis or clubbing. NEURO: Alert and oriented x 3. No acute neurological deficits. Speech is normal and follows commands. SKIN: Dry and warm Triage Information Reviewed: Yes Vital Signs On Initial Exam: Initial Vitals Temp Pulse Resp BP Pulse Ox 98.3 F 103 11 162/106 94 01/07/19 00:47 01/07/19 00:47 01/07/19 00:47 01/07/19 00:47 01/07/19 00:47 Vital Signs Reviewed: Yes Diagnostics - Vital Signs Vital Signs Temp Pulse Resp BP Pulse Ox 01/07/19 00:47 98.3 F 103 11 162/106 94 - Laboratory Result Diagrams: 01/07/19 01:29 01/07/19 01:29 Lab Statement: Any lab studies that have been ordered have been reviewed, and results considered in the medical decision making process. - EKG 00:50 Cardiac Rate: Tachycardia - 100 bpm EKG Rhythm: Sinus Tachycardia Summary of EKG Findings: Sinus tachycardia at 100 bpm, Q waves in inferior leads. Chest Pain Course/Dx - Course Course Of Treatment: A 48 y/o female brought in by [facility] presents to [facility] with a chief complaint of chest pain (pressure) since yesterday morning. The patient also c/o abdominal pain and N/V/D. Per EMS, patient was hypertensive and diaphoretic. The physical exam was unremarkable. EKG showed Sinus tachycardia at 100 bpm, Q waves in inferior leads. Bloodwork and chemistries obtained and are WNL. The patient will be discharged with a prescription for Zofran and follow up with her PCP. The patient is agreeable with this plan. - Diagnoses Provider Diagnoses: Gastroenteritis Discharge - Sign-Out/Discharge Documenting (check all that apply): Patient Departure - DC Patient Received Moderate/Deep Sedation with Procedure: No - Discharge Plan Condition: Stable Disposition: HOME Prescriptions: Ondansetron ODT TAB* [Zofran 4 MG Odt TAB*] 8 mg PO Q6H PRN #20 tab.odt PRN Reason: Nausea/Vomiting Patient Education Materials: Gastroenteritis (DC) Referrals: [facility] [place] PHYSICIAN REFERRAL [Outside] (2-3 days) Additional Instructions: PLEASE RETURN TO THE ED IMMEDIATELY FOR WORSENING OR CONCERNING SYMPTOMS. - Billing Disposition and Condition Condition: STABLE Disposition: Home - Attestation Statements Document Initiated by Marilee: Yes Documenting Scribe: Reese Weston Provider For Whom Marilee is Documenting (Include Credential): Fredi Romo MD Scribe Attestation: IReese, scribed for Fredi Romo MD on 01/07/19 at 0640. Scribe Documentation Reviewed: Yes Provider Attestation: The documentation as recorded by the Reese allen accurately reflects the service I personally performed and the decisions made by me, Fredi Romo MD Status of Scribe Document: Viewed
[2019-01-07 01:36] LABS: ABS Lymphocytes 1.4 10^3/ul (1.0-4.8); ABS Monocytes 0.5 10^3/ul (0-0.8); ABS Neutrophils 5.1 10^3/ul (1.5-7.7); Eosinophil % 0.6 %; Hematocrit 45 % (35-47); Hemoglobin 14.7 g/dL (12.0-16.0); Lymphocyte % 20.3 %; Mean Corpuscular HGB Conc 33 g/dL (31-36); Mean Corpuscular Hemoglobin 27 pg (27-31); Mean Corpuscular Volume 81 fL (80-97); Mean Platelet Volume 8.6 fL (7.4-10.4); Platelet Count 213 10^3/uL (150-450); Red Blood Count 5.53 10^6 /uL (3.70-4.87); Red Cell Distribution Width 16 % (10.5-15); White Blood Count 7.1 10^3/uL (3.5-10.8)
[2019-01-07 01:59] LABS: Albumin/Globulin Ratio 1.3 (1-3); BUN/Creatinine Ratio 14.9 (8-20); C Reactive Protein 1.3 mg/L (<8.01); Calcium 9.3 mg/dL (8.6-10.3); EGFR African American 70.8 (>60); EGFR Non-African American 58.5 (>60); Globulin 3.1 g/dL (2-4); Magnesium 2.1 mg/dL (1.9-2.7); Potassium 4.1 mmol/L (3.5-5.0); Total Bilirubin 0.3 mg/dL (0.2-1.0); Total Protein 7.1 g/dL (6.4-8.9); Troponin I 0.02 ng/mL (<0.04)
[2019-01-07 03:47] VITALS: BP 155/104
== END | disposition home or self-care (01) ==
LOC: ED 00:38
DX: K52.9 Noninfective gastroenteritis and colitis, unspecified (principal); R94.31 Abnormal electrocardiogram [ECG] [EKG]; I25.10 Atherosclerotic heart disease of native coronary artery without angina pectoris; I10 Essential (primary) hypertension; I25.2 Old myocardial infarction; J44.9 Chronic obstructive pulmonary disease, unspecified; F41.9 Anxiety disorder, unspecified; F17.210 Nicotine dependence, cigarettes, uncomplicated; Z95.5 Presence of coronary angioplasty implant and graft; Z88.8 Allergy status to other drugs, medicaments and biological substances; Z88.0 Allergy status to penicillin; Z79.01 Long term (current) use of anticoagulants
CPT/HCPCS: 36415; 80053; 82150; 83690; 83735; 84484; 85025; 86140; 93005; 96374; 96375; 99284; J2060; J2405; J2765

== ENCOUNTER 2019-01-15 23:18 | Emergency (ER) | payer MEDICARE ==
[2019-01-16] MEDS ORDERED: Lorazepam PYXIS KEY PRN (01:05)
[2019-01-16] MEDS ORDERED: LORazepam INJ* 2 MG/ML 1 ML VIAL IM ONE (01:05)
--- NOTE | 2019-01-16 01:12 | ED ---
Complex/Multi-Sys Presentation - HPI Summary HPI Summary: 48 year old F presenting to [facility] with a chief complaint of anxiety attack since four hours ago. The patient rates the pain 0/10 in severity. Symptoms aggravated by nothing. Symptoms alleviated by nothing. Patient reports tremors. She is worried about having her house taken away tomorrow after her divorce court meeting. Patient denies suicidal ideation, homicidal ideation. Patient took hydroxyzine 3.5 hours ago. - History Of Current Complaint Chief Complaint: EDGeneral Time Seen by Provider: 01/16/19 00:59 Hx Obtained From: Patient Onset/Duration: Lasting Hours - 4, Still Present Timing: Constant Severity Currently: None Aggravating Factor(s): Nothing Alleviating Factor(s): Nothing Associated Signs And Symptoms: Positive: Other - tremors; NEGATIVE: SI, HI - Allergies/Home Medications Allergies/Adverse Reactions: Allergies Allergy/AdvReac Type Severity Reaction Status Date / Time ketorolac [From Toradol] Allergy Rash Verified 01/16/19 00:01 meloxicam [From Mobic] Allergy Rash And Verified 01/16/19 00:01 Itching Penicillins Allergy Anaphylatic Verified 01/16/19 00:01 Shock PMH/Surg Hx/FS Hx/Imm Hx Previously Healthy: No Endocrine/Hematology History: Reports: Hx Anticoagulant Therapy - plavix Denies: Hx Diabetes Cardiovascular History: Reports: Hx Angina, Hx Coronary Artery Disease - 8 stents per pt, Hx Hypertension - ON MEDICATION, Hx Myocardial Infarction - x3 Respiratory History: Reports: Hx Chronic Obstructive Pulmonary Disease (COPD) Denies: Other Respiratory Problems/Disorders GI History: Denies: Other GI Disorders History: Reports: Hx Kidney Infection, Hx Kidney Stones, Hx Renal Disease - CALCULI, LT SIDE, Other Problems/Disorders - nephrolithiasis Denies: Hx Dialysis Musculoskeletal History: Reports: Hx Arthritis - PSORIATIC ARTHRITIS Sensory History: Denies: Hx Contacts or Glasses, Hx Hearing Aid Opthamlomology History: Denies: Hx Contacts or Glasses Neurological History: Reports: Hx Seizures Denies: Hx Transient Ischemic Attacks (TIA) Psychiatric History: Reports: Hx Anxiety, Hx Substance Abuse - opiates - on suboxone 12mg BID through Dr. Michaels Denies: Hx Eating Disorder, Hx of Violent Episodes Against Others - Surgical History Surgery Procedure, Year, and Place: 10/05/2008 [place]AC ST[place] X2, [place]. 2008 [place], [place]. 04/2010 [place], [place]. 2011 [place] [facility] [place] LEFT URETERAL STENT INSERTION[place] [facility] [place] 1990 LAPAROSCOPIC TUBAL LIGATION, [facility]. 09/24/12, CYSTO, [place], [facility] [place]. 1994 [place] [facility] [place]x Anesthesia Reactions: No - Immunization History Date of Tetanus Vaccine: unk Date of Influenza Vaccine: none Infectious Disease History: No Infectious Disease History: Denies: Traveled Outside the [place] in Last 30 Days - Family History Known Family History: Positive: Cardiac Disease Negative: Other - negative malignant hyperthermia, negative adverse anesthesia reaction - Social History Alcohol Use: None Hx Substance Use: Yes - currently takes suboxone Substance Use Comment - Amount & Last Used: suboxone Hx Tobacco Use: Yes Smoking Status (MU): Light Every Day Tobacco Smoker Type: Cigarettes Amount Used/How Often: 6 a day Have You Smoked in the Last Year: Yes Review of Systems Neurological: Other - tremors Positive: Other - anxiety attack; NEGATIVE: SI, HI All Other Systems Reviewed And Are Negative: Yes Physical Exam - Summary Physical Exam Summary: VITAL SIGNS: Reviewed. GENERAL: Patient is a well-developed and nourished FEMALE who is lying comfortable in the stretcher. Patient is not in any acute respiratory distress. Patient is shakey and anxious HEAD AND FACE: No signs of trauma. No ecchymosis, hematomas or skull depressions. No sinus tenderness. EYES: PERRLA, EOMI x 2, No injected conjunctiva, no nystagmus. EARS: Hearing grossly intact. Ear canals and tympanic membranes are within normal limits. MOUTH: Oropharynx within normal limits. NECK: Supple, trachea is midline, no adenopathy, no JVD, no carotid bruit, no c- spine tenderness, neck with full ROM CHEST: Symmetric, no tenderness at palpation LUNGS: Clear to auscultation bilaterally. No wheezing or crackles. CVS: Tachycardic and regular rhythm, S1 and S2 present, no murmurs or gallops appreciated. ABDOMEN: Soft, non-tender. No signs of distention. No rebound no guarding, and no masses palpated. Bowel sounds are normal. EXTREMITIES: FROM in all major joints, no edema, no cyanosis or clubbing. NEURO: Alert and oriented x 3. No acute neurological deficits. Speech is normal and follows commands. SKIN: Dry and warm Triage Information Reviewed: Yes Vital Signs On Initial Exam: Initial Vitals Temp Pulse Resp BP Pulse Ox 98.3 F 108 20 194/124 98 01/15/19 23:20 01/15/19 23:20 01/15/19 23:20 01/15/19 23:20 01/15/19 23:20 Vital Signs Reviewed: Yes Diagnostics - Vital Signs Vital Signs Temp Pulse Resp BP Pulse Ox 01/15/19 23:20 98.3 F 108 20 194/124 98 - Laboratory Lab Statement: Any lab studies that have been ordered have been reviewed, and results considered in the medical decision making process. Complex Multi-Symp Course/Dx Course Of Treatment: 48 year old F presenting to [facility] with a chief complaint of anxiety attack since four hours ago. In ED course, patient was given Ativan. Patient feels better after taking Ativan. The patient will be discharged home with follow up from primary care provider. She was instructed to return to ED for new or worsening symptoms. She is agreeable to this plan. - Diagnoses Provider Diagnoses: Anxiety Discharge - Sign-Out/Discharge Documenting (check all that apply): Patient Departure - Dicharge Patient Received Moderate/Deep Sedation with Procedure: No - Discharge Plan Condition: Stable Disposition: HOME Patient Education Materials: Anxiety (ED) Referrals: [facility]ERR[place] [Outside] - 3 Days Additional Instructions: Follow up with a primary care provider in 3 days. PLEASE RETURN TO THE ED IMMEDIATELY FOR WORSENING OR CONCERNING SYMPTOMS. - Attestation Statements Document Initiated by Scribe: Yes Documenting Scribe: Ninfa Clifford Provider For Whom Scribe is Documenting (Include Credential): Fredi Romo MD Scribe Attestation: Ninfa Aldridge, scribed for Fredi Romo MD on 01/16/19 at 0307. Status of Scribe Document: Ready
[2019-01-16] MEDS ORDERED: Lorazepam PYXIS KEY ONE (02:44)
[2019-01-16] MEDS ORDERED: LORazepam INJ* 2 MG/ML 1 ML VIAL ONE (02:45)
[2019-01-16 03:16] VITALS: BP 161/119
== END 2019-01-16 03:15 | disposition home or self-care (01) ==
LOC: ED 23:18
DX: F41.9 Anxiety disorder, unspecified (principal); Z79.01 Long term (current) use of anticoagulants; I25.10 Atherosclerotic heart disease of native coronary artery without angina pectoris; I25.2 Old myocardial infarction; J44.9 Chronic obstructive pulmonary disease, unspecified; Z87.442 Personal history of urinary calculi; Z95.5 Presence of coronary angioplasty implant and graft; F17.210 Nicotine dependence, cigarettes, uncomplicated
CPT/HCPCS: 96372; 99282; J2060

== ENCOUNTER 2019-02-07 20:51 | Emergency (ER) | payer MEDICARE ==
[2019-02-07] MEDS ORDERED: Lorazepam PYXIS KEY PRN (20:54)
[2019-02-07] MEDS ORDERED: LORazepam INJ* 2 MG/ML 1 ML VIAL IV PUSH ONE (20:54)
--- NOTE | 2019-02-07 20:59 | ED ---
HPI Chest Pain - HPI Summary HPI Summary: This patient is a 48 year old female brought in by EMS presenting to [facility] with a chief complaint of left sided chest pain since 6 hours ago. The patient has a Hx of MS X3 and has 8 stents placed. The patient states she has a lot going on with her life and has been panicking. She reports palpitations. The patient is a smoker currently trying to quit with Chantix. The patient rates her pain 2/10 in severity. - History of Current Complaint Time Seen by Provider: 02/07/19 20:53 Hx Obtained From: Patient Onset/Duration: Started Hours Ago Timing: Constant Initial Severity: Mild Current Severity: Mild Pain Intensity: 2 Pain Scale Used: 0-10 Numeric Chest Pain Location: Left Anterior - Additional Pertinent History Primary Care Physician: [facility] - Allergy/Home Medications Allergies/Adverse Reactions: Allergies Allergy/AdvReac Type Severity Reaction Status Date / Time ketorolac [From Toradol] Allergy Rash Verified 01/16/19 00:01 meloxicam [From Mobic] Allergy Rash And Verified 01/16/19 00:01 Itching Penicillins Allergy Anaphylatic Verified 01/16/19 00:01 Shock PMH/Surg Hx/FS Hx/Imm Hx Endocrine/Hematology History: Reports: Hx Anticoagulant Therapy - plavix Denies: Hx Diabetes Cardiovascular History: Reports: Hx Angina, Hx Coronary Artery Disease - 8 stents per pt, Hx Hypertension - ON MEDICATION, Hx Myocardial Infarction - x3 Respiratory History: Reports: Hx Chronic Obstructive Pulmonary Disease (COPD) Denies: Other Respiratory Problems/Disorders GI History: Denies: Other GI Disorders History: Reports: Hx Kidney Infection, Hx Kidney Stones, Hx Renal Disease - CALCULI, LT SIDE, Other Problems/Disorders - nephrolithiasis Denies: Hx Dialysis Musculoskeletal History: Reports: Hx Arthritis - PSORIATIC ARTHRITIS Sensory History: Denies: Hx Contacts or Glasses, Hx Hearing Aid Opthamlomology History: Denies: Hx Contacts or Glasses Neurological History: Reports: Hx Seizures Denies: Hx Transient Ischemic Attacks (TIA) Psychiatric History: Reports: Hx Anxiety, Hx Substance Abuse - opiates - on suboxone 12mg BID through Dr. Michaels Denies: Hx Eating Disorder, Hx of Violent Episodes Against Others - Surgical History Surgery Procedure, Year, and Place: 10/05/[address] 2008 [place]ARDIAC STENT, [place]. 04/2010 [place], [place]. [place] [facility] [place] [facility] [place] LAPAROSCOPIC TUBAL LIGATION, [facility]. 09/24/12, [place]IO [place], [facility] [place] [facility] [place] Anesthesia Reactions: No - Immunization History Date of Tetanus Vaccine: unk Date of Influenza Vaccine: none - Family History Known Family History: Positive: Cardiac Disease Negative: Other - negative malignant hyperthermia, negative adverse anesthesia reaction - Social History Alcohol Use: None Hx Substance Use: Yes - currently takes suboxone Substance Use Type: Reports: None Substance Use Comment - Amount & Last Used: suboxone Hx Tobacco Use: Yes Smoking Status (MU): Light Every Day Tobacco Smoker Type: Cigarettes Amount Used/How Often: 6 a day Have You Smoked in the Last Year: Yes Review of Systems Positive: Palpitations, Chest Pain Positive: Anxious All Other Systems Reviewed And Are Negative: Yes Physical Exam - Summary Physical Exam Summary: Appearance: well appearing, mild distress Skin: warm, dry, reflects adequate perfusion Head/face: normal Eyes: EOMI, PERRL. Injected conjunctiva. ENT: mucous membranes moist Neck: supple, non-tender Respiratory: CTA, breath sounds present Cardiovascular: Pulses symmetrical. Tachycardia, regular rhythm. Abdomen: non-tender, soft Bowel Sounds: present Musculoskeletal: normal, strength/ROM intact Neuro: normal, sensory motor intact, A&Ox3 Psych: Anxious, tearing up. Triage Information Reviewed: Yes Vital Signs On Initial Exam: Temp Pulse Resp BP Pulse Ox 99.2 F 82 20 140/119 96 02/07/19 20:55 02/07/19 21:19 02/07/19 21:11 02/07/19 20:58 02/07/19 21:00 Vital Signs Reviewed: Yes Diagnostics - Vital Signs Temp Pulse Resp BP Pulse Ox 99.2 F 82 20 140/119 96 02/07/19 20:55 02/07/19 21:19 02/07/19 21:11 02/07/19 20:58 02/07/19 21:00 - Laboratory Result Diagrams: 02/07/19 21:25 02/07/19 21:25 Lab Statement: Any lab studies that have been ordered have been reviewed, and results considered in the medical decision making process. - Radiology CXR Radiology Interpretation Completed By: ED Physician Summary of Radiographic Findings: No acute process. Pending official radiologist report. - EKG 2100 Cardiac Rate: NL EKG Rhythm: Sinus Rhythm - 84 BPM Summary of EKG Findings: Normal axis, poor R-wave progression, normal ST. Re-Evaluation - Re-Evaluation First Eval Re-Evaluation Time: 21:58 Comment: Discussed results and plan for discharge with patient. Chest Pain Course/Dx - Course Course Of Treatment: Nurses' notes reviewed. Patient with a history of MS with stents and chest pain precipitated by significant anxiety relative to social situations. She was treated with aspirin and nitroglycerin prehospital without improvement. She was tearful and anxious but improved quickly with IV Ativan. Her EKG was unchanged and troponin was 0. She was discharged in good condition to follow up with her doctors. - Chest Pain Differential Diagnosis/HQI/PQRI: Acute MS, ACS, CHF, Chest Wall, GI Disease, Lower Respiratory Infection, Other: - anxiety - Diagnoses Provider Diagnoses: Atypical chest pain, Anxiety, Adjustment disorder Discharge - Sign-Out/Discharge Documenting (check all that apply): Patient Departure - Discharge Patient Received Moderate/Deep Sedation with Procedure: No - Discharge Plan Condition: Improved Disposition: HOME Patient Education Materials: Chest Pain (ED), Anxiety (ED) Referrals: [facility] [Outside] [facility] [place]Outside] Additional Instructions: Call your therapist Saturday morning to schedule prompt follow-up. Return with increased pain, difficulty breathing, uncontrolled anxiety, worse or other concerns. - Billing Disposition and Condition Condition: IMPROVED Disposition: Home - Attestation Statements Document Initiated by Marilee: Yes Documenting Scribe: Chema Boothe Provider For Whom Marilee is Documenting (Include Credential): Nito Carter MD Scribe Attestation: Chema Aldridge scribed for Nito Carter MD on 02/07/19 at 2308. Scribe Documentation Reviewed: Yes Provider Attestation: The documentation as recorded by the Chema allen accurately reflects the service I personally performed and the decisions made by me, Nito Carter MD Status of Scribe Document: Viewed
[2019-02-07] MEDS ORDERED: Lorazepam PYXIS KEY ONE (21:06)
[2019-02-07 21:48] LABS: INR 0.9 (0.82-1.09)
[2019-02-07 21:49] LABS: Hematocrit 45 % (35-47); Hemoglobin 14.6 g/dL (12.0-16.0); Mean Corpuscular HGB Conc 33 g/dL (31-36); Mean Corpuscular Hemoglobin 27 pg (27-31); Mean Corpuscular Volume 81 fL (80-97); Red Blood Count 5.48 10^6 /uL (3.70-4.87); Red Cell Distribution Width 17 % (10-15); White Blood Count 9.4 10^3/uL (3.5-10.8)
[2019-02-07 21:50] LABS: Albumin 4.2 g/dL (3.2-5.2); Albumin/Globulin Ratio 1.5 (1-3); BUN/Creatinine Ratio 18.6 (8-20); Calcium 9.3 mg/dL (8.6-10.3); EGFR African American 74.2 (>60); EGFR Non-African American 61.3 (>60); Globulin 2.8 g/dL (2-4); Potassium 4.2 mmol/L (3.5-5.0); Total Bilirubin 0.3 mg/dL (0.2-1.0)
[2019-02-07 22:01] LABS: Platelet Count 224 10^3/uL (150-450)
[2019-02-07 22:28] LABS: ABS Eosinophils 0.1 10^3/ul (0-0.6); ABS Lymphocytes 2.1 10^3/ul (1.0-4.8); ABS Monocytes 0.8 10^3/ul (0-0.8); ABS Neutrophils 6.3 10^3/ul (1.5-7.7); Lymphocyte % 22.5 %; Nucleated Red Blood Cells % 0.1
[2019-02-07 22:42] VITALS: BP 126/89
== END 2019-02-07 22:40 | disposition home or self-care (01) ==
LOC: ED 20:51
DX: R07.89 Other chest pain (principal); F43.20 Adjustment disorder, unspecified; Z79.01 Long term (current) use of anticoagulants; I25.10 Atherosclerotic heart disease of native coronary artery without angina pectoris; Z95.5 Presence of coronary angioplasty implant and graft; I25.2 Old myocardial infarction; I10 Essential (primary) hypertension; J44.9 Chronic obstructive pulmonary disease, unspecified; Z87.442 Personal history of urinary calculi; F17.210 Nicotine dependence, cigarettes, uncomplicated; R00.2 Palpitations; F41.9 Anxiety disorder, unspecified; Z88.0 Allergy status to penicillin
CPT/HCPCS: 36415; 71045; 80053; 83605; 84484; 85025; 85610; 93005; 96374; 99283; J2060

== ENCOUNTER 2019-02-15 13:56 | Inpatient (IN) | payer MEDICARE ==
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
[2019-02-15 14:38] LABS: ABS Eosinophils 0.1 10^3/ul (0-0.6); ABS Lymphocytes 1.3 10^3/ul (1.0-4.8); ABS Monocytes 0.8 10^3/ul (0-0.8); ABS Neutrophils 10.7 10^3/ul (1.5-7.7); Eosinophil % 0.6 %; Hematocrit 48 % (35-47); Hemoglobin 15.8 g/dL (12.0-16.0); Lymphocyte % 10.3 %; Mean Corpuscular HGB Conc 33 g/dL (31-36); Mean Corpuscular Hemoglobin 27 pg (27-31); Mean Corpuscular Volume 81 fL (80-97); Mean Platelet Volume 9.2 fL (7.4-10.4); Nucleated Red Blood Cells % 0.1; Platelet Count 249 10^3/uL (150-450); Red Blood Count 5.94 10^6 /uL (3.70-4.87); Red Cell Distribution Width 17 % (10-15); White Blood Count 12.9 10^3/uL (3.5-10.8)
[2019-02-15 14:53] LABS: ALT 18 U/L (7-52); AST 18 U/L (13-39); Albumin 4.5 g/dL (3.2-5.2); Albumin/Globulin Ratio 1.3 (1-3); Alkaline Phosphatase 83 U/L (34-104); Anion Gap 8 mmol/L (2-11); BUN/Creatinine Ratio 11.9 (8-20); Blood Urea Nitrogen 19 mg/dL (6-24); CO2 Carbon Dioxide 24 mmol/L (22-32); Calcium 9.7 mg/dL (8.6-10.3); Chloride 108 mmol/L (101-111); EGFR African American 41.6 (>60); EGFR Non-African American 34.4 (>60); Globulin 3.4 g/dL (2-4); Glucose 108 mg/dL (70-100); Potassium 3.9 mmol/L (3.5-5.0); Sodium 140 mmol/L (135-145); Total Protein 7.9 g/dL (6.4-8.9)
[2019-02-15 15:23] LABS: Acetaminophen < 15 mcg/mL; Alcohol < 10 mg/dL (<10); Salicylate < 2.50 mg/dL (<30)
[2019-02-15] MEDS ORDERED: LORazepam TAB(*) 1 MG PO ONE (15:29)
[2019-02-15 15:37] LABS: TSH (Thyroid Stimulating Horm) 0.12 mcIU/mL (0.34-5.60)
[2019-02-15] MEDS ORDERED: Buprenorp/Nalox 8-2 MG SL TAB SL SCH (17:00)
[2019-02-15] MEDS ORDERED: LORazepam INJ* 2 MG/ML 1 ML VIAL IM ONE (18:42)
[2019-02-15] MEDS ORDERED: Lorazepam PYXIS KEY PRN (18:42)
[2019-02-15] MEDS ORDERED: Lorazepam PYXIS KEY ONE (18:45)
[2019-02-15 18:46] LABS: Urine Appearance Cloudy; Urine Bacteria 1+ (Absent); Urine Bilirubin Negative (Negative); Urine Blood 2+ (Negative); Urine Color Straw; Urine Glucose Negative (Negative); Urine Ketones Negative (Negative); Urine Nitrite Negative (Negative); Urine Protein Negative (Negative); Urine Red Blood Cell Trace(0-2/hpf) (Absent); Urine Specific Gravity 1.003 (1.010-1.030); Urine Squamous Epithelial Cell Present (Absent); Urine Urobilinogen Negative (Negative); Urine White Blood Cell Trace(0-5/hpf) (Absent)
[2019-02-15] MEDS ORDERED: Metoprolol Tartrate TAB* 50 mg PO ONE (18:59)
[2019-02-15] MEDS ORDERED: Lisinopril TAB* 10 MG PO ONE (18:59)
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
[2019-02-15 19:16] LABS: Urine Benzodiazepine Screen None Detected (None Detect); Urine Opiates Screen None Detected (None Detect)
[2019-02-15] MEDS ORDERED: hydrOXYzine HCL TAB* 25 MG ONE (22:21)
[2019-02-15] MEDS ORDERED: Gabapentin CAP(*) 400 MG PO ONE (22:21)
[2019-02-15] MEDS ORDERED: Al Hydrox/Mg Hydrox/Simet LIQ* 30 ML UDC PO PRN (22:25)
[2019-02-15] MEDS ORDERED: Acetaminophen TAB* 325 MG PO PRN (22:25)
[2019-02-15] MEDS ORDERED: hydrOXYzine HCL TAB* 25 MG PO PRN (22:26)
[2019-02-15] MEDS ORDERED: Nitroglycerin TAB 0.4 MG* 0.4 MG TAB SL PRN (22:28)
[2019-02-15] MEDS ORDERED: Albuterol HFA INHALER* 8 gm MDI INH PRN (22:37)
[2019-02-15] MEDS: Gabapentin CAP(*) 400 MG PO SCH (22:48)
[2019-02-15] MEDS ORDERED: Ibuprofen TAB* 600 MG PO PRN (23:17)
[2019-02-16] MEDS ORDERED: LORazepam TAB(*) 1 MG PO ONE (01:22)
--- NOTE | 2019-02-16 01:30 | PN ---
Hospitalist Progress Note Date of Service: 02/16/19 CAT Call 48 y o f with significant smoking history with CAD, COPD, PSA currently intermittently on MAT therapy, depression and anxiety who presented with SI, called to bedside for seizure like activity, vauge seizure hx per pt Review of ED labs, largely unremarkable with mild leukocytosis, U tox Cocaine + Labs stable on arrival Exam: Quite anxious woman on mat on floor with sterotyped movement of blt UE and truncal rocking, able to be coached RRR no MRG CTABL BG normal Pt once able to be coached identifies being off Subxone as a complaint and generally just exhausted of life will give Ativan 1mg PO for what appears to be panic d/o, possibly c/b poly substance use d/o withdrawal (cocaine, possibly buprenorphine, she reports last dose 5 days ago) less likely non epileptic seizure, effectively ruled out epileptic seizure given pt awake alert oriented and continent of bladder and bowel throughout no post ictal. Consider restarting suboxone if it will add to clinical stability, I stop shows regular rx given in the past.
[2019-02-16] MEDS ORDERED: Buprenorp/Nalox 8-2 MG FILM SL FILM SCH ×2 (09:00→12:00)
[2019-02-16] MEDS: Aspirin 81 mg CHEW TAB* 81 MG TAB.CHEW PO SCH (10:19)
[2019-02-16] MEDS: Clopidogrel TAB* 75 MG PO SCH (10:19)
[2019-02-16] MEDS: Diltiazem CD CAP* 240 MG PO SCH (10:19)
[2019-02-16] MEDS: Lisinopril TAB* 10 MG PO SCH (10:19)
[2019-02-16] MEDS: Atorvastatin* 40 MG TAB PO SCH (10:19)
[2019-02-16] MEDS: Gabapentin CAP(*) 400 MG PO SCH ×4 (10:20→20:43)
[2019-02-16] MEDS: Metoprolol Tartrate TAB* 100 MG TAB PO SCH ×3 (10:20→20:43)
[2019-02-16] MEDS: Vitamin THERAPEUTIC TAB PO SCH (10:23)
[2019-02-16] MEDS ORDERED: hydrOXYzine HCL TAB* 25 MG PO PRN (11:11)
[2019-02-16] MEDS: Buprenorp/Nalox 4-1 MG FILM SL FILM SCH ×2 (12:29→20:42)
[2019-02-16] MEDS: Mirtazapine TAB* 15 MG PO SCH ×2 (12:30→20:44)
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
[2019-02-16] MEDS: LORazepam TAB(*) 1 MG PO PRN (20:42)
[2019-02-17 08:30] LABS: HDL Cholesterol 47.6 mg/dL
[2019-02-17] MEDS: Clopidogrel TAB* 75 MG PO SCH (09:03)
[2019-02-17] MEDS: Aspirin 81 mg CHEW TAB* 81 MG TAB.CHEW PO SCH (09:03)
[2019-02-17] MEDS: Gabapentin CAP(*) 400 MG PO SCH ×4 (09:03→20:49)
[2019-02-17] MEDS: Atorvastatin* 40 MG TAB PO SCH (09:03)
[2019-02-17] MEDS: Lisinopril TAB* 10 MG PO SCH (09:03)
[2019-02-17] MEDS: Diltiazem CD CAP* 240 MG PO SCH (09:03)
[2019-02-17] MEDS: Metoprolol Tartrate TAB* 100 MG TAB PO SCH ×2 (09:03→21:42)
[2019-02-17] MEDS: Vitamin THERAPEUTIC TAB PO SCH (09:04)
[2019-02-17] MEDS: Buprenorp/Nalox 4-1 MG FILM SL FILM SCH ×2 (10:53→20:57)
[2019-02-17] MEDS ORDERED: Nicotine* 2MG (FRUIT FLAVOR) GUM PO PRN (14:21)
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
[2019-02-17] MEDS: Mirtazapine TAB* 15 MG PO SCH (20:48)
[2019-02-17] MEDS: CMCS: Varenicline (NF) 1 MG TAB PO SCH (20:49)
[2019-02-17] MEDS: LORazepam TAB(*) 1 MG PO PRN (20:53)
[2019-02-18] MEDS: Lisinopril TAB* 10 MG PO SCH (10:16)
[2019-02-18] MEDS: Gabapentin CAP(*) 400 MG PO SCH ×3 (10:16→16:23)
[2019-02-18] MEDS: CMCS: Varenicline (NF) 1 MG TAB PO SCH (10:16)
[2019-02-18] MEDS: Vitamin THERAPEUTIC TAB PO SCH (10:16)
[2019-02-18] MEDS: Metoprolol Tartrate TAB* 100 MG TAB PO SCH (10:17)
[2019-02-18] MEDS: Diltiazem CD CAP* 240 MG PO SCH (10:17)
[2019-02-18] MEDS: Aspirin 81 mg CHEW TAB* 81 MG TAB.CHEW PO SCH (10:17)
[2019-02-18] MEDS: Atorvastatin* 40 MG TAB PO SCH (10:17)
[2019-02-18] MEDS: Clopidogrel TAB* 75 MG PO SCH (10:17)
[2019-02-18] MEDS: Buprenorp/Nalox 4-1 MG FILM SL FILM SCH (10:20)
[2019-02-18 11:07] VITALS: BP 119/70
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
== END 2019-02-18 17:40 | disposition home or self-care (01) | DRG 882 ==
LOC: ED 13:56 → BSU 21:36
PROVIDERS: ADMIT Psychiatry & Neurology Psychiatry; ATTEND Psychiatry & Neurology Psychiatry
DX: F43.12 Post-traumatic stress disorder, chronic (principal); R45.851 Suicidal ideations; F41.9 Anxiety disorder, unspecified; Z62.810 Personal history of physical and sexual abuse in childhood; I25.10 Atherosclerotic heart disease of native coronary artery without angina pectoris; J44.9 Chronic obstructive pulmonary disease, unspecified; I10 Essential (primary) hypertension; G40.909 Epilepsy, unspecified, not intractable, without status epilepticus; E66.3 Overweight; L40.50 Arthropathic psoriasis, unspecified; G89.29 Other chronic pain; F17.210 Nicotine dependence, cigarettes, uncomplicated; F14.90 Cocaine use, unspecified, uncomplicated; F32.9 Major depressive disorder, single episode, unspecified; Z79.82 Long term (current) use of aspirin; Z79.02 Long term (current) use of antithrombotics/antiplatelets; Z59.0 Homelessness; Z82.49 Family history of ischemic heart disease and other diseases of the circulatory system; Z91.410 Personal history of adult physical and sexual abuse; Z95.5 Presence of coronary angioplasty implant and graft; I25.2 Old myocardial infarction; Z87.442 Personal history of urinary calculi; Z88.6 Allergy status to analgesic agent; Z88.0 Allergy status to penicillin; Z98.51 Tubal ligation status; Z81.1 Family history of alcohol abuse and dependence; Z56.0 Unemployment, unspecified
CPT/HCPCS: 36415; 80053; 80061; 80307; 80320; 80329; 81003; 81015; 83036; 84443; 84484; 85025; 87086; 93005; 99222; 99232; 99238; 99284; A9270-GY; G0480; J2060

== ENCOUNTER 2019-03-18 20:15 | Emergency (ER) | payer MEDICARE ==
[2019-03-18] MEDS ORDERED: LORazepam TAB(*) 1 MG PO ONE (22:56)
[2019-03-18] MEDS ORDERED: Buprenorp/Nalox 4-1 MG FILM SL FILM ONE (22:57)
[2019-03-18] MEDS ORDERED: Buprenorp/Nalox 8-2 MG FILM SL FILM ONE (22:57)
[2019-03-18] MEDS ORDERED: Gabapentin CAP(*) 400 MG PO ONE (22:58)
[2019-03-18] MEDS ORDERED: Gabapentin CAP(*) 300 MG PO ONE (22:58)
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
[2019-03-19 00:37] VITALS: BP 142/91
== END 2019-03-19 00:36 | disposition home or self-care (01) ==
LOC: ED 20:15
DX: F41.9 Anxiety disorder, unspecified (principal); I10 Essential (primary) hypertension; J44.9 Chronic obstructive pulmonary disease, unspecified; I25.10 Atherosclerotic heart disease of native coronary artery without angina pectoris; F17.210 Nicotine dependence, cigarettes, uncomplicated; Z79.899 Other long term (current) drug therapy; Z79.01 Long term (current) use of anticoagulants; Z88.0 Allergy status to penicillin; Z88.8 Allergy status to other drugs, medicaments and biological substances
CPT/HCPCS: 99282; A9270-GY

== ENCOUNTER 2019-04-10 20:50 | Emergency (ER) | payer MEDICARE ==
[2019-04-10 23:22] VITALS: BP 163/121
== END 2019-04-10 23:30 | disposition left against medical advice (07) ==
LOC: ED 20:50
DX: Z53.21 Procedure and treatment not carried out due to patient leaving prior to being seen by health care provider (principal)
CPT/HCPCS: 93005; 99282

== ENCOUNTER 2019-04-11 20:32 | Emergency (ER) | payer MEDICARE ==
--- NOTE | 2019-04-11 20:59 | ED ---
Psychiatric Complaint - HPI Summary HPI Summary: This patient is a 48 year old female presenting to [facility] with a chief complaint of anxiety. She states she is out of medicine, wants to have a mental health evaluation. She states she experiences palpitations due to the anxiety. She states she normally takes Lorazepam for her anxiety. She states she has had difficulty in her family life due to a history of family medical problems and is anxious about her own future because of it. She denies ETOH use. She states she takes suboxone but ran out yesterday. - History Of Current Complaint Chief Complaint: EDMentalHealth Time Seen by Provider: 04/11/19 20:52 Hx Obtained From: Patient Character: Anxious Related History: Positive For: Prior Psychiatric Issues - Allergies/Home Medications Allergies/Adverse Reactions: Allergies Allergy/AdvReac Type Severity Reaction Status Date / Time ketorolac [From Toradol] Allergy Rash Verified 04/11/19 20:35 meloxicam [From Mobic] Allergy Rash And Verified 04/11/19 20:35 Itching Penicillins Allergy Anaphylatic Verified 04/11/19 20:35 Shock PMH/Surg Hx/FS Hx/Imm Hx Endocrine/Hematology History: Reports: Hx Anticoagulant Therapy - plavix Denies: Hx Diabetes Cardiovascular History: Reports: Hx Angina, Hx Coronary Artery Disease - 8 stents per pt, Hx Hypertension - ON MEDICATION, Hx Myocardial Infarction - x3 Respiratory History: Reports: Hx Chronic Obstructive Pulmonary Disease (COPD) Denies: Other Respiratory Problems/Disorders GI History: Denies: Other GI Disorders History: Reports: Hx Kidney Infection, Hx Kidney Stones, Hx Renal Disease - CALCULI, LT SIDE, Other Problems/Disorders - nephrolithiasis Denies: Hx Dialysis Musculoskeletal History: Reports: Hx Arthritis - PSORIATIC ARTHRITIS Sensory History: Denies: Hx Contacts or Glasses, Hx Hearing Aid Opthamlomology History: Denies: Hx Contacts or Glasses Neurological History: Reports: Hx Seizures Denies: Hx Transient Ischemic Attacks (TIA) Psychiatric History: Reports: Hx Anxiety, Hx Substance Abuse - opiates - on suboxone 12mg BID through Dr. Michaels Denies: Hx Eating Disorder, Hx of Violent Episodes Against Others - Surgical History Surgery Procedure, Year, and Place: 10/05/2008 [place] , [place]. [place]. [place]. 2011 LEFT URETERAL STENT INSERTION, [facility] [place]. 2010 LEFT URETERAL STENT INSERTION, [facility] [place]. 1990 LAPAROSCOPIC TUBAL LIGATION, [facility]. 09/24/12, GIORGIO SEQUEIRA, [facility] [place]. 1994 TONSILLECTOMY, [facility] [place] Hx Anesthesia Reactions: No - Immunization History Date of Tetanus Vaccine: unk Date of Influenza Vaccine: none Infectious Disease History: No Infectious Disease History: Denies: Traveled Outside the [place] in Last 30 Days - Family History Known Family History: Positive: Cardiac Disease Negative: Other - negative malignant hyperthermia, negative adverse anesthesia reaction - Social History Alcohol Use: None Hx Substance Use: Yes - currently takes suboxone Substance Use Type: Reports: None Substance Use Comment - Amount & Last Used: suboxone Hx Tobacco Use: Yes Smoking Status (MU): Light Every Day Tobacco Smoker Type: Cigarettes Amount Used/How Often: 6 a day Have You Smoked in the Last Year: Yes Review of Systems Negative: Fever Positive: Palpitations Positive: Anxious All Other Systems Reviewed And Are Negative: Yes Physical Exam - Summary Physical Exam Summary: VITAL SIGNS: Reviewed. GENERAL: Patient is a well-developed and nourished FEMALE who is lying comfortable in the stretcher. Patient is not in any acute respiratory distress. HEAD AND FACE: No signs of trauma. No ecchymosis, hematomas or skull depressions. No sinus tenderness. EYES: PERRLA, EOMI x 2, No injected conjunctiva, no nystagmus. EARS: Hearing grossly intact. Ear canals and tympanic membranes are within normal limits. MOUTH: Oropharynx within normal limits. NECK: Supple, trachea is midline, no adenopathy, no JVD, no carotid bruit, no c- spine tenderness, neck with full ROM CHEST: Symmetric, no tenderness at palpation LUNGS: Clear to auscultation bilaterally. No wheezing or crackles. CVS: Regular rate and rhythm, S1 and S2 present, no murmurs or gallops appreciated. ABDOMEN: Soft, non-tender. No signs of distention. No rebound no guarding, and no masses palpated. Bowel sounds are normal. EXTREMITIES: FROM in all major joints, no edema, no cyanosis or clubbing. NEURO: Alert and oriented x 3. No acute neurological deficits. Speech is normal and follows commands. SKIN: Dry and warm Psychiatric: Anxious, denies SI and HI. Triage Information Reviewed: Yes Vital Signs On Initial Exam: Initial Vitals Temp Pulse Resp BP Pulse Ox 99.1 F 114 19 236/147 97 04/11/19 20:33 04/11/19 20:33 04/11/19 20:33 04/11/19 20:33 04/11/19 20:33 Vital Signs Reviewed: Yes Diagnostics - Vital Signs Vital Signs Temp Pulse Resp BP Pulse Ox 04/11/19 20:33 99.1 F 114 19 236/147 97 - Laboratory Result Diagrams: 04/11/19 21:28 04/11/19 21:28 Lab Statement: Any lab studies that have been ordered have been reviewed, and results considered in the medical decision making process. - EKG 2106 Cardiac Rate: NL - 93 BPM EKG Rhythm: Sinus Rhythm Summary of EKG Findings: Normal axis, normal interval, no ischemic changes. Course/Dx - Course Course Of Treatment: This patient is a 48 year old female presenting to [facility] with a chief complaint of anxiety. The patient states she had Xanax and no longer feels anxious. The psychiatrist did not answer his phone for the MHE diagnosis. A plan for discharge was discussed with the patient and she was agreeable with this plan. - Differential Dx/Clinical Impression Provider Diagnosis: Anxiety Discharge - Sign-Out/Discharge Documenting (check all that apply): Patient Departure - Discharge Patient Received Moderate/Deep Sedation with Procedure: No - Discharge Plan Condition: Stable Disposition: HOME Patient Education Materials: Anxiety (ED) Referrals: No Primary Care Phys,NOPCP [Primary Care Provider] - Additional Instructions: Return to ED with new or worsening symptoms. - Attestation Statements Document Initiated by Scribe: Yes Documenting Scribe: Chema Boothe Provider For Whom Scribe is Documenting (Include Credential): Fredi Romo MD Scribe Attestation: Chema Aldridge, scribed for Fredi Romo MD on 04/12/19 at 0531. Status of Scribe Document: Ready
[2019-04-11] MEDS ORDERED: ALPRAZolam TAB* 0.5 MG PO ONE (21:06)
[2019-04-11 21:33] LABS: ABS Eosinophils 0.1 10^3/ul (0-0.6); ABS Lymphocytes 1.5 10^3/ul (1.0-4.8); ABS Monocytes 0.6 10^3/ul (0-0.8); Eosinophil % 0.6 %; Hematocrit 47 % (35-47); Hemoglobin 15.7 g/dL (12.0-16.0); Lymphocyte % 16.5 %; Mean Corpuscular HGB Conc 33 g/dL (31-36); Mean Corpuscular Hemoglobin 27 pg (27-31); Mean Corpuscular Volume 82 fL (80-97); Mean Platelet Volume 8.8 fL (7.4-10.4); Platelet Count 203 10^3/uL (150-450); Red Blood Count 5.79 10^6 /uL (3.70-4.87); Red Cell Distribution Width 17 % (10-15); White Blood Count 9.2 10^3/uL (3.5-10.8)
[2019-04-11 21:49] LABS: ALT 18 U/L (7-52); AST 20 U/L (13-39); Albumin 4.6 g/dL (3.2-5.2); Albumin/Globulin Ratio 1.4 (1-3); Alkaline Phosphatase 89 U/L (34-104); Anion Gap 10 mmol/L (2-11); Blood Urea Nitrogen 13 mg/dL (6-24); CO2 Carbon Dioxide 25 mmol/L (22-32); Calcium 9.8 mg/dL (8.6-10.3); Chloride 103 mmol/L (101-111); EGFR African American 71.6 (>60); EGFR Non-African American 59.2 (>60); Globulin 3.3 g/dL (2-4); Glucose 104 mg/dL (70-100); Potassium 4.2 mmol/L (3.5-5.0); Sodium 138 mmol/L (135-145); Total Protein 7.9 g/dL (6.4-8.9)
[2019-04-11 22:11] LABS: Acetaminophen < 15 mcg/mL; Alcohol < 10 mg/dL (<10); Salicylate < 2.50 mg/dL (<30)
[2019-04-12] MEDS ORDERED: LORazepam TAB(*) 1 MG PO ONE (01:43)
[2019-04-12 04:22] VITALS: BP 127/78
== END 2019-04-12 05:16 | disposition home or self-care (01) ==
LOC: ED 20:32
DX: F41.9 Anxiety disorder, unspecified (principal); I25.2 Old myocardial infarction; I10 Essential (primary) hypertension; Z79.01 Long term (current) use of anticoagulants; Z95.5 Presence of coronary angioplasty implant and graft; J44.9 Chronic obstructive pulmonary disease, unspecified; Z88.6 Allergy status to analgesic agent; Z88.5 Allergy status to narcotic agent; Z88.0 Allergy status to penicillin; Z82.49 Family history of ischemic heart disease and other diseases of the circulatory system; F17.210 Nicotine dependence, cigarettes, uncomplicated
CPT/HCPCS: 36415; 80053; 80320; 80329; 84443; 85025; 93005; 99284; A9270-GY; G0480

== ENCOUNTER 2019-05-30 17:50 | Emergency (ER) | payer MEDICARE ==
[2019-05-30 18:25] LABS: ABS Basophils 0.1 10^3/ul (0-0.2); ABS Lymphocytes 1.5 10^3/ul (1.0-4.8); ABS Monocytes 0.8 10^3/ul (0-0.8); ABS Neutrophils 8.1 10^3/ul (1.5-7.7); Eosinophil % 0.3 %; Hematocrit 44 % (35-47); Hemoglobin 14.8 g/dL (12.0-16.0); Lymphocyte % 14.1 %; Mean Corpuscular HGB Conc 34 g/dL (31-36); Mean Corpuscular Hemoglobin 28 pg (27-31); Mean Corpuscular Volume 82 fL (80-97); Mean Platelet Volume 9.4 fL (7.4-10.4); Nucleated Red Blood Cells % 0.1; Platelet Count 207 10^3/uL (150-450); Red Blood Count 5.35 10^6 /uL (3.70-4.87); Red Cell Distribution Width 15 % (10-15); White Blood Count 10.4 10^3/uL (3.5-10.8)
[2019-05-30 18:33] LABS: INR 1.02 (0.82-1.09)
[2019-05-30 18:44] LABS: Albumin 4.2 g/dL (3.2-5.2); Albumin/Globulin Ratio 1.4 (1-3); BUN/Creatinine Ratio 9.8 (8-20); Calcium 9.1 mg/dL (8.6-10.3); EGFR African American 69.7 (>60); EGFR Non-African American 57.6 (>60); Globulin 2.9 g/dL (2-4); Potassium 3.8 mmol/L (3.5-5.0); Total Bilirubin 0.5 mg/dL (0.2-1.0); Total Protein 7.1 g/dL (6.4-8.9)
--- NOTE | 2019-05-30 18:45 | ED ---
HPI Chest Pain - HPI Summary HPI Summary: Patient is a 49 y/o F w/ Hx of 4 MIs, 9 cardiac stents, who presents to [facility] via private vehicle with complaints of left sided chest pain that onset today at 1700 as she was preparing dinner. Chest pain is characterized as an " elephant sitting on my chest". She endorses nausea and cough. Patient reports having SOB earlier today, but states that this has since resolved. She denies dizziness and fever. Pain was initially 8/10. She states that she took 3 nitro before coming to ED. Patient reports no pain at present. She took 81 mg ASA this morning. Last stress test was over a year ago. 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 No Hx of diabetes, COPD reported, but she endorses HTN and HLD. PSHx of tonsillectomy, tubal ligation, knee and shoulder surgery. She is a current smoker and smokes 4 cigarettes daily. She denies alcohol and substance usage. FMHx of MN in sister, who two months ago as a result, per patient. She denies FMHx of diabetes but endorses FMHx of HTN. She notes Hx of panic attacks and had taken her anxiety meds earlier today. Home medications and allergies are reviewed. - History of Current Complaint Chief Complaint: EDChestPainROMI Time Seen by Provider: 05/30/19 18:20 Hx Obtained From: Patient Onset/Duration: Started Hours Ago, Resolved Timing: Lasting Hours Initial Severity: Severe Current Severity: None Pain Intensity: 8 Pain Scale Used: 0-10 Numeric Character: Heaviness Alleviating Factor(s): NTG 123 Associated Signs and Symptoms: Positive: Chest Pain, Shortness of Breath - since resolved, Nausea, Cough. Negative: Dizziness, Fever - Additional Pertinent History Primary Care Physician: [id number] - Allergy/Home Medications Allergies/Adverse Reactions: Allergies Allergy/AdvReac Type Severity Reaction Status Date / Time ketorolac [From Toradol] Allergy Rash Verified 05/30/19 17:57 meloxicam [From Mobic] Allergy Rash And Verified 05/30/19 17:57 Itching Penicillins Allergy Anaphylatic Verified 05/30/19 17:57 Shock PMH/Surg Hx/FS Hx/Imm Hx Endocrine/Hematology History: Reports: Hx Anticoagulant Therapy - plavix Denies: Hx Diabetes Cardiovascular History: Reports: Hx Angina, Hx Coronary Artery Disease - 8 stents per pt, Hx Hypertension - ON MEDICATION, Hx Myocardial Infarction - x3 Respiratory History: Reports: Hx Chronic Obstructive Pulmonary Disease (COPD) Denies: Other Respiratory Problems/Disorders GI History: Denies: Other GI Disorders History: Reports: Hx Kidney Infection, Hx Kidney Stones, Hx Renal Disease - CALCULI, LT SIDE, Other Problems/Disorders - nephrolithiasis Denies: Hx Dialysis Musculoskeletal History: Reports: Hx Arthritis - PSORIATIC ARTHRITIS Sensory History: Denies: Hx Contacts or Glasses, Hx Hearing Aid Opthamlomology History: Denies: Hx Contacts or Glasses Neurological History: Reports: Hx Seizures Denies: Hx Transient Ischemic Attacks (TIA) Psychiatric History: Reports: Hx Anxiety, Hx Substance Abuse - opiates - on suboxone 12mg BID through Dr. Michaels Denies: Hx Eating Disorder, Hx of Violent Episodes Against Others - Surgical History Surgery Procedure, Year, and Place: 10/05/2008 [facility]AC STENT , [place]. 2008 [facility] [place]RE[facility] STENT INSERTION, [facility] [place]. 2010 LEFT URETERAL STENT INSERTION, [facility] [place]. 1990 LAPAROSCOPIC TUBAL LIGATION, [facility]. 09/24/12, CYSTO, STMARTHA, [facility] [place]. 1994 TONSILLECTOMY, [facility] Anesthesia Reactions: No - Immunization History Date of Tetanus Vaccine: unk Date of Influenza Vaccine: none Infectious Disease History: No Infectious Disease History: Denies: Traveled Outside the US in Last 30 Days - Family History Known Family History: Positive: Cardiac Disease, Hypertension Negative: Diabetes, Other - negative malignant hyperthermia, negative adverse anesthesia reaction - Social History Alcohol Use: None Hx Substance Use: Yes - currently takes suboxone Substance Use Type: Reports: None Substance Use Comment - Amount & Last Used: suboxone Hx Tobacco Use: Yes Smoking Status (MU): Light Every Day Tobacco Smoker Type: Cigarettes Amount Used/How Often: 6 a day Have You Smoked in the Last Year: Yes Review of Systems Negative: Fever Positive: Chest Pain Positive: Shortness Of Breath - since resolved , Cough Positive: Nausea Neurological: Other - negative - dizziness All Other Systems Reviewed And Are Negative: Yes Physical Exam - Summary Physical Exam Summary: VITAL SIGNS: Reviewed. GENERAL: Patient is a well-developed and nourished female who is lying comfortable in the stretcher. Patient is not in any acute respiratory distress. She is anxious appearing. HEAD AND FACE: No signs of trauma. No ecchymosis, hematomas or skull depressions. No sinus tenderness. EYES: PERRLA, EOMI x 2, No injected conjunctiva, no nystagmus. EARS: Hearing grossly intact. Ear canals and tympanic membranes are within normal limits. MOUTH: Oropharynx within normal limits. NECK: Supple, trachea is midline, no adenopathy, no JVD, no carotid bruit, no c- spine tenderness, neck with full ROM. CHEST: Symmetric, no tenderness at palpation. LUNGS: Clear to auscultation bilaterally. No wheezing or crackles. CVS: Regular rate and rhythm, S1 and S2 present, no murmurs or gallops appreciated. ABDOMEN: Soft, non-tender. No signs of distention. No rebound, no guarding, and no masses palpated. Bowel sounds are normal. EXTREMITIES: FROM in all major joints, no edema, no cyanosis or clubbing. NEURO: Alert and oriented x 3. No acute neurological deficits. Speech is normal and follows commands. SKIN: Dry and warm. Triage Information Reviewed: Yes Vital Signs On Initial Exam: Initial Vitals Temp Pulse Resp BP Pulse Ox 97.9 F 120 22 176/99 97 05/30/19 17:54 05/30/19 17:54 05/30/19 17:54 05/30/19 17:54 05/30/19 17:54 Vital Signs Reviewed: Yes Diagnostics - Vital Signs Vital Signs Temp Pulse Resp BP Pulse Ox 05/30/19 18:26 98.4 F 05/30/19 18:23 107 24 158/104 94 05/30/19 18:21 20 05/30/19 17:54 97.9 F 120 22 176/99 97 - Laboratory Lab Results: Lab Results 05/30/19 05/30/19 Range/Units 18:16 18:16 WBC 10.4 (3.5-10.8) 10^3/uL RBC 5.35 H (3.70-4.87) 10^6 /uL Hgb 14.8 (12.0-16.0) g/dL Hct 44 (35-47) % MCV 82 (80-97) fL MCH 28 (27-31) pg MCHC 34 (31-36) g/dL RDW 15 (10-15) % Plt Count 207 (150-450) 10^3/uL MPV 9.4 (7.4-10.4) fL Neut % (Auto) 77.4 % Lymph % (Auto) 14.1 % Ripley % (Auto) 7.7 % Eos % (Auto) 0.3 % Baso % (Auto) 0.5 % Absolute Neuts (auto) 8.1 H (1.5-7.7) 10^3/ul Absolute Lymphs (auto) 1.5 (1.0-4.8) 10^3/ul Absolute Monos (auto) 0.8 (0-0.8) 10^3/ul Absolute Eos (auto) 0.0 (0-0.6) 10^3/ul Absolute Basos (auto) 0.1 (0-0.2) 10^3/ul Absolute Nucleated RBC 0.0 10^3/ul Nucleated RBC % 0.1 INR (Anticoag Therapy) 1.02 (0.82-1.09) Result Diagrams: 05/30/19 18:16 05/30/19 18:16 Lab Statement: Any lab studies that have been ordered have been reviewed, and results considered in the medical decision making process. - Radiology CXR Radiology Interpretation Completed By: ED Physician Summary of Radiographic Findings: Cardiomegaly, no acute process, pending official report. - EKG 1255 Cardiac Rate: Tachycardia - rate of 116 BPM EKG Rhythm: Sinus Tachycardia EKG Comparison: No Significant Change - 04/11/19 comparison Summary of EKG Findings: EKG showed sinus tachycardia with rate of 116 BPM, Q waves in Leads 2 - 3, aVF, V1 - V3. EKG is similar to prior done 04/11/19. This EKG was reviewed and interpreted by ED physician. Re-Evaluation - Re-Evaluation First Eval Re-Evaluation Time: 20:45 Comment: At this point the patient reports that she wants to sign AGAINST MEDICAL ADVICE. I extensively discussed with the patient the benefits and risks of leaving AMA. I also discussed the alternatives to leaving AMA, however , the patient still insist to leave the hospital AMA. The patient is clinically sober, free from distracting injury, appears to have intact insight and judgment and reason and in my opinion has the capacity to make decisions. Patient has full capacity and is cognitively intact. The patient presents with chest pain, I have explained that I am concerned with patients symptoms and her comorbidities and may represent angina, MN and . The patient verbalizes understanding of my concerns. I have also explained the results of the labs and even though they are abnormal, the patient wants to leave AMA. The primary nurse and the charge nurse also strongly recommended that the patient should not leave AMA. Patient understands the risks of leaving AMA, which includes but is not restricted to . Patient signed the AMA form. Patient was also advised to return to ED if she changes her mind or if the symptoms worsen or other symptoms appear. Patient understands and agrees. Again , I discussed all the findings and test results with the patient. Patient was instructed to return to the emergency room immediately if any of the symptoms return or worsen. Plan of care was discussed with the patient and understands and agrees. All questions were answered at patient satisfaction. There were no further complaints or concerns. Patient signed AMA and she was discharged AMA. Chest Pain Course/Dx - Course Assessment/Plan: Patient is a 49-year-old female who presents to the emergency department with chief complaint of having chest pain. Patient has significant comorbidities for acute coronary syndrome. She reports that after she took 3 nitroglycerin tablets, her symptoms subsided. At this point the patient has no chest pain. Bloodwork without a significant abnormality except for creatinine 1.02, glucose 136, magnesium 1.6 for which the patient was given magnesium by mouth. BNP is 149 the first troponin is 0.00. Chest x-ray shows no acute pathology. EKG is a sinus tachycardia 116 BPM. Patient has Q waves in leads 2- 3 aVF, V1 to V3 which is unchanged from previous EKG. The patient was very anxious therefore the patient was given Ativan. At this point the patient reports that she wants to sign AGAINST MEDICAL ADVICE. I extensively discussed with the patient the benefits and risks of leaving AMA. I also discussed the alternatives to leaving AMA, however, the patient still insist to leave the hospital AMA. The patient is clinically sober, free from distracting injury, appears to have intact insight and judgment and reason and in my opinion has the capacity to make decisions. Patient has full capacity and is cognitively intact. The patient presents with chest pain, I have explained that I am concerned with patients symptoms and her comorbidities and may represent angina , MN and . The patient verbalizes understanding of my concerns. I have also explained the results of the labs and even though they are abnormal, the patient wants to leave AMA. The primary nurse and the charge nurse also strongly recommended that the patient should not leave AMA. Patient understands the risks of leaving AMA, which includes but is not restricted to . Patient signed the AMA form. Patient was also advised to return to ED if she changes her mind or if the symptoms worsen or other symptoms appear. Patient understands and agrees. Again, I discussed all the findings and test results with the patient. Patient was instructed to return to the emergency room immediately if any of the symptoms return or worsen. Plan of care was discussed with the patient and understands and agrees. All questions were answered at patient satisfaction. There were no further complaints or concerns. Patient signed AMA and she was discharged AMA. - Diagnoses Provider Diagnoses: Chest pain Discharge ED - Sign-Out/Discharge Documenting (check all that apply): Patient Departure - AMA Patient Received Moderate/Deep Sedation with Procedure: No - Discharge Plan Condition: Fair Disposition: AGAINST MEDICAL ADVICE Patient Education Materials: Chest Pain (ED) Referrals: [facility] [Outside] - 3 Days Additional Instructions: YOU ARE LEAVING AGAINST MEDICAL ADVICE. RETURN TO ED FOR ANY NEW OR WORSENING SYMPTOMS. PLEASE FOLLOW UP WITH YOUR PRIMARY CARE PHYSICIAN WITHIN THREE DAYS. - Billing Disposition and Condition Condition: FAIR Disposition: Against Medical Advice - Attestation Statements Document Initiated by Scribe: Yes Documenting Scribe: JUAREZ HELLER Provider For Whom Marilee is Documenting (Include Credential): MICHELLE TURK MD Scribe Attestation: JUAREZ Aldridge, scribed for MICHELLE TURK MD on 06/01/19 at 1116. Scribe Documentation Reviewed: Yes Provider Attestation: The documentation as recorded by the JUAREZ allen accurately reflects the service I personally performed and the decisions made by me, MICHELLE TURK MD Status of Scribe Document: Viewed
[2019-05-30 18:59] LABS: Magnesium 1.6 mg/dL (1.9-2.7)
[2019-05-30 19:07] LABS: CKMB ng/mL 2.6 ng/mL (0.6-6.3)
[2019-05-30 19:17] LABS: TSH (Thyroid Stimulating Horm) 0.66 mcIU/mL (0.34-5.60)
[2019-05-30] MEDS ORDERED: LORazepam TAB(*) 1 MG PO ONE (19:37)
[2019-05-30] MEDS ORDERED: Magnesium Oxide TAB* 400 MG PO ONE (20:45)
[2019-05-30 21:05] VITALS: BP 160/109
== END 2019-05-30 21:03 | disposition left against medical advice (07) ==
LOC: ED 17:50
DX: R07.9 Chest pain, unspecified (principal); R06.02 Shortness of breath; F17.210 Nicotine dependence, cigarettes, uncomplicated; I10 Essential (primary) hypertension; E78.00 Pure hypercholesterolemia, unspecified; I25.10 Atherosclerotic heart disease of native coronary artery without angina pectoris; I25.2 Old myocardial infarction; J44.9 Chronic obstructive pulmonary disease, unspecified; F41.9 Anxiety disorder, unspecified; Z95.5 Presence of coronary angioplasty implant and graft; Z79.01 Long term (current) use of anticoagulants; Z79.82 Long term (current) use of aspirin; Z79.899 Other long term (current) drug therapy; Z88.5 Allergy status to narcotic agent; Z88.0 Allergy status to penicillin; Z88.8 Allergy status to other drugs, medicaments and biological substances
CPT/HCPCS: 36415; 71045; 80053; 82550; 82553; 83735; 83880; 84443; 84484; 85025; 85379; 85610; 93005; 99284; A9270-GY

== ENCOUNTER 2019-06-15 18:16 | Emergency (ER) | payer MEDICARE ==
[2019-06-15] MEDS ORDERED: Buprenorp/Nalox 8-2 MG FILM SL FILM ONE (18:57)
[2019-06-15] MEDS ORDERED: Buprenorp/Nalox 4-1 MG FILM SL FILM ONE (18:57)
--- NOTE | 2019-06-15 19:02 | ED ---
Complex/Multi-Sys Presentation - HPI Summary HPI Summary: Pt is a 49 y/o F presenting to the ED for a medication refill. Pt could not get her medication refilled by her provider who she has seen for 8 years. Pt takes Suboxone 12 mg daily. On triage, pt has taken Suboxone for 10 years. Pt denies myalgia, headache, or fever. - History Of Current Complaint Chief Complaint: EDMedicationRefill Time Seen by Provider: 06/15/19 18:46 Hx Obtained From: Patient Onset/Duration: Other - Medication refill Severity Currently: None Associated Signs And Symptoms: Positive: Other - Negative myaglia. Negative: Headache, Fever - Allergies/Home Medications Allergies/Adverse Reactions: Allergies Allergy/AdvReac Type Severity Reaction Status Date / Time ketorolac [From Toradol] Allergy Rash Verified 06/15/19 19:18 meloxicam [From Mobic] Allergy Rash And Verified 06/15/19 19:18 Itching Penicillins Allergy Anaphylatic Verified 06/15/19 19:18 Shock PMH/Surg Hx/FS Hx/Imm Hx Previously Healthy: Yes Endocrine/Hematology History: Reports: Hx Anticoagulant Therapy - plavix Denies: Hx Diabetes Cardiovascular History: Reports: Hx Angina, Hx Coronary Artery Disease - 8 stents per pt, Hx Hypertension - ON MEDICATION, Hx Myocardial Infarction - x3 Respiratory History: Reports: Hx Chronic Obstructive Pulmonary Disease (COPD) Denies: Other Respiratory Problems/Disorders GI History: Denies: Other GI Disorders History: Reports: Hx Kidney Infection, Hx Kidney Stones, Hx Renal Disease - CALCULI, LT SIDE, Other Problems/Disorders - nephrolithiasis Denies: Hx Dialysis Musculoskeletal History: Reports: Hx Arthritis - PSORIATIC ARTHRITIS Sensory History: Denies: Hx Contacts or Glasses, Hx Hearing Aid Opthamlomology History: Denies: Hx Contacts or Glasses Neurological History: Reports: Hx Seizures Denies: Hx Transient Ischemic Attacks (TIA) Psychiatric History: Reports: Hx Anxiety, Hx Substance Abuse - opiates - on suboxone 12mg BID through Dr. Michaels Denies: Hx Eating Disorder, Hx of Violent Episodes Against Others - Surgical History Surgical History: Yes Surgery Procedure, Year, and Place: 10/05/2008 [facility]IAC STENT , [facility]. 2008 [facility]AC STENT, [facility]. 04/2010 [facility]IAC STENT, [facility]. 2011 LEFT URETERAL STENT INSERTION, [facility] [place]. 2011 LEFT URETERAL STENT INSERTION, [facility] [place]. 1990 LAPAROSCOPIC TUBAL LIGATION, [facility]. 09/24/12, CYSTO, GIORGIO, [facility] [place]. 1994 TONSILLECTOMY, [facility] Hx Anesthesia Reactions: No - Immunization History Date of Tetanus Vaccine: unk Date of Influenza Vaccine: none Infectious Disease History: No Infectious Disease History: Denies: Traveled Outside the [place] in Last 30 Days - Family History Known Family History: Positive: Cardiac Disease, Hypertension Negative: Diabetes, Other - negative malignant hyperthermia, negative adverse anesthesia reaction - Social History Alcohol Use: None Hx Substance Use: Yes - currently takes suboxone Substance Use Type: Reports: None Substance Use Comment - Amount & Last Used: suboxone Hx Tobacco Use: Yes Smoking Status (MU): Light Every Day Tobacco Smoker Type: Cigarettes Amount Used/How Often: 6 a day Have You Smoked in the Last Year: Yes Review of Systems Negative: Fever Negative: Myalgia Negative: Headache All Other Systems Reviewed And Are Negative: Yes Physical Exam - Summary Physical Exam Summary: Clinical opiate withdrawal score: 8 Appearance: The patient is well-nourished in no acute distress and in no acute pain. Skin: The skin is warm and dry, and skin color reflects adequate perfusion. HEENT: The head is normocephalic and atraumatic. The pupils are equal and reactive. The conjunctivae are clear and without drainage. Nares are patent and without drainage. Mouth reveals moist mucous membranes, and the throat is without erythema and exudate. The external ears are intact. The ear canals are patent and without drainage. The tympanic membranes are intact. Neck: The neck is supple with full range of motion and non-tender. There are no carotid bruits. There is no neck vein distension. Respiratory: Chest is non-tender. Lungs are clear to auscultation and breath sounds are symmetrical and equal. Cardiovascular: Heart is regular rate and rhythm. There is no murmur or rub auscultated. There is no peripheral edema and pulses are symmetrical and equal. Abdomen: The abdomen is soft and non-tender. There are normal bowel sounds heard in all four quadrants and there is no organomegaly palpated. Musculoskeletal: There is no back tenderness noted. Extremities are non-tender with full range of motion. There is good capillary refill. There is no peripheral edema or calf tenderness elicited. Neurological: Patient is alert and oriented to person, place and time. The patient has symmetrical motor strength in all four extremities. Cranial nerves are grossly intact. Deep tendon reflexes are symmetrical and equal in all four extremities. Psychiatric: The patient has an appropriate affect and does not exhibit any anxiety or depression. Triage Information Reviewed: Yes Vital Signs On Initial Exam: Initial Vitals Temp Pulse Resp BP Pulse Ox 97.9 F 93 16 123/76 97 06/15/19 18:17 06/15/19 18:17 06/15/19 18:17 06/15/19 18:17 06/15/19 18:17 Vital Signs Reviewed: Yes Procedures - Sedation Patient Received Moderate/Deep Sedation with Procedure: No Diagnostics - Vital Signs Vital Signs Temp Pulse Resp BP Pulse Ox 06/15/19 18:17 97.9 F 93 16 123/76 97 - Laboratory Lab Statement: Any lab studies that have been ordered have been reviewed, and results considered in the medical decision making process. Complex Multi-Symp Course/Dx Course Of Treatment: Ms. Gonzalez presented concerned that she been out of her Suboxone for since Saturday. Her COWS was only 8 and she felt that if she could have 12 mg of Suboxone (she takes 12 mg twice a day normally) she would be fine until tomorrow when she can talk with Dr. Benitez. According to the I stop she's not due until Saturday to refill prescription. - Diagnoses Provider Diagnoses: Opioid dependence Discharge ED - Sign-Out/Discharge Documenting (check all that apply): Patient Departure - Discharge - Discharge Plan Condition: Critical Disposition: HOME Patient Education Materials: Polysubstance Abuse (ED) Referrals: [facility] [Outside] Additional Instructions: Follow up with primary care provider this week. Return to the ED for any new or worsening symptoms. - Billing Disposition and Condition Condition: CRITICAL Disposition: Home - Attestation Statements Document Initiated by Scribe: Yes Documenting Scribe: Tita Bonilla Provider For Whom Marilee is Documenting (Include Credential): Bob Parker MD Scribe Attestation: Tita Aldridge, scribed for Bob Parker MD on 06/15/19 at 2055. Scribe Documentation Reviewed: Yes Provider Attestation: The documentation as recorded by the Tita allen accurately reflects the service I personally performed and the decisions made by Bob donnelly MD Status of Scribe Document: Viewed
[2019-06-15 19:56] VITALS: BP 118/76
== END 2019-06-15 19:55 | disposition home or self-care (01) ==
LOC: ED 18:16
DX: F11.20 Opioid dependence, uncomplicated (principal); F17.210 Nicotine dependence, cigarettes, uncomplicated; I25.10 Atherosclerotic heart disease of native coronary artery without angina pectoris; Z95.810 Presence of automatic (implantable) cardiac defibrillator; I10 Essential (primary) hypertension; I25.2 Old myocardial infarction; J44.9 Chronic obstructive pulmonary disease, unspecified; Z79.899 Other long term (current) drug therapy
CPT/HCPCS: 99281; A9270-GY

== ENCOUNTER 2021-11-28 19:16 | Observation (INO) ==
[2021-11-28 19:54] LABS: ABS Monocytes 0.6 10^3/ul (0-0.8); ABS Neutrophils 6.2 10^3/ul (1.5-7.7); Eosinophil % 0.1 %; Hematocrit 46 % (35-47); Hemoglobin 15.7 g/dL (12.0-16.0); Lymphocyte % 13.3 %; Mean Corpuscular HGB Conc 34 g/dL (31-36); Mean Corpuscular Hemoglobin 30 pg (27-31); Mean Corpuscular Volume 89 fL (80-97); Mean Platelet Volume 9.7 fL (7.4-10.4); Platelet Count 151 10^3/uL (150-450); Red Cell Distribution Width 15 % (10-15); White Blood Count 7.9 10^3/uL (3.5-10.8)
[2021-11-28 20:07] LABS: INR 1.09 (0.86-1.15)
[2021-11-28 20:40] LABS: Albumin 4.3 g/dL (3.2-5.2); Albumin/Globulin Ratio 1.5 (1-3); Globulin 2.8 g/dL (2-4); Potassium 3.8 mmol/L (3.5-5.0); Total Bilirubin 0.5 mg/dL (0.2-1.0); Total Protein 7.1 g/dL (6.4-8.9); eGFR CKD-EPI 82.9 (>60)
[2021-11-28 21:51] LABS: High Sensitivity Troponin 1 Hr 10 pg/mL (<15)
[2021-11-29] MEDS ORDERED: Albuterol/Ipratropium NEB.SOL (2.5/0.5 MG) 3 ML NEB.SOLN INH ONE (05:25)
[2021-11-29] MEDS ORDERED: Buprenorphine 2 mg SL TAB SL ONE (05:26)
[2021-11-29] MEDS ORDERED: Azithromycin 500 MG IV - ED ONCE IVPB ONE (06:00)
[2021-11-29] MEDS ORDERED: SPIRIVA Respimat (tiotropium) 2.5 mcg/inh Inhaler INH SCH (06:00)
[2021-11-29] MEDS ORDERED: Levalbuterol HFA INHALER MDI INH SCH (07:00)
[2021-11-29] MEDS ORDERED: BUPRENORPHINE NALOXONE SL SCH (09:00)
[2021-11-29] MEDS: Aspirin EC 81 mg TAB.EC (enteric coated) PO SCH (09:41)
[2021-11-29] MEDS: Albuterol/Ipratropium NEB.SOL (2.5/0.5 MG) 3 ML NEB.SOLN INH SCH ×3 (09:43→15:19)
[2021-11-29 15:07] LABS: C Reactive Protein 22.68 mg/L (<8.01)
[2021-11-29] MEDS: Mometasone/Formoter 200/5 MDI INH SCH (20:05)
[2021-11-29] MEDS: Buprenorp/Nalox 4-1 MG FILM SL FILM SCH (20:55)
[2021-11-30] MEDS ORDERED: Azithromycin 500 mg/250 ml NS 500 MG/250 ML BAG IVPB SCH (06:00)
[2021-11-30 06:08] LABS: ABS Lymphocytes 1.6 10^3/ul (1.0-4.8); ABS Monocytes 0.7 10^3/ul (0-0.8); ABS Neutrophils 7.4 10^3/ul (1.5-7.7); Eosinophil % 0.1 %; Hematocrit 40 % (35-47); Hemoglobin 13.6 g/dL (12.0-16.0); Lymphocyte % 16.8 %; Mean Corpuscular HGB Conc 34 g/dL (31-36); Mean Corpuscular Hemoglobin 30 pg (27-31); Mean Corpuscular Volume 90 fL (80-97); Mean Platelet Volume 10.1 fL (7.4-10.4); Nucleated Red Blood Cells % 0.1; Platelet Count 147 10^3/uL (150-450); Red Blood Count 4.48 10^6 /uL (3.70-4.87); Red Cell Distribution Width 15 % (10-15); White Blood Count 9.8 10^3/uL (3.5-10.8)
[2021-11-30 06:52] LABS: Calcium 8.5 mg/dL (8.6-10.3); Magnesium 1.7 mg/dL (1.9-2.7); Potassium 3.4 mmol/L (3.5-5.0); eGFR CKD-EPI 79.5 (>60)
[2021-11-30] MEDS ORDERED: Magnesium Sulfate IV 3 GM in NS 0.9% 100 ml BAG 100 ML IVPB ONE (07:26)
[2021-11-30] MEDS ORDERED: Magnesium Sulfate 2 GM IV (Premix) IVPB ONE (08:00)
[2021-11-30] MEDS: Buprenorp/Nalox 4-1 MG FILM SL FILM SCH (08:50)
[2021-11-30] MEDS: Aspirin EC 81 mg TAB.EC (enteric coated) PO SCH (08:51)
[2021-11-30] MEDS ORDERED: Magnesium Sulfate 1 GM IV 1 GM/100 ML BAG IV ONE (09:00)
[2021-11-30] MEDS: Albuterol HFA INHALER 8 gm MDI INH SCH ×3 (09:36→11:01)
[2021-11-30] MEDS: Mometasone/Formoter 200/5 MDI INH SCH (09:37)
[2021-11-30 11:50] VITALS: BP 154/88
== END 2021-11-30 11:49 | disposition home or self-care (01) ==
LOC: ED 19:16 → EDHOLD 19:16 → SUATTDRO 11-29 05:06 → EDHOLD 11-29 12:56 → MEDTELE 11-29 13:06
PROVIDERS: ADMIT Internal Medicine; ATTEND Internal Medicine